=== PATIENT | female | born 1950 | race Caucasian/White ===

== ENCOUNTER 2025-08-04 18:23 | Inpatient (IN) | payer OTHER, SELFPAY ==
[2025-08-04] VITALS (12 sets, daily range): BP systolic 146–182; BP diastolic 67–78; PULSE 62–82; RESP 16–18; TEMP 36.1–36.8; O2SAT 94–98; BMI 24.7
--- NOTE | 2025-08-04 18:31 | DI.RAD.S_ITS ---
PROCEDURE: XR HIP W PEL IF DONE RT 2V INDICATIONS: fall/hip pain/rotated/shortened TECHNIQUE: 2 views of the hip were acquired. COMPARISON: None. FINDINGS/IMPRESSION: Displaced, comminuted and foreshortened intratrochanteric fracture of the right femur. Dictated by: Jerry Kelsey M.D. on 08/04/2025 at 19:58 Approved by: Jerry Kelsey M.D. on 08/04/2025 at 19:58
--- NOTE | 2025-08-04 18:36 | DI.RAD.S_ITS ---
PROCEDURE: XR CHEST 1V INDICATIONS: fall injured right hip TECHNIQUE: One view of the chest was acquired. COMPARISON: None. FINDINGS: Surgical changes and devices: Prior CABG Lungs and pleura: Lungs are clear. No pleural effusions or pneumothorax. Mediastinum: Mediastinal contours appear normal. Heart size is enlarged. Bones and chest wall: Fractured right humeral neck. IMPRESSION: Fractured right humeral neck, uncertain age. Dictated by: Jerry Kelsey M.D. on 08/04/2025 at 20:01 Approved by: Jerry Kelsey M.D. on 08/04/2025 at 20:02
--- NOTE | 2025-08-04 18:37 | ED_ITS ---
HPI - Extremity Injury (Lower) <Dannielle Madrid PA-C - Last Filed: 08/04/25 19:11> General Chief Complaint: Fall Stated Complaint: FAll R hip pn Time Seen by Provider: 08/04/25 18:26 History of Present Illness HPI Narrative: Ms. Fleming is a pleasant 75-year-old female with a past medical history of HTN, recent right shoulder fracture who presents to the emergency department with her friend via private vehicle for right hip pain after a fall prior to arrival. She is not on blood thinners. Patient and her friend report that she was stepping up onto a curb at the [facility] when she tripped causing her to fall forward landing directly on the right hip. She was on her way to her home on [place]. Patient ambulates independently however since her right arm has been in a sling she is slightly off balance. Patient states that she did not hit her head and friend who witnessed the fall states he did not see a head strike. Patient reports at this time she only has pain of the right hip. Denies headache, neck pain, back pain, chest pain, abdominal pain, right upper extremity pain, left upper extremity pain, left lower extremity pain. She denies pain of bilateral feet, ankles, knees. She denies prior injury to the right hip. At this time her leg is shortened and externally rotated on the right-hand side. She is able to move her foot and has sensation of the right foot. She denies any bleeding wounds. Reports her only medication allergies are penicillin. She takes metoprolol and amlodipine for blood pressure. She does have somewhat slow speech, her friend that she lives with states that this is normal for her and is not indicative of her mental status but is because she needs dental implants. R shoulder fracture 07/24/25. Related Data Allergies Allergy/AdvReac Type Severity Reaction Status Date / Time PENICILLIN Allergy Severe ANAPHYLAXIS Uncoded 08/04/25 18:49 <Petar Murphy MD - Last Filed: 08/04/25 22:36> History of Present Illness HPI Narrative: Ms. Fleming is a pleasant 75-year-old female with a past medical history of HTN, recent right shoulder fracture who presents to the emergency department with her friend via private vehicle for right hip pain after a fall prior to arrival. She is not on blood thinners. Patient and her friend report that she was stepping up onto a curb at the [facility] when she tripped causing her to fall forward landing directly on the right hip. She was on her way to her home on [place]. Patient ambulates independently however since her right arm has been in a sling she is slightly off balance. Patient states that she did not hit her head and friend who witnessed the fall states he did not see a head strike. Patient reports at this time she only has pain of the right hip. Denies headache, neck pain, back pain, chest pain, abdominal pain, right upper extremity pain, left upper extremity pain, left lower extremity pain. She denies pain of bilateral feet, ankles, knees. She denies prior injury to the right hip. At this time her leg is shortened and externally rotated on the right-hand side. She is able to move her foot and has sensation of the right foot. She denies any bleeding wounds. Reports her only medication allergies are penicillin. She takes metoprolol and amlodipine for blood pressure. She does have somewhat slow speech, her friend that she lives with states that this is normal for her and is not indicative of her mental status but is because she needs dental implants. R shoulder fracture 07/24/25. Review of Systems <Dannielle Madrid PA-C - Last Filed: 08/04/25 19:11> Review of Systems ROS Unobtainable: All systems reviewed & are unremarkable except as noted in HPI and below Patient History <Dannielle Madrid PA-C - Last Filed: 08/04/25 19:11> Social History Smoking Status: Never smoker Exam <Dannielle Madrid PA-C - Last Filed: 08/04/25 19:11> Narrative Exam Narrative: GENERAL: 75 year old patient appears stated age. Well-developed patient, in pain 2/2 R hip. HEAD: Atraumatic. Normocephalic. EYES: PERRL. Extraocular motions intact. No scleral icterus. No injection or drainage. NECK: Trachea midline. Cervical ROM intact. CARDIOVASCULAR: Regular rate and rhythm. RESPIRATORY: ?Nonlabored respirations. ?Speaking in clear, full sentences. ?Clear to auscultation. Breath sounds equal bilaterally. No wheezes, rales, or rhonchi. ? GASTROINTESTINAL: Abdomen soft, non-tender, nondistended. EXTREMITIES: Right leg is significantly shortened and externally rotated in comparison to left leg. DP pulses are palpable bilaterally and brisk cap refill in the toes. Patient has sensation intact to light touch on the dorsal and plantar aspect of the right foot. No tenderness to palpation of bilateral ankles, knees. Patient has tenderness palpation of the proximal right femur, no open fractures. No tenderness to palpation of the pubis symphysis. Right arm is in sling from prior fracture, 2+ radial pulse present. NEURO: Alert and oriented to person, place, time. Speech is slow which is reported baseline. Sensation intact to light touch on bilateral upper and lower extremities. No facial asymmetry. SKIN: No rash or erythema of visible areas Initial Vital Signs Initial Vital Signs: Vital Signs Pulse Rate 71 08/04/25 18:29 Blood Pressure 146/69 H 08/04/25 18:29 Pulse Oximetry 98 08/04/25 18:29 <Petar Murphy MD - Last Filed: 08/04/25 22:36> Narrative Exam Narrative: GENERAL: 75 year old patient appears stated age. Well-developed patient, in pain 2/2 R hip. HEAD: Atraumatic. Normocephalic. EYES: PERRL. Extraocular motions intact. No scleral icterus. No injection or drainage. NECK: Trachea midline. Cervical ROM intact. CARDIOVASCULAR: Regular rate and rhythm. Systolic murmur RESPIRATORY: ?Nonlabored respirations. ?Speaking in clear, full sentences. ?Clear to auscultation. Breath sounds equal bilaterally. No wheezes, rales, or rhonchi. ? GASTROINTESTINAL: Abdomen soft, non-tender, nondistended. EXTREMITIES: Right leg is significantly shortened and externally rotated in comparison to left leg. DP pulses are palpable bilaterally and brisk cap refill in the toes. Patient has sensation intact to light touch on the dorsal and plantar aspect of the right foot. No tenderness to palpation of bilateral ankles, knees. Patient has tenderness palpation of the proximal right femur, no open fractures. No tenderness to palpation of the pubis symphysis. Right arm is in sling from prior fracture, 2+ radial pulse present. NEURO: Alert and oriented to person, place, time. Speech is slow which is reported baseline. Sensation intact to light touch on bilateral upper and lower extremities. No facial asymmetry. SKIN: No rash or erythema of visible areas Initial Vital Signs Initial Vital Signs: Vital Signs Pulse Rate 71 08/04/25 18:29 Blood Pressure 146/69 H 08/04/25 18:29 Pulse Oximetry 98 08/04/25 18:29 Course <Dannielle Madrid PA-C - Last Filed: 08/04/25 19:11> Orders Ordered: ED Orders 08/04/25 18:31 XR hip w pel RT 2V Stat 08/04/25 18:36 XR chest 1V Stat EKG-12 Lead Stat 08/04/25 18:40 CBC Auto Diff [Complete Blood Count AUTO DIFF] Stat CMP [Comprehensive Metabolic Panel] Stat PT [Prothrombin Time INR] Stat PTT Partial Thromboplastin Philippe Stat Troponin & CK Cardiac Panel Stat 08/04/25 20:19 Consult to Orthopedic Surgery Stat 08/04/25 20:20 Urine Microscopic Stat 08/04/25 20:46 CT pelvis wo con Stat 08/04/25 20:47 Consult to Physician Routine 08/04/25 21:06 XR shoulder RT 2+ views Stat 08/05/25 05:00 Basic Metabolic Panel DAILY Complete Blood Count AUTO DIFF DAILY Acetaminophen (Acetaminophen 325 Mg Tablet) 650 mg PO Q6H PRN PRN Reason: Fever/Mild Pain (1-3) Hydrocodone Bitart/Acetaminophen (Hydrocodone/Acet 5/325 Tablet) 1 tab PO Q4H PRN PRN Reason: Pain, Moderate (4-6) Calcium Carbonate (Calcium Carbonate 500 Mg Tab) 1,000 mg PO Q4HR PRN PRN Reason: Dyspepsia Sodium Chloride (Normal Saline 0.9%) 1,000 mls @ 100 mls/hr IV CONT DEWAYNE Last Admin: 08/04/25 21:24 Dose: 100 mls/hr Documented By: ROSA M Morphine Sulfate (Morphine 4 Mg/Ml Inj) 2 mg IV Q3HR PRN PRN Reason: Pain, Severe (7-10) Naloxone HCl (Naloxone 0.4 Mg/Ml Vial) 0.2 mg IV Q2MIN PRN PRN Reason: Opiate Reversal Ondansetron HCl (Ondansetron 4 Mg/2 Ml Inj) 4 mg IV Q8HR PRN PRN Reason: Nausea And Vomiting Pantoprazole Sodium (Pantoprazole Dr 20 Mg Tablet) 20 mg PO 0600 [facility] Promethazine HCl (Promethazine 12.5 Mg Supp) 12.5 mg NH Q6HR PRN PRN Reason: Nausea And Vomiting Sennosides (Sennosides 8.6 Mg Tablet) 17.2 mg PO BEDTIME DEWAYNE Discontinued Medications Fentanyl (Fentanyl 100 Mcg/2 Ml Inj) 50 mcg IV NOW ONE Stop: 08/04/25 18:41 Last Admin: 08/04/25 19:09 Dose: Not Given Documented By: ES Hydromorphone HCl (Hydromorphone Hcl 0.5 Mg/0.5 Ml Syringe) 0.5 mg IV NOW ONE Stop: 08/04/25 18:52 Last Admin: 08/04/25 19:10 Dose: 0.5 mg Documented By: ROSA M Vital Signs Vital signs: Vital Signs - 8 hr 08/04/25 18:29 08/04/25 18:29 08/04/25 18:30 Temperature Pulse Rate 71 72 Respiratory Rate Blood Pressure 146/69 H Pulse Oximetry 98 98 Oxygen Delivery Method 08/04/25 18:30 08/04/25 18:49 08/04/25 19:00 Temperature 98.3 F Pulse Rate 69 68 Respiratory Rate 18 Blood Pressure 182/78 H 182/78 H Pulse Oximetry 98 97 Oxygen Delivery Method Room Air 08/04/25 19:17 08/04/25 19:17 08/04/25 19:30 Temperature Pulse Rate 70 62 Respiratory Rate Blood Pressure 156/67 H Pulse Oximetry 94 94 Oxygen Delivery Method 08/04/25 20:00 08/04/25 20:30 08/04/25 21:00 Temperature Pulse Rate 63 68 72 Respiratory Rate 16 Blood Pressure Pulse Oximetry 95 94 94 Oxygen Delivery Method <Petar Murphy MD - Last Filed: 08/04/25 22:36> Orders Ordered: ED Orders 08/04/25 18:31 XR hip w pel RT 2V Stat 08/04/25 18:36 XR chest 1V Stat EKG-12 Lead Stat 08/04/25 18:40 CBC Auto Diff [Complete Blood Count AUTO DIFF] Stat CMP [Comprehensive Metabolic Panel] Stat PT [Prothrombin Time INR] Stat PTT Partial Thromboplastin Philippe Stat Troponin & CK Cardiac Panel Stat 08/04/25 20:19 Consult to Orthopedic Surgery Stat 08/04/25 20:20 Urine Microscopic Stat 08/04/25 20:46 CT pelvis wo con Stat 08/04/25 20:47 Consult to Physician Routine 08/04/25 21:06 XR shoulder RT 2+ views Stat 08/05/25 05:00 Basic Metabolic Panel DAILY Complete Blood Count AUTO DIFF DAILY Acetaminophen (Acetaminophen 325 Mg Tablet) 650 mg PO Q6H PRN PRN Reason: Fever/Mild Pain (1-3) Hydrocodone Bitart/Acetaminophen (Hydrocodone/Acet 5/325 Tablet) 1 tab PO Q4H PRN PRN Reason: Pain, Moderate (4-6) Calcium Carbonate (Calcium Carbonate 500 Mg Tab) 1,000 mg PO Q4HR PRN PRN Reason: Dyspepsia Sodium Chloride (Normal Saline 0.9%) 1,000 mls @ 100 mls/hr IV CONT DEWAYNE Last Admin: 08/04/25 21:24 Dose: 100 mls/hr Documented By: ROSA M Morphine Sulfate (Morphine 4 Mg/Ml Inj) 2 mg IV Q3HR PRN PRN Reason: Pain, Severe (7-10) Naloxone HCl (Naloxone 0.4 Mg/Ml Vial) 0.2 mg IV Q2MIN PRN PRN Reason: Opiate Reversal Ondansetron HCl (Ondansetron 4 Mg/2 Ml Inj) 4 mg IV Q8HR PRN PRN Reason: Nausea And Vomiting Pantoprazole Sodium (Pantoprazole Dr 20 Mg Tablet) 20 mg PO 0600 DEWAYNE Promethazine HCl (Promethazine 12.5 Mg Supp) 12.5 mg NH Q6HR PRN PRN Reason: Nausea And Vomiting Sennosides (Sennosides 8.6 Mg Tablet) 17.2 mg PO BEDTIME DEWAYNE Discontinued Medications Fentanyl (Fentanyl 100 Mcg/2 Ml Inj) 50 mcg IV NOW ONE Stop: 08/04/25 18:41 Last Admin: 08/04/25 19:09 Dose: Not Given Documented By: MARIELOS Hydromorphone HCl (Hydromorphone Hcl 0.5 Mg/0.5 Ml Syringe) 0.5 mg IV NOW ONE Stop: 08/04/25 18:52 Last Admin: 08/04/25 19:10 Dose: 0.5 mg Documented By: ROSA M Reevaluation(s) Reevaluation #1: Patient is examined at 7:15 p.m.. Confirms ground level fall causing right hip pain. Patient is currently in a sling with a previous right shoulder fracture. No head strike, no back pain no chest pain shortness of breath or fevers. Does have a history of coronary disease status post CABG in 2007. [facility] by her . Consultations Consultation #1: D/W Dr Bustamante- will consult NPO after midnight Consultation #2: D/W hospitalist, Dr Rose, accepts admission Vital Signs Vital signs: Vital Signs - 8 hr 08/04/25 18:29 08/04/25 18:29 08/04/25 18:30 Temperature Pulse Rate 71 72 Respiratory Rate Blood Pressure 146/69 H Pulse Oximetry 98 98 Oxygen Delivery Method 08/04/25 18:30 08/04/25 18:49 08/04/25 19:00 Temperature 98.3 F Pulse Rate 69 68 Respiratory Rate 18 Blood Pressure 182/78 H 182/78 H Pulse Oximetry 98 97 Oxygen Delivery Method Room Air 08/04/25 19:17 08/04/25 19:17 08/04/25 19:30 Temperature Pulse Rate 70 62 Respiratory Rate Blood Pressure 156/67 H Pulse Oximetry 94 94 Oxygen Delivery Method 08/04/25 20:00 08/04/25 20:30 08/04/25 21:00 Temperature Pulse Rate 63 68 72 Respiratory Rate 16 Blood Pressure Pulse Oximetry 95 94 94 Oxygen Delivery Method MDM - Extremity Injury (Lower) <Dannielle Madrid PA-C - Last Filed: 08/04/25 19:11> Lab Data 08/04/25 18:40 08/04/25 18:40 Labs: Lab Results 08/04/25 08/04/25 Range/Units 18:40 20:20 WBC 11.1 H (4.5-11.0) X10^3/uL RBC 4.59 (4.0-5.2) X10^6/uL Hgb 13.1 (12.0-16.0) g/dL Hct 39.1 (36-46) % MCV 85.1 (80-100) fL MCH 28.5 (26-34) PG MCHC 33.5 (30-36) % RDW 14.7 (11.6-14.8) % Plt Count 312 (150-400) X10^3/uL Neut % (Auto) 61.1 (50-75) % Lymph % (Auto) 29.0 (25-40) % [place] % (Auto) 7.5 (3-14) % Eos % (Auto) 1.7 L (2-4) % Baso % (Auto) 0.7 (0-2) % Neut # (Auto) 6800 (3515-9954) /uL Lymph # (Auto) 3200 (5424-5966) /uL [place] # (Auto) 800 (0-900) /uL Eos # (Auto) 200 (0-450) /uL Baso # (Auto) 100 (0-100) /uL PT 13.7 H (9.4-12.5) SECONDS INR 1.2 (0.9-1.3) APTT 33 (25.1-36.5) SECONDS Sodium 135 L (137-145) mmol/L Potassium 4.1 (3.4-5.1) mmol/L Chloride 101 (98-107) mmol/L Carbon Dioxide 23 (22-32) mmol/L BUN 14 (7-17) mg/dL Creatinine 0.62 (0.52-1.04) mg/dL Estimated GFR > 60 (>60) mL/min BUN/Creatinine Ratio 22.6 H (6-22) Glucose 132 H (70-99) mg/dL Calcium 9.7 (8.4-10.2) mg/dL Total Bilirubin 0.4 (0.2-1.3) mg/dL AST 28 (14-36) IU/L ALT 20 (<35) IU/L Alkaline Phosphatase 96 (38-126) U/L Total Creatine Kinase 69 (30-135) U/L Troponin I 0.019 (0.01-0.034) ng/mL Total Protein 7.5 (6.3-8.2) g/dL Albumin 4.5 (3.5-5.0) g/dL Globulin 3.0 (1.7-4.1) g/dL Albumin/Globulin Ratio 1.5 (1.0-2.8) Urine RBC 0-1/hpf (0-5/HPF) Urine WBC 0-1/hpf (0-5/HPF) Ur Squamous Epith Cells 0-1 /hpf (0-5/HPF) Urine Bacteria Occasional (0-1) (None) Hyaline Casts 0-1/lpf (None) Urine Mucus 2+ H (Negative) Ur Culture Indicated? Cult not indicated Vol Urine Centrifuged 10ml (spun) Urine Dip Bedside Urine Glucose Negative Bedside Urine Bilirubin - Negative Bedside Urine Ketone ++ 40 Urine Specific Dickens 1.010 Bedside Urine Occult Blood - Negative Bedside Urine pH 6.0 Bedside Urine Protein - Negative Bedside Urine Urobilinogen - Negative Bedside Urine Nitrite - Negative Bedside Urine Leukocytes - Negative Esterase MDM Narrative Medical decision making narrative: 75-year-old female with a past medical history of HTN, recent right shoulder fracture who presents to the emergency department with her friend via private vehicle for right hip pain after a fall prior to arrival. She is not on blood thinners. Patient's friend/person she lives with, Low, contributes to the history. Differential diagnosis includes but is not limited to right hip fracture, dislocation, contusion, mechanical fall, etc. On exam the patient is in no acute distress, nontoxic appearing, vital signs appropriate except for mildly elevated blood pressure. Her right leg is shortened and externally rotated. Right leg is neurovascularly intact. Patient denies head strike. She reports only having right hip pain, no other pain, no head strike, no blood thinners. Her speech is somewhat slowed however her friend reports that this is normal for her. She is alert and oriented. We will obtain x-ray right hip/pelvis, chest x-ray, CBC, CMP, coags, EKG, troponin. We will treat pain with Dilaudid. Due to shift change, case was discussed the nighttime physician, Dr. Murphy. <Petar Murphy MD - Last Filed: 08/04/25 22:36> Lab Data Lab results narrative: CBC shows a minimal leukocytosis probably not clinically significant. Chemistries are reassuring her glucose is mildly elevated. Labs: Lab Results 08/04/25 08/04/25 Range/Units 18:40 20:20 WBC 11.1 H (4.5-11.0) X10^3/uL RBC 4.59 (4.0-5.2) X10^6/uL Hgb 13.1 (12.0-16.0) g/dL Hct 39.1 (36-46) % MCV 85.1 (80-100) fL MCH 28.5 (26-34) PG MCHC 33.5 (30-36) % RDW 14.7 (11.6-14.8) % Plt Count 312 (150-400) X10^3/uL Neut % (Auto) 61.1 (50-75) % Lymph % (Auto) 29.0 (25-40) % [place] % (Auto) 7.5 (3-14) % Eos % (Auto) 1.7 L (2-4) % Baso % (Auto) 0.7 (0-2) % Neut # (Auto) 6800 (0120-1572) /uL Lymph # (Auto) 3200 (5929-0537) /uL [place] # (Auto) 800 (0-900) /uL Eos # (Auto) 200 (0-450) /uL Baso # (Auto) 100 (0-100) /uL PT 13.7 H (9.4-12.5) SECONDS INR 1.2 (0.9-1.3) APTT 33 (25.1-36.5) SECONDS Sodium 135 L (137-145) mmol/L Potassium 4.1 (3.4-5.1) mmol/L Chloride 101 (98-107) mmol/L Carbon Dioxide 23 (22-32) mmol/L BUN 14 (7-17) mg/dL Creatinine 0.62 (0.52-1.04) mg/dL Estimated GFR > 60 (>60) mL/min BUN/Creatinine Ratio 22.6 H (6-22) Glucose 132 H (70-99) mg/dL Calcium 9.7 (8.4-10.2) mg/dL Total Bilirubin 0.4 (0.2-1.3) mg/dL AST 28 (14-36) IU/L ALT 20 (<35) IU/L Alkaline Phosphatase 96 (38-126) U/L Total Creatine Kinase 69 (30-135) U/L Troponin I 0.019 (0.01-0.034) ng/mL Total Protein 7.5 (6.3-8.2) g/dL Albumin 4.5 (3.5-5.0) g/dL Globulin 3.0 (1.7-4.1) g/dL Albumin/Globulin Ratio 1.5 (1.0-2.8) Urine RBC 0-1/hpf (0-5/HPF) Urine WBC 0-1/hpf (0-5/HPF) Ur Squamous Epith Cells 0-1 /hpf (0-5/HPF) Urine Bacteria Occasional (0-1) (None) Hyaline Casts 0-1/lpf (None) Urine Mucus 2+ H (Negative) Ur Culture Indicated? Cult not indicated Vol Urine Centrifuged 10ml (spun) Urine Dip Bedside Urine Glucose Negative Bedside Urine Bilirubin - Negative Bedside Urine Ketone ++ 40 Urine Specific Dickens 1.010 Bedside Urine Occult Blood - Negative Bedside Urine pH 6.0 Bedside Urine Protein - Negative Bedside Urine Urobilinogen - Negative Bedside Urine Nitrite - Negative Bedside Urine Leukocytes - Negative Esterase Imaging Data right hip: My Impression: Intertrochanteric fracture right hip Radiologist's Impression: [address] [address] XRay Report Signed Patient: Camille Fleming MR#: [id number] : 1950 Acct:[id number] Age/Sex: 75 / F Date of Service: 08/04/25 Loc: ED Accession Number: [id number] Procedure: XR hip w pel RT 2V Ordering Provider: Dannielle Madrid PA-C PROCEDURE: XR HIP W PEL IF DONE RT 2V INDICATIONS: fall/hip pain/rotated/shortened TECHNIQUE: 2 views of the hip were acquired. COMPARISON: None. FINDINGS/IMPRESSION: Displaced, comminuted and foreshortened intratrochanteric fracture of the right femur. Dictated by: Jerry Kelsey M.D. on 08/04/2025 at 19:58 Approved by: Jerry Kelsey M.D. on 08/04/2025 at 19:58 Chest x-ray: My Impression: No acute findings in the chest, previously known right humeral fracture Radiologist's Impression: Radiology report indicates no acute cardiopulmonary abnormality. ECG Data Attestation: I personally reviewed and interpreted this ECG as follows: (Normal sinus rhythm, LVH, lateral T-wave inversion no old EKG available for comparison) MDM Narrative Medical decision making narrative: 75-year-old female with a past medical history of HTN, recent right shoulder fracture who presents to the emergency department with her friend via private vehicle for right hip pain after a fall prior to arrival. She is not on blood thinners. Patient's friend/person she lives with, Low, contributes to the history. Differential diagnosis includes but is not limited to right hip fracture, dislocation, contusion, mechanical fall, etc. On exam the patient is in no acute distress, nontoxic appearing, vital signs appropriate except for mildly elevated blood pressure. Her right leg is shortened and externally rotated. Right leg is neurovascularly intact. Patient denies head strike. She reports only having right hip pain, no other pain, no head strike, no blood thinners. Her speech is somewhat slowed however her friend reports that this is normal for her. She is alert and oriented. We will obtain x-ray right hip/pelvis, chest x-ray, CBC, CMP, coags, EKG, troponin. We will treat pain with Dilaudid. Due to shift change, case was discussed the nighttime physician, Dr. Murphy. Patient is admitted to the hospitalist service with orthopedics consulting. Additional imaging including CT pelvis and right shoulder x-ray ordered at the request of Orthopedic surgery and I do not expect these to altered emergency department course Discharge Plan Departure Patient Disposition: Admitted As Inpatient Clinical Impression: Closed right hip fracture Qualifiers: Encounter type: initial encounter Qualified Code(s): S72.001A - Fracture of unspecified part of neck of right femur, initial encounter for closed fracture Admit Date/Time: 08/04/25 21:34 Admit Provider: Kenneth Rose
--- NOTE | 2025-08-04 18:52 | EKG_ITS ---
[address] [address] [place] [address] Test Date: 2025-08-04 Pat Name: Camille Fleming Department: [facility] Room: Gender: Female Network Lead: TRAVIS : 1950 Requested By: Order Number: [id number] Reading MD: Arash Estrada Measurements Intervals [place] Rate: 70 P: 83 [place]: 154 QRS: 72 QRSD: 76 T: 210 QT: 412 QTc: 444 Interpretive Statements Normal sinus rhythm Possible Left atrial enlargement Left ventricular hypertrophy ( Sokolow-Reid , Romhilt-Rahman ) Cannot rule out Septal infarct , age undetermined ST & T wave abnormality, consider inferolateral ischemia Electronically Signed On 08-04-2025 19:05:37 PST by Arash Estrada
[2025-08-04 18:54] LABS: Add Manual Diff / Slide Review NO; Hematocrit 39.1 % (36-46); Hemoglobin 13.1 g/dL (12.0-16.0); Lymphocytes Absolute Auto 3200 /uL (1100-4500); Mean Corpuscular HGB Conc 33.5 % (30-36); Mean Corpuscular Hemoglobin 28.5 PG (26-34); Mean Corpuscular Volume 85.1 fL (80-100); Platelet Count 312 X10^3/uL (150-400)
[2025-08-04 19:03] LABS: INR 1.2 (0.9-1.3); Prothrombin Time 13.7 SECONDS (9.4-12.5)
[2025-08-04 19:06] LABS: PTT Partial Thromboplastin Tim 33 SECONDS (25.1-36.5)
[2025-08-04 19:07] LABS: Alanine Aminotransferase 20 IU/L (<35); Albumin 4.5 g/dL (3.5-5.0); Albumin Globulin Ratio 1.5 (1.0-2.8); Alkaline Phosphatase 96 U/L (38-126); Blood Urea Nitrogen 14 mg/dL (7-17); Calcium 9.7 mg/dL (8.4-10.2); Carbon Dioxide 23 mmol/L (22-32); Chloride 101 mmol/L (98-107); Creatine Kinase 69 U/L (30-135); Estimated Glomerular Filt Rate > 60 mL/min (>60); Globulin 3.0 g/dL (1.7-4.1); Glucose 132 mg/dL (70-99); HEMOLYSIS 23 (0-50); Potassium 4.1 mmol/L (3.4-5.1); Sodium 135 mmol/L (137-145); Total Protein 7.5 g/dL (6.3-8.2)
[2025-08-04 19:19] LABS: Troponin I 0.019 ng/mL (0.01-0.034)
--- NOTE | 2025-08-04 20:46 | DI.CT.S_ITS ---
PROCEDURE: CT PEL WO CON INDICATIONS: hip fracture TECHNIQUE: Noncontrast 3 mm axial sections acquired through the bony pelvis, with coronal and sagittal reformatting. COMPARISON: [facility], CR, XR HIP W PEL RT 2V, 08/04/2025, 19:43. FINDINGS: Image quality: Excellent. Bones: There is a comminuted intertrochanteric right femoral fracture with fracture lucency extending to the proximal diaphysis. No dislocation at the hip joint. Soft tissues: Colonic diverticula without inflammatory change. Atherosclerotic calcification of the distal aorta with luminal narrowing, measuring 9 mm. 50- 75% stenosis is present within the proximal common iliac arteries bilaterally. Prominent stool within the rectum. IMPRESSION: Comminuted intertrochanteric right femoral fracture as above. No dislocation. Dictated by: Suni Quintero M.D. on 08/04/2025 at 21:17 Approved by: Suni Quintero M.D. on 08/04/2025 at 21:19
--- NOTE | 2025-08-04 21:06 | DI.RAD.S_ITS ---
PROCEDURE: XR SHOULDER RT MIN 2V INDICATIONS: shouldr fx TECHNIQUE: 3 views of the shoulder were acquired. COMPARISON: None. FINDINGS: Bones: Comminuted and impacted humeral head/neck fracture. There is minimal inferior subluxation at the glenohumeral joint space. Adjacent osseous structures are intact. Fracture lucencies extend through the greater tuberosity. Soft tissues: No suspicious soft tissue calcifications. IMPRESSION: Comminuted impacted humeral head/neck fracture without dislocation. Dictated by: Suni Quintero M.D. on 08/04/2025 at 21:21 Approved by: Suni Quintero M.D. on 08/04/2025 at 21:22
[2025-08-04] MEDS: SODIUM CHLORIDE 0.9% 1,000 ML 100 ML IV (21:24)
--- NOTE | 2025-08-04 21:38 | P.HP_ITS ---
History of Present Illness History of Present Illness Date Patient Seen: 08/04/25 Time Patient Seen: 08:30 Date of Onset of Symptoms: 08/04/25 Chief complaint: FAll R hip pn Narrative: 75-year-old female with right hip pain ground level after tripping. She has a history of coronary artery disease with quadruple bypass surgery. She had a recent right proximal humerus fracture sustained 1 month ago. She is still in a sling. She denies pain at the shoulder. Currently she is only having pain at her right hip. She she normally ambulates independently. She normally lives in [facility] however she has also has a [facility] that she was visiting. Physical exam reveals a well-developed well-nourished 75-year-old in no acute distress Evaluation of her right shoulder demonstrates her skin is intact. She has no tenderness to palpation about the shoulder. Distally she is neurovascularly intact and fires her EPL, FPL interosseous muscles. Her sensation intact to light touch in the radial ulnar and median nerve distributions. Her radial pulses 2+ and she has brisk capillary refill Evaluation of her upper extremity demonstrates that her leg is shortened and externally rotated. Her sensation intact to light touch in the saphenous, sural, tibial, deep peroneal and superficial peroneal nerve distributions She fires her tibialis anterior, gastroc soleus, EHL and FHL. Her dorsalis pedis pulses 2+ and she has brisk capillary refill. X-rays of her right shoulder demonstrate a comminuted healing proximal humerus fracture. X-rays of her right hip and CT scan of the right hip demonstrate a comminuted intertrochanteric right hip fracture. [facility] Social History Smoking Status: Never smoker Meds Home Medications and Allergies Allergies Allergy/AdvReac Type Severity Reaction Status Date / Time PENICILLIN Allergy Severe ANAPHYLAXIS Uncoded 08/04/25 18:49 Exam Vital Signs (past 8 hours): - 08/04/25 18:29 08/04/25 18:29 08/04/25 18:30 Temperature Pulse Rate 71 72 Respiratory Rate Blood Pressure 146/69 H Pulse Oximetry 98 98 Oxygen Delivery Method 08/04/25 18:30 08/04/25 18:49 08/04/25 19:00 Temperature 98.3 F Pulse Rate 69 68 Respiratory Rate 18 Blood Pressure 182/78 H 182/78 H Pulse Oximetry 98 97 Oxygen Delivery Method Room Air 08/04/25 19:17 08/04/25 19:17 08/04/25 19:30 Temperature Pulse Rate 70 62 Respiratory Rate Blood Pressure 156/67 H Pulse Oximetry 94 94 Oxygen Delivery Method 08/04/25 20:00 08/04/25 20:30 08/04/25 21:00 Temperature Pulse Rate 63 68 72 Respiratory Rate 16 Blood Pressure Pulse Oximetry 95 94 94 Oxygen Delivery Method Oxygen Delivery Method Room Air Objective Labs 08/04/25 18:40 08/04/25 18:40 Labs: Laboratory Results - last 24 hr 08/04/25 18:40 WBC 11.1 H RBC 4.59 Hgb 13.1 Hct 39.1 MCV 85.1 MCH 28.5 MCHC 33.5 RDW 14.7 Plt Count 312 Neut % (Auto) 61.1 Lymph % (Auto) 29.0 [place] % (Auto) 7.5 Eos % (Auto) 1.7 L Baso % (Auto) 0.7 Neut # (Auto) 6800 Lymph # (Auto) 3200 [place] # (Auto) 800 Eos # (Auto) 200 Baso # (Auto) 100 PT 13.7 H INR 1.2 APTT 33 Sodium 135 L Potassium 4.1 Chloride 101 Carbon Dioxide 23 BUN 14 Creatinine 0.62 Estimated GFR > 60 BUN/Creatinine Ratio 22.6 H Glucose 132 H Calcium 9.7 Total Bilirubin 0.4 AST 28 ALT 20 Alkaline Phosphatase 96 Total Creatine Kinase 69 Troponin I 0.019 Total Protein 7.5 Albumin 4.5 Globulin 3.0 Albumin/Globulin Ratio 1.5 Assessment & Plan Assessment and plan (1) Closed intertrochanteric fracture of hip: Qualifiers: Encounter type: initial encounter Fracture alignment: displaced L aterality: right Qualified Code(s): S72.141A - Displaced intertrochanteric fracture of right femur, initial encounter for closed fracture Status: Acute Plan I discussed the risks, benefits and alternatives of surgical versus nonsurgical treatment with the patient and her friend who has a power of senior attorney. I have discussed the risks of surgeryto include but not limited to damage to arteries, veins, nerves, need for additional surgery, risks of blood clots and risks of pulmonary embolus as well as risks of wound breakdown and infection. Also risks of malunion and nonunion. I discussed the risks of nonsurgical treatment to include inability to ambulate as well as risks of blood clots and pneumonia. She understands all the risks all her questions were answered. She will be consented for right cephalomedullary nail. Surgery is scheduled for 08/05/2025 -NPO after midnight -PT and OT following surgery for her weight-bearing as tolerated. This will present to difficulty since she had this recent proximal humerus fracture on the right side that is incompletely healed. -anticoagulation post surgery should include at least aspirin b.i.d. Time-Based Coding :: [TOTAL MINUTES] spent with patient and on the chart (including review of chart, obtaining history, exam, reviewing outside data, placing orders, documenting exam and treatment plan, and counseling patient) on [DATE]. [employer] Document charge(s): Yes
[2025-08-04 22:02] LABS: Culture Indicated Urine Cult Not Indicated
[2025-08-04] MEDS: SENNOSIDES 8.6 MG TABLET 17.2 MG PO (23:49)
[2025-08-05] VITALS (13 sets, daily range): BP systolic 119–175; BP diastolic 49–83; PULSE 60–90; RESP 14–18; TEMP 35.8–37.3; O2SAT 93–98
--- NOTE | 2025-08-05 | DI.RAD.S_ITS ---
PROCEDURE: XR FEMUR RT MIN 2V INDICATIONS: Cephalomedullary nail TECHNIQUE: 5 operative views of the femur were acquired. COMPARISON: [facility], , XR FEMUR RT MIN 2V, 08/05/2025, 17:08. FINDINGS: 5 operative images obtained during ORIF of a right hip fracture. IMPRESSION: Operative imaging utilized during ORIF of a right hip fracture. Dictated by: Grady Wilson M.D. on 08/05/2025 at 18:35 Approved by: Grady Wilson M.D. on 08/05/2025 at 18:38
--- NOTE | 2025-08-05 00:18 | P.HP_ITS ---
History of Present Illness History of Present Illness Date Patient Seen: 08/05/25 Time Patient Seen: 00:19 Chief complaint: FAll R hip pn Narrative: The pt is a 75 yo who was walking outside when she slipped and tripped on a curb landing on her right hip having immediate pain. The pt tripped several weeks ago and fractured her Rt humerus and is in a sling. She has a hx of CAD with a CABG about 20 years ago and has hypertension which her (who answered all the questions) states is under very good control. She normally has some difficulty with ambulation but they deny having trouble with ADL's. [facility] Social History household members: significant other Smoking Status: Never smoker alcohol intake: never Meds Home Medications and Allergies Home Medications ?Medication ?Instructions ?Recorded ?Confirmed ?Type amlodipine 10 mg tablet 10 mg PO DAILY 08/04/2507/12 History aspirin 81 mg tablet,delayed 81 mg PO DAILY 08/04/25 1 10/04/24 History release metoprolol succinate 50 mg 50 mg PO DAILY 08/04/25 History tablet,extended release 24 hr Allergies Allergy/AdvReac Type Severity Reaction Status Date / Time PENICILLIN Allergy Severe ANAPHYLAXIS Uncoded 08/04/25 18:49 Exam Vital Signs (past 8 hours): - 08/04/25 18:29 08/04/25 18:29 08/04/25 18:30 Temperature Pulse Rate 71 72 Respiratory Rate Blood Pressure 146/69 H Pulse Oximetry 98 98 Oxygen Delivery Method 08/04/25 18:30 08/04/25 18:49 08/04/25 19:00 Temperature 98.3 F Pulse Rate 69 68 Respiratory Rate 18 Blood Pressure 182/78 H 182/78 H Pulse Oximetry 98 97 Oxygen Delivery Method Room Air 08/04/25 19:17 08/04/25 19:17 08/04/25 19:30 Temperature Pulse Rate 70 62 Respiratory Rate Blood Pressure 156/67 H Pulse Oximetry 94 94 Oxygen Delivery Method 08/04/25 20:00 08/04/25 20:30 08/04/25 21:00 Temperature Pulse Rate 63 68 72 Respiratory Rate 16 Blood Pressure Pulse Oximetry 95 94 94 Oxygen Delivery Method 08/04/25 21:30 08/04/25 22:00 Temperature Pulse Rate 68 68 Respiratory Rate Blood Pressure Pulse Oximetry 95 96 Oxygen Delivery Method Oxygen Delivery Method Room Air Const General: cooperative and comfortable Other: Due to technical issues, I was unable to examine the pt but was able to visualize the pt and talk with them. Objective Labs 08/04/25 18:40 08/04/25 18:40 Labs: Laboratory Results - last 24 hr 08/04/25 08/04/25 18:40 20:20 WBC 11.1 H RBC 4.59 Hgb 13.1 Hct 39.1 MCV 85.1 MCH 28.5 MCHC 33.5 RDW 14.7 Plt Count 312 Neut % (Auto) 61.1 Lymph % (Auto) 29.0 [place] % (Auto) 7.5 Eos % (Auto) 1.7 L Baso % (Auto) 0.7 Neut # (Auto) 6800 Lymph # (Auto) 3200 [place] # (Auto) 800 Eos # (Auto) 200 Baso # (Auto) 100 PT 13.7 H INR 1.2 APTT 33 Sodium 135 L Potassium 4.1 Chloride 101 Carbon Dioxide 23 BUN 14 Creatinine 0.62 Estimated GFR > 60 BUN/Creatinine Ratio 22.6 H Glucose 132 H Calcium 9.7 Total Bilirubin 0.4 AST 28 ALT 20 Alkaline Phosphatase 96 Total Creatine Kinase 69 Troponin I 0.019 Total Protein 7.5 Albumin 4.5 Globulin 3.0 Albumin/Globulin Ratio 1.5 Urine RBC 0-1/hpf Urine WBC 0-1/hpf Ur Squamous Epith Cells 0-1 /hpf Urine Bacteria Occasional (0-1) Hyaline Casts 0-1/lpf Urine Mucus 2+ H Ur Culture Indicated? Cult not indicated Vol Urine Centrifuged 10ml (spun) Assessment & Plan Assessment & Plan narrative: I have talked with the Er provider regarding the pt's presenting symptoms, labs and imaging and agree with the decision for admission. I have personally reviewed the labs showing the WBC of 11.1, normal electrolytes, and reviewed the X-rays showing the fracture. Orthopedics, Dr. Bustamante, has been consulted through the ER, and will be evaluating the pt in the morning. She will be NPO after midnight, IVF started, antiemetics and pain meds ordered PRN. I, Dr. Kenneth Rose in [place] has seen and examined Camille Fleming in [place] using telemedicine audio/ video with the pt's consent and nursing assistance. Time-Based Coding :: [TOTAL MINUTES] spent with patient and on the chart (including review of chart, obtaining history, exam, reviewing outside data, placing orders, documenting exam and treatment plan, and counseling patient) on [DATE].
[2025-08-05] MEDS: SODIUM CHLORIDE 0.9% FLUSH 10 ML IV (04:45)
[2025-08-05] MEDS: ONDANSETRON 4 MG/2 ML INJ IV (04:45)
[2025-08-05 05:28] LABS: Add Manual Diff / Slide Review NO; Hematocrit 30.5 % (36-46); Hemoglobin 10.6 g/dL (12.0-16.0); Lymphocytes Absolute Auto 1800 /uL (1100-4500); Mean Corpuscular HGB Conc 34.7 % (30-36); Mean Corpuscular Hemoglobin 29.4 PG (26-34); Mean Corpuscular Volume 84.6 fL (80-100); Platelet Count 237 X10^3/uL (150-400)
[2025-08-05 05:35] LABS: Blood Urea Nitrogen 16 mg/dL (7-17); Calcium 9.2 mg/dL (8.4-10.2); Carbon Dioxide 25 mmol/L (22-32); Chloride 104 mmol/L (98-107); Estimated Glomerular Filt Rate > 60 mL/min (>60); Glucose 113 mg/dL (70-99); HEMOLYSIS < 15 (0-50); Potassium 4.1 mmol/L (3.4-5.1); Sodium 135 mmol/L (137-145)
[2025-08-05] MEDS: PANTOPRAZOLE DR 20 MG TABLET PO (06:19)
[2025-08-05] MEDS: SODIUM CHLORIDE 0.9% 1,000 ML 100 ML IV (07:07)
--- NOTE | 2025-08-05 07:53 | PM.HP.1 ---
History of Present Illness History of Present Illness Chief complaint: FAll R hip pn Narrative: Summary: The pt is a 75 yo who was walking outside when she slipped and tripped on a curb landing on her right hip having immediate pain. The pt tripped several weeks ago and fractured her Rt humerus and is in a sling. She has a hx of CAD with a CABG about 20 years ago and has hypertension which her (who answered all the questions) states is under very good control. She normally has some difficulty with ambulation but they deny having trouble with ADL's. S: This morning, she mentioned squeezing chest pressures for about 3 months. Her ECG is abnormal. In addition, she had a [address] [facility] in about 2007. She was had no cardiology follow up in years. She was concerned about the status of her heart in his surgery. ROS: All else reviewed and otherwise unremarkable except as noted in the history and physical. O: VSS NAD, alert and oriented, fluent speech, calm. Normocephalic skull, EOMI, anicteric sclera, symmetric pupils. Oropharynx unremarkable, no droop. Neck supple, midline trachea, no adenopathy. Lungs clear, normal rate and effort. Heart regular, no murmur gallop or rub. Abdomen is soft, non distended and non tender. Extremities are free of edema. Skin is free of rash or lesions. Joints are not swollen or deformed. Judgment appears to be normal. IMAGING: X-rays of her right shoulder demonstrate a comminuted healing proximal humerus fracture. X-rays of her right hip and CT scan of the right hip demonstrate a comminuted intertrochanteric right hip fracture. A/P: 1. Right hip fracture, active. 2. CAD, CABG. Stable. 3. HTN, stable. 4. Abnormal ECG. PLAN: -Ortho consult appreciated -continue chronic ASA and metoprolol. -Monitor troponins. -urgent echo to assess LV function. She also has a murmur. -we will discuss results with Cardiology when available. -surgery will be placed on standby until we complete this evaluation. Full code. Has been his proxy decision maker. She lives in [place], [place]. [facility] Social History household members: significant other Smoking Status: Never smoker alcohol intake: never Meds Home Medications and Allergies Home Medications ?Medication ?Instructions ?Recorded ?Confirmed ?Type amlodipine 10 mg tablet 10 mg PO DAILY 08/04/25 08/04/25 History aspirin 81 mg tablet,delayed 81 mg PO DAILY 08/04/25 08/04/25 History release metoprolol succinate 50 mg 50 mg PO DAILY 08/04/25 08/04/25 History tablet,extended release 24 hr Allergies Allergy/AdvReac Type Severity Reaction Status Date / Time PENICILLIN Allergy Severe ANAPHYLAXIS Uncoded 08/04/25 18:49 Exam Vital Signs (past 8 hours): Oxygen Delivery Method Room Air Oxygen Flow Rate 0 Objective Labs 08/05/25 05:10 08/05/25 05:10 Labs: Laboratory Results - last 24 hr 08/04/25 08/04/25 08/05/25 18:40 20:20 05:10 WBC 11.1 H 9.0 RBC 4.59 3.61 L Hgb 13.1 10.6 L Hct 39.1 30.5 L MCV 85.1 84.6 MCH 28.5 29.4 MCHC 33.5 34.7 RDW 14.7 14.5 Plt Count 312 237 Neut % (Auto) 61.1 71.2 Lymph % (Auto) 29.0 19.5 L [place] % (Auto) 7.5 8.5 Eos % (Auto) 1.7 L 0.2 L Baso % (Auto) 0.7 0.6 Neut # (Auto) 6800 6400 Lymph # (Auto) 3200 1800 [place] # (Auto) 800 800 Eos # (Auto) 200 0 Baso # (Auto) 100 100 PT 13.7 H INR 1.2 APTT 33 Sodium 135 L 135 L Potassium 4.1 4.1 Chloride 101 104 Carbon Dioxide 23 25 BUN 14 16 Creatinine 0.62 0.58 Estimated GFR > 60 > 60 BUN/Creatinine Ratio 22.6 H 27.6 H Glucose 132 H 113 H Calcium 9.7 9.2 Total Bilirubin 0.4 AST 28 ALT 20 Alkaline Phosphatase 96 Total Creatine Kinase 69 Troponin I 0.019 Total Protein 7.5 Albumin 4.5 Globulin 3.0 Albumin/Globulin Ratio 1.5 Urine RBC 0-1/hpf Urine WBC 0-1/hpf Ur Squamous Epith Cells 0-1 /hpf Urine Bacteria Occasional (0-1) Hyaline Casts 0-1/lpf Urine Mucus 2+ H Ur Culture Indicated? Cult not indicated Vol Urine Centrifuged 10ml (spun) Assessment & Plan Time-Based Coding :: 35 min spent with patient and on the chart (including review of chart, obtaining history, exam, reviewing outside data, placing orders, documenting exam and treatment plan, and counseling patient) on 08/05. Quality MIPS - Admit The patient?s Advance Care plan is not present because I confirmed today that the patient does not wish or was not able to name a surrogate decision maker or provide an Advance Care Plan.: Yes MIPS - Meds 'Current medications' to include all prescriptions, [id number] products, herbals, cannabis/cannabidiol products, and vitamin/mineral/dietary (nutritional) supplements. I have utilized all available resources to obtain, update, or review the patient?s current medications. [If Yes, STOP here]: Yes
--- NOTE | 2025-08-05 08:50 | DI.ECHO.S_ITS ---
[facility] : : [address] : : [place] : : [id number] : : Phone: [phone] Echocardiogram Report + + :Name: ABEL PADILLA Study Date: 08/05/2025 Height: 62 in : :[facility] : Weight: 135 lb : : Gender: Female BSA: 1.6 m2 : :: 1950 Age: 75 yrs BP: 158/63 mmHg: :Reason For Study: ABNORMAL EKG : :Ordering Physician: CT, : :HENRIETTA Momin CRNA Performed By: Felix Loya : :Referring: UNSPECIFIED : + + Interpretation Summary - The left ventricular contractility is normal. Estimated ejection fraction is greater than 55% with no segmental wall motion abnormalities. Mild concentric LVH. Grade 1 diastolic dysfunction. - The right ventricular contractility is normal. - Moderate left atrial enlargement. All other cardiac chambers are of normal size. - Moderate mitral annular calcifications with mild mitral valvular stenosis. Mean gradient is 4.2 mmHg. - Moderate aortic valvular stenosis with peak velocity of 3.1 m/s. Mean gradient of 25.1 mmHg. Dimensionless index of 0.45. - No obvious intracardiac shunts. - No obvious intracardiac masses nor thrombi. - No hemodynamically significant pericardial effusion. - Low right-sided filling pressures. Conclusion: Normal biventricular systolic function with mild to moderate valvular stenoses. Procedure: A two-dimensional transthoracic echocardiogram with color flow and Doppler was performed. The study quality was technically adequate. There is no prior echocardiogram noted for this patient. The patient was in normal sinus rhythm during the exam. Left Ventricle: The left ventricle is normal in size. There is normal left ventricular wall thickness. There is no ventricular septal defect visualized. The ejection fraction is estimated to be 55-60%. There are no focal wall motion abnormalities. Grade I diastolic dysfunction with normal left atrial pressure. Right Ventricle: The right ventricle is normal in size and function. Atria: The left atrium is moderately dilated. Right atrial size is normal. There is no Doppler evidence for an interatrial shunt. Mitral Valve: There is moderate mitral annular calcification. The mitral valve leaflets appear mildly thickened. There is mild mitral stenosis. The mitral valve mean gradient is 4.2 mmHg. There is no mitral regurgitation noted. Aortic Valve: The aortic valve is trileaflet. The aortic valve is moderately calcified. There is moderate aortic stenosis. The peak aortic velocity is 3.07 m/sec. The aortic valve mean gradient is 25.1 mmHg. No aortic regurgitation is present. Tricuspid Valve: The tricuspid valve is not well visualized, but is grossly normal. No tricuspid regurgitation. Pulmonic Valve: The pulmonic valve leaflets are thin and pliable; valve motion is normal. There is trace pulmonic regurgitation. Great Vessels: The aortic root is normal size. The ascending aorta is at the upper limits of normal in size. The pulmonary artery is normal size. The IVC is of normal diameter and collapses greater than 50% with a sniff. This suggests a low right atrial pressure of 3 mm Hg. Pericardium/ Pleura There is no pericardial effusion. There is no pleural effusion. MMode/2D Measurements & Calculations LVIDd: 4.9 cm LVOT diam: 1.9 cm LVIDs: 3.8 cm Ao root diam: 2.9 cm FS: 22.4 % asc Aorta Diam: 3.8 cm EPSS: 0.79 cm Ao Arch Diam (Prox Trans): 1.7 cm IVSd: 1.2 cm LVPWd: 1.2 cm LV villarreal. diameter/BSA (cm/m^2): 3.0 LV sys. diameter/BSA (cm/m^2): 2.4 LA A2 area: 23.7 cm2 RA long axis: 5.4 cm LA A4 area: 21.9 cm2 RA area: 13.6 cm2 LA length (vol): 5.8 cm RA vol: 29.5 ml LA vol: 76.5 ml RA : 18.3 ml/m2 LA vol index: 47.3 ml/m2 IVC diam: 1.3 cm RVD1 (basal): 3.1 cm RVD2 (mid): 2.0 cm TAPSE: 2.2 cm Doppler Measurements & Calculations Ao V2 max: 307.6 cm/sec LVOT Max Leonardo: 129.4 cm/sec Ao V2 mean: 240.1 cm/sec LV V1 max P.7 mmHg Ao max P.8 mmHg LV V1 VTI: 30.6 cm Ao mean P.1 mmHg DAMARIS(I,D): 1.3 cm2 Ao V2 VTI: 67.6 cm DAMARIS(V,D): 1.2 cm2 sev ratio: 0.45 DAMARIS indexed to BSA (cm^2/m^2): 0.82 MV E max leonardo: 107.8 cm/sec PA V2 max: 130.7 cm/sec MV A max leonardo: 134.7 cm/sec PA V2 mean: 100.3 cm/sec MV E/A: 0.80 PA mean P.3 mmHg Med Peak E' Leonardo: 4.4 cm/sec PA pr(Accel): 44.7 mmHg E/E' med: 24.5 Lat Peak E' Leonardo: 6.3 cm/sec E/E' lat: 17.0 E/e' average: 20.8 MV dec time: 0.26 sec MVA(VTI): 1.8 cm2 MV V2 mean: 94.6 cm/sec SV(LVOT): 89.4 ml MV mean P.2 mmHg MV V2 VTI: 50.8 cm Reading Physician:EILEEN
[2025-08-05] MEDS: METOPROLOL ER 50 MG TABLET PO (08:51)
[2025-08-05 10:07] LABS: Troponin I 0.153 ng/mL (0.01-0.034)
[2025-08-05 11:10] LABS: NT-proBNP (BNP-Adult 18+) 1370 pg/mL (<450)
--- NOTE | 2025-08-05 12:26 | CM.DANOTE ---
Initial DCP Assessment Note. Review EMR and PT Interview. Met with patient at bedside to discuss discharge needs.PT is alert x 3sitting up in bed. No acute distress. Independent. Lives alone.No DME Payor:?Su RODGERS PCP: [facility] Summary & Plan:?75 y/o female arrived to ED via POV c/o right hip pain s/p GLF. Admitted INPT. Dx. Rt. Femur Fx. Plan: Cardiology consult, then OR with Dr. Bustamante. Post OP PT Eval. Discharge Planning/Care Management CM Discharge Assessment Start: 08/04/25 22:52 Freq: Status: Active Protocol: Document 08/05/25 09:23 (Rec: 08/05/25 09:25 [id number]) Discharge Planning Assessment Assigned Discharge Marilu Weeks RN, CM Photograph Printer Horacio Carrero Advance Directives? Yes Advance Directives No on File History Provided By Patient Prior Living House Arrangements Household Members significant other Type of Relies on Others transporation used prior to admit Independent with ADL Yes 's Is patient alert and Yes: forgetfull oriented? Needs Assistance Home Chores / Shopping With SNF/HH Preference TBD Review Status In Process Please Provide Date 08/05/25 Initial DC Assessment Was Performed Next Review Type Continued Stay Review
--- NOTE | 2025-08-05 13:16 | PM.EVENT ---
Event Note Date Patient Seen: 08/05/25 Time Patient Seen: 13:17 Event Note (Rapid Response, Code, or fall): Patient was cleared for surgery. She was discussed with Dr. Jaffe of cardiology. Echo reveals an EF of 55% with no wall motion abnormalities and moderate aortic stenosis. BNP is 13 50. The revised cardiac risk index for preoperative risk was utilized and the patient does have a score of 1, she was a moderate risk of cardiac events at about 6%. The patient does have an emergent condition which does require surgery. Recommendations are to proceed with surgery.
[2025-08-05] MEDS: LACTATED RINGERS 1,000 ML 42 ML IV (14:02)
--- NOTE | 2025-08-05 14:06 | PM.PREOP ---
Pre-operative Note COVID-19 COVID-19 status: Not tested Interval Note History & Physical reviewed/Exam performed by Physician: Yes Changes to H&P: No H&P completed within 30 days and has changed as indicated here:: Reviewed Echo and saw that patient was cleared for surgery.
--- NOTE | 2025-08-05 17:03 | P.EN_ITS ---
Event Note Date Patient Seen: 08/05/25 Time Patient Seen: 17:03 Event Note (Rapid Response, Code, or fall): This is a 75-year-old female who sustained a right intertrochanteric fracture. Her past medical history is significant for coronary artery disease status post bypass surgery hypertension hyperlipidemia. She came to the emergency room after sustaining a right intertrochanteric fracture. I was called by hospitalist Dr. Callum Estrada regarding preoperative clearance. This is a c ommunited intertrochanteric fracture with potential for complications if the surgery is delayed. This is clearly an urgent/emergent surgery. She has borderline elevation of her troponin along with BNP. Preoperative echocardiogram revealed ejection fraction of 55% with no wall motion abnormalities. There is an evidence of moderate aortic stenosis. Patient is hemodynamically stable therefore is cleared for surgery. I personally spoke to Dr. Indira Bustamante and Krystle COPPOLA. I personally spoke to Dr. Bustmaante and advised her to proceed with surgery. BNP 1570 Troponin 0.153 - The left ventricular contractility is normal. Estimated ejection fraction is greater than 55% with no segmental wall motion abnormalities. Mild concentric LVH. Grade 1 diastolic dysfunction. - The right ventricular contractility is normal. - Moderate left atrial enlargement. All other cardiac chambers are of normal size. - Moderate mitral annular calcifications with mild mitral valvular stenosis. Mean gradient is 4.2 mmHg. - Moderate aortic valvular stenosis with peak velocity of 3.1 m/s. Mean gradient of 25.1 mmHg. Dimensionless index of 0.45. - No obvious intracardiac shunts. - No obvious intracardiac masses nor thrombi. - No hemodynamically significant pericardial effusion. - Low right-sided filling pressures.
--- NOTE | 2025-08-05 17:14 | DI.RAD.S_ITS ---
PROCEDURE: XR FEMUR RT MIN 2V INDICATIONS: Post-op IMN, please include Hip to Knee TECHNIQUE: 2 views of the femur were acquired. COMPARISON: [facility], JORDANA, XR FEMUR RT MIN 2V, 08/05/2025, 14:37. FINDINGS: Bones: Expected immediate postoperative appearance, status post ORIF of a intertrochanteric/subtrochanteric fracture of the right hip.. No suspicious bony lesions. Soft tissues: No suspicious soft tissue calcifications or masses. IMPRESSION: Expected immediate postoperative appearance. Dictated by: Grady Wilson M.D. on 08/05/2025 at 18:38 Approved by: Grady Wilson M.D. on 08/05/2025 at 18:39
[2025-08-05] MEDS: METOPROLOL IR 25 MG TABLET PO ×2 (18:43→20:38)
[2025-08-05 20:03] LABS: Troponin I 11.900 ng/mL (0.01-0.034)
[2025-08-05] MEDS: ASPIRIN EC 81 MG TABLET PO (20:38)
--- NOTE | 2025-08-05 21:04 | PC.NURSE ---
Received a critical lab, Troponin 11.9 @ 20:02. Dr Rose informed. Pt verbalizes that she does not have any pain presently. Dr Jaffe called at 21:00. No new orders given. Labs to be taken in the morning. BP 126/74
[2025-08-05] MEDS: DOCUSATE 100 MG CAPSULE PO (22:04)
[2025-08-05] MEDS: LACTATED RINGERS 1,000 ML 100 ML IV (22:30)
[2025-08-05] MEDS: ACETAMINOPHEN 325 MG TABLET 650 MG PO (22:30)
--- NOTE | 2025-08-05 22:35 | PM.OP.1 ---
Operative Date/Time/Diagnoses Date of procedure: 08/05/25 Time of procedure: 03:30 Pre-op diagnosis: Right intertrochanteric comminuted fracture Post-op diagnosis: same Procedure & Clinicians Procedure: cephalomedullary nail - long Same procedure(s) as scheduled: Yes Surgeon: Indira Bustamante Assisted?: Yes Entry Level Financial Analyst: Taqueria Benitez Anesthesia Type: General Operative Notes Findings: see below Closure Type: primary Specimen(s): none sent Applied: none Estimated Blood Loss (mL): 1,000 Procedure in detail: Prosthetic devices, grafts, tissues, transplants, or devices: 1. Tri Gen InterTAN nail. 10 mm x 38 cm 125 degree 2. Tri Gen InterTAN integrated interlocking lag screw 95 mm lag screw and 90 mm compression screw 3. Tri Gen 5.0 mm inter locking screw Applied: none Estimated Blood Loss (mL): 1000 Blood products transfused: none Procedure in detail: The patient was met in the preoperative hold area the righ hip was signed as the correct extremity. Patient was anesthetized on the hospital bed and the patient was then transferred to [place] table. All bony prominences were padded. The patient was placed in traction boots that were well-padded. Fluoroscopic images were obtained demonstrating a reduced intertrochanteric hip fracture. Patient was prepped and in the standard sterile fashion a time-out was performed confirming the correct patient correct procedure correct extremity at initials on the operative site. 2 g of Ancef given to the patient. An incision was made proximal to greater trochanter. Dissection was taken to the greater trochanter and the guidewire was placed under fluoroscopic guidance. Next the opening Reamer was placed over the guidewire down to the lesser trochanter. I then placed a ball tipped guidewire down to the physeal scar. An opening reamer was utilized and then sequential reamers up to 11.5 mm were used. A 10 mm nail was chosen and then placed. The guidewire for the femoral screw was then placed relatively center center within the femoral head. Tri Gen inter rivera integrated interlocking lag screws were then placed using fluoroscopic guidance. I ensure the reduction was maintained. I then placed the distal interlocking screw using perfect [place] technique. Using fluoroscopic imaging the reduction and implants were evaluated and the wounds were copiously irrigated. The wounds were closed with 0 Vicryl, 2-0 Vicryl and fany. A total of 20 cc has a similar thing was infiltrated incision site. Patient was awoken taken PACU in stable condition. Complications: none Post-operative Condition: stable Disposition: PACU Plan for aftercare: Admit for PT, pain control and ambulation F/u in 2 weeks for staple removal Weightbearing as tolerated Complications: none Post-operative Condition: stable Disposition: PACU
[2025-08-06 02:20] VITALS: BP 120/53; PULSE 72; RESP 15; TEMP 36.4; O2SAT 93
[2025-08-06] MEDS: ACETAMINOPHEN 325 MG TABLET 650 MG PO ×3 (04:30→16:15)
[2025-08-06 05:50] LABS: Add Manual Diff / Slide Review NO; Hematocrit 25.6 % (36-46); Hemoglobin 8.7 g/dL (12.0-16.0); Lymphocytes Absolute Auto 2300 /uL (1100-4500); Mean Corpuscular HGB Conc 33.9 % (30-36); Mean Corpuscular Hemoglobin 29.1 PG (26-34); Mean Corpuscular Volume 85.7 fL (80-100); Platelet Count 217 X10^3/uL (150-400)
[2025-08-06 06:18] LABS: Troponin I 11.400 ng/mL (0.01-0.034)
[2025-08-06 07:00] VITALS: BP 116/54; PULSE 65; RESP 16; TEMP 36.8; O2SAT 94
--- NOTE | 2025-08-06 07:45 | PM.PN.1 ---
Subjective Subjective Interval history: Summary: Patient was a 75-year-old female who was admitted with a hip fracture after a fall. She has a history of moderate aortic stenosis and CAD with a previous CABG. The patient had a mildly elevated troponin. She would complained of chest pain intermittently for the past 3 months. Her initial ECG was abnormal and she was discussed with Cardiology and evaluated with an echo which revealed good EF, no wall motion abnormalities, and aortic stenosis. Her revised cardiac risk index for an emergent surgery that is low risk was utilizing calculated with a score of 1 which is a moderate risk of 6%. She did undergo surgery (Screw) and her postoperative troponin did bump to 11. She remains hemodynamically stable and comfortable. Cardiology is consulted and we will be evaluating her. S: She was doing well. Pain is controlled. No dyspnea, or chest pain. Her troponin did elevate to 11.0. She was discussed with, and seen by Cardiology today. She was hemodynamically stable. O: VSS NAD, alert and oriented. Fluent speech. Lungs are clear, normal rate and effort. Heart is regular, no murmur gallop or rub. Abdomen is soft, non distended. Extremities are free of edema. IMAGING: X-rays of her right shoulder demonstrate a comminuted healing proximal humerus fracture. X-rays of her right hip and CT scan of the right hip demonstrate a comminuted intertrochanteric right hip fracture. ECHO: - The left ventricular contractility is normal. Estimated ejection fraction is greater than 55% with no segmental wall motion abnormalities. Mild concentric LVH. Grade 1 diastolic dysfunction. - The right ventricular contractility is normal. - Moderate left atrial enlargement. All other cardiac chambers are of normal size. - Moderate mitral annular calcifications with mild mitral valvular stenosis. Mean gradient is 4.2 mmHg. - Moderate aortic valvular stenosis with peak velocity of 3.1 m/s. Mean gradient of 25.1 mmHg. Dimensionless index of 0.45. - No obvious intracardiac shunts. - No obvious intracardiac masses nor thrombi. - No hemodynamically significant pericardial effusion. - Low right-sided filling pressures. Conclusion: Normal biventricular systolic function with mild to moderate valvular stenoses. A/P: 1. Kelsey-operative NSTEMI, New. 2. Right hip fracture (S/P ORIF), active. 3. CAD, CABG. Stable. 4. HTN, stable. 5. Abnormal ECG. PLAN: -continue ASA and metoprolol. -Statin -tele -not a candidate for heparin drip given recent surgery. -Discuss with cardiology -limited ECHO tomorrow (when available). She requires at least 1 more night given postoperative myocardial infarction and hip fracture assessments. Exam Vital Signs (past 8 hours): - 08/06/25 02:20 Temperature 97.6 F Pulse Rate 72 Respiratory Rate 15 Blood Pressure 120/53 L Pulse Oximetry 93 Oxygen Flow Rate 0 Oxygen Delivery Method Room Air Oxygen Flow Rate 0 Objective Labs 08/06/25 05:20 08/05/25 05:10 Labs: Laboratory Results - last 24 hr 08/05/25 08/05/25 08/06/25 09:10 19:27 05:20 WBC 8.6 RBC 2.99 L Hgb 8.7 L Hct 25.6 L MCV 85.7 MCH 29.1 MCHC 33.9 RDW 14.8 Plt Count 217 Neut % (Auto) 61.3 Lymph % (Auto) 27.3 [place] % (Auto) 10.8 Eos % (Auto) 0.3 L Baso % (Auto) 0.3 Neut # (Auto) 5300 Lymph # (Auto) 2300 [place] # (Auto) 900 Eos # (Auto) 0 Baso # (Auto) 0 Troponin I 0.153 H* 11.900 H* 11.400 H* NT-Pro-B Natriuret Pep 1370 H PFSH Medical History Myocardial infarction complications Diastolic dysfunction with chronic heart failure Social History household members: significant other Smoking Status: Never smoker alcohol intake: never Assessment & Plan Time-Based Coding :: [TOTAL MINUTES] spent with patient and on the chart (including review of chart, obtaining history, exam, reviewing outside data, placing orders, documenting exam and treatment plan, and counseling patient) on [DATE].
--- NOTE | 2025-08-06 08:32 | PM.CN ---
History of Present Illness Consult details Date Patient Seen: 08/06/25 Time Patient Seen: 08:32 Chief complaint: FAll R hip pn Reason for consult: Pre op evaluation Requesting provider: Indira Bustamante Narrative: Delightful 75-year-old female with known history of coronary artery disease status post bypass surgery in 2007 resident of [facility] was visiting [place] when she had a fall on the failure and sustained hip fracture. She was brought to the hospital. I received a phone call from Dr. Estrada and Dr. Oro about this patient. I recommended additional testing prior to her surgery. She had an echocardiogram which revealed normal ejection fraction of 55%, grade 1 diastolic dysfunction, moderate aortic stenosis. She had a borderline elevated troponin of 0.153. EKG showed normal sinus rhythm with ST-T changes consistent with ischemia versus left ventricular hypertrophy. Per ACC/AHA guidelines, I advised to proceed with surgery with cautious measures during perioperative and postoperative. I saw her this morning and she reports no chest discomfort shortness of breath. She is able to wiggle her toes in bed and lying comfortably and eating her breakfast. Meds Home Medications and Allergies Home Medications ?Medication ?Instructions ?Recorded ?Confirmed ?Type amlodipine 10 mg tablet 10 mg PO DAILY 08/04/25 08/04/25 History aspirin 81 mg tablet,delayed 81 mg PO DAILY 08/04/25 08/04/25 History release metoprolol succinate 50 mg 50 mg PO DAILY 08/04/25 08/04/25 History tablet,extended release 24 hr Allergies Allergy/AdvReac Type Severity Reaction Status Date / Time Penicillins Allergy Severe Anaphylaxis Verified 08/05/25 13:30 Review of Systems Review of Systems ROS: Yes All systems reviewed with the patient and are negative except as otherwise documented Exam Vital Signs (past 8 hours): - 08/06/25 02:20 Temperature 97.6 F Pulse Rate 72 Respiratory Rate 15 Blood Pressure 120/53 L Pulse Oximetry 93 Oxygen Flow Rate 0 Oxygen Delivery Method Room Air Oxygen Flow Rate 0 Const General: cooperative, healthy appearing and comfortable [facility] Head: normal to inspection and normocephalic Eyes General: appearance normal, both eyes and all related structures Neck Neck: normal visual inspection Chest Chest: normal inspection of the chest and normal palpation of entire chest wall Other: Basal crackles left base > right base. Resp Effort & Inspection: able to speak in complete sentences Cardio Palpation: normal PMI Rate: regular rate Rhythm: regular rhythm Heart Sounds: S1 normal, S2 normal and murmur Other: Grade 3/6 high pitch murmur radiating to the base of the neck. GI Inspection: normal to inspection Neuro General: patient alert, patient awake and patient oriented x3 Extrem General: normal to inspection Other: Skin warm both feet. Distal pulses are palpable on both sides. Psych Appearance: grossly normal Objective ECG Impression: NSR septal infarct, LVH with secondary STT changes. No prior ekg is available for comparison. Labs 08/06/25 05:20 08/05/25 05:10 Labs: Laboratory Results - last 24 hr 08/05/25 08/05/25 08/06/25 09:10 19:27 05:20 WBC 8.6 RBC 2.99 L Hgb 8.7 L Hct 25.6 L MCV 85.7 MCH 29.1 MCHC 33.9 RDW 14.8 Plt Count 217 Neut % (Auto) 61.3 Lymph % (Auto) 27.3 [place] % (Auto) 10.8 Eos % (Auto) 0.3 L Baso % (Auto) 0.3 Neut # (Auto) 5300 Lymph # (Auto) 2300 [place] # (Auto) 900 Eos # (Auto) 0 Baso # (Auto) 0 Troponin I 0.153 H* 11.900 H* 11.400 H* NT-Pro-B Natriuret Pep 1370 H [facility] Medical History (Updated 08/06/25 @ 08:53 by Crispin Jaffe MD) Myocardial infarction complications Diastolic dysfunction with chronic heart failure Comment: History of bypass surgery 2007. She has currently not seeing a bank teller or a provider. She did tell me her surgery was at [facility] in [facility]. Social History household members: significant other Tobacco & Substance Use Smoking Status: Never smoker alcohol intake: never Assessment & Plan Assessment and plan (1) Closed intertrochanteric fracture of hip: Qualifiers: Encounter type: initial encounter Fracture alignment: displaced Laterality: right Qualified Code(s): S72.141A - Displaced intertrochanteric fracture of right femur, initial encounter for closed fracture Status: Acute (2) Myocardial infarction complications: Status: Acute (3) Aortic stenosis, moderate: Status: Acute (4) Diastolic dysfunction with chronic heart failure: Status: Acute (5) Hypertension: Qualifiers: Hypertension type: unspecified Qualified Code(s): I10 - Essential (primary) hypertension Status: Acute Plan Start aspirin 81 mg daily. Metoprolol tartrate 25 mg t.i.d.(already started) Pain management. Absolutely essential that we manage her pain at that can precipitate elevation of blood pressures and hemodynamic compromise. Continue IV fluids 100 cc an hour with strict input-output charting. O2 therapy Continue trending troponin levels Per ACC/ AHA recommendations close follow-up for 48 hours Surgical issues to be addressed by orthopedic service and or Dr Estrada. OT/PT. Obtain records from [facility] Assessment & Plan narrative: 75-year-old female past medical history of coronary artery disease status post bypass surgery, hypertension sustained right intertrochanteric fracture. She presented to the hospital with fracture right hip and borderline elevated troponin. She underwent surgical right hip arthroplasty and currently on postop surgical day 1.. 1. Myocardial infarction:. It is difficult to ascertain whether this is truly an acute myocardial infarction or type 2 myocardial infarction. Perhaps due to stress, catecholamine surge, hemodynamic changes both before and after surgery. Serum treatment troponin levels have increased from 0.53 to now 11.9 and beginning to show trending down 11.4. EKG shows normal sinus rhythm septal infarct age indeterminate LVH and secondary ST-T changes. Since there are no previous EKGs to compare with I can not ascertain whether these changes are new or old. Nonetheless elevated troponin in the post operative. Carries a poor prognosis both short-term and long-term. Patient is asymptomatic at this point and hemodynamically stable. 2. Known history of coronary artery disease details not available. Will be beneficial to obtain records from [facility] for review. 3. Hypertension: Patient is taking medications amlodipine. Metoprolol tartrate dose was increased to 25 mg 3 times daily. 4. Moderate aortic stenosis: Aortic flow velocity is 3.1 m/sec with a mean gradient of 25 mmHg. No further intervention is indicated at this point however it has a bearing on postoperative management HPI will discuss in recommendations. Time-Based Coding :: [TOTAL MINUTES 70minutes] spent with patient and on the chart (including review of chart, obtaining history, exam, reviewing outside data, placing orders, documenting exam and treatment plan, and counseling patient) on [DATE].
[2025-08-06] MEDS: ASPIRIN EC 81 MG TABLET PO ×2 (08:58→21:57)
[2025-08-06] MEDS: DOCUSATE 100 MG CAPSULE PO ×2 (08:59→21:57)
[2025-08-06] MEDS: METOPROLOL IR 25 MG TABLET PO ×3 (08:59→21:57)
--- NOTE | 2025-08-06 10:22 | OT.IPNOTE ---
Per hospitalist hold therapy eval today as pt had small NJ, to check on pt tomorrow.
--- NOTE | 2025-08-06 10:23 | PT-IP ANOTE ---
Pt adm with right hip fracture and she underwent nailing on 08/05/25. She is WBAT and has ambulation orders. She suffered a small PA per hospitalist. In rounds, asked therapies to hold today. Con't efforts next date.
--- NOTE | 2025-08-06 10:57 | EKG_ITS ---
[place] [id number] [place] [id number] Test Date: 2025-08-06 Pat Name: Camille Fleming Department: [facility] Room: 219 Gender: Female Educational Technologist: ROLANDO : 1950 Requested By: Order Number: [id number] Reading MD: Arash Estrada Measurements Intervals [place] Rate: 65 P: -13 [place]: 152 QRS: 58 QRSD: 80 T: 198 QT: 396 QTc: 411 Interpretive Statements Normal sinus rhythm Septal infarct , age undetermined Marked ST abnormality, possible inferolateral subendocardial injury Electronically Signed On 08-06-2025 17:27:19 PST by Arash Estrada
--- NOTE | 2025-08-06 12:20 | P.PN_ITS ---
Subjective Subjective Date Patient Seen: 08/06/25 Time Patient Seen: 12:00 Interval history: 75 yo F s/p Right hip intertrochanteric fracture s/p long cephalomedullary nail placement - POD #1. Denies pain unless she moves. She had elevated troponins and a septal infarct since surgery. Currently denies chest pain, does describe chest squeezing similar to what she has been having the last 6 months. She is not short of breath. She denies n/v. R hip: dressing intact. SILT s/s/t/dp/sp Fires ta/gs/ehl/fhl DP pulse 2 + Exam Vital Signs (past 8 hours): - 08/06/25 07:00 Temperature 98.2 F Pulse Rate 65 Respiratory Rate 16 Blood Pressure 116/54 L Pulse Oximetry 94 Oxygen Flow Rate 0 Oxygen Delivery Method Room Air Oxygen Flow Rate 0 Objective Labs 08/06/25 05:20 08/05/25 05:10 Labs: Laboratory Results - last 24 hr 08/05/25 08/06/25 19:27 05:20 WBC 8.6 RBC 2.99 L Hgb 8.7 L Hct 25.6 L MCV 85.7 MCH 29.1 MCHC 33.9 RDW 14.8 Plt Count 217 Neut % (Auto) 61.3 Lymph % (Auto) 27.3 [place] % (Auto) 10.8 Eos % (Auto) 0.3 L Baso % (Auto) 0.3 Neut # (Auto) 5300 Lymph # (Auto) 2300 [place] # (Auto) 900 Eos # (Auto) 0 Baso # (Auto) 0 Troponin I 11.900 H* 11.400 H* PFSH Medical History Myocardial infarction complications Diastolic dysfunction with chronic heart failure Social History household members: significant other Smoking Status: Never smoker alcohol intake: never Assessment & Plan Post-op Postoperative Procedures: Procedures Operation Date: 08/05/25 14:00 Actual Procedure Side Surgeon p cephalomedullary nail Right Indira Bustamante, Postoperative day: 1 Postoperative status: doing well Postoperative status narrative: Weightbearing as tolerated with a walker. She can put some weight through her right upper extremity with the walker. SHe has 5 weeks of healing with her proximal humerus fracture and is showing some bridging bone. Aspirin PO BID x 6 weeks PT / OT Appreciate internal medicine and cardiology help with this patient. Postoperative plan: routine post-op care Time Spent With Patient Time with patient: less than 15 minutes
[2025-08-06 13:48] VITALS: BP 108/44; PULSE 75; RESP 16; TEMP 36.4; O2SAT 93
[2025-08-06 17:45] VITALS: BP 113/41; PULSE 65; RESP 17; TEMP 36.4; O2SAT 92
[2025-08-06 20:00] VITALS: BP 118/45; PULSE 66; RESP 18; TEMP 36.2; O2SAT 95
[2025-08-07] VITALS: BP 129/56; PULSE 64; RESP 16; TEMP 36.4; O2SAT 93
[2025-08-07 04:00] VITALS: BP 140/60; PULSE 77; RESP 16; TEMP 36.4; O2SAT 96
[2025-08-07 06:48] LABS: Add Manual Diff / Slide Review NO; Hematocrit 25.8 % (36-46); Hemoglobin 8.9 g/dL (12.0-16.0); Lymphocytes Absolute Auto 2200 /uL (1100-4500); Mean Corpuscular HGB Conc 34.3 % (30-36); Mean Corpuscular Hemoglobin 29.5 PG (26-34); Mean Corpuscular Volume 86.1 fL (80-100); Platelet Count 204 X10^3/uL (150-400)
[2025-08-07 07:19] LABS: Troponin I 4.540 ng/mL (0.01-0.034)
[2025-08-07 07:27] LABS: Alanine Aminotransferase 15 IU/L (<35); Albumin 3.0 g/dL (3.5-5.0); Albumin Globulin Ratio 1.3 (1.0-2.8); Alkaline Phosphatase 69 U/L (38-126); Blood Urea Nitrogen 15 mg/dL (7-17); Calcium 8.7 mg/dL (8.4-10.2); Carbon Dioxide 24 mmol/L (22-32); Chloride 106 mmol/L (98-107); Estimated Glomerular Filt Rate > 60 mL/min (>60); Globulin 2.3 g/dL (1.7-4.1); Glucose 87 mg/dL (70-99); HEMOLYSIS < 15 (0-50); Potassium 3.9 mmol/L (3.4-5.1); Sodium 136 mmol/L (137-145); Total Protein 5.3 g/dL (6.3-8.2)
--- NOTE | 2025-08-07 07:42 | PM.PN.1 ---
Subjective Subjective Interval history: Summary: (H&P) Patient was a 75-year-old female who was admitted with a hip fracture after a fall. She has a history of moderate aortic stenosis and CAD with a previous CABG. The patient had a mildly elevated troponin. She would complained of chest pain intermittently for the past 3 months. Her initial ECG was abnormal and she was discussed with Cardiology and evaluated with an echo which revealed good EF, no wall motion abnormalities, and aortic stenosis. Her revised cardiac risk index for an emergent surgery that is low risk was utilizing calculated with a score of 1 which is a moderate risk of 6%. She did undergo surgery (Screw) and her postoperative troponin did bump to 11. She remains hemodynamically stable and comfortable. Cardiology is consulted and we will be evaluating her. 08/05. Echo revealed a and normal EF. She had a mildly elevated troponin went to the OR after consultation with Cardiology with a moderate risk of 6% or less for cardiac adverse events. Unfortunately, she did have evidence of NSTEMI with a troponin of 11 in the postoperative. 08/06: Doing well, no chest pain or dyspnea. Troponin remained elevated at 11. Discussed with Cardiology who did evaluate the patient. Not felt to be appropriate for heparin drip given her postoperative status. Treated with aspirin, and beta blockade. 08/07: Trop 4. Limited ECHO: The ejection fraction is estimated to be 50-55%. There are regional wall motion abnormalities as specified. Basal septal and mid to basal inferior hypokinesis S: She denies chest pain, or dyspnea. She also states I did not have a heart attack. O: VSS NAD, alert and oriented. Fluent speech. Flat affect. Lungs are clear, normal rate and effort. Heart is regular, systolic murmur and no gallop or rub. Abdomen is soft, non distended. Extremities are free of edema. IMAGING: X-rays of her right shoulder demonstrate a comminuted healing proximal humerus fracture. X-rays of her right hip and CT scan of the right hip demonstrate a comminuted intertrochanteric right hip fracture. ECHO: - The left ventricular contractility is normal. Estimated ejection fraction is greater than 55% with no segmental wall motion abnormalities. Mild concentric LVH. Grade 1 diastolic dysfunction. - The right ventricular contractility is normal. - Moderate left atrial enlargement. All other cardiac chambers are of normal size. - Moderate mitral annular calcifications with mild mitral valvular stenosis. Mean gradient is 4.2 mmHg. - Moderate aortic valvular stenosis with peak velocity of 3.1 m/s. Mean gradient of 25.1 mmHg. Dimensionless index of 0.45. - No obvious intracardiac shunts. - No obvious intracardiac masses nor thrombi. - No hemodynamically significant pericardial effusion. - Low right-sided filling pressures. Conclusion: Normal biventricular systolic function with mild to moderate valvular stenoses. A/P: 1. Kelsey-operative NSTEMI, New. EF normal, apical hypokinesis. 2. Right hip fracture (S/P ORIF), active. 3. CAD, CABG. Stable. 4. HTN, stable. 5. Abnormal ECG. PLAN: -continue ASA, Statin, and metoprolol. -tele -not a candidate for heparin drip given recent surgery. -Discussed with cardiology, they are signing off on August 07. -limited ECHO tomorrow as above. We are going to attempt to find prison facility and near her home, [facility]. We will be waiting for authorization likely through the weekend. She requires at least 1 more night given postoperative myocardial infarction and hip fracture assessments. Exam Vital Signs (past 8 hours): - 08/07/25 00:00 08/07/25 04:00 Temperature 97.5 F L 97.6 F Pulse Rate 64 77 Respiratory Rate 16 16 Blood Pressure 129/56 L 140/60 Pulse Oximetry 93 96 Oxygen Flow Rate 0 0 Oxygen Delivery Method Room Air Oxygen Flow Rate 0 Objective Labs 08/07/25 06:35 08/07/25 06:35 Labs: Laboratory Results - last 24 hr 08/07/25 06:35 WBC 9.0 RBC 3.00 L Hgb 8.9 L Hct 25.8 L MCV 86.1 MCH 29.5 MCHC 34.3 RDW 14.7 Plt Count 204 Neut % (Auto) 65.2 Lymph % (Auto) 24.1 L [place] % (Auto) 9.2 Eos % (Auto) 1.1 L Baso % (Auto) 0.4 Neut # (Auto) 5900 Lymph # (Auto) 2200 [place] # (Auto) 800 Eos # (Auto) 100 Baso # (Auto) 0 Sodium 136 L Potassium 3.9 Chloride 106 Carbon Dioxide 24 BUN 15 Creatinine 0.64 Estimated GFR > 60 BUN/Creatinine Ratio 23.4 H Glucose 87 Calcium 8.7 Total Bilirubin 0.3 AST 44 H ALT 15 Alkaline Phosphatase 69 Troponin I 4.540 H* Total Protein 5.3 L Albumin 3.0 L Globulin 2.3 Albumin/Globulin Ratio 1.3 PFSH Medical History Myocardial infarction complications Diastolic dysfunction with chronic heart failure Social History household members: significant other Smoking Status: Never smoker alcohol intake: never Assessment & Plan Time-Based Coding :: [TOTAL MINUTES] spent with patient and on the chart (including review of chart, obtaining history, exam, reviewing outside data, placing orders, documenting exam and treatment plan, and counseling patient) on [DATE].
[2025-08-07 08:00] VITALS: BP 144/68; PULSE 84; RESP 15; TEMP 36.2; O2SAT 93
--- NOTE | 2025-08-07 08:00 | DI.ECHO.S_ITS ---
[facility]+ [facility] : : [address] : : [place] : : [id number] : : Phone: [phone] Echocardiogram Report + + :Name: ABEL PADILLA Study Date: 08/07/2025 Height: 62 in : :Hospital ReadingLocation: Weight: 135 lb : : Gender: Female BSA: 1.6 m2 : :: 1950 Age: 75 yrs BP: 140/60 mmHg: :Reason For Study: POST SURGERY NSTEMI : :Ordering Physician: JNENIFER, : :LAVINIA Momin Performed By: Felix Loya : :Referring: LAVINIA RODRIGUEZ : + + Interpretation Summary The ejection fraction is estimated to be 50-55%. There are regional wall motion abnormalities as specified. Basal septal and mid to basal inferior hypokinesis Procedure: A two-dimensional transthoracic echocardiogram with color flow and Doppler was performed in limited views only to assess EF. A contrast injection of Definity was performed to improve assessment of LV function. The study quality was technically difficult. Comparison is made with the echocardiogram of 08/05/2025. The patient was in normal sinus rhythm during the exam. Left Ventricle: Left ventricular wall thickness is mildly increased. The left ventricle is normal in size. The ejection fraction is estimated to be 50- 55%. There are regional wall motion abnormalities as specified. Great Vessels: The IVC is of normal diameter and collapses greater than 50% with a sniff. This suggests a low right atrial pressure of 3 mm Hg. MMode/2D Measurements & Calculations LVIDd: 5.1 cm LVIDs: 3.8 cm FS: 25.8 % IVSd: 1.2 cm LVPWd: 1.3 cm LV villarreal. diameter/BSA (cm/m^2): 3.1 LV sys. diameter/BSA (cm/m^2): 2.3 Reading Physician:09:27 AM
--- NOTE | 2025-08-07 08:47 | PM.PNPO.1 ---
Exam Vital Signs (past 8 hours): - 08/07/25 04:00 08/07/25 08:00 Temperature 97.6 F 97.1 F L Pulse Rate 77 84 Respiratory Rate 16 15 Blood Pressure 140/60 144/68 H Pulse Oximetry 96 93 Oxygen Flow Rate 0 0 Oxygen Delivery Method Room Air Oxygen Flow Rate 0 Objective Labs 08/07/25 06:35 08/07/25 06:35 Labs: Laboratory Results - last 24 hr 08/07/25 06:35 WBC 9.0 RBC 3.00 L Hgb 8.9 L Hct 25.8 L MCV 86.1 MCH 29.5 MCHC 34.3 RDW 14.7 Plt Count 204 Neut % (Auto) 65.2 Lymph % (Auto) 24.1 L [place] % (Auto) 9.2 Eos % (Auto) 1.1 L Baso % (Auto) 0.4 Neut # (Auto) 5900 Lymph # (Auto) 2200 [place] # (Auto) 800 Eos # (Auto) 100 Baso # (Auto) 0 Sodium 136 L Potassium 3.9 Chloride 106 Carbon Dioxide 24 BUN 15 Creatinine 0.64 Estimated GFR > 60 BUN/Creatinine Ratio 23.4 H Glucose 87 Calcium 8.7 Total Bilirubin 0.3 AST 44 H ALT 15 Alkaline Phosphatase 69 Troponin I 4.540 H* Total Protein 5.3 L Albumin 3.0 L Globulin 2.3 Albumin/Globulin Ratio 1.3 [facility] Medical History Myocardial infarction complications Diastolic dysfunction with chronic heart failure Social History household members: significant other Smoking Status: Never smoker alcohol intake: never Assessment & Plan Post-op Postoperative Procedures: Procedures Operation Date: 08/05/25 14:00 Actual Procedure Side Surgeon p cephalomedullary nail Right Indira Bustamante, Postoperative status narrative: Date Patient Seen: 08/07/25 Time Patient Seen: 08:30 Interval history: 75 yo F s/p Right hip intertrochanteric fracture s/p long cephalomedullary nail placement ? 08/05/25. Also found to have a perioperative NSTEMI. Denies pain unless she moves. Reports that her chest feels ?squeezy? similar to what she has been having the last 6 months. She is not short of breath. She denies n/v. R hip: dressing intact. SILT s/s/t/dp/sp Fires ta/gs/ehl/fhl DP pulse 2 + Postoperative status narrative: Weightbearing as tolerated with a walker. She can put some weight through her right upper extremity with the walker. She has 5 weeks of healing with her proximal humerus fracture and is showing some bridging bone. Aspirin PO BID x 6 weeks PT / OT Appreciate internal medicine and cardiology help with this patient. Postoperative plan: routine post-op care Taqueria Benitez MD Ortho Time Spent With Patient Time with patient: 15-24 minutes
[2025-08-07] MEDS: ASPIRIN EC 81 MG TABLET PO ×2 (10:43→21:28)
[2025-08-07] MEDS: METOPROLOL IR 25 MG TABLET PO ×3 (10:43→21:28)
[2025-08-07] MEDS: DOCUSATE 100 MG CAPSULE PO ×2 (10:44→21:28)
[2025-08-07] MEDS: MELOXICAM 7.5 MG TABLET 15 MG PO (10:44)
--- NOTE | 2025-08-07 11:30 | OT.IP.EVAL ---
Current Diagnoses Essential (primary) hypertension (08/04/25) Other current complications following acute myocardial infarction (08/04/25) Nonrheumatic aortic (valve) stenosis (08/04/25) Chronic diastolic (congestive) heart failure (08/04/25) Displaced intertrochanteric fracture of right femur, initial encounter for closed fracture (08/04/25) Surgery Performed Operation Date: 08/05/25 14:00 Actual Procedures p cephalomedullary nail(Right) - Indira Bustamante DO Past Medical History (Last Reviewed 08/06/25 @ 09:42 by Arash Estrada MD) Diastolic dysfunction with chronic heart failure Myocardial infarction complications Occupational Therapy Inpatient Evaluation/Re-Eval M1 OT IP Prior Functional Status Start: 08/07/25 11:33 Freq: Status: Active Protocol: Document 08/07/25 11:33 [facility] (Rec: 08/07/25 11:51 [facility] Desktop) Medical Review Prior Functional Status Communication I Mobility and Gait I prior to fall. Activities of Daily I prior to falling. Pt does not drive. Living and IADL's Prior Functional Pt fell in June and broke her right shoulder and in a sling. Level (Other details Per Surgeon note states can put some weight on her RUE ) with FWW. Pt lives with a friend. Social History Household Members significant other Living Arrangements House Number of Floors ( Two Floors Floors) Number of Stairs To 3 steps from front and back with no rails. 15 step, Enter/Railing? landing, and another 5 steps with left rails up to the walk in shower and tub /shower. Home Environment Standard Height Toilet,Walk in Shower,Tub/Shower Additional Social Pt had a fall resulting in R hip fx and also having [place] History Comment afterwards. M2 OT-IP Current Condition Start: 08/07/25 11:33 Freq: Status: Active Protocol: Document 08/07/25 11:33 [facility] (Rec: 08/07/25 11:51 [facility] Desktop) Occupational Therapy Current Condition Current Condition Evaluation Date 08/07/25 Treatment Diagnosis S/P fall R intertrochanteric fx Diagnosis Onset Date 08/04/25 Post Operative Precautions Shoulder Precautions Sling Other Precautions RUE in sling, per surgeon ok to put some weight on the RUE for the FWW. WBAT for RLE. M3 OT- IP Subjective and Pain Start: 08/07/25 11:33 Freq: Status: Active Protocol: Document 08/07/25 11:33 [facility] (Rec: 08/07/25 11:51 [facility] Desktop) OT- Subjective Occupational Therapy Visit Type Type Initial Evaluation Visit Start Time 09:15 Visit Stop Time 11:30 Notes [id number] and [id number]. Occupational Therapy Visit Comments Patient Comments Pt agreed to get up. Trops still high at 4.54 but trending down and cleared by hospitalist to try to get pt up. Patient/Caregiver TO get better. Goals OT Pain Assessment Pain When Pain Assessed At Rest Pain Present Pain Present Pain Reported Location right hip Intensity 9 Scale Used Numeric (0 - 10) M4 OT- IP ADL's Start: 08/07/25 11:33 Freq: Status: Active Protocol: Document 08/07/25 11:33 [facility] (Rec: 08/07/25 11:51 [facility] Desktop) OT UER-Tmlb-Ceyywol Comments OT Self-Feeding Pt will need assist with set-up. Comments OT ADL-Grooming Comments OT Grooming Comments Not performed. OT ADL-Oral Care Comments Oral Care Comments Not performed. OT ADL-Dressing General Eval Lower Body Dressing Total Assistance Ability Areas Needing Socks Assistance OT ADL-Toileting General Evaluation Toileting Ability Total Assistance Areas Needing Empty Catheter or Colostomy Assistance Comments OT Toileting Landin Comments OT ADL-Bathing Comments OT Bathing Comments Sponge bath more appropriate at this time. M5 OT- IP IADL's Start: 08/07/25 11:33 Freq: Status: Active Protocol: Document 08/07/25 11:33 [facility] (Rec: 08/07/25 11:51 [facility] Desktop) OT-Instrumental Activities of Daily Living Home Safety Awareness Home Safety Comments Pt able to answer basic safety questions, but slow to stand but confused. Meal Preparation Meal Preparation Pt will need assist. Comments Bindery Machine Setter Bindery Machine Setter Pt will need assist. Comments M6 OT- IP Functional Cognition Start: 08/07/25 11:33 Freq: Status: Active Protocol: Document 08/07/25 11:33 [facility] (Rec: 08/07/25 11:51 [facility] Desktop) Cognitive Factors Limiting Selfcare Function Cognitive Ability Level of Alertness Alert,Drowsy Patient Orientation Name,Month,Place Attention Span Capable of Focused Attention,Unable to Sustain Ability Attention Ability to Follow Able to Follow One Step Commands with Increased Time, Commands Able to Follow One Step Commands with Repetition Cognitive Comments Cognitive Assessment Pt very groggy and slow to respond to questions. Pt was Comments cooperative and able to participate in OT eval. OT- Vision and Hearing OT- Hearing Assessment OT- Hearing WFL Assessment OT- Vision Assessment Visual Acuity Glasses For Reading Visual Attentiveness WFL Occular Pursuits WFL Vision Assessment Pt also uses glasses for distance. Comments M7 OT- IP Mobility and Balance Start: 08/07/25 11:33 Freq: Status: Active Protocol: Document 08/07/25 11:33 [facility] (Rec: 08/07/25 11:51 [facility] Desktop) OT- Bed Mobility Assessment Supine to Sit Supine to Sit Assist Maximum Assistance,2 Person Assistance Sit to Supine Sit to Supine Assist Total Assistance,2 Person Assistance Scooting Scooting to Edge of Maximum Assistance,2 Person Assistance Bed Scooting Up and Down Maximum Assistance,2 Person Assistance in Bed OT-Transfer Assessment Sit to and From Stand Sit to and from Maximum Assistance,2 Person Assistance Stand Devices Transfer Assistive Gait Belt,Front Wheeled Walker Devices Comments Mobility Comments BP supine 140/58, sitting 144/51 and after back in bed 132/52. MAX AX 2 and heavy use of green pad to get her to the edge of the bed. MODA for sitting balance as pt leans to the right. MAX AX 2 to stand but not all the way up to the FWW. MAX AX 2 to help scoot to the head of the bed. Total assist to get back in, assist for positioning needs. OT- Balance Assessment Sitting Balance and Reactions Static Sitting Fair Balance Ability Dynamic Sitting Poor Balance Ability Standing Balance and Reactions Static Standing Poor Balance Ability Dynamic Standing Poor Balance Ability M8 OT- IP Objective Assessments Start: 08/07/25 11:33 Freq: Status: Active Protocol: Document 08/07/25 11:33 [facility] (Rec: 08/07/25 11:51 [facility] Desktop) OT Gross Range of Motion Upper Extremity Range of Motion Assessment Right Impaired OT Strength Upper Extremity Strength Assessment Right Impaired M9 OT- IP Assessment and Plan Start: 08/07/25 11:33 Freq: Status: Active Protocol: Document 08/07/25 11:33 [facility] (Rec: 08/07/25 11:51 [facility] Desktop) OT Summary Assessment and Plan Potential Rehabilitation Good Potential Analytic Complexity High at Evaluation Summary OT Impairments Pain,Strength,Balance,Functional Cognition,Functional Mobility,Self-Feeding,Grooming,Dressing,Toileting, Bathing,Toilet Transfers,Shower Transfers,Activity Tolerance Assessment Summary Pt high complexity and main barriers are pain, steps, groggy, and now needing MAX A to Total A x2 for bed mobility needs. Pt attempted to stand to FWW with MAX AX 2. Pt till benefit from skilled rehab when medically stable. Goals Self-Feeding Goal Standby Assistance Grooming Goal Standby Assistance Dressing Goal Minimal Assistance Toileting Goal Minimal Assistance Bathing Goal Moderate Assistance Toilet Transfer Goal Minimal Assistance Shower Transfer Goal Moderate Assistance Days to Meet Goals 30 Frequency of Treatment Other frequency 5x/week Treatment Plan OT Treatment Plan ADL Training,Functional Cognition Training,Functional Mobility,Patient/Family Education,Discharge Planning Discharge Recommendations OT Discharge SNF Rehab Recommendations Transportation Needs Wheelchair/Cabulance at Discharge
--- NOTE | 2025-08-07 11:52 | PT.IIE ---
Current Diagnoses Essential (primary) hypertension (08/04/25) Other current complications following acute myocardial infarction (08/04/25) Nonrheumatic aortic (valve) stenosis (08/04/25) Chronic diastolic (congestive) heart failure (08/04/25) Displaced intertrochanteric fracture of right femur, initial encounter for closed fracture (08/04/25) Surgery Performed Operation Date: 08/05/25 14:00 Actual Procedures p cephalomedullary nail(Right) - Indira Bustamante DO Medical History (Last Reviewed 08/06/25 @ 09:42 by Arash Estrada MD) Diastolic dysfunction with chronic heart failure Myocardial infarction complications Physical Therapy Inpatient Evaluation/Re-Eval M1 PT IP Prior Functional Status Start: 08/07/25 11:30 Freq: NEEDED Status: Active Protocol: Document 08/07/25 11:31 [facility] (Rec: 08/07/25 11:52 [facility] [id number]) Medical Review Prior Functional Status Medical History Yes Reviewed Mobility and Gait pt ambulated without AD Prior Functional hx of proximal humerus fracture june 2025 and pt Level (Other details still in sling on the right arm, not sure how much she ) has been using it or her precautions Social History Household Members significant other Living Arrangements House Number of Floors ( Two Floors Floors) Number of Stairs To 3 steps from front to the garage without railing, once Enter/Railing? in 15 steps up to a landing then 5 additional steps to second floor to get to her bathroom and shower Home Environment Walk in Shower Additional Social pt lives at home with a friend, not sure how much she History Comment was assisted by her friend with her hx of right humerus fracture M2 PT-IP Current Condition Start: 08/07/25 11:30 Freq: NEEDED Status: Active Protocol: Document 08/07/25 11:31 [facility] (Rec: 08/07/25 11:52 [facility] [id number]) Physical Therapy Current Condition Current Condition Evaluation Date 08/07/25 Treatment Diagnosis R intertrochanteric fx and OH Onset Date 08/05/25 M3 PT-IP Subjective Start: 08/07/25 11:30 Freq: NEEDED Status: Active Protocol: Document 08/07/25 11:31 [facility] (Rec: 08/07/25 11:52 [facility] [id number]) Subjective Physical Therapy Visit Type Type Initial Evaluation Visit Start Time 11:05 Visit Stop Time 11:30 Physical Therapy Visit Comments Patient Comments pt agrees to PT Therapy Pain Assessment Pain When Pain Assessed At Rest Pain Present Pain Present Pain Reported Location right hip Intensity 9 Scale Used Numeric (0 - 10) M4 PT-IP Mobility and Gait Start: 08/07/25 11:30 Freq: NEEDED Status: Active Protocol: Document 08/07/25 11:31 [facility] (Rec: 08/07/25 11:52 [facility] [id number]) PT-Bed Mobility Assessment Rolling Type of Rolling Roll to Right Level of Assist Maximal Assistance,2 Person Assistance Supine to Sit Supine to Sit Maximum Assistance,2 Person Assistance Sit to Supine Sit to Supine Maximum Assistance,2 Person Assistance Scooting Scooting to Edge of Maximum Assistance Bed Scooting Up and Down Maximum Assistance in Bed PT-Transfer Assessment Sit to and From Stand Sit to and from Maximum Assistance,2 Person Assistance Stand Equipment Transfer Assistive Front Wheeled Walker Device Comments Mobility Comments Co-treat with OT, pt was max A x 2 to transfer to sitting at EOB, pt sat a few min for blood pressure to be taken, max A to scoot to edge of bed, pt stood with max A x 2 she did attempt to take a side step to the right to move up in bed however this was difficult, she tried to WB on R LE but was limited by pain. Max A x 2 to scoot her to the right then max A x 2 to transfer back to bed BP was taken in sitting and was 146/58 it was retaken once she was back to bed and was 132/52 once back to supine in bed PT-Balance Assessment Sitting Balance and Reactions Static Sitting Fair Balance Ability Dynamic Sitting Poor Balance Ability M5 PT-IP Objective Assessments Start: 08/07/25 11:30 Freq: NEEDED Status: Active Protocol: Document 08/07/25 11:31 [facility] (Rec: 08/07/25 11:52 [facility] [id number]) Orientation Orientation/Cognition Level of Alertness Confusional State Comments pt slow to process answers, agreed to PT but one word answers only Gross Range of Motion Upper Extremity ROM Assessment Within Functional Limits Lower Extremity ROM Assessment Right Impaired Impairments Right arm in sling, ROM not tested Strength Upper Extremity Strength Assessment Right Impaired Lower Extremity Strength Assessment Right Impaired Comments Strength Comments pt was not able to actively move the right hip in supine, once seated she was able to sit with feet on floor with hip and knee bent and was not c/o pain in that position. Pain limited pts ability to WB on the right LE M6 PT-IP Treatment Start: 08/07/25 11:30 Freq: NEEDED Status: Active Protocol: Document 08/07/25 11:31 [facility] (Rec: 08/07/25 11:52 [facility] [id number]) Physical Therapy Treatment Exercises Exercises Ankle Pumps,Heel Slides Education Education Provided Safety M7 PT-IP Assessment and Plan Start: 08/07/25 11:30 Freq: NEEDED Status: Active Protocol: Document 08/07/25 11:31 [facility] (Rec: 08/07/25 11:52 [facility] [id number]) PT Summary Assessment and Plan Potential Rehabilitation Fair Potential Status of Condition Evolving at Evaluation Summary Impairments Pain,ROM,Strength,Balance,Cognition,Bed Mobility, Transfers,Gait,Activity Tolerance Assessment Summary 75 year old female who took a fall while in line for the [employer] resulting in intertrochanteric fracture. Past medical history of right humerus fx in June 2025 and pt has arm in sling on the right. Post op day 2 with precautions of WBAT. PT did suffer a OH following surgery. Her troponin levels were too high to start PT yesterday. They were still high today however PT informed to work on mobility. Pt's alertness is decreased but she does respond with one word sentences. PT agrees to PT. Pain is a 9/10 both pre and post treatment today. Pt is limited by pain with mobility. She was able to sit at the edge of bed x 5 min and did transfer to standing with fww with Max A x2. Weight was primarily on the left LE. Pt is limited due to right UE in sling and may benefit from trial with a christina walker. She will most likely require SNF for rehab. Goals Bed Mobility Goal Contact Guard Assistance Transfer Goal Contact Guard Assistance Gait Goal Contact Guard Assistance Other Goals pt needs to be able to ascend/descend stairs prior to DC home Days to Meet Goals 10 Frequency of Treatment Frequency Of Twice a Day Treatment Treatment Plan Physical Therapy Bed Mobility Training,Transfer Training,Gait Training, Treatment Plan Therapeutic Exercise Weight Bearing Status Weight Bearing Weight Bear as Tolerated Status Recommendations To Nursing Amount of Assist 2 Person Assist Needed Discharge Recommendations PT Discharge SNF Rehab Recommendations Transportation Needs Wheelchair/Cabulance at Discharge
--- NOTE | 2025-08-07 11:57 | CM.DPC ---
Addendum entered by Marilu Weeks RN 08/07/25 13:21: . PT profile sent to [place], [place]. , Fx#[phone]. Original Note: Patient profile sent to [facility] [place], [place]. Fx# [phone].
[2025-08-07] MEDS: ACETAMINOPHEN 325 MG TABLET 650 MG PO ×3 (12:25→21:31)
[2025-08-07 12:28] VITALS: BP 121/45; PULSE 62; RESP 14; TEMP 36.3; O2SAT 94
[2025-08-07 15:59] VITALS: BP 122/52; PULSE 63; RESP 20; TEMP 36.2; O2SAT 91
[2025-08-07 20:00] VITALS: BP 134/48; PULSE 65; RESP 16; TEMP 36.1; O2SAT 93
[2025-08-08] VITALS (7 sets, daily range): BP systolic 119–151; BP diastolic 43–64; PULSE 57–85; RESP 15–20; TEMP 36.1–36.6; O2SAT 92–97
[2025-08-08 05:11] LABS: Add Manual Diff / Slide Review NO; Hematocrit 26.5 % (36-46); Hemoglobin 9.1 g/dL (12.0-16.0); Lymphocytes Absolute Auto 2400 /uL (1100-4500); Mean Corpuscular HGB Conc 34.2 % (30-36); Mean Corpuscular Hemoglobin 29.1 PG (26-34); Mean Corpuscular Volume 85.1 fL (80-100); Platelet Count 249 X10^3/uL (150-400)
[2025-08-08 05:34] LABS: Alanine Aminotransferase 16 IU/L (<35); Albumin 3.3 g/dL (3.5-5.0); Albumin Globulin Ratio 1.2 (1.0-2.8); Alkaline Phosphatase 71 U/L (38-126); Blood Urea Nitrogen 16 mg/dL (7-17); Calcium 8.8 mg/dL (8.4-10.2); Carbon Dioxide 20 mmol/L (22-32); Chloride 103 mmol/L (98-107); Estimated Glomerular Filt Rate > 60 mL/min (>60); Globulin 2.8 g/dL (1.7-4.1); Glucose 90 mg/dL (70-99); HEMOLYSIS < 15 (0-50); Potassium 3.7 mmol/L (3.4-5.1); Sodium 134 mmol/L (137-145); Total Protein 6.1 g/dL (6.3-8.2)
--- NOTE | 2025-08-08 08:28 | P.PN_ITS ---
Exam Vital Signs (past 8 hours): - 08/08/25 03:50 Temperature 97.8 F Pulse Rate 81 Respiratory Rate 18 Blood Pressure 140/48 L Pulse Oximetry 94 Oxygen Flow Rate 0 Oxygen Delivery Method Room Air Oxygen Flow Rate 0 Objective Labs 08/08/25 04:28 08/08/25 04:28 Labs: Laboratory Results - last 24 hr 08/08/25 04:28 WBC 9.8 RBC 3.12 L Hgb 9.1 L Hct 26.5 L MCV 85.1 MCH 29.1 MCHC 34.2 RDW 14.9 H Plt Count 249 Neut % (Auto) 65.5 Lymph % (Auto) 24.5 L [place] % (Auto) 8.2 Eos % (Auto) 1.5 L Baso % (Auto) 0.3 Neut # (Auto) 6400 Lymph # (Auto) 2400 [place] # (Auto) 800 Eos # (Auto) 100 Baso # (Auto) 0 Sodium 134 L Potassium 3.7 Chloride 103 Carbon Dioxide 20 L BUN 16 Creatinine 0.67 Estimated GFR > 60 BUN/Creatinine Ratio 23.9 H Glucose 90 Calcium 8.8 Total Bilirubin 0.5 AST 46 H ALT 16 Alkaline Phosphatase 71 Total Protein 6.1 L Albumin 3.3 L Globulin 2.8 Albumin/Globulin Ratio 1.2 [facility] Medical History Myocardial infarction complications Diastolic dysfunction with chronic heart failure Social History household members: significant other Smoking Status: Never smoker alcohol intake: never Assessment & Plan Post-op Postoperative Procedures: Procedures Operation Date: 08/05/25 14:00 Actual Procedure Side Surgeon p cephalomedullary nail Right Indira Bustamante DO Postoperative status narrative: Date Patient Seen: 08/08/25 Time Patient Seen: 08:15 Interval history: 75 yo F s/p Right hip intertrochanteric fracture s/p long cephalomedullary nail placement ? 08/05/25. Also found to have a perioperative NSTEMI. Denies pain unless she moves. Reports that her chest feels ?squeezy? similar to what she has been having the last 6 months. denies SOB/n/v. She worked with PT/OT yesterday and she was able to sit at the edge of the bed and stand. She is from the [place] and would like to be placed in a SNF there. R hip: dressing intact. SILT s/s/t/dp/sp Fires ta/gs/ehl/fhl DP pulse 2 + Postoperative status narrative: Weightbearing as tolerated with a walker. She can put some weight through her right upper extremity with the walker. She has 5 weeks of healing with her proximal humerus fracture and is showing some bridging bone. Aspirin PO BID x 6 weeks PT / OT - recommends SNF placement Appreciate internal medicine and cardiology help with this patient. Postoperative plan: routine post-op care Taqueria Benitez MD Ortho Time Spent With Patient Time with patient: 15-24 minutes
[2025-08-08] MEDS: MELOXICAM 7.5 MG TABLET 15 MG PO (08:52)
[2025-08-08] MEDS: METOPROLOL IR 25 MG TABLET PO ×3 (08:53→20:23)
[2025-08-08] MEDS: ASPIRIN EC 81 MG TABLET PO ×2 (08:53→20:23)
[2025-08-08] MEDS: ACETAMINOPHEN 325 MG TABLET 650 MG PO ×2 (08:53→15:27)
[2025-08-08] MEDS: SENNOSIDES 8.6 MG TABLET PO (08:53)
[2025-08-08] MEDS: DOCUSATE 100 MG CAPSULE PO ×2 (08:53→20:23)
--- NOTE | 2025-08-08 11:28 | PT.IPTN ---
Current Diagnoses Essential (primary) hypertension (08/04/25) Other current complications following acute myocardial infarction (08/04/25) Nonrheumatic aortic (valve) stenosis (08/04/25) Chronic diastolic (congestive) heart failure (08/04/25) Displaced intertrochanteric fracture of right femur, initial encounter for closed fracture (08/04/25) Surgery Performed Operation Date: 08/05/25 14:00 Actual Procedures p cephalomedullary nail(Right) - Indira Bustamante, DO Physical Therapy Treatment Note M2 PT-IP Current Condition Start: 08/07/25 11:30 Freq: NEEDED Status: Active Protocol: Document 08/08/25 11:05 SP (Rec: 08/08/25 12:01 SP Laptop) Physical Therapy Current Condition Current Condition Evaluation Date 08/07/25 Treatment Diagnosis R intertrochanteric fx and KS Onset Date 08/05/25 M3 PT-IP Subjective Start: 08/07/25 11:30 Freq: NEEDED Status: Active Protocol: Document 08/08/25 11:05 SP (Rec: 08/08/25 12:01 SP Laptop) Subjective Physical Therapy Visit Type Type Treatment Note Visit Start Time 11:05 Visit Stop Time 11:28 Notes Pt's POA: Low Ag arrived during tx, [facility] Spoke with BABY FORMULA MIXER and Color Card Maker [facility] end tx regarding DC plans, recommendations. Number of BABY FORMUL[employer] MIXER Visits 1 Physical Therapy Visit Comments Patient Comments Pt agreeable to working with BABY FORMUL[employer] MIXER. Pt answers to yes/no questions only, unable to complete full thought, pointing to L hip when asked if having pain and left knee once up in chair. Pt agreeable by stating yes to Low FARAH to come in room but unable to states his name. Therapy Pain Assessment Pain When Pain Assessed During Mobility Pain Present Pain Present Pain Reported Location right hip Intensity 5 Scale Used 5/10 at rest, 9/10 during mobility Pain Behaviors Facial Grimacing,Guarding,Holding Area Pain Management Distraction,Modification of Treatment,Re-positioning Techniques M4 PT-IP Mobility and Gait Start: 08/07/25 11:30 Freq: NEEDED Status: Active Protocol: Document 08/08/25 11:05 SP (Rec: 08/08/25 12:01 SP Laptop) PT-Bed Mobility Assessment Supine to Sit Supine to Sit Maximum Assistance,2 Person Assistance Scooting Scooting to Edge of Maximum Assistance Bed PT-Transfer Assessment Sit to and From Stand Sit to and from Maximum Assistance,2 Person Assistance Stand Transfers Transfer Destination Chair Transfer Technique Squat Pivot Transfer Ability Level of Assist Maximum Assistance,2 Person Assistance,Use of Upper Extremities Comments Mobility Comments Vitals pre mobility: LUE BP 136/49 HR 69 SaO2 91% on RA . Pt completed sup>sit and scoot to EOB Heavy Max A x2 with assist trunk righting and BLEs to EOB and use transfer pad to complete mobility, Min LUE use on bed and bed rail. RUE in sling donned, redirection cues for NWB RUE. STS cues push from bed then onto HW Max A x2 cues for full stand equal WB BLEs. Pt unable to progress wt shift or LE mobility advancement on RLE further, returned to sit on bed. Squat pivot transfer to L, max cues and hand over hand tactile education LUE to far chair arm self support. Completed Max A x2 bed> chair, Max A to scoot back in chair due to patient unable to motor plan mobiltiy to do so. Pt had call light and all needs in reach, [employer] donned chair alarm before leaving room. [facility] arrived, discussion with GAGAN Kelsey DC recommendations of SNF, pt stated yes when Low asked if wanted single room at SNF. BABY FORMULA MIXER recommending SNF for further progression strength and functional mobility. Will continue to assess progress. Gait Assessment Comments Gait Comments unable to progress beyond squat pivot transfer at this time. Stair Climbing Assessment Comments Stair Climbing unable to assess Comments PT-Balance Assessment Sitting Balance and Reactions Static Sitting Fair Balance Ability Dynamic Sitting Poor Balance Ability Standing Balance and Reactions Static Standing Poor Balance Ability Dynamic Standing Poor Balance Ability Device Used HW, unable user FWW due to NWB RUE M5 PT-IP Objective Assessments Start: 08/07/25 11:30 Freq: NEEDED Status: Active Protocol: Document 08/07/25 11:31 [facility] (Rec: 08/07/25 11:52 [facility] [id number]) Orientation Orientation/Cognition Level of Alertness Confusional State Comments pt slow to process answers, agreed to PT but one word answers only Gross Range of Motion Upper Extremity ROM Assessment Within Functional Limits Lower Extremity ROM Assessment Right Impaired Impairments Right arm in sling, ROM not tested Strength Upper Extremity Strength Assessment Right Impaired Lower Extremity Strength Assessment Right Impaired Comments Strength Comments pt was not able to actively move the right hip in supine, once seated she was able to sit with feet on floor with hip and knee bent and was not c/o pain in that position. Pain limited pts ability to WB on the right LE M6 PT-IP Treatment Start: 08/07/25 11:30 Freq: NEEDED Status: Active Protocol: Document 08/08/25 11:05 SP (Rec: 08/08/25 12:01 SP Laptop) Physical Therapy Treatment Exercises Exercises Ankle Pumps,Heel Slides Education Education Provided Safety M7 PT-IP Assessment and Plan Start: 08/07/25 11:30 Freq: NEEDED Status: Active Protocol: Document 08/08/25 11:05 SP (Rec: 08/08/25 12:01 SP Laptop) PT Summary Assessment and Plan Potential Rehabilitation Fair Potential Status of Condition Evolving at Evaluation Summary Impairments Pain,ROM,Strength,Balance,Cognition,Bed Mobility, Transfers,Gait,Activity Tolerance Progress Towards Slow Progress due to Pain,Slow Progress due to Activity Goals Tolerance Assessment Summary 75 year old female who took a fall while in line for the [employer] resulting in intertrochanteric fracture. Past medical history of right humerus fx in June 2025 and pt's R arm continues in sling. Post op day 3 with precautions of WBAT. Pt did suffer a KS following surgery. Heavy Max x2 for all mobility. Standing weight was primarily on the left LE and use of HW with LUE, is unable to unweight RLE so unable progress mobility, completed squat pivot transfer to chair Max A x2. Recommending SNF for progression strength and increased functional mobility and w/c cabulance for transportation. Goals Bed Mobility Goal Contact Guard Assistance Transfer Goal Contact Guard Assistance Gait Goal Contact Guard Assistance Other Goals pt needs to be able to ascend/descend stairs prior to DC home Days to Meet Goals 10 Frequency of Treatment Frequency Of Twice a Day Treatment Treatment Plan Physical Therapy Bed Mobility Training,Transfer Training,Gait Training, Treatment Plan Therapeutic Exercise Other bed mobility, transfers, continue trial HW use if able. Recommendations and Static stand for time for increase BLE strength. Next Treatment Focus Weight Bearing Status Weight Bearing Weight Bear as Tolerated Status Recommendations To Nursing Amount of Assist 2 Person Assist Needed Discharge Recommendations PT Discharge SNF Rehab Recommendations Transportation Needs Wheelchair/Cabulance at Discharge - PT assist 2
--- NOTE | 2025-08-08 12:03 | CM.DPC ---
Addendum entered by DEANDRA Fermin 08/08/25 13:16: ADD: [facility] admissions confirms they can accept pt and are contracted with her insurance and willing to submit auth but anticipate that insurance is closed this weekend since . BF Original Note: DCP SNF Cont: Per MD, pt now with facial droop and potential for CVA and to have imaging of her brain today to r/o any further medical conditions. SW met bedside with pt, POA best friend Low ([phone]) right at the end of PT session and PT confirms pt remains Max2PA and only able to stand and no ambulation yet but was able to pivot. PT does not feel pt could safely transport via private vehicle and would recommend w/c van at d/c. SW spoke at length with pt (only able to participate a little) and GAGAN Kelsey and discussed barriers to transport to SNF closer to home near [facility] [address]. GAGAN initially anticipated SNF near [place] but now in agreement local SNF needed until pt stronger/more ambulatory to transport safely closer to home. Low plans to likely stay at pt[place] [address] while she is at SNF. Provided local SNF Choice List and preference initially private room at SNF but explained most SNFs are double occupancy or if private room available would be extra cost or eventual roommate added. Only SNF with mostly private rooms is [facility] and currently Low does not want SNF that far from [place]. SNF preference currently is [facility] or [facility]. Explained that [facility] is not currently contracted with [facility] but sometimes can get one time auth but might be copays. Low in agreement with referrals to [facility] and [facility] to determine if either have private beds and can accept. Made initial referrals to [facility] and [facility]. Will need PAS[facility]. DEANDRA Fermin
--- NOTE | 2025-08-08 14:36 | DI.CT.S_ITS ---
PROCEDURE: CT HEAD/BRAIN WO CON INDICATIONS: Evaluate for cerebrovascular event TECHNIQUE: Noncontrast 4.5 mm thick angled axial sections acquired from the foramen magnum to the vertex, with coronal and sagittal reformats. For radiation dose reduction, the following was used: automated exposure control, adjustment of mA and/or kV according to patient size. COMPARISON: None. FINDINGS: Image quality: Diagnostic. CSF spaces: Basal cisterns are patent. No extra-axial fluid collections. The ventricles are symmetric in size and shape. Brain: No intracranial bleeds or mass effect. There is cerebral volume loss, with resultant ventricular and sulcal prominence. There are periventricular and deep white matter chronic small vessel ischemic changes. There is intracranial internal carotid artery atherosclerosis. Skull and face: Calvarium and visualized facial bones appear intact, without suspicious lesions. Sinuses: Visualized sinuses and mastoids are clear. IMPRESSION: No acute intracranial pathology. Dictated by: Edilberto Powers M.D. on 08/08/2025 at 16:08 Approved by: Edilberto Powers M.D. on 08/08/2025 at 16:08
--- NOTE | 2025-08-08 14:37 | P.PN_ITS ---
Subjective Subjective Date Patient Seen: 08/08/25 Interval history: Chief complaint: Ground level fall dark with fall comminuted intertrochanteric right hip fracture and comminuted proximal humerus fracture complicated by perioperative SD History of present illness: 08/04: 75-year-old female who was admitted with a hip fracture after a fall. She has a history of moderate aortic stenosis and CAD with a previous CABG. The patient had a mildly elevated troponin. She would complained of chest pain intermittently for the past 3 months. Her initial ECG was abnormal and she was discussed with Cardiology and evaluated with an echo which revealed good EF, no wall motion abnormalities, and aortic stenosis. Her revised cardiac risk index for an emergent surgery that is low risk was utilizing calculated with a score of 1 which is a moderate risk of 6%. She did undergo surgery (Screw) and her postoperative troponin did bump to 11. She remains hemodynamically stable and comfortable. Cardiology is consulted and we will be evaluating her. 08/05. Echo revealed a and normal EF. She had a mildly elevated troponin went to the OR after consultation with Cardiology with a moderate risk of 6% or less for cardiac adverse events. Unfortunately, she did have evidence of NSTEMI with a troponin of 11 in the postoperative. 08/06: Doing well, no chest pain or dyspnea. Troponin remained elevated at 11. Discussed with Cardiology who did evaluate the patient. Not felt to be appropriate for heparin drip given her postoperative status. Treated with aspirin, and beta blockade. 08/07: Trop 4. Limited ECHO: The ejection fraction is estimated to be 50-55%. There are regional wall motion abnormalities as specified. Basal septal and mid to basal inferior hypokinesis 08/08: Patient having some apparent Adrian phrenic and subtle appearance of a right facial droop today CT of the head ordered otherwise Review of systems: No fever or chills rigors No chest pain palpitations No nausea vomiting Poor appetite The paresthesia paresis Physical examination: Awake alert origins and cogent female although appears Adrian phrenic HEENT there is a appearance with slight right facial droop Extraocular motions intact Normal cranial nerves Moves all extremities Alert and oriented Heart rate and rhythm regular no murmurs Lungs clear Abdomen nontender bowel sounds present IMAGING: X-rays of her right shoulder demonstrate a comminuted healing proximal humerus fracture. X-rays of her right hip and CT scan of the right hip demonstrate a comminuted intertrochanteric right hip fracture. ECHO: - The left ventricular contractility is normal. Estimated ejection fraction is greater than 55% with no segmental wall motion abnormalities. Mild concentric LVH. Grade 1 diastolic dysfunction. - The right ventricular contractility is normal. - Moderate left atrial enlargement. All other cardiac chambers are of normal size. - Moderate mitral annular calcifications with mild mitral valvular stenosis. Mean gradient is 4.2 mmHg. - Moderate aortic valvular stenosis with peak velocity of 3.1 m/s. Mean gradient of 25.1 mmHg. Dimensionless index of 0.45. - No obvious intracardiac shunts. - No obvious intracardiac masses nor thrombi. - No hemodynamically significant pericardial effusion. - Low right-sided filling pressures. Conclusion: Normal biventricular systolic function with mild to moderate valvular stenoses. Assessment and plan: Right hip fracture status post ORIF with perioperative non STEMI (moderate periorbital risk of coronary disease given history of CAD with revascularization) with possible new outcome of apical akinesis * Possible cerebrovascular event as well getting --> CT of the head for imaging * If there is evidence of CVA may escalate to dual antiplatelet aspirin and Plavix * Continue all goal directed medical therapy for CAD and CVD * We will need inpatient rehab especially since patient also has a right comminuted proximal humeral fracture Chronic coronary artery disease status post CABG * Continue all goal directed medical therapy * Perioperative non STEMI likely type 2 * Not a candidate for heparinization secondary to surgery and risk of exsanguination * Follow up with Cardiology after discharge and rehabilitation DVT prophylaxis: * Aspirin b.i.d. per Orthopedic stewardship Code status: * Full code blue Disposition: * Inpatient perioperative and. Non STEMI * We will need placement in long-term Time based billing: * 35 minutes were involved in evaluation of this patient including [id number] evaluation discussion with care team discharge planning team review of records review of objective laboratory findings and imaging and EKG Exam Vital Signs (past 8 hours): - 08/08/25 09:10 08/08/25 13:00 Temperature 97.6 F 96.9 F L Pulse Rate 85 69 Respiratory Rate 20 16 Blood Pressure 128/54 L 119/53 L Pulse Oximetry 95 94 Oxygen Flow Rate 0 Oxygen Delivery Method Room Air Oxygen Flow Rate 0 Objective Labs 08/08/25 04:28 08/08/25 04:28 Labs: Laboratory Results - last 24 hr 08/08/25 04:28 WBC 9.8 RBC 3.12 L Hgb 9.1 L Hct 26.5 L MCV 85.1 MCH 29.1 MCHC 34.2 RDW 14.9 H Plt Count 249 Neut % (Auto) 65.5 Lymph % (Auto) 24.5 L [place] % (Auto) 8.2 Eos % (Auto) 1.5 L Baso % (Auto) 0.3 Neut # (Auto) 6400 Lymph # (Auto) 2400 [place] # (Auto) 800 Eos # (Auto) 100 Baso # (Auto) 0 Sodium 134 L Potassium 3.7 Chloride 103 Carbon Dioxide 20 L BUN 16 Creatinine 0.67 Estimated GFR > 60 BUN/Creatinine Ratio 23.9 H Glucose 90 Calcium 8.8 Total Bilirubin 0.5 AST 46 H ALT 16 Alkaline Phosphatase 71 Total Protein 6.1 L Albumin 3.3 L Globulin 2.8 Albumin/Globulin Ratio 1.2 [facility] Medical History Myocardial infarction complications Diastolic dysfunction with chronic heart failure Social History household members: significant other Smoking Status: Never smoker alcohol intake: never Assessment & Plan Time-Based Coding :: [TOTAL MINUTES] spent with patient and on the chart (including review of chart, obtaining history, exam, reviewing outside data, placing orders, documenting exam and treatment plan, and counseling patient) on [DATE].
[2025-08-09] VITALS (36 sets, daily range): BP systolic 121–178; BP diastolic 49–111; PULSE 58–92; RESP 15–30; TEMP 35.9–37.2; O2SAT 92–96
[2025-08-09] MEDS: ACETAMINOPHEN 325 MG TABLET 650 MG PO ×3 (05:10→22:42)
[2025-08-09 05:29] LABS: Add Manual Diff / Slide Review NO; Hematocrit 25.0 % (36-46); Hemoglobin 8.5 g/dL (12.0-16.0); Lymphocytes Absolute Auto 2900 /uL (1100-4500); Mean Corpuscular HGB Conc 34.2 % (30-36); Mean Corpuscular Hemoglobin 29.1 PG (26-34); Mean Corpuscular Volume 85.1 fL (80-100); Platelet Count 276 X10^3/uL (150-400)
[2025-08-09 05:38] LABS: Alanine Aminotransferase 14 IU/L (<35); Albumin 3.1 g/dL (3.5-5.0); Albumin Globulin Ratio 1.2 (1.0-2.8); Alkaline Phosphatase 64 U/L (38-126); Blood Urea Nitrogen 16 mg/dL (7-17); Calcium 8.4 mg/dL (8.4-10.2); Carbon Dioxide 19 mmol/L (22-32); Chloride 95 mmol/L (98-107); Estimated Glomerular Filt Rate > 60 mL/min (>60); Globulin 2.6 g/dL (1.7-4.1); Glucose 91 mg/dL (70-99); HEMOLYSIS < 15 (0-50); Potassium 4.0 mmol/L (3.4-5.1); Sodium 124 mmol/L (137-145); Total Protein 5.7 g/dL (6.3-8.2)
--- NOTE | 2025-08-09 08:16 | P.PN_ITS ---
Exam Vital Signs (past 8 hours): - 08/09/25 00:24 08/09/25 03:00 08/09/25 07:54 Temperature 96.7 F L 96.8 F L 97.2 F L Pulse Rate 67 72 76 Respiratory Rate 17 18 16 Blood Pressure 135/52 L 121/49 L 134/55 L Pulse Oximetry 92 96 94 Oxygen Flow Rate 0 0 0 Oxygen Delivery Method Room Air Oxygen Flow Rate 0 Objective Labs 08/09/25 04:50 08/09/25 04:50 Labs: Laboratory Results - last 24 hr 08/09/25 04:50 WBC 11.2 H RBC 2.94 L Hgb 8.5 L Hct 25.0 L MCV 85.1 MCH 29.1 MCHC 34.2 RDW 14.7 Plt Count 276 Neut % (Auto) 66.1 Lymph % (Auto) 25.4 [place] % (Auto) 7.3 Eos % (Auto) 0.8 L Baso % (Auto) 0.4 Neut # (Auto) 7400 H Lymph # (Auto) 2900 [place] # (Auto) 800 Eos # (Auto) 100 Baso # (Auto) 0 Sodium 124 L D Potassium 4.0 Chloride 95 L Carbon Dioxide 19 L BUN 16 Creatinine 0.68 Estimated GFR > 60 BUN/Creatinine Ratio 23.5 H Glucose 91 Calcium 8.4 Total Bilirubin 0.6 AST 31 ALT 14 Alkaline Phosphatase 64 Total Protein 5.7 L Albumin 3.1 L Globulin 2.6 Albumin/Globulin Ratio 1.2 [facility] Medical History Myocardial infarction complications Diastolic dysfunction with chronic heart failure Social History household members: significant other Smoking Status: Never smoker alcohol intake: never Assessment & Plan Post-op Postoperative Procedures: Procedures Operation Date: 08/05/25 14:00 Actual Procedure Side Surgeon p cephalomedullary nail Right Indira Bustamante, Postoperative status narrative: Date Patient Seen: 08/09/25 Time Patient Seen: 08:15 Interval history: 75 yo F s/p Right hip intertrochanteric fracture s/p long cephalomedullary nail placement ? 08/05/25. Also found to have a perioperative NSTEMI. Reports 8/10 pain in the right hip. denies SOB/N/V. She worked with PT/OT yesterday and she was able to sit at the edge of the bed, stand and pivot to a chair. She is from [facility] and would like to be placed in a SNF there. R hip: dressing intact. SILT s/s/t/dp/sp Fires ta/gs/ehl/fhl DP pulse 2 + Postoperative status: Weightbearing as tolerated with a walker. She can put some weight through her right upper extremity with the walker. She has 5 weeks of healing with her proximal humerus fracture and is showing some bridging bone. Concern for a stroke. CT of the head showed no intracranial pathology. Considering MRI for further investigation. DVT Proph per the primary team PT / OT - recommends SNF placement Appreciate internal medicine and cardiology help with this patient. Taqueria Benitez MD Ortho Time Spent With Patient Time with patient: 15-24 minutes
[2025-08-09 08:21] LABS: Sodium 124 mmol/L (137-145)
--- NOTE | 2025-08-09 08:28 | PC.NURSE ---
Addendum entered by Kaity Pereira RN 08/09/25 11:56: 11:35 RN notified that pt c/o chest pain, described it as pressure. Lili notified at 11:37, STAT EKG ordered. Addendum entered by Kaity Pereira RN 08/09/25 09:46: RN notified Dr. Pearson that pt's re-draw of Na is still 124, which is down from 134 yesterday. Original Note: Pt's NURYJerome Low spoke with this RN and said that he needed to speak with the pt's doctor today. He is increasingly concerned about pt's mental status because he says this is not the pt's baseline mentation. He feels that it is related to the changes in her medication, specifically metoprolol and I need someone to convince me otherwise. I doubt they will. Dr. Pearson notified at [phone].
--- NOTE | 2025-08-09 08:42 | DI.MRI.S_ITS ---
PROCEDURE: MR HEAD/BRAIN WO CON INDICATIONS: cva TECHNIQUE: Non-contrast axial T1 spin echo, axial T2 fast spin echo, sagittal and axial FLAIR, coronal T2 fast spin echo, axial gradient echo, axial diffusion and ADC through the brain. COMPARISON: None. FINDINGS: Image quality: Excellent. CSF spaces: Ventricles appear symmetric in size and shape. Basal cisterns are patent. No extra-axial fluid collections. Brain: There are a few punctate foci of restricted diffusion in the subcortical white matter of the left temporal lobe (series 6, image 12) and in the deep white matter of the simpson radiata (series 6, image 16). Skull and face: Calvarial bone marrow is normal in signal. Orbits are normal. Sinuses: Sinuses and mastoids are clear. IMPRESSION: A few punctate regions of restricted diffusion the subcortical white matter of the left temporal lobe and the deep white matter of the simpson radiata. Findings raise the concern for folic infarct. Dictated by: Jerry Kelsey M.D. on 08/09/2025 at 10:26 Approved by: Jerry Kelsey M.D. on 08/09/2025 at 10:29
[2025-08-09] MEDS: MELOXICAM 7.5 MG TABLET 15 MG PO (10:16)
[2025-08-09] MEDS: DOCUSATE 100 MG CAPSULE PO ×2 (10:16→20:02)
[2025-08-09] MEDS: METOPROLOL IR 25 MG TABLET 12.5 MG PO ×3 (10:17→20:04)
[2025-08-09] MEDS: ASPIRIN EC 81 MG TABLET PO ×2 (10:17→20:04)
--- NOTE | 2025-08-09 11:37 | EKG_ITS ---
[facility] [address] [place] [address] Test Date: 2025-08-09 Pat Name: Camille Fleming Department: [facility] Room: 219 Gender: Female X Ray Consultant: KEILA : 1950 Requested By: Order Number: [id number] Reading MD: Arash Estrada Measurements Intervals [place] Rate: 71 P: -8 UT: 148 QRS: 48 QRSD: 92 T: 191 QT: 384 QTc: 417 Interpretive Statements Critical Test Result: STEMI Normal sinus rhythm Anteroseptal infarct , possibly acute T wave abnormality, consider inferolateral ischemia ACUTE SD / STEMI Electronically Signed On 08-15-2025 12:16:34 PST by Arash Estrada
[2025-08-09] MEDS: CLOPIDOGREL 75 MG TABLET 300 MG PO (11:39)
[2025-08-09 13:00] LABS: NT-proBNP (BNP-Adult 18+) 5280 pg/mL (<450)
[2025-08-09 13:05] LABS: Troponin I 1.980 ng/mL (0.01-0.034)
[2025-08-09] MEDS: NITROGLYCERIN 0.4 MG SL TAB SL (13:16)
[2025-08-09] MEDS: NITROGLYCERIN OINT 1 INCH/GM OINT...G. 0.5 INCH TOP (13:19)
--- NOTE | 2025-08-09 13:36 | P.PN_ITS ---
Subjective Subjective Date Patient Seen: 08/09/25 Interval history: Chief complaint: Ground level fall dark with fall comminuted intertrochanteric right hip fracture and comminuted proximal humerus fracture complicated by perioperative LA History of present illness: 08/04: 75-year-old female who was admitted with a hip fracture after a fall. She has a history of moderate aortic stenosis and CAD with a previous CABG. The patient had a mildly elevated troponin. She would complained of chest pain intermittently for the past 3 months. Her initial ECG was abnormal and she was discussed with Cardiology and evaluated with an echo which revealed good EF, no wall motion abnormalities, and aortic stenosis. Her revised cardiac risk index for an emergent surgery that is low risk was utilizing calculated with a score of 1 which is a moderate risk of 6%. She did undergo surgery (Screw) and her postoperative troponin did bump to 11. She remains hemodynamically stable and comfortable. Cardiology is consulted and we will be evaluating her. 08/05. Echo revealed a and normal EF. She had a mildly elevated troponin went to the OR after consultation with Cardiology with a moderate risk of 6% or less for cardiac adverse events. Unfortunately, she did have evidence of NSTEMI with a troponin of 11 in the postoperative. 08/06: Doing well, no chest pain or dyspnea. Troponin remained elevated at 11. Discussed with Cardiology who did evaluate the patient. Not felt to be appropriate for heparin drip given her postoperative status. Treated with aspirin, and beta blockade. 08/07: Trop 4. Limited ECHO: The ejection fraction is estimated to be 50-55%. There are regional wall motion abnormalities as specified. Basal septal and mid to basal inferior hypokinesis 08/08: Patient having some apparent Adrian phrenic and subtle appearance of a right facial droop today CT of the head ordered otherwise MRI ordered demonstrated left cortical and white matter punctate infarcts patient is started on Plavix 300 when addition to aspirin 08/09: Developed 8/10 chest pain about 12:30 p.m. EKG shows extensive T-wave and ST segment changes and Q-waves troponin 1.9 which is down from 4 from 08/07. BNP is 2000. Chest pain was relieved with sublingual nitroglycerin and 1/2 inch of nitroglycerin paste. Consulted with Cardiology with a consensus decision to transfer to ICU and initiate nitroglycerin drip if chest pain recurs. Patient is not a candidate for cardiac catheterization due to stroke, not a candidate for anticoagulation due to risk of hemorrhagic transformation of stroke and exsanguination from surgery. Patient loaded Plavix 300 mg serial troponin Review of systems: No fever or chills rigors No chest pain palpitations No nausea vomiting Poor appetite The paresthesia paresis Physical examination: Awake alert origins and cogent female although appears Adrian phrenic HEENT there is a appearance with slight right facial droop Extraocular motions intact Normal cranial nerves Moves all extremities Alert and oriented Heart rate and rhythm regular no murmurs Lungs clear Abdomen nontender bowel sounds present IMAGING: X-rays of her right shoulder demonstrate a comminuted healing proximal humerus fracture. X-rays of her right hip and CT scan of the right hip demonstrate a comminuted intertrochanteric right hip fracture. ECHO: - The left ventricular contractility is normal. Estimated ejection fraction is greater than 55% with no segmental wall motion abnormalities. Mild concentric LVH. Grade 1 diastolic dysfunction. - The right ventricular contractility is normal. - Moderate left atrial enlargement. All other cardiac chambers are of normal size. - Moderate mitral annular calcifications with mild mitral valvular stenosis. Mean gradient is 4.2 mmHg. - Moderate aortic valvular stenosis with peak velocity of 3.1 m/s. Mean gradient of 25.1 mmHg. Dimensionless index of 0.45. - No obvious intracardiac shunts. - No obvious intracardiac masses nor thrombi. - No hemodynamically significant pericardial effusion. - Low right-sided filling pressures. Conclusion: Normal biventricular systolic function with mild to moderate valvular stenoses. Assessment and plan: Right hip fracture status post ORIF with perioperative non STEMI (moderate periorbital risk of coronary disease given history of CAD with revascularization) with possible new outcome of apical akinesis * Possible cerebrovascular event as well getting --> CT of the head for imaging * If there is evidence of CVA may escalate to dual antiplatelet aspirin and Plavix * Continue all goal directed medical therapy for CAD and CVD * We will need inpatient rehab especially since patient also has a right comminuted proximal humeral fracture Left cortical and white matter stroke on MRI 08/09: * Loaded Plavix 300 mg * Dual platelets Plavix and aspirin * High-intensity statin Chronic coronary artery disease status post CABG with unstable angina 08/09 * Not a candidate for cardiac catheterization due to stroke * Not a candidate for anticoagulation due to stroke and postoperative * Low with Plavix 300 mg * Nitrates to manage angina * Appreciate cardiology expertise * Continue all goal directed medical therapy * Perioperative non STEMI likely type 2 * Not a candidate for heparinization secondary to surgery and risk of exsanguination and hemorrhagic transformation of stroke * Follow up with Cardiology after discharge and rehabilitation to establish anatomy and possible interventions at a safe point DVT prophylaxis: * Aspirin b.i.d. per Orthopedic stewardship Code status: * Full code blue Disposition: * Inpatient perioperative and. Non STEMI with recurrent symptomatic angina 08/09 * Transferred to ICU * We will need placement in halfway Time based billing: * 75 minutes were involved in evaluation of this patient including [id number] evaluation discussion with care team discussion with Orthopedic surgery and Cardiology ICU staff transfer to ICU management of acute unstable angina discharge planning team review of records review of objective laboratory findings and imaging and EKG Exam Vital Signs (past 8 hours): - 08/09/25 07:54 08/09/25 08:00 08/09/25 11:38 Temperature 97.2 F L 97.5 F L Pulse Rate 76 73 Respiratory Rate 16 18 Blood Pressure 134/55 L 164/62 H Pulse Oximetry 94 95 Oxygen Delivery Method Room Air Oxygen Flow Rate 0 0 08/09/25 13:16 08/09/25 13:19 Temperature Pulse Rate 70 70 Respiratory Rate Blood Pressure 167/64 H 167/64 H Pulse Oximetry Oxygen Delivery Method Oxygen Flow Rate Oxygen Delivery Method Room Air Oxygen Flow Rate 0 Objective Labs 08/09/25 04:50 08/09/25 07:33 Labs: Laboratory Results - last 24 hr 08/09/25 08/09/25 08/09/25 04:50 07:33 12:28 WBC 11.2 H RBC 2.94 L Hgb 8.5 L Hct 25.0 L MCV 85.1 MCH 29.1 MCHC 34.2 RDW 14.7 Plt Count 276 Neut % (Auto) 66.1 Lymph % (Auto) 25.4 Edwards % (Auto) 7.3 Eos % (Auto) 0.8 L Baso % (Auto) 0.4 Neut # (Auto) 7400 H Lymph # (Auto) 2900 Edwards # (Auto) 800 Eos # (Auto) 100 Baso # (Auto) 0 Sodium 124 L D 124 L Potassium 4.0 Chloride 95 L Carbon Dioxide 19 L BUN 16 Creatinine 0.68 Estimated GFR > 60 BUN/Creatinine Ratio 23.5 H Glucose 91 Calcium 8.4 Total Bilirubin 0.6 AST 31 ALT 14 Alkaline Phosphatase 64 Troponin I 1.980 H* NT-Pro-B Natriuret Pep 5280 H Total Protein 5.7 L Albumin 3.1 L Globulin 2.6 Albumin/Globulin Ratio 1.2 PFSH Medical History Myocardial infarction complications Diastolic dysfunction with chronic heart failure Social History household members: significant other Smoking Status: Never smoker alcohol intake: never Assessment & Plan Time-Based Coding :: [TOTAL MINUTES] spent with patient and on the chart (including review of chart, obtaining history, exam, reviewing outside data, placing orders, documenting exam and treatment plan, and counseling patient) on [DATE].
--- NOTE | 2025-08-09 13:55 | P.PN_ITS ---
Subjective Subjective Date Patient Seen: 08/09/25 Time Patient Seen: 13:55 Interval history: Delightful 75-year-old female with known history of coronary artery disease status post bypass surgery in 2007 resident of [facility] was visiting [place] when she had a fall on the failure and sustained hip fracture. He she had a right intertrochanteric fracture for which she underwent open reduction internal fixation by Dr. Indira Bustamante. Postoperative. She had elevated troponin which subsequently trended down from peak of 11.9-4. She remained clinically stable and did not complain of any symptoms of chest discomfort. Postoperative echocardiogram limited study revealed ejection fraction of 55% with regional wall motion abnormalities which were thought to be due to her acute coronary event in the postoperative.. However heparin was not initiated because of immediate postoperative situation. Patient was continued on aspirin and Plavix. Yesterday hospitalist service noted a facial droop therefore CT scan was done. The CT scan was unrevealing however MRI showed folic infarct in the some white matter area and in deep cortical area-simpson radiata. Exam Vital Signs (past 8 hours): - 08/09/25 07:54 08/09/25 08:00 08/09/25 11:38 Temperature 97.2 F L 97.5 F L Pulse Rate 76 73 Respiratory Rate 16 18 Blood Pressure 134/55 L 164/62 H Pulse Oximetry 94 95 Oxygen Delivery Method Room Air Oxygen Flow Rate 0 0 08/09/25 13:16 08/09/25 13:19 08/09/25 13:34 Temperature Pulse Rate 70 70 71 Respiratory Rate 18 Blood Pressure 167/64 H 167/64 H 178/77 H Pulse Oximetry 95 Oxygen Delivery Method Oxygen Flow Rate Oxygen Delivery Method Room Air Oxygen Flow Rate 0 Const General: cooperative, healthy appearing and comfortable [facility] Head: normal to inspection and normocephalic Eyes General: appearance normal, both eyes and all related structures Neck Neck: normal visual inspection and no meningeal signs Chest Chest: normal inspection of the chest and normal palpation of entire chest wall Resp Effort & Inspection: normal respiratory effort and able to speak in complete sentences Auscultation: clear to auscultation bilaterally Cardio Palpation: normal PMI Rate: regular rate Heart Sounds: S1 normal, S2 normal and murmur GI Inspection: normal to inspection Back/Spine/Pelvis Back: normal to inspection Skin General: no rashes or lesions noted Neuro Other: No facial droop or muscle weakness. Patient is able to wiggle her toes Left-sided muscle coordination intact. Could not examine right hand due to right shoulder pain. Psych Appearance: well kempt Objective Labs 08/09/25 04:50 08/09/25 07:33 Labs: Laboratory Results - last 24 hr 08/09/25 08/09/25 08/09/25 04:50 07:33 12:28 WBC 11.2 H RBC 2.94 L Hgb 8.5 L Hct 25.0 L MCV 85.1 MCH 29.1 MCHC 34.2 RDW 14.7 Plt Count 276 Neut % (Auto) 66.1 Lymph % (Auto) 25.4 [place] % (Auto) 7.3 Eos % (Auto) 0.8 L Baso % (Auto) 0.4 Neut # (Auto) 7400 H Lymph # (Auto) 2900 [place] # (Auto) 800 Eos # (Auto) 100 Baso # (Auto) 0 Sodium 124 L D 124 L Potassium 4.0 Chloride 95 L Carbon Dioxide 19 L BUN 16 Creatinine 0.68 Estimated GFR > 60 BUN/Creatinine Ratio 23.5 H Glucose 91 Calcium 8.4 Total Bilirubin 0.6 AST 31 ALT 14 Alkaline Phosphatase 64 Troponin I 1.980 H* NT-Pro-B Natriuret Pep 5280 H Total Protein 5.7 L Albumin 3.1 L Globulin 2.6 Albumin/Globulin Ratio 1.2 [facility] Medical History Myocardial infarction complications Diastolic dysfunction with chronic heart failure Social History household members: significant other Smoking Status: Never smoker alcohol intake: never Assessment & Plan Assessment and plan (1) Hypertension: Qualifiers: Hypertension type: unspecified Qualified Code(s): I10 - Essential (primary) hypertension Status: Acute (2) Diastolic dysfunction with chronic heart failure: Status: Acute (3) Aortic stenosis, moderate: Status: Acute (4) Subsequent non-ST elevation (NSTEMI) myocardial infarction within 4 weeks of initial infarction: Status: Acute (5) Facial droop due to cerebrovascular accident (CVA): Status: Acute Plan Aspirin 81 mg daily Plavix 75 mg daily Atorvastatin 40 mg daily Continued management of hypertension Neuro checks every 4 to 6 hours. Nitroglycerin as needed for chest pain episodes. Consideration will nitroglycerin drip if symptoms do not respond and she has a recurrence of symptoms. Patient is not a candidate for an emergent coronary angiography at this point. Her troponin levels are trending down. As always I appreciate the opportunity to participate in the care of your patient. Assessment & Plan narrative: 1. Postoperative non ST elevation myocardial infarction. Patient was still having intermittent episodes of chest discomfort. Nitroglycerin was given and she responded to chest squeezing sensations. Given her ongoing intermittent symptoms the patient was transferred to CCU for close monitoring. 2. CVA: A few punctate regions of restricted diffusion the subcortical white matter of the left temporal lobe and the deep white matter of the simpson radiata. Findings raise the concern for folic infarct. I can not say for sure that this is an acute CVA given absence of any previous imaging study there was no mention of hypertension intense infarcts in the subcortical white matter or in simpson radiata. From a clinical standpoint her symptoms have significantly improved and there is no facial droop or any residual weakness. She will continue with aspirin and Plavix along with statins. She will be discharged home on these medications 3. Hypertension she is on appropriate medication 4. Right intertrochanteric fracture status post open reduction internal fixation. Per orthopedic notes she is stable and recovering from her surgery. Time-Based Coding :: [TOTAL MINUTES] spent with patient and on the chart (including review of chart, obtaining history, exam, reviewing outside data, placing orders, documenting exam and treatment plan, and counseling patient) on [DATE].
--- NOTE | 2025-08-09 14:15 | PT-IP ANOTE ---
Pt c/o chest pain this am - RN notified. Pt moved to ICU and placed on bedrest. D/C therapy - will need new orders for PT to continue.
--- NOTE | 2025-08-09 14:50 | CM.DPC ---
Addendum entered by DEANDRA Fermin 08/09/25 15:00: ADD: PASRR done in anticipation of possible SNF tomorrow. BF Original Note: DCP SNF Cont: Per MD, pt's head CT was negative but had brain MRI today which shows likely CVA which explains her left facial droop and symptoms. Not yet stable for d/c today but anticipates possible d/c tomorrow if chest pain resolved. Per [facility], not contracted and would be 50% out of pocket copay. [facility] contracted and submitted for auth and auto approved for initial 7 days of SNF. They can accept pt tomorrow Mon or when stable for discharge. Updated on above medical developments. Met bedside with pt and GAGAN Kelsey and they confirm they are agreeable with plan of d/c to [facility] when stable since contracted with her insurance. [facility] can provide transport but wonder if BLS for medical monitoring might be safest option. Per MD, also feel ambulance BLS transport might be best for transport and explained uncertain if this would be covered by insurance. Per PT, pt able to tolerate sitting upright in w/c van but not private vehicle from mobility stand point. SW ran out of time to discuss transport further with pt and GAGAN Kelsey today and will follow in AM for pt progress to determine w/c van vs BLS transport at d/c. DEANDRA Fermin
[2025-08-09] MEDS: ATORVASTATIN 20 MG TABLET 80 MG PO (14:57)
[2025-08-10] VITALS (62 sets, daily range): BP systolic 111–171; BP diastolic 54–101; PULSE 62–114; RESP 13–34; TEMP 36.3–37.1; O2SAT 94–98
[2025-08-10] MEDS: ACETAMINOPHEN 325 MG TABLET 650 MG PO ×4 (05:39→21:58)
[2025-08-10] MEDS: CLOPIDOGREL 75 MG TABLET PO (08:08)
[2025-08-10] MEDS: METOPROLOL IR 25 MG TABLET 12.5 MG PO ×3 (08:08→20:17)
[2025-08-10] MEDS: ASPIRIN EC 81 MG TABLET PO ×2 (08:09→20:18)
[2025-08-10] MEDS: ISOSORBIDE MONONITRATE ER 30 MG TABLET PO (08:09)
[2025-08-10] MEDS: DOCUSATE 100 MG CAPSULE PO ×2 (08:09→20:17)
[2025-08-10 10:14] LABS: Troponin I 1.380 ng/mL (0.01-0.034)
--- NOTE | 2025-08-10 11:05 | DIET.CONS ---
Addendum entered by Kiarra Dial 08/10/25 13:56: Son unavailable upon attempted visit again. Spoke to RN who reports pt only consumed protein supplement at lunch, would drink parts of it rapidly. Does well it water in paper coffee cup with straw. Will trial this with protein supplement as well. Protein supplemental shake TID. Spoke to hospitalist who reports pt has severe short term memory loss right now, will consider ST eval tomorrow. Original Note: Dietary Consultation Note Admission Date: 08/04/2025 21:34 Assessment: 75 y F admitted for hip fracture, had CVA. Dietitian screened d/t unit host reporting pt's son wanting to speak to dietitian regarding lunch orders and report of pt being on keto diet. Attempted visit but son not in room x2 this morning. Per nursing staff: pt currently confused, no note of choking yesterday on food or difficulty swallowing. Per RN, RN reports notes that pt did okay on bedside swallow eval this morning and took pills with water. Reports will assess pt at lunch and monitor for need for speech therapy eval. Low PO intakes and upon discussion with unit host and review of DFM, pt choosing limited options r/t emphasizing keto diet and dislike of certain foods. Pt reported to tolerate vanilla protein supplemental shake. Added this to lunch order. Ht: 157.48 cm Wt: 67 kg BMI: 24.7 UBW: no weight hx Last BM: 08/09/25 (08/09/25 22:00) MNA: 12 Jamshid Score: 16 Diet: 08/06/25 Breakfast General (Regular) Diet Diet Modifications: Food Texture: Level 7 - Regular Liquid Consistency: Level 0 - Thin Nutrition Percent Meal Consumed 25% 08/09/25 13:00 Percent Meal Consumed 25% 08/08/25 18:47 Labs: RBC 2.94 X10^6/uL (4.0-5.2) L 08/09/25 04:50 Hgb 8.5 g/dL (12.0-16.0) L 08/09/25 04:50 Hct 25.0 % (36-46) L 08/09/25 04:50 Creatinine 0.68 mg/dL (0.52-1.04) 08/09/25 04:50 NT-Pro-B Natriuret Pep 5280 pg/mL (<450) H 08/09/25 12:28 Nutrition Diagnosis: Inadequate oral intakes r/t decreased appetite/confusion/restrictive diet on keto aeb recent PO intakes <50% Interventions: Protein supplement BID EER: 1500 kcals (23 kcals/kg per BMI vs [id number]) 80 g protein (1.2 g/kg per post-op and CVA) Monitoring/Evaluations: will attempt to met with son later this afternoon to encourage that patient needs all macronutrient groups (carbs, protein, fat) to help with recovery, PO intakes Electronically Signed by: Kiarra Dial 08/10/25 11:05 Clinical Dietitian [address] [id number]
--- NOTE | 2025-08-10 11:06 | PM.PNPO.1 ---
Subjective Subjective Date Patient Seen: 08/10/25 Time Patient Seen: 10:50 Interval history: Camille is a pleasant 75 year old female who is seen today on POD#5 s/p ORIF w/ IMN for a right intertroch femur fx. Hospital course complicated by perioperative NSTEMI and stroke. Difficult history to obtain, patient mostly just responds yes to all questions asked. She tells me she in in 10/10 pain, reports both arm and hip pain, but does not grimace and appears to be sitting comfortably during our conversation. Per hospitalist notes: Patient developed 8/10 chest pain about 12:30 p.m. yesterday, EKG showed extensive T-wave and ST segment changes and Q-waves troponin 1.9 which is down from 4 from 08/07. BNP is 2000. Chest pain was relieved with sublingual nitroglycerin and 1/2 inch of nitroglycerin paste. Consulted with Cardiology with a consensus decision to transfer to ICU and initiate nitroglycerin drip if chest pain recurs. Patient is not a candidate for cardiac catheterization due to stroke, not a candidate for anticoagulation due to risk of hemorrhagic transformation of stroke and exsanguination from surgery. Patient loaded Plavix 300 mg serial troponin. Today troponin 1.3, down trend from yesterday. Exam Vital Signs (past 8 hours): - 08/10/25 03:30 08/10/25 04:00 08/10/25 04:01 Pulse Rate 81 93 H 91 H Respiratory Rate 18 21 23 Blood Pressure Pulse Oximetry 96 96 96 Oxygen Delivery Method 08/10/25 04:01 08/10/25 04:30 08/10/25 05:00 Pulse Rate 89 83 Respiratory Rate 23 20 Blood Pressure 168/72 H Pulse Oximetry 96 97 Oxygen Delivery Method 08/10/25 05:01 08/10/25 05:01 08/10/25 05:30 Pulse Rate 86 101 H Respiratory Rate 21 29 H Blood Pressure 155/67 H Pulse Oximetry 96 96 Oxygen Delivery Method 08/10/25 06:00 08/10/25 06:00 08/10/25 06:01 Pulse Rate 98 H 103 H Respiratory Rate 18 23 Blood Pressure 141/100 H 141/101 H Pulse Oximetry 96 96 Oxygen Delivery Method 08/10/25 06:01 08/10/25 06:30 08/10/25 07:00 Pulse Rate 103 H 73 85 Respiratory Rate 32 H 14 20 Blood Pressure Pulse Oximetry 96 95 97 Oxygen Delivery Method 08/10/25 07:00 08/10/25 07:01 08/10/25 07:01 Pulse Rate 86 Respiratory Rate 21 Blood Pressure 138/63 Pulse Oximetry 97 Oxygen Delivery Method Room Air 08/10/25 07:26 08/10/25 07:26 08/10/25 07:30 Pulse Rate 88 87 Respiratory Rate 17 17 Blood Pressure 147/66 H Pulse Oximetry 97 96 Oxygen Delivery Method 08/10/25 08:00 08/10/25 08:01 08/10/25 08:01 Pulse Rate 103 H 104 H Respiratory Rate 21 34 H Blood Pressure 156/85 H Pulse Oximetry 96 97 Oxygen Delivery Method 08/10/25 08:30 08/10/25 09:00 08/10/25 09:03 Pulse Rate 89 77 Respiratory Rate 19 17 Blood Pressure 111/56 L Pulse Oximetry 96 95 Oxygen Delivery Method 08/10/25 09:03 08/10/25 09:30 08/10/25 10:00 Pulse Rate 81 81 86 Respiratory Rate 17 19 24 Blood Pressure Pulse Oximetry 96 96 96 Oxygen Delivery Method 08/10/25 10:30 08/10/25 11:00 Pulse Rate 76 94 H Respiratory Rate 17 28 H Blood Pressure Pulse Oximetry 96 96 Oxygen Delivery Method Oxygen Delivery Method Room Air Oxygen Flow Rate 0 Narrative Exam Narrative: Patient sitting upright in bed, appears comfortable. No acute distress. Patient repeatedly un-caps and then re-caps her chapstick over and over again throughout our conversation, shaky hands. RUE immobilized in simple sling although she does assistant general manager her R hand and wrist freely while in sling. DF, PF, EHL intact bilaterally. Gross sensation intact throughout bilateral lower extremities. Calves soft and non-tender bilaterally. SCDs are on and functioning. Brisk capillary refill. Post-surgical dressings w/ Medipore tape and Aquacel dressing clean, dry and intact over the right hip w/o any drainage Resp Effort & Inspection: normal respiratory effort Objective Labs 08/09/25 04:50 08/09/25 07:33 Labs: Laboratory Results - last 24 hr 08/09/25 08/10/25 12:28 09:40 Troponin I 1.980 H* 1.380 H* NT-Pro-B Natriuret Pep 5280 H PFSH Medical History Myocardial infarction complications Diastolic dysfunction with chronic heart failure Social History household members: significant other Smoking Status: Never smoker alcohol intake: never Assessment & Plan Post-op Postoperative Procedures: Procedures Operation Date: 08/05/25 14:00 Actual Procedure Side Surgeon p cephalomedullary nail Right Indira Bustamante, Postoperative day: 5 Postoperative status narrative: Postoperative status complicated by myocardial infarction and stroke. Postoperative plan narrative: 1) WBAT w/ walker, okay to put weight through RUE when using the walker. 2) DVT prophylaxis per primary team. SCDs to be on and functioning while patient in bed. Currently getting Plavix and ASA. 3) Continue PT/OT 4) Multimodal pain management with ice to the hip as needed for additional pain control 5) D/c dispo per primary team, likely SNF Appreciate internal medicine and cardiology assistance with this patient.
--- NOTE | 2025-08-10 12:33 | P.PN_ITS ---
Subjective Subjective Date Patient Seen: 08/10/25 Interval history: Chief complaint: Ground level fall dark with fall comminuted intertrochanteric right hip fracture and comminuted proximal humerus fracture complicated by perioperative [place] History of present illness: 08/04: 75-year-old female who was admitted with a hip fracture after a fall. She has a history of moderate aortic stenosis and CAD with a previous CABG. The patient had a mildly elevated troponin. She would complained of chest pain intermittently for the past 3 months. Her initial ECG was abnormal and she was discussed with Cardiology and evaluated with an echo which revealed good EF, no wall motion abnormalities, and aortic stenosis. Her revised cardiac risk index for an emergent surgery that is low risk was utilizing calculated with a score of 1 which is a moderate risk of 6%. She did undergo surgery (Screw) and her postoperative troponin did bump to 11. She remains hemodynamically stable and comfortable. Cardiology is consulted and we will be evaluating her. 08/05. Echo revealed a and normal EF. She had a mildly elevated troponin went to the OR after consultation with Cardiology with a moderate risk of 6% or less for cardiac adverse events. Unfortunately, she did have evidence of NSTEMI with a troponin of 11 in the postoperative. 08/06: Doing well, no chest pain or dyspnea. Troponin remained elevated at 11. Discussed with Cardiology who did evaluate the patient. Not felt to be appropriate for heparin drip given her postoperative status. Treated with aspirin, and beta blockade. 08/07: Trop 4. Limited ECHO: The ejection fraction is estimated to be 50-55%. There are regional wall motion abnormalities as specified. Basal septal and mid to basal inferior hypokinesis 08/08: Patient having some apparent Adrian phrenic and subtle appearance of a right facial droop today CT of the head ordered otherwise MRI ordered demonstrated left cortical and white matter punctate infarcts patient is started on Plavix 300 when addition to aspirin 08/09: Developed 8/10 chest pain about 12:30 p.m. EKG shows extensive T-wave and ST segment changes and Q-waves troponin 1.9 which is down from 4 from 08/07. BNP is 2000. Chest pain was relieved with sublingual nitroglycerin and 1/2 inch of nitroglycerin paste. Consulted with Cardiology with a consensus decision to transfer to ICU and initiate nitroglycerin drip if chest pain recurs. Patient is not a candidate for cardiac catheterization due to stroke, not a candidate for anticoagulation due to risk of hemorrhagic transformation of stroke and exsanguination from surgery. Patient loaded Plavix 300 mg serial troponin 08/10: No further reports of chest pain troponin trending down to 1380 started on Imdur 30 mg a day and currently on dual antiplatelet aspirin Plavix metoprolol patient demonstrates very impaired short-term memory eats a piece of egg with a fork with the right hand does like the taste and takes it it out with her left hand and repeats this on the same piece of egg over and over Review of systems: No fever or chills rigors No chest pain palpitations No nausea vomiting Poor appetite The paresthesia paresis Physical examination: Awake alert origins and cogent female although appears Adrian phrenic HEENT there is a appearance with slight right facial droop Extraocular motions intact Normal cranial nerves Moves all extremities Alert and oriented Heart rate and rhythm regular no murmurs Lungs clear Abdomen nontender bowel sounds present IMAGING: X-rays of her right shoulder demonstrate a comminuted healing proximal humerus fracture. X-rays of her right hip and CT scan of the right hip demonstrate a comminuted intertrochanteric right hip fracture. ECHO: - The left ventricular contractility is normal. Estimated ejection fraction is greater than 55% with no segmental wall motion abnormalities. Mild concentric LVH. Grade 1 diastolic dysfunction. - The right ventricular contractility is normal. - Moderate left atrial enlargement. All other cardiac chambers are of normal size. - Moderate mitral annular calcifications with mild mitral valvular stenosis. Mean gradient is 4.2 mmHg. - Moderate aortic valvular stenosis with peak velocity of 3.1 m/s. Mean gradient of 25.1 mmHg. Dimensionless index of 0.45. - No obvious intracardiac shunts. - No obvious intracardiac masses nor thrombi. - No hemodynamically significant pericardial effusion. - Low right-sided filling pressures. Conclusion: Normal biventricular systolic function with mild to moderate valvular stenoses. Assessment and plan: Right hip fracture status post ORIF with perioperative non STEMI (moderate periorbital risk of coronary disease given history of CAD with revascularization) with possible new outcome of apical akinesis * Complicated by perioperative myocardial infarction and left-sided stroke * We will need inpatient rehab especially since patient also has a right comminuted proximal humeral fracture Left cortical and white matter stroke on MRI 08/09: * Loaded Plavix 300 mg * Dual platelets Plavix and aspirin * High-intensity statin Chronic coronary artery disease status post CABG with unstable angina 08/09 * Troponin is trending down * Not a candidate for cardiac catheterization due to stroke * Not a candidate for anticoagulation due to stroke and postoperative * Low with Plavix 300 mg * Nitrates to manage angina * Appreciate cardiology expertise * Continue all goal directed medical therapy * Perioperative non STEMI likely type 2 * Not a candidate for heparinization secondary to surgery and risk of exsanguination and hemorrhagic transformation of stroke * Follow up with Cardiology after discharge and rehabilitation to establish anatomy and possible interventions at a safe point DVT prophylaxis: * Aspirin b.i.d. per Orthopedic stewardship Code status: * Full code blue but may change to DNR Disposition: * Inpatient perioperative and. Non STEMI with recurrent symptomatic angina 08/09 * Transferred to ICU * We will need placement in senior living Time based billing: * 35 minutes were involved in evaluation of this patient including [id number] evaluation discussion with care team discussion with Orthopedic surgery and Cardiology ICU staff transfer to ICU management of acute unstable angina discharge planning team review of records review of objective laboratory findings and imaging and EKG Exam Vital Signs (past 8 hours): - 08/10/25 05:00 08/10/25 05:01 08/10/25 05:01 Pulse Rate 83 86 Respiratory Rate 20 21 Blood Pressure 155/67 H Pulse Oximetry 97 96 Oxygen Delivery Method 08/10/25 05:30 08/10/25 06:00 08/10/25 06:00 Pulse Rate 101 H 98 H 103 H Respiratory Rate 29 H 18 23 Blood Pressure 141/100 H Pulse Oximetry 96 96 96 Oxygen Delivery Method 08/10/25 06:01 08/10/25 06:01 08/10/25 06:30 Pulse Rate 103 H 73 Respiratory Rate 32 H 14 Blood Pressure 141/101 H Pulse Oximetry 96 95 Oxygen Delivery Method 08/10/25 07:00 08/10/25 07:00 08/10/25 07:01 Pulse Rate 85 86 Respiratory Rate 20 21 Blood Pressure Pulse Oximetry 97 97 Oxygen Delivery Method Room Air 08/10/25 07:01 08/10/25 07:26 08/10/25 07:26 Pulse Rate 88 Respiratory Rate 17 Blood Pressure 138/63 147/66 H Pulse Oximetry 97 Oxygen Delivery Method 08/10/25 07:30 08/10/25 08:00 08/10/25 08:01 Pulse Rate 87 103 H Respiratory Rate 17 21 Blood Pressure 156/85 H Pulse Oximetry 96 96 Oxygen Delivery Method 08/10/25 08:01 08/10/25 08:30 08/10/25 09:00 Pulse Rate 104 H 89 77 Respiratory Rate 34 H 19 17 Blood Pressure Pulse Oximetry 97 96 95 Oxygen Delivery Method 08/10/25 09:03 08/10/25 09:03 08/10/25 09:30 Pulse Rate 81 81 Respiratory Rate 17 19 Blood Pressure 111/56 L Pulse Oximetry 96 96 Oxygen Delivery Method 08/10/25 10:00 08/10/25 10:30 08/10/25 11:00 Pulse Rate 86 76 94 H Respiratory Rate 24 17 28 H Blood Pressure Pulse Oximetry 96 96 96 Oxygen Delivery Method 08/10/25 11:30 Pulse Rate 79 Respiratory Rate 18 Blood Pressure Pulse Oximetry 96 Oxygen Delivery Method Oxygen Delivery Method Room Air Oxygen Flow Rate 0 Objective Labs 08/09/25 04:50 08/09/25 07:33 Labs: Laboratory Results - last 24 hr 08/09/25 08/10/25 12:28 09:40 Troponin I 1.980 H* 1.380 H* NT-Pro-B Natriuret Pep 5280 H PFSH Medical History Myocardial infarction complications Diastolic dysfunction with chronic heart failure Social History household members: significant other Smoking Status: Never smoker alcohol intake: never Assessment & Plan Time-Based Coding :: [TOTAL MINUTES] spent with patient and on the chart (including review of chart, obtaining history, exam, reviewing outside data, placing orders, documenting exam and treatment plan, and counseling patient) on [DATE].
--- NOTE | 2025-08-10 14:21 | CM.DPNOTE ---
DCP note SPACE CONTROL AGENT reviewed EMR per provider, not cleared to dc to SNF at this time, want to make sure she's stable from a cardiac perspective. having some short term memory issues today. per Anne, auth good until Sun/. may have bed then? SPACE CONTROL AGENT updated DPOA Low over the phone. in agreement with plan. SPACE CONTROL AGENT reviewed transport options- [facility] vs BLS. Low wants to make a day of decision pending her medical need. understands there may be a bill associated. reports pt not able to tolerate sitting up for a half an hour to get to [facility] bc pain but that may change in a few days. P: DC to [facility] pending medical stability/transport needs. will continue to follow closely for DCP Coordination DEANDRA Morfin
[2025-08-10 16:21] LABS: Blood Urea Nitrogen 13 mg/dL (7-17); Calcium 8.6 mg/dL (8.4-10.2); Carbon Dioxide 21 mmol/L (22-32); Chloride 87 mmol/L (98-107); Estimated Glomerular Filt Rate > 60 mL/min (>60); Glucose 129 mg/dL (70-99); HEMOLYSIS < 15 (0-50); Potassium 3.6 mmol/L (3.4-5.1)
[2025-08-10 16:30] LABS: Sodium 116 mmol/L (137-145)
[2025-08-10] MEDS: SODIUM CHLORIDE 0.9% 500 ML 1000 ML IV (17:11)
--- NOTE | 2025-08-10 17:16 | OT.IPNOTE ---
Pt has been placed on bed rest orders. D/C OT order at this time. Please re-order when appropriate.
[2025-08-10] MEDS: SODIUM CHLORIDE 1,000 MG TABLET 1000 MG PO ×2 (17:30→20:18)
[2025-08-10] MEDS: SODIUM CHLORIDE 0.9% FLUSH 10 ML IV (20:17)
[2025-08-10] MEDS: ATORVASTATIN 20 MG TABLET 80 MG PO (20:18)
[2025-08-10 23:37] LABS: Blood Urea Nitrogen 15 mg/dL (7-17); Calcium 8.1 mg/dL (8.4-10.2); Carbon Dioxide 23 mmol/L (22-32); Chloride 88 mmol/L (98-107); Estimated Glomerular Filt Rate > 60 mL/min (>60); Glucose 115 mg/dL (70-99); HEMOLYSIS < 15 (0-50); Potassium 3.6 mmol/L (3.4-5.1)
[2025-08-10 23:47] LABS: Sodium 116 mmol/L (137-145)
[2025-08-11] VITALS (52 sets, daily range): BP systolic 99–147; BP diastolic 52–98; PULSE 65–101; RESP 13–37; TEMP 36.2–36.9; O2SAT 95–100
[2025-08-11] MEDS: MELATONIN 3 MG TABLET 6 MG PO ×2 (01:00→20:33)
[2025-08-11 07:04] LABS: Blood Urea Nitrogen 13 mg/dL (7-17); Calcium 8.1 mg/dL (8.4-10.2); Carbon Dioxide 22 mmol/L (22-32); Chloride 88 mmol/L (98-107); Estimated Glomerular Filt Rate > 60 mL/min (>60); Glucose 126 mg/dL (70-99); HEMOLYSIS < 15 (0-50); Potassium 3.3 mmol/L (3.4-5.1)
[2025-08-11 07:07] LABS: Sodium 117 mmol/L (137-145)
[2025-08-11] MEDS: POTASSIUM CHLORIDE IN WATER 10 MEQ/100 ML PIGGYBACK 100 MEQ IV ×6 (09:16→15:15)
[2025-08-11] MEDS: SODIUM CHLORIDE 0.9% FLUSH 10 ML IV ×2 (09:16→20:33)
[2025-08-11] MEDS: FUROSEMIDE 40 MG/4 ML VIAL IV ×2 (09:17→16:21)
[2025-08-11] MEDS: CLOPIDOGREL 75 MG TABLET PO (09:24)
[2025-08-11] MEDS: DOCUSATE 100 MG CAPSULE PO (09:24)
[2025-08-11] MEDS: ASPIRIN EC 81 MG TABLET PO ×2 (09:24→20:32)
[2025-08-11] MEDS: SODIUM CHLORIDE 1,000 MG TABLET 1000 MG PO ×2 (09:24→20:33)
[2025-08-11] MEDS: METOPROLOL IR 25 MG TABLET 12.5 MG PO ×3 (09:25→20:33)
--- NOTE | 2025-08-11 10:26 | DIET.PN1 ---
Addendum entered by Kiarra Dial 08/11/25 12:27: Was informed that pt's family member wanted to speak with me. Upon meeting with family member, they report no questions or concerns for me. Discussed pt needing to increase kcal and protein intake. Went through menu options but pt declines all. Asked what pt typically eats at home, report mac and cheese (but doesn't like the mac and cheese here), meatballs or hamburger (but doesn't like the meat here). Emphasized the importance of calories and protein for recovery. Pt agreeable for yogurt and fruit but nothing else besides protein supplements. Pt reports she is on keto diet. Provided education that keto diet is not recommended right now. Educ provided that patient needs all macro-nutrients in diet for recovery. Original Note: Dietary Progress Note Assessment: Spoke to RN, tolerating protein shakes still. Can go back to regular cup. Diet changed to fluid restriction. 400 mL allotted on tray, shake around 400 mL, will continue TID. Will f/u again around lunch to attempt to meet with family member again. Ht: 157.48 cm Wt: 67.5 kg BMI: 24.7 Last BM: 08/11/25 (08/11/25 04:39) MNA: 12 Jamshid Score: 14 Diet: 08/11/25 Lunch Fluid Restriction Diet Diet Modifications: Total fluid amount: 1,500 Amount allotted to patient trays: 400 Free water included in total: Yes Fluid in addition to trays: 4167-9946 amount: 1,100 1308-6605 amount: 100 Food Texture: Level 7 - Regular Liquid Consistency: Level 0 - Thin Nutrition Percent Meal Consumed 25% 08/10/25 18:00 Percent Meal Consumed 0% 08/10/25 18:00 Percent Meal Consumed 25% 08/09/25 13:00 Labs: RBC 2.94 X10^6/uL (4.0-5.2) L 08/09/25 04:50 Hgb 8.5 g/dL (12.0-16.0) L 08/09/25 04:50 Hct 25.0 % (36-46) L 08/09/25 04:50 Creatinine 0.49 mg/dL (0.52-1.04) L 08/11/25 06:42 NT-Pro-B Natriuret Pep 5280 pg/mL (<450) H 08/09/25 12:28 Electronically Signed by: Kiarra Dial 08/11/25 10:26 Clinical Dietitian [address] [id number]
[2025-08-11] MEDS: ACETAMINOPHEN 325 MG TABLET 650 MG PO ×2 (10:39→17:39)
[2025-08-11] MEDS: SODIUM CHLORIDE 0.9% 250 ML 21 ML IV (11:33)
--- NOTE | 2025-08-11 13:23 | PC.NURSE ---
Patient requests to have her right shoulder sling removed, per Low he states that it has been on for about 6 weeks and if she had not been hospitalized she would be starting PT eval and treat for her shoulder. Dr. Pearson updated with this information.
--- NOTE | 2025-08-11 16:54 | PC.NURSE ---
Per Dr. Pearson yesterday 08/10 patient was to maintain bedrest still as ordered. Patient has been asking about working with physical therapy again today, Dr. Pearson notified. Bedrest order dc'd by Dr Kriss Tenorio
[2025-08-11 17:07] LABS: Blood Urea Nitrogen 14 mg/dL (7-17); Calcium 8.2 mg/dL (8.4-10.2); Carbon Dioxide 24 mmol/L (22-32); Chloride 86 mmol/L (98-107); Estimated Glomerular Filt Rate > 60 mL/min (>60); Glucose 120 mg/dL (70-99); HEMOLYSIS < 15 (0-50); Potassium 4.2 mmol/L (3.4-5.1)
[2025-08-11 17:08] LABS: Sodium 117 mmol/L (137-145)
--- NOTE | 2025-08-11 17:53 | P.PN_ITS ---
Subjective Subjective Date Patient Seen: 08/11/25 Interval history: Chief complaint: Ground level fall dark with fall comminuted intertrochanteric right hip fracture and comminuted proximal humerus fracture complicated by perioperative [place] History of present illness: 08/04: 75-year-old female who was admitted with a hip fracture after a fall. She has a history of moderate aortic stenosis and CAD with a previous CABG. The patient had a mildly elevated troponin. She would complained of chest pain intermittently for the past 3 months. Her initial ECG was abnormal and she was discussed with Cardiology and evaluated with an echo which revealed good EF, no wall motion abnormalities, and aortic stenosis. Her revised cardiac risk index for an emergent surgery that is low risk was utilizing calculated with a score of 1 which is a moderate risk of 6%. She did undergo surgery (Screw) and her postoperative troponin did bump to 11. She remains hemodynamically stable and comfortable. Cardiology is consulted and we will be evaluating her. 08/05. Echo revealed a and normal EF. She had a mildly elevated troponin went to the OR after consultation with Cardiology with a moderate risk of 6% or less for cardiac adverse events. Unfortunately, she did have evidence of NSTEMI with a troponin of 11 in the postoperative. 08/06: Doing well, no chest pain or dyspnea. Troponin remained elevated at 11. Discussed with Cardiology who did evaluate the patient. Not felt to be appropriate for heparin drip given her postoperative status. Treated with aspirin, and beta blockade. 08/07: Trop 4. Limited ECHO: The ejection fraction is estimated to be 50-55%. There are regional wall motion abnormalities as specified. Basal septal and mid to basal inferior hypokinesis 08/08: Patient having some apparent Adrian phrenic and subtle appearance of a right facial droop today CT of the head ordered otherwise MRI ordered demonstrated left cortical and white matter punctate infarcts patient is started on Plavix 300 when addition to aspirin 08/09: Developed 8/10 chest pain about 12:30 p.m. EKG shows extensive T-wave and ST segment changes and Q-waves troponin 1.9 which is down from 4 from 08/07. BNP is 2000. Chest pain was relieved with sublingual nitroglycerin and 1/2 inch of nitroglycerin paste. Consulted with Cardiology with a consensus decision to transfer to ICU and initiate nitroglycerin drip if chest pain recurs. Patient is not a candidate for cardiac catheterization due to stroke, not a candidate for anticoagulation due to risk of hemorrhagic transformation of stroke and exsanguination from surgery. Patient loaded Plavix 300 mg serial troponin 08/10: No further reports of chest pain troponin trending down to 1380 started on Imdur 30 mg a day and currently on dual antiplatelet aspirin Plavix metoprolol patient demonstrates very impaired short-term memory eats a piece of egg with a fork with the right hand does like the taste and takes it it out with her left hand and repeats this on the same piece of egg over and over 08/11: No further episodes of chest pain patient is still doing repetitive behaviors but is interactive despite replacing solute and fluid restriction and diuretic patient still has sodium of 117 Review of systems: No fever or chills rigors No chest pain palpitations No nausea vomiting Poor appetite The paresthesia paresis Physical examination: Awake alert origins and cogent female although appears Adrian phrenic HEENT there is a appearance with slight right facial droop Extraocular motions intact Normal cranial nerves Moves all extremities Alert and oriented Heart rate and rhythm regular no murmurs Lungs clear Abdomen nontender bowel sounds present IMAGING: X-rays of her right shoulder demonstrate a comminuted healing proximal humerus fracture. X-rays of her right hip and CT scan of the right hip demonstrate a comminuted intertrochanteric right hip fracture. ECHO: - The left ventricular contractility is normal. Estimated ejection fraction is greater than 55% with no segmental wall motion abnormalities. Mild concentric LVH. Grade 1 diastolic dysfunction. - The right ventricular contractility is normal. - Moderate left atrial enlargement. All other cardiac chambers are of normal size. - Moderate mitral annular calcifications with mild mitral valvular stenosis. Mean gradient is 4.2 mmHg. - Moderate aortic valvular stenosis with peak velocity of 3.1 m/s. Mean gradient of 25.1 mmHg. Dimensionless index of 0.45. - No obvious intracardiac shunts. - No obvious intracardiac masses nor thrombi. - No hemodynamically significant pericardial effusion. - Low right-sided filling pressures. Conclusion: Normal biventricular systolic function with mild to moderate valvular stenoses. 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 * Consider 100 mL of hypertonic saline daily * Discussed with pharmacy Right hip fracture status post ORIF with perioperative non STEMI (moderate periorbital risk of coronary disease given history of CAD with revascularization) with possible new outcome of apical akinesis * Complicated by perioperative myocardial infarction and left-sided stroke * We will need inpatient rehab especially since patient also has a right comminuted proximal humeral fracture Left cortical and white matter stroke on MRI 08/09: * Loaded Plavix 300 mg * Dual platelets Plavix and aspirin * High-intensity statin Chronic coronary artery disease status post CABG with unstable angina 08/09 * Troponin is trending down * Not a candidate for cardiac catheterization due to stroke * Not a candidate for anticoagulation due to stroke and postoperative * Low with Plavix 300 mg * Nitrates to manage angina * Appreciate cardiology expertise * Continue all goal directed medical therapy * Perioperative non STEMI likely type 2 * Not a candidate for heparinization secondary to surgery and risk of exsanguination and hemorrhagic transformation of stroke * Follow up with Cardiology after discharge and rehabilitation to establish anatomy and possible interventions at a safe point DVT prophylaxis: * Aspirin b.i.d. per Orthopedic stewardship Code status: * Full code blue but may change to DNR Disposition: * Inpatient perioperative and. Non STEMI with recurrent symptomatic angina 08/09 * Transferred to ICU * We will need placement in [facility]dc Time based billing: * 35 minutes were involved in evaluation of this patient including [id number] evaluation discussion with care team discussion with Orthopedic surgery and Cardiology ICU staff transfer to ICU management of acute unstable angina discharge planning team review of records review of objective laboratory findings and imaging and EKG Exam Vital Signs (past 8 hours): - 08/11/25 10:00 08/11/25 10:00 08/11/25 11:00 Temperature Pulse Rate 86 81 Respiratory Rate 21 19 Blood Pressure 115/59 L Pulse Oximetry 95 96 08/11/25 11:00 08/11/25 11:30 08/11/25 12:00 Temperature Pulse Rate 79 81 Respiratory Rate 20 21 Blood Pressure 122/59 L Pulse Oximetry 96 97 08/11/25 12:00 08/11/25 12:30 08/11/25 13:00 Temperature Pulse Rate 86 84 Respiratory Rate 22 31 H Blood Pressure 128/60 Pulse Oximetry 97 96 08/11/25 13:01 08/11/25 13:01 08/11/25 13:30 Temperature Pulse Rate 90 91 H Respiratory Rate 27 H 25 H Blood Pressure 128/83 Pulse Oximetry 96 97 08/11/25 14:00 08/11/25 14:01 08/11/25 14:01 Temperature Pulse Rate 86 91 H Respiratory Rate 21 27 H Blood Pressure 112/91 H Pulse Oximetry 96 97 08/11/25 14:30 08/11/25 15:00 08/11/25 15:00 Temperature Pulse Rate 79 79 Respiratory Rate 20 18 Blood Pressure 121/62 Pulse Oximetry 95 97 08/11/25 15:30 08/11/25 16:00 08/11/25 16:01 Temperature 97.1 F L Pulse Rate 93 H 89 Respiratory Rate 37 H 26 H Blood Pressure 135/64 Pulse Oximetry 98 98 08/11/25 16:01 08/11/25 16:30 Temperature Pulse Rate 91 H 86 Respiratory Rate 25 H 29 H Blood Pressure Pulse Oximetry 98 97 Oxygen Delivery Method Room Air Oxygen Flow Rate 0 Objective Labs 08/09/25 04:50 08/11/25 16:12 Labs: Laboratory Results - last 24 hr 08/10/25 08/11/25 08/11/25 23:15 06:42 16:12 Sodium 116 L* 117 L* 117 L* Potassium 3.6 3.3 L 4.2 Chloride 88 L 88 L 86 L Carbon Dioxide 23 22 24 BUN 15 13 14 Creatinine 0.48 L 0.49 L 0.50 L Estimated GFR > 60 > 60 > 60 BUN/Creatinine Ratio 31.3 H 26.5 H 28.0 H Glucose 115 H 126 H 120 H Calcium 8.1 L 8.1 L 8.2 L PFSH Medical History Myocardial infarction complications Diastolic dysfunction with chronic heart failure Social History household members: significant other Smoking Status: Never smoker alcohol intake: never Assessment & Plan Time-Based Coding :: [TOTAL MINUTES] spent with patient and on the chart (including review of chart, obtaining history, exam, reviewing outside data, placing orders, documenting exam and treatment plan, and counseling patient) on [DATE].
--- NOTE | 2025-08-11 18:04 | PC.NURSE ---
call received from lab, notified of sodium still at 117. Dr. Pearson notified, he states he is discussing plans with pharmacy, no new orders received.
[2025-08-11] MEDS: ATORVASTATIN 20 MG TABLET 80 MG PO (20:32)
[2025-08-12] VITALS (68 sets, daily range): BP systolic 86–145; BP diastolic 53–65; PULSE 60–105; RESP 0–31; TEMP 35.9–36.8; O2SAT 95–99
[2025-08-12] MEDS: FUROSEMIDE 40 MG/4 ML VIAL IV (00:02)
[2025-08-12] MEDS: CLOPIDOGREL 75 MG TABLET PO (08:54)
[2025-08-12] MEDS: ASPIRIN EC 81 MG TABLET PO ×2 (08:54→20:39)
[2025-08-12] MEDS: METOPROLOL IR 25 MG TABLET 12.5 MG PO ×3 (08:55→20:39)
[2025-08-12] MEDS: SODIUM CHLORIDE 1,000 MG TABLET 1000 MG PO ×2 (08:55→20:41)
[2025-08-12] MEDS: SODIUM CHLORIDE 0.9% FLUSH 10 ML IV ×2 (08:55→20:41)
[2025-08-12 09:04] LABS: Blood Urea Nitrogen 18 mg/dL (7-17); Calcium 8.4 mg/dL (8.4-10.2); Carbon Dioxide 26 mmol/L (22-32); Chloride 87 mmol/L (98-107); Estimated Glomerular Filt Rate > 60 mL/min (>60); Glucose 124 mg/dL (70-99); HEMOLYSIS 19 (0-50); Potassium 3.7 mmol/L (3.4-5.1)
[2025-08-12 09:07] LABS: Sodium 119 mmol/L (137-145)
[2025-08-12] MEDS: SODIUM CHLORIDE 3 % 100 ML 20 ML IV (09:42)
--- NOTE | 2025-08-12 11:28 | PC.NURSE ---
Addendum entered by Kenny Valentino RN 08/13/25 11:27: Q2H NEURO ASSESSMENTS/ [id number] COMPLETED DURING 3% NA+ INFUSION ON 08/12 Addendum entered by Kenny Valentino RN 08/13/25 10:59: 3% SODIUM VERIFIED WITH LUANN RN AT 0942 ON 08/12. Addendum entered by Kenny Valentino RN 08/12/25 18:02: PT REMAINED A/OX4 WITH INTERMITTENT CONFUSION/ INAPPROPRIATE RESPONSES. ABLE TO MAKE NEEDS KNOWN. PER FRIEND/ DR COX, PT MENTATION HAS IMPROVED. REMAINED ON ROOM AIR WITH NO C/O SOB OR S/S OF RESPI DISTRESS NOTED. PT INTERMITTENTLY C/O PAIN BUT STATES IT IS TOLERABLE AND DOES NOT WANT PAIN MEDICATION. SEE LABS FOR NA+ RESULTS. COMPLETED 3% SALINE BAG. SEE EMAR. BMPS ORDERED Q4H. LOOSE BMS X3-4. ACCEPTING SMOOTHIES/ENSURE FOR MEALS. WORKED WITH PT/OT. FRIEND BY TO SEE PATIENT AND UPDATED BY DR COX. QUINTERO CATH IN PLACE DRAINING NADINE URINE. 300 MLS OUT ONLY. MD AWARE. PATIENT TURNED Q2H WITH BARRIER CREAM APPLIED. SITTING UP AT THIS TIME DRINKING ENSURE. CARE ONGOING. Addendum entered by Kenny Valentino RN 08/12/25 14:36: 1433 KENNY AT BEDSIDE SPEAKING WITH PATIENT AND DISCUSSING PLAN OF CARE WITH PATIENT/ FRIEND. Addendum entered by Kenny Valentino RN 08/12/25 14:29: 1423 KENNY AT BEDSIDE. AWARE OF NA+ 122. LABS ORDERED. STATES TO CONTINUE WITH Q4 BMPS THROUGHOUT NIGHT. Original Note: 0800 DR COX AT BEDSIDE. STATES PLAN IS TO RECHECK BMP AND POSSIBLY ADD 3% NS AFTER DISCUSSING WITH PHARMACY.
[2025-08-12 12:05] LABS: Blood Urea Nitrogen 18 mg/dL (7-17); Calcium 8.6 mg/dL (8.4-10.2); Carbon Dioxide 27 mmol/L (22-32); Chloride 88 mmol/L (98-107); Estimated Glomerular Filt Rate > 60 mL/min (>60); Glucose 136 mg/dL (70-99); HEMOLYSIS < 15 (0-50); Potassium 3.7 mmol/L (3.4-5.1); Sodium 120 mmol/L (137-145)
--- NOTE | 2025-08-12 12:29 | P.PN_ITS ---
Subjective Subjective Date Patient Seen: 08/10/25 Time Patient Seen: 10:50 Interval history: Camille is a pleasant 75 year old female who is seen today on POD#7 s/p ORIF w/ IMN for a right intertroch femur fx. Hospital course complicated by perioperative NSTEMI and stroke, hyponatremia. History somewhat limited, although patient is able to converse, appears more alert than my prior visit w/ patient 2 days ago. She tells me she in in 8/10 pain in her hip but that her arm is no longer hurting her. Her work w/ PT has been limited d/t hyponatermia but she has been cleared to work w/ PT today by primary according to ICU nurse, has not seen PT yet though this morning. Does report having sqeezing in her chest still no worse than her baseline, no SOB, nausea, vomiting, fever, chills. Exam Vital Signs (past 8 hours): - 08/12/25 04:30 08/12/25 05:00 08/12/25 05:00 Temperature Pulse Rate 63 98 H Respiratory Rate 13 24 Blood Pressure Pulse Oximetry 96 97 Oxygen Delivery Method Room Air Oxygen Flow Rate 08/12/25 05:15 08/12/25 05:15 08/12/25 05:30 Temperature Pulse Rate 78 87 Respiratory Rate 17 24 Blood Pressure 136/62 Pulse Oximetry 95 97 Oxygen Delivery Method Oxygen Flow Rate 08/12/25 06:00 08/12/25 06:01 08/12/25 06:01 Temperature Pulse Rate 77 79 Respiratory Rate 19 22 Blood Pressure 108/57 L Pulse Oximetry 95 95 Oxygen Delivery Method Oxygen Flow Rate 08/12/25 06:30 08/12/25 07:00 08/12/25 07:01 Temperature Pulse Rate 61 77 Respiratory Rate 13 18 Blood Pressure 118/57 L Pulse Oximetry 96 96 Oxygen Delivery Method Oxygen Flow Rate 08/12/25 07:01 08/12/25 07:30 08/12/25 08:00 Temperature Pulse Rate 77 81 Respiratory Rate 22 21 Blood Pressure 135/62 Pulse Oximetry 96 97 Oxygen Delivery Method Oxygen Flow Rate 08/12/25 08:00 08/12/25 08:29 08/12/25 08:30 Temperature 96.6 F L Pulse Rate 85 86 Respiratory Rate 24 21 Blood Pressure Pulse Oximetry 96 95 Oxygen Delivery Method Oxygen Flow Rate 08/12/25 09:00 08/12/25 09:00 08/12/25 09:01 Temperature 98.2 F Pulse Rate 79 Respiratory Rate 21 Blood Pressure 127/61 Pulse Oximetry 97 Oxygen Delivery Method Room Air Oxygen Flow Rate 0 0 08/12/25 09:01 08/12/25 09:30 08/12/25 09:48 Temperature Pulse Rate 79 84 86 Respiratory Rate 26 H 29 H 25 H Blood Pressure Pulse Oximetry 97 95 96 Oxygen Delivery Method Oxygen Flow Rate 08/12/25 09:48 08/12/25 10:00 08/12/25 10:01 Temperature Pulse Rate 83 Respiratory Rate 30 H Blood Pressure 123/65 119/57 L Pulse Oximetry 96 Oxygen Delivery Method Oxygen Flow Rate 08/12/25 10:01 08/12/25 10:30 08/12/25 11:00 Temperature Pulse Rate 82 71 71 Respiratory Rate 28 H 16 15 Blood Pressure Pulse Oximetry 96 95 95 Oxygen Delivery Method Oxygen Flow Rate 08/12/25 11:00 Temperature Pulse Rate Respiratory Rate Blood Pressure 111/54 L Pulse Oximetry Oxygen Delivery Method Oxygen Flow Rate Oxygen Delivery Method Room Air Oxygen Flow Rate 0 Narrative Exam Narrative: Patient sitting upright in bed, appears comfortable. No acute distress. 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 DF, PF, EHL intact bilaterally. Gross sensation intact throughout bilateral lower extremities. Calves soft and non-tender bilaterally. SCDs are on and functioning. Brisk capillary refill. Post-surgical dressings w/ Medipore tape and Aquacel dressing clean, dry and intact over the right hip w/o any drainage Const General: cooperative and comfortable Resp Effort & Inspection: normal respiratory effort Objective Labs 08/09/25 04:50 08/12/25 13:50 Labs: Laboratory Results - last 24 hr 08/11/25 08/12/25 08/12/25 16:12 08:05 11:30 Sodium 117 L* 119 L* 120 L Potassium 4.2 3.7 3.7 Chloride 86 L 87 L 88 L Carbon Dioxide 24 26 27 BUN 14 18 H 18 H Creatinine 0.50 L 0.49 L 0.53 Estimated GFR > 60 > 60 > 60 BUN/Creatinine Ratio 28.0 H 36.7 H 34.0 H Glucose 120 H 124 H 136 H Calcium 8.2 L 8.4 8.6 PFSH Medical History Myocardial infarction complications Diastolic dysfunction with chronic heart failure Social History household members: significant other Smoking Status: Never smoker alcohol intake: never Assessment & Plan Post-op Postoperative Procedures: Procedures Operation Date: 08/05/25 14:00 Actual Procedure Side Surgeon p cephalomedullary nail Right Indira Bustamante, Postoperative day: 7 Postoperative status narrative: Postoperative status complicated by myocardial infarction and stroke. Postoperative plan narrative: 1) WBAT w/ walker, okay to put weight through RUE when using the walker. 2) DVT prophylaxis per primary team. SCDs to be on and functioning while patient in bed. Currently getting Plavix and ASA. 3) Continue PT/OT 4) Multimodal pain management with ice to the hip as needed for additional pain control 5) D/c dispo per primary team, likely SNF Appreciate internal medicine and cardiology assistance with this patient. Time Spent With Patient Time with patient: less than 15 minutes
[2025-08-12 13:10] LABS: Osmolality, Serum 250 mOsmol/kg (280-301)
--- NOTE | 2025-08-12 13:50 | OT.IP.EVAL ---
Current Diagnoses Essential (primary) hypertension (08/04/25) Subsequent non-ST elevation (NSTEMI) myocardial infarction (08/04/25) Other current complications following acute myocardial infarction (08/04/25) Nonrheumatic aortic (valve) stenosis (08/04/25) Chronic diastolic (congestive) heart failure (08/04/25) Displaced intertrochanteric fracture of right femur, initial encounter for closed fracture (08/04/25) Surgery Performed Operation Date: 08/05/25 14:00 Actual Procedures p cephalomedullary nail(Right) - Indira Bustamante DO Past Medical History (Last Reviewed 08/09/25 @ 14:11 by Crispin Jaffe MD) Diastolic dysfunction with chronic heart failure Myocardial infarction complications Occupational Therapy Inpatient Evaluation/Re-Eval M1 OT IP Prior Functional Status Start: 08/07/25 11:33 Freq: Status: Active Protocol: Document 08/12/25 13:54 CCC (Rec: 08/12/25 14:10 [facility] Desktop) Medical Review Prior Functional Status Communication I Mobility and Gait I prior to fall. Activities of Daily I prior to falling. Pt does not drive. Living and IADL's Prior Functional Pt fell and broke her right shoulder and in a sling since 06/2025. Level (Other details Per Surgeon note states can put some weight on her RUE ) with FWW. Pt live with a friend. Social History Household Members significant other Living Arrangements House Number of Floors ( Two Floors Floors) Number of Stairs To 3 steps from front and back with no rails. 15 step, Enter/Railing? landing, and another 5 steps with left rails up to the walk in shower and tub /shower. Home Environment Standard Height Toilet,Walk in Shower,Tub/Shower Additional Social Pt had a fall resulting in R hip fx and also having OH History Comment afterwards. M2 OT-IP Current Condition Start: 08/07/25 11:33 Freq: Status: Active Protocol: Document 08/12/25 13:54 CCC (Rec: 08/12/25 14:10 [facility] Desktop) Occupational Therapy Current Condition Current Condition Evaluation Date 08/12/25 Treatment Diagnosis S/P Right hip orif with IMN on 08/05/25 and subsequent OH and CVA Post Operative Precautions Shoulder Precautions Sling Other Precautions Right arm in sling per Sx ok to put some weight on it with FWW. M3 OT- IP Subjective and Pain Start: 08/07/25 11:33 Freq: Status: Active Protocol: Document 08/12/25 13:54 [facility] (Rec: 08/12/25 14:10 [facility] Desktop) OT- Subjective Occupational Therapy Visit Type Type Initial Evaluation Visit Start Time 13:35 Visit Stop Time 13:55 Occupational Therapy Visit Comments Patient Comments Pt agreed to try to get to the edge of bed. Patient/Caregiver TO get better. Goals OT Pain Assessment Pain When Pain Assessed During Mobility Pain Present Pain Present Pain Reported Location right hip Pain Behaviors Facial Grimacing,Holding Area M4 OT- IP ADL's Start: 08/07/25 11:33 Freq: Status: Active Protocol: Document 08/12/25 13:54 [facility] (Rec: 08/12/25 14:10 [facility] Desktop) OT [id number] Comments OT Self-Feeding Not at meal time. Comments OT ADL-Grooming Comments OT Grooming Comments Not performed. OT ADL-Oral Care Comments Oral Care Comments Not performed. OT ADL-Dressing General Eval Lower Body Dressing Total Assistance Ability Areas Needing Underpants/Brief,Socks Assistance OT ADL-Toileting General Evaluation Toileting Ability Total Assistance Areas Needing Empty Catheter or Colostomy,Manage Clothing,Perform Assistance Perineal Hygiene Comments OT Toileting Able to stand with MAX AX 2 with FWW while nursing Comments assisted with hygiene needs. OT ADL-Bathing Comments OT Bathing Comments Sponge bath more appropriate at this time. M5 OT- IP IADL's Start: 08/07/25 11:33 Freq: Status: Active Protocol: Document 08/12/25 13:54 [facility] (Rec: 08/12/25 14:10 [facility] Desktop) OT-Instrumental Activities of Daily Living Home Safety Awareness Awareness of Need Decreased Awareness for Assistance at Home Ability to Problem Unable to Problem Solve Solve Emergency Situations Medication Management Medication Pt will need assist. Management Comments Money Management Money Management Pt will need assist. Comments Meal Preparation Meal Preparation Pt will need assist. Comments Bar Back Bar Back Pt will need assist. Comments M6 OT- IP Functional Cognition Start: 08/07/25 11:33 Freq: Status: Active Protocol: Document 08/12/25 13:54 [facility] (Rec: 08/12/25 14:10 [facility] Desktop) Cognitive Factors Limiting Selfcare Function Cognitive Ability Level of Alertness Confusional State Patient Orientation Name Attention Span Capable of Focused Attention,Unable to Sustain Ability Attention Ability to Follow Able to Follow One Step Commands with Increased Time, Commands Able to Follow One Step Commands with Repetition Cognitive Comments Cognitive Assessment Pt orientated to name and aware in the hospital but Comments thinks she is in [facility] for her right shoulder. Pt denies having a OH or CVA. Pt tends to perseverate on words and at times says yes when she means no. Pt states she can not get the word out due to missing teeth versus most likely from having had a CVA. OT- Vision and Hearing OT- Vision Assessment Vision Assessment Pt has reading and distance glasses. Comments M7 OT- IP Mobility and Balance Start: 08/07/25 11:33 Freq: Status: Active Protocol: Document 08/12/25 13:54 [facility] (Rec: 08/12/25 14:10 [facility] Desktop) OT- Bed Mobility Assessment Supine to Sit Supine to Sit Assist Moderate Assistance Sit to Supine Sit to Supine Assist Maximum Assistance,2 Person Assistance Scooting Scooting to Edge of Maximum Assistance,1 Person Assistance Bed OT-Transfer Assessment Sit to and From Stand Sit to and from Maximum Assistance,2 Person Assistance Stand Transfers Transfer Ability Maximum Assistance,2 Person Assistance Devices Transfer Assistive Gait Belt,Front Wheeled Walker Devices Comments Mobility Comments MODA x1 with HOB up to get to the edge of the bed. MAX AX 2 to stand to the FWW. Assist to block her feet when coming to stand. Assist to help move her right LE for side stepping and for weight shifting and guiding the FWW. MA XAX 2 to assist pt back into bed. Nursing staff able to take over. At this time best to use roselyn lift from transfer needs. OT- Balance Assessment Sitting Balance and Reactions Static Sitting Fair Balance Ability Dynamic Sitting Poor Balance Ability Standing Balance and Reactions Static Standing Poor Balance Ability Dynamic Standing Poor Balance Ability M8 OT- IP Objective Assessments Start: 08/07/25 11:33 Freq: Status: Active Protocol: Document 08/12/25 13:54 [facility] (Rec: 08/12/25 14:10 [facility] Desktop) OT Gross Range of Motion Upper Extremity Range of Motion Assessment Right Impaired OT Strength Upper Extremity Strength Assessment Right Impaired M9 OT- IP Assessment and Plan Start: 11/28/25 11:33 Freq: Status: Active Protocol: Document 08/12/25 13:54 [facility] (Rec: 08/12/25 14:10 [facility] Desktop) OT Summary Assessment and Plan Potential Rehabilitation Good Potential Analytic Complexity High at Evaluation Summary OT Impairments Pain,Range of Motion,Strength,Balance,Functional Cognition,Functional Mobility,Self-Feeding,Grooming, Dressing,Toileting,Bathing,Toilet Transfers,Shower Transfers,Activity Tolerance Progress Towards Slow Progress due to Pain,Slow Progress due to Medical Goals Issues,Slow Progress due to Activity Tolerance,Slow Progress due to Cognition Assessment Summary Pt high complexity as having OH and CVA after right hip sx. Pt currently having difficulty to get her words out and at time will say yes versus means to say no. Pt needing 1-2 person assist for bed mobility needs. Pt MAX AX 2 to stand to the fww and able to take a few steps to the head of the bed with assist for RLE, weigh shifting, and FWW. Pt will benefit from skilled rehab when medically stable. Goals Self-Feeding Goal Standby Assistance Grooming Goal Standby Assistance Dressing Goal Minimal Assistance Toileting Goal Minimal Assistance Bathing Goal Moderate Assistance Toilet Transfer Goal Contact Guard Assistance Shower Transfer Goal Minimal Assistance Days to Meet Goals 30 Frequency of Treatment Other frequency 5x/week Treatment Plan OT Treatment Plan ADL Training,Functional Cognition Training,Functional Mobility,Patient/Family Education,Discharge Planning Other Treatment Transfer to the [facility] with MAX XA 2 with FWW. Recommendations and Next Treatment Focus Discharge Recommendations OT Discharge SNF Rehab Recommendations Transportation Needs Wheelchair/Cabulance at Discharge
--- NOTE | 2025-08-12 13:51 | PT.IIE ---
Current Diagnoses Essential (primary) hypertension (08/04/25) Subsequent non-ST elevation (NSTEMI) myocardial infarction (08/04/25) Other current complications following acute myocardial infarction (08/04/25) Nonrheumatic aortic (valve) stenosis (08/04/25) Chronic diastolic (congestive) heart failure (08/04/25) Displaced intertrochanteric fracture of right femur, initial encounter for closed fracture (08/04/25) Surgery Performed Operation Date: 08/05/25 14:00 Actual Procedures p cephalomedullary nail(Right) - Indira Bustamante DO Medical History (Last Reviewed 08/09/25 @ 14:11 by Crispin Jaffe MD) Diastolic dysfunction with chronic heart failure Myocardial infarction complications Physical Therapy Inpatient Evaluation/Re-Eval M1 PT IP Prior Functional Status Start: 08/07/25 11:30 Freq: NEEDED Status: Active Protocol: Document 08/12/25 13:35 DCW (Rec: 08/12/25 14:57 DCW [id number]) Medical Review Prior Functional Status Communication I Mobility and Gait I prior to fall. Activities of Daily I prior to falling. Pt does not drive. Living and IADL's Prior Functional Pt fell and broke her right shoulder and in a sling. Level (Other details Per Surgeon note states can put some weight on her RUE ) with FWW. Pt live with a friend. Social History Household Members significant other Living Arrangements House Number of Floors ( Two Floors Floors) Number of Stairs To 3 steps from front and back with no rails. 15 step, Enter/Railing? landing, and another 5 steps with left rails up to the walk in shower and tub /shower. Home Environment Standard Height Toilet,Walk in Shower,Tub/Shower Additional Social Pt had a fall resulting in R hip fx and also having SC History Comment afterwards. M2 PT-IP Current Condition Start: 08/07/25 11:30 Freq: NEEDED Status: Active Protocol: Document 08/12/25 13:35 DCW (Rec: 08/12/25 14:57 DCW [id number]) Physical Therapy Current Condition Current Condition Evaluation Date 08/12/25 Treatment Diagnosis R intertrochanteric Fx, CVA, SC M3 PT-IP Subjective Start: 08/07/25 11:30 Freq: NEEDED Status: Active Protocol: Document 08/12/25 13:35 DCW (Rec: 08/12/25 14:57 DCW [id number]) Subjective Physical Therapy Visit Type Type Initial Evaluation Visit Start Time 13:35 Visit Stop Time 13:51 Notes Pt in ICU with complex medical history, was in in- patient hospital following a fall, which resulted in a R intertrochanteric fracture. Pt underwent surgical repair, but then suffered an SC and CVA. Has been on bedrest, but is now cleared for PT, agreeable to try to get to edge of bed. Physical Therapy Visit Comments Patient Comments No, I didn't have any of that when asked about SC and CVA. M4 PT-IP Mobility and Gait Start: 08/07/25 11:30 Freq: NEEDED Status: Active Protocol: Document 08/12/25 13:35 DCW (Rec: 08/12/25 14:57 DCW [id number]) PT-Bed Mobility Assessment Supine to Sit Supine to Sit Moderate Assistance,1 Person Assistance Scooting Scooting to Edge of Maximum Assistance Bed PT-Transfer Assessment Sit to and From Stand Sit to and from Maximum Assistance,2 Person Assistance Stand Equipment Transfer Assistive Gait Belt,Front Wheeled Walker Device Comments Mobility Comments Mod Ax1 to help with legs to sit EOB from head elevated supine position. Max A to maintain seated posture EOB, Max Ax2 for sit<->stand and return to bed. Able to maintain standing with Max Ax2 for stability while nursing performed pericare and changed padding on bed. Gait Assessment Comments Gait Comments 3 side-steps to R at edge of bed. Verbal cues and manual assist to step R LE Stair Climbing Assessment Comments Stair Climbing unable to assess Comments PT-Balance Assessment Sitting Balance and Reactions Static Sitting Poor Balance Ability Dynamic Sitting Poor Balance Ability Standing Balance and Reactions Static Standing Poor Balance Ability M5 PT-IP Objective Assessments Start: 08/07/25 11:30 Freq: NEEDED Status: Active Protocol: Document 08/12/25 13:35 DCW (Rec: 08/12/25 14:57 MIW [id number]) Orientation Orientation/Cognition Level of Alertness Confusional State Safety Awareness Decreased Safety Awareness Comments Pt responds with yes or no inappropriately. Will say no to answer can you move your leg, then immediately move her leg. Denies SC or CVA history. M6 PT-IP Treatment Start: 08/07/25 11:30 Freq: NEEDED Status: Active Protocol: Document 08/08/25 11:05 SP (Rec: 08/08/25 12:01 SP Laptop) Physical Therapy Treatment Exercises Exercises Ankle Pumps,Heel Slides Education Education Provided Safety M7 PT-IP Assessment and Plan Start: 08/07/25 11:30 Freq: NEEDED Status: Active Protocol: Document 08/12/25 13:35 DCW (Rec: 08/12/25 14:57 DCW [id number]) PT Summary Assessment and Plan Summary Impairments Pain,ROM,Strength,Balance,Cognition,Bed Mobility, Transfers,Gait,Activity Tolerance Progress Towards Slow Progress due to Pain,Slow Progress due to Activity Goals Tolerance Assessment Summary 75 year old female back on PT services following an SC and CVA after hospitalized for R intertrochanteric fracture, as well as lingering issues from R humerus fx two months ago. Pt requires Max Ax2 for most mobility, including sitting EOB and sit<->stand transfers. Will very likely require SNF rehab for recovery following discharge, recommend Maria Dolores lift for nursing at this time. Goals Bed Mobility Goal Contact Guard Assistance Transfer Goal Contact Guard Assistance Gait Goal Contact Guard Assistance Other Goals pt needs to be able to ascend/descend stairs prior to DC home Days to Meet Goals 10 Frequency of Treatment Frequency Of Once a Day Treatment Treatment Plan Physical Therapy Bed Mobility Training,Transfer Training,Gait Training, Treatment Plan Therapeutic Exercise Weight Bearing Status Weight Bearing Weight Bear as Tolerated Status Recommendations To Nursing Amount of Assist 2 Person Assist Needed Discharge Recommendations PT Discharge SNF Rehab Recommendations Transportation Needs Wheelchair/Cabulance at Discharge - PT assist 2
[2025-08-12 14:19] LABS: Blood Urea Nitrogen 20 mg/dL (7-17); Calcium 8.8 mg/dL (8.4-10.2); Carbon Dioxide 25 mmol/L (22-32); Chloride 89 mmol/L (98-107); Estimated Glomerular Filt Rate > 60 mL/min (>60); Glucose 135 mg/dL (70-99); HEMOLYSIS < 15 (0-50); Potassium 3.9 mmol/L (3.4-5.1); Sodium 122 mmol/L (137-145)
--- NOTE | 2025-08-12 15:39 | CM.DPNOTE ---
DCP note SCORER SINGLE reviewed EMR per chart review, sodium 119 this AM. per OT, guidelines are if sodium below 130 and confused, ask provider for whether or not able to work with pt. per RN, pt able to follow commands. per provider, okay with working with therapy. PT/OT continue to rec SNF. SCORER SINGLE updated Anne at [facility]. holding off on auth for now, may start tomorrow if looking like for sure will be stable to dc over weekend. P: dc to [facility] pending medical stability. need new auth. PASRR done. transport wc van vs BLS-per DPOA make day of decision. will continue to follow closely for DCP Coordination DEANDRA Morfin
[2025-08-12 16:07] LABS: Blood Urea Nitrogen 21 mg/dL (7-17); Calcium 8.8 mg/dL (8.4-10.2); Carbon Dioxide 28 mmol/L (22-32); Chloride 88 mmol/L (98-107); Estimated Glomerular Filt Rate > 60 mL/min (>60); Glucose 131 mg/dL (70-99); HEMOLYSIS < 15 (0-50); Potassium 3.9 mmol/L (3.4-5.1); Sodium 122 mmol/L (137-145)
[2025-08-12 20:04] LABS: Blood Urea Nitrogen 22 mg/dL (7-17); Calcium 8.7 mg/dL (8.4-10.2); Carbon Dioxide 26 mmol/L (22-32); Chloride 89 mmol/L (98-107); Estimated Glomerular Filt Rate > 60 mL/min (>60); Glucose 146 mg/dL (70-99); HEMOLYSIS < 15 (0-50); Potassium 3.7 mmol/L (3.4-5.1); Sodium 121 mmol/L (137-145)
[2025-08-12] MEDS: MELATONIN 3 MG TABLET 6 MG PO (20:39)
[2025-08-13] VITALS (59 sets, daily range): BP systolic 95–142; BP diastolic 50–69; PULSE 61–94; RESP 10–34; TEMP 36.4–37; O2SAT 87–98
[2025-08-13 00:30] LABS: Blood Urea Nitrogen 22 mg/dL (7-17); Calcium 8.7 mg/dL (8.4-10.2); Carbon Dioxide 26 mmol/L (22-32); Chloride 90 mmol/L (98-107); Estimated Glomerular Filt Rate > 60 mL/min (>60); Glucose 123 mg/dL (70-99); HEMOLYSIS < 15 (0-50); Potassium 4.0 mmol/L (3.4-5.1); Sodium 122 mmol/L (137-145)
[2025-08-13 04:16] LABS: Add Manual Diff / Slide Review NO; Hematocrit 23.7 % (36-46); Hemoglobin 8.2 g/dL (12.0-16.0); Lymphocytes Absolute Auto 2200 /uL (1100-4500); Mean Corpuscular HGB Conc 34.5 % (30-36); Mean Corpuscular Hemoglobin 29.4 PG (26-34); Mean Corpuscular Volume 85.2 fL (80-100); Platelet Count 408 X10^3/uL (150-400)
[2025-08-13 04:24] LABS: Blood Urea Nitrogen 21 mg/dL (7-17); Calcium 8.4 mg/dL (8.4-10.2); Carbon Dioxide 28 mmol/L (22-32); Chloride 90 mmol/L (98-107); Estimated Glomerular Filt Rate > 60 mL/min (>60); Glucose 115 mg/dL (70-99); HEMOLYSIS < 15 (0-50); Potassium 3.7 mmol/L (3.4-5.1); Sodium 122 mmol/L (137-145)
[2025-08-13 09:18] LABS: Blood Urea Nitrogen 19 mg/dL (7-17); Calcium 8.7 mg/dL (8.4-10.2); Carbon Dioxide 27 mmol/L (22-32); Chloride 90 mmol/L (98-107); Estimated Glomerular Filt Rate > 60 mL/min (>60); Glucose 134 mg/dL (70-99); HEMOLYSIS < 15 (0-50); Potassium 3.5 mmol/L (3.4-5.1); Sodium 123 mmol/L (137-145)
[2025-08-13 09:29] LABS: Appearance Urine UA CLOUDY; Bilirubin Urine UA 2+ (NEGATIVE); Color Urine UA RED; Glucose Urine UA TRACE g/dL (Negative); Ketones Urine UA 1+ (NEGATIVE); Leukocyte Esterase Urine UA 2+ (NEGATIVE); Nitrite Urine UA POSITIVE (Negative); Occult Blood Urine UA 3+ (Negative); Protein Urine UA 3+ (Negative); Specific Gravity Urine UA 1.010 (1.000-1.035); Urobilinogen Urine UA 4.0 E.U./dL (0.2)
[2025-08-13 09:35] LABS: pH Urine UA 6.5 (4.5-8.0)
[2025-08-13 09:41] LABS: Ictotest Urine Positive (Negative)
[2025-08-13 09:42] LABS: Culture Indicated Urine Specimen Cultured
[2025-08-13] MEDS: SODIUM CHLORIDE 1,000 MG TABLET 1000 MG PO ×2 (09:43→21:03)
[2025-08-13] MEDS: SODIUM CHLORIDE 0.9% FLUSH 10 ML IV ×2 (09:44→21:04)
[2025-08-13] MEDS: METOPROLOL IR 25 MG TABLET 12.5 MG PO ×3 (09:44→21:03)
[2025-08-13] MEDS: POTASSIUM CHLORIDE 20 MEQ TAB 40 MEQ PO (09:47)
[2025-08-13] MEDS: ASPIRIN EC 81 MG TABLET PO ×2 (10:41→21:03)
[2025-08-13] MEDS: CLOPIDOGREL 75 MG TABLET PO (10:41)
[2025-08-13] MEDS: SODIUM CHLORIDE 3 % 100 ML 20 ML IV (10:42)
--- NOTE | 2025-08-13 10:57 | PC.NURSE ---
3% SODIUM INFUSION VERIFIED WITH IBAN HAMMONDS AT [id number]
--- NOTE | 2025-08-13 11:13 | PC.NURSE ---
0808 SNEDECKER AT BEDSIDE. MADE AWARE OF NA+ AND DECREASED UO OVERNIGHT/ RED, DARK URINE. MD STATES TO SEND UA AND ORDER BMP NOW. ALSO MADE AWARE OF WOUND TO BOTTOM. PICTURES ADDED IN CHART. Q2 TURNS CONTINUED. PER MD, PLAN TO POSSIBLE ORDER MORE 3% NA TODAY. 1037 MADE SNEDECKER AWARE OF UA RESULTS. STATES TO GIVE PLAVIX/ASPIRIN.
--- NOTE | 2025-08-13 11:46 | CM.DPNOTE ---
DCP note TWINE REELING MACHINE OPERATOR reviewed EMR per provider, sodium improved. still 123. per PT/OT continue to rec SNF. TWINE REELING MACHINE OPERATOR sent updated clinicals to Anne at [facility]. TWINE REELING MACHINE OPERATOR spoke with SRINI Kelsey. reports provider told him Sunday for a timeline. would continue to prefer to defer the decision of wc van vs BLS transport to pts condition on day of dc. P: Dc to [facility] when new auth secured and pt stable. transport pending. will continue to follow closely for DCP Coordination DEANDRA Morifn
--- NOTE | 2025-08-13 11:47 | P.PN_ITS ---
Subjective Subjective Date Patient Seen: 08/13/25 Interval history: Chief complaint: Ground level fall dark with fall comminuted intertrochanteric right hip fracture and comminuted proximal humerus fracture complicated by perioperative OK History of present illness: 08/04: 75-year-old female who was admitted with a hip fracture after a fall. She has a history of moderate aortic stenosis and CAD with a previous CABG. The patient had a mildly elevated troponin. She would complained of chest pain intermittently for the past 3 months. Her initial ECG was abnormal and she was discussed with Cardiology and evaluated with an echo which revealed good EF, no wall motion abnormalities, and aortic stenosis. Her revised cardiac risk index for an emergent surgery that is low risk was utilizing calculated with a score of 1 which is a moderate risk of 6%. She did undergo surgery (Screw) and her postoperative troponin did bump to 11. She remains hemodynamically stable and comfortable. Cardiology is consulted and we will be evaluating her. 08/05. Echo revealed a and normal EF. She had a mildly elevated troponin went to the OR after consultation with Cardiology with a moderate risk of 6% or less for cardiac adverse events. Unfortunately, she did have evidence of NSTEMI with a troponin of 11 in the postoperative. 08/06: Doing well, no chest pain or dyspnea. Troponin remained elevated at 11. Discussed with Cardiology who did evaluate the patient. Not felt to be appropriate for heparin drip given her postoperative status. Treated with aspirin, and beta blockade. 08/07: Trop 4. Limited ECHO: The ejection fraction is estimated to be 50-55%. There are regional wall motion abnormalities as specified. Basal septal and mid to basal inferior hypokinesis 08/08: Patient having some apparent Adrian phrenic and subtle appearance of a right facial droop today CT of the head ordered otherwise MRI ordered demonstrated left cortical and white matter punctate infarcts patient is started on Plavix 300 when addition to aspirin 08/09: Developed 8/10 chest pain about 12:30 p.m. EKG shows extensive T-wave and ST segment changes and Q-waves troponin 1.9 which is down from 4 from 08/07. BNP is 2000. Chest pain was relieved with sublingual nitroglycerin and 1/2 inch of nitroglycerin paste. Consulted with Cardiology with a consensus decision to transfer to ICU and initiate nitroglycerin drip if chest pain recurs. Patient is not a candidate for cardiac catheterization due to stroke, not a candidate for anticoagulation due to risk of hemorrhagic transformation of stroke and exsanguination from surgery. Patient loaded Plavix 300 mg serial troponin 08/10: No further reports of chest pain troponin trending down to 1380 started on Imdur 30 mg a day and currently on dual antiplatelet aspirin Plavix metoprolol patient demonstrates very impaired short-term memory eats a piece of egg with a fork with the right hand does like the taste and takes it it out with her left hand and repeats this on the same piece of egg over and over 08/11: No further episodes of chest pain patient is still doing repetitive behaviors but is interactive despite replacing solute and fluid restriction and diuretic patient still has sodium of 117 08/12: Sodium 119 in the morning chronic saline initiated at 100 cc total for 20 cc an hour. At the end of the infusion sodium increased to 122. Patient is still confused was interpretive and expressive aphasia repeating meaningless repetitive behaviors Review of systems: No fever or chills rigors No chest pain palpitations No nausea vomiting Poor appetite The paresthesia paresis Physical examination: Awake alert confused with expressive aphasia HEENT there is a appearance with slight right facial droop Extraocular motions intact Normal cranial nerves Moves all extremities Alert confused Heart rate and rhythm regular no murmurs Lungs clear Abdomen nontender bowel sounds present IMAGING: X-rays of her right shoulder demonstrate a comminuted healing proximal humerus fracture. X-rays of her right hip and CT scan of the right hip demonstrate a comminuted intertrochanteric right hip fracture. ECHO: - The left ventricular contractility is normal. Estimated ejection fraction is greater than 55% with no segmental wall motion abnormalities. Mild concentric LVH. Grade 1 diastolic dysfunction. - The right ventricular contractility is normal. - Moderate left atrial enlargement. All other cardiac chambers are of normal size. - Moderate mitral annular calcifications with mild mitral valvular stenosis. Mean gradient is 4.2 mmHg. - Moderate aortic valvular stenosis with peak velocity of 3.1 m/s. Mean gradient of 25.1 mmHg. Dimensionless index of 0.45. - No obvious intracardiac shunts. - No obvious intracardiac masses nor thrombi. - No hemodynamically significant pericardial effusion. - Low right-sided filling pressures. Conclusion: Normal biventricular systolic function with mild to moderate valvular stenoses. 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 * Contributing to encephalopathy * Sodium 122 after 100 mL of hypertonic saline * Discussed with pharmacy * Repeat hypertonic saline again tomorrow Right hip fracture status post ORIF with perioperative non STEMI (moderate periorbital risk of coronary disease given history of CAD with revascularization) with possible new outcome of apical akinesis * Complicated by perioperative myocardial infarction and left-sided stroke * We will need inpatient rehab especially since patient also has a right comminuted proximal humeral fracture Left cortical and white matter stroke on MRI 08/09: * Loaded Plavix 300 mg * Dual platelets Plavix and aspirin * High-intensity statin * 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 Chronic coronary artery disease status post CABG with unstable angina 08/09 * Troponin trended down * Not a candidate for cardiac catheterization due to stroke * Not a candidate for anticoagulation due to stroke and postoperative * Aspirin with Plavix daily * Long-acting Nitrates Imdur to manage angina * Appreciate cardiology expertise * Continue all goal directed medical therapy * Perioperative non STEMI likely type 2 * Not a candidate for heparinization secondary to surgery and risk of exsanguination and hemorrhagic transformation of stroke * Follow up with Cardiology after discharge and rehabilitation to establish anatomy and possible interventions at a safe point DVT prophylaxis: * Aspirin b.i.d. per Orthopedic stewardship Code status: * Full code blue but may change to DNR Disposition: * Inpatient * perioperative and. Non STEMI with recurrent symptomatic angina 08/09 * Transferred to ICU * Receiving hypertonic saline for correction of hyponatremia * We will need placement in half-way Time based billing: * 55 minutes were involved in evaluation of this patient including [id number] evaluation discussion with care team discussion with ICU staff transfer to ICU management of post OK and post stroke sequelae, encephalopathy from SIADH discharge planning team review of records review of objective laboratory findings and imaging and EKG Exam Vital Signs (past 8 hours): - 08/13/25 04:00 08/13/25 04:00 08/13/25 04:30 Temperature Pulse Rate 78 83 Respiratory Rate 18 23 Blood Pressure 131/62 Pulse Oximetry 95 96 Oxygen Delivery Method 08/13/25 05:00 08/13/25 05:00 08/13/25 05:00 Temperature Pulse Rate 91 H Respiratory Rate 22 Blood Pressure 137/65 Pulse Oximetry 96 Oxygen Delivery Method Room Air 08/13/25 05:30 08/13/25 06:00 08/13/25 06:00 Temperature Pulse Rate 70 73 Respiratory Rate 13 10 L Blood Pressure 113/59 L Pulse Oximetry 94 95 Oxygen Delivery Method 08/13/25 06:30 08/13/25 07:00 08/13/25 07:00 Temperature Pulse Rate 72 94 H Respiratory Rate 13 20 Blood Pressure 132/61 Pulse Oximetry 94 93 Oxygen Delivery Method 08/13/25 07:30 08/13/25 07:30 08/13/25 07:40 Temperature 97.8 F Pulse Rate 90 Respiratory Rate 30 H Blood Pressure Pulse Oximetry 94 Oxygen Delivery Method Room Air 08/13/25 08:00 08/13/25 08:00 08/13/25 08:30 Temperature Pulse Rate 85 94 H Respiratory Rate 20 29 H Blood Pressure 137/60 Pulse Oximetry 95 96 Oxygen Delivery Method 08/13/25 09:00 08/13/25 09:00 08/13/25 09:30 Temperature Pulse Rate 83 83 Respiratory Rate 25 H 21 Blood Pressure 114/58 L Pulse Oximetry 96 96 Oxygen Delivery Method 08/13/25 10:00 08/13/25 10:16 08/13/25 10:16 Temperature Pulse Rate 91 H 86 Respiratory Rate 30 H 13 Blood Pressure 127/57 L Pulse Oximetry 95 Oxygen Delivery Method 08/13/25 10:30 08/13/25 10:51 08/13/25 10:51 Temperature Pulse Rate 80 83 Respiratory Rate 25 H 20 Blood Pressure 117/58 L Pulse Oximetry 96 94 Oxygen Delivery Method 08/13/25 11:00 08/13/25 11:00 08/13/25 11:00 Temperature Pulse Rate 76 Respiratory Rate 17 Blood Pressure 106/54 L Pulse Oximetry 96 Oxygen Delivery Method Room Air Oxygen Delivery Method Room Air Oxygen Flow Rate 0 Objective Labs 08/13/25 04:00 08/13/25 08:56 Labs: Laboratory Results - last 24 hr 08/10/25 08/12/25 08/12/25 09:40 11:30 13:50 WBC RBC Hgb Hct MCV MCH MCHC RDW Plt Count Neut % (Auto) Lymph % (Auto) [place] % (Auto) Eos % (Auto) Baso % (Auto) Neut # (Auto) Lymph # (Auto) [place] # (Auto) Eos # (Auto) Baso # (Auto) Sodium 120 L 122 L Potassium 3.7 3.9 Chloride 88 L 89 L Carbon Dioxide 27 25 BUN 18 H 20 H Creatinine 0.53 0.57 Estimated GFR > 60 > 60 BUN/Creatinine Ratio 34.0 H 35.1 H Glucose 136 H 135 H Serum Osmolality 250 L Calcium 8.6 8.8 Urine Color Urine Appearance Urine pH Ur Specific [place] Urine Protein Urine Glucose (UA) Urine Ketones Urine Occult Blood Urine Nitrate Urine Bilirubin Ur Bilirubin Confirm Urine Urobilinogen Ur Leukocyte Esterase Urine RBC Urine WBC Ur Squamous Epith Cells Amorphous Sediment Urine Bacteria Ur Culture Indicated? Vol Urine Centrifuged 08/12/25 08/12/25 08/12/25 15:32 19:30 23:58 WBC RBC Hgb Hct MCV MCH MCHC RDW Plt Count Neut % (Auto) Lymph % (Auto) [place] % (Auto) Eos % (Auto) Baso % (Auto) Neut # (Auto) Lymph # (Auto) [place] # (Auto) Eos # (Auto) Baso # (Auto) Sodium 122 L 121 L 122 L Potassium 3.9 3.7 4.0 Chloride 88 L 89 L 90 L Carbon Dioxide 28 26 26 BUN 21 H 22 H 22 H Creatinine 0.54 0.55 0.51 L Estimated GFR > 60 > 60 > 60 BUN/Creatinine Ratio 38.9 H 40.0 H 43.1 H Glucose 131 H 146 H 123 H Serum Osmolality Calcium 8.8 8.7 8.7 Urine Color Urine Appearance Urine pH Ur Specific [place] Urine Protein Urine Glucose (UA) Urine Ketones Urine Occult Blood Urine Nitrate Urine Bilirubin Ur Bilirubin Confirm Urine Urobilinogen Ur Leukocyte Esterase Urine RBC Urine WBC Ur Squamous Epith Cells Amorphous Sediment Urine Bacteria Ur Culture Indicated? Vol Urine Centrifuged 08/13/25 08/13/25 08/13/25 04:00 08:56 09:06 WBC 10.5 RBC 2.78 L Hgb 8.2 L Hct 23.7 L MCV 85.2 MCH 29.4 MCHC 34.5 RDW 14.9 H Plt Count 408 H Neut % (Auto) 66.6 Lymph % (Auto) 20.9 L [place] % (Auto) 10.3 Eos % (Auto) 1.8 L Baso % (Auto) 0.4 Neut # (Auto) 7000 Lymph # (Auto) 2200 [place] # (Auto) 1100 H Eos # (Auto) 200 Baso # (Auto) 0 Sodium 122 L 123 L Potassium 3.7 3.5 Chloride 90 L 90 L Carbon Dioxide 28 27 BUN 21 H 19 H Creatinine 0.48 L 0.51 L Estimated GFR > 60 > 60 BUN/Creatinine Ratio 43.8 H 37.3 H Glucose 115 H 134 H Serum Osmolality Calcium 8.4 8.7 Urine Color Red Urine Appearance Cloudy Urine pH 6.5 Ur Specific [place] 1.010 Urine Protein 3+ H Urine Glucose (UA) Trace H Urine Ketones 1+ H Urine Occult Blood 3+ H Urine Nitrate Positive H Urine Bilirubin 2+ H Ur Bilirubin Confirm Positive H Urine Urobilinogen 4.0 H Ur Leukocyte Esterase 2+ H Urine RBC 10-30/hpf H Urine WBC 10-30/hpf H Ur Squamous Epith Cells 0-1 /hpf Amorphous Sediment 3+ Urine Bacteria Moderate (10-30) H Ur Culture Indicated? Specimen cultured Vol Urine Centrifuged 10ml (spun) [facility] Medical History Myocardial infarction complications Diastolic dysfunction with chronic heart failure Social History household members: significant other Smoking Status: Never smoker alcohol intake: never Assessment & Plan Time-Based Coding :: [TOTAL MINUTES] spent with patient and on the chart (including review of chart, obtaining history, exam, reviewing outside data, placing orders, documenting exam and treatment plan, and counseling patient) on [DATE].
--- NOTE | 2025-08-13 12:00 | OT.IP.TRT ---
Current Diagnoses Essential (primary) hypertension (08/04/25) Subsequent non-ST elevation (NSTEMI) myocardial infarction (08/04/25) Other current complications following acute myocardial infarction (08/04/25) Nonrheumatic aortic (valve) stenosis (08/04/25) Chronic diastolic (congestive) heart failure (08/04/25) Displaced intertrochanteric fracture of right femur, initial encounter for closed fracture (08/04/25) Surgery Performed Operation Date: 08/05/25 14:00 Actual Procedures p cephalomedullary nail(Right) - Indira Bustamante, DO Occupational Therapy Treatment Note M2 OT-IP Current Condition Start: 08/07/25 11:33 Freq: Status: Active Protocol: Document 08/12/25 13:54 [facility] (Rec: 08/12/25 14:10 [facility] Desktop) Occupational Therapy Current Condition Current Condition Evaluation Date 08/12/25 Treatment Diagnosis S/P Right hip orif with IMN on 08/05/25 and subsequent UT and CVA Post Operative Precautions Shoulder Precautions Sling Other Precautions Right arm in sling per Sx ok to put some weight on it with FWW. M3 OT- IP Subjective and Pain Start: 08/07/25 11:33 Freq: Status: Active Protocol: Document 08/13/25 12:09 [facility] (Rec: 08/13/25 12:25 [facility] Desktop) OT- Subjective Occupational Therapy Visit Type Type Treatment Note Visit Start Time 11:45 Visit Stop Time 12:05 Occupational Therapy Visit Comments Patient Comments Pt agreed to get up. Pt requesting pain medication for left eye and noted red tint to her mariscal output, nursing notified. Patient/Caregiver TO get better. Goals OT Pain Assessment Pain When Pain Assessed During Mobility Pain Present Pain Present Pain Reported Location right hip Pain Behaviors Facial Grimacing,Holding Area M4 OT- IP ADL's Start: 08/07/25 11:33 Freq: Status: Active Protocol: Document 08/13/25 12:09 [facility] (Rec: 08/13/25 12:25 [facility] Desktop) OT [id number] Comments OT Self-Feeding Not at meal time. Comments OT ADL-Grooming General Evaluation Grooming Ability Minimal Assistance Comments OT Grooming Comments Pt able to wash her face and brush her hair after set- up. OT ADL-Oral Care Comments Oral Care Comments Not observed. OT ADL-Dressing General Eval Lower Body Dressing Maximum Assistance Ability Areas Needing Socks Assistance M5 OT- IP IADL's Start: 08/07/25 11:33 Freq: Status: Active Protocol: Document 08/12/25 13:54 [facility] (Rec: 08/12/25 14:10 [facility] Desktop) OT-Instrumental Activities of Daily Living Home Safety Awareness Awareness of Need Decreased Awareness for Assistance at Home Ability to Problem Unable to Problem Solve Solve Emergency Situations Medication Management Medication Pt will need assist. Management Comments Money Management Money Management Pt will need assist. Comments Meal Preparation Meal Preparation Pt will need assist. Comments Developer Support Engineer Developer Support Engineer Pt will need assist. Comments M6 OT- IP Functional Cognition Start: 08/07/25 11:33 Freq: Status: Active Protocol: Document 08/13/25 12:09 [facility] (Rec: 08/13/25 12:25 [facility] Desktop) Cognitive Factors Limiting Selfcare Function Cognitive Ability Level of Alertness Alert Patient Orientation Name Attention Span Capable of Focused Attention,Capable of Sustained Ability Attention Ability to Follow Able to Follow One Step Commands with Increased Time, Commands Able to Follow One Step Commands with Repetition Cognitive Comments Cognitive Assessment Pt more alert today and better able to get her words Comments out, especially when giving her option/choices. Pt denies having had a CVA, but able to explain to her that she had a CVA. OT- Vision and Hearing OT- Vision Assessment Vision Assessment Pt able to read the clock accurately. Comments M7 OT- IP Mobility and Balance Start: 08/07/25 11:33 Freq: Status: Active Protocol: Document 08/13/25 12:09 [facility] (Rec: 08/13/25 12:25 [facility] Desktop) OT-Transfer Assessment Sit to and From Stand Sit to and from Maximum Assistance,2 Person Assistance Stand Devices Transfer Assistive Gait Belt,Front Wheeled Walker Devices Comments Mobility Comments MAX AX 2 to scoot pt forwards in the recliner and MAX AX 2 to stand to the fww and able to stand with MAX 1-2 for 2 minutes x2. Assist to keep her forwards and weight more on her left side. Pt able to put some weight on her right arm but mostly on her left arm and leg at this time in addition to therapists assist. OT- Balance Assessment Sitting Balance and Reactions Static Sitting Fair Balance Ability Dynamic Sitting Poor Balance Ability Standing Balance and Reactions Static Standing Poor Balance Ability Dynamic Standing Poor Balance Ability M8 OT- IP Objective Assessments Start: 08/07/25 11:33 Freq: Status: Active Protocol: Document 08/12/25 13:54 [facility] (Rec: 08/12/25 14:10 [facility] Desktop) OT Gross Range of Motion Upper Extremity Range of Motion Assessment Right Impaired OT Strength Upper Extremity Strength Assessment Right Impaired M9 OT- IP Assessment and Plan Start: 08/07/25 11:33 Freq: Status: Active Protocol: Document 08/13/25 12:09 [facility] (Rec: 08/13/25 12:25 [facility] Desktop) OT Summary Assessment and Plan Potential Rehabilitation Good Potential Analytic Complexity High at Evaluation Summary OT Impairments Pain,Range of Motion,Strength,Balance,Functional Cognition,Functional Mobility,Self-Feeding,Grooming, Dressing,Toileting,Bathing,Toilet Transfers,Shower Transfers,Activity Tolerance Progress Towards Progressing Toward Goals Goals Assessment Summary Pt able to get her words out a little better today however still having difficulty. Pt tends to do better after given choices or options. Pt requesting pain medications for her left eye which she was rubbing. At this time best to keep sling off RUE to prevent for tightness and provide opportunities to use her right hand for ADL and mobility needs. Suggest pt to wear sling as needed for comfort. Pt able to stand x2 fro 2 minutes with MAX AX 2 to the FWW. Pt to go to skilled rehab when medically stable. 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 Goals Self-Feeding Goal Standby Assistance Grooming Goal Standby Assistance Dressing Goal Minimal Assistance Toileting Goal Minimal Assistance Bathing Goal Moderate Assistance Toilet Transfer Goal Contact Guard Assistance Shower Transfer Goal Minimal Assistance Days to Meet Goals 29 Frequency of Treatment Other frequency 5x/week Treatment Plan OT Treatment Plan ADL Training,Functional Cognition Training,Functional Mobility,Patient/Family Education,Discharge Planning Other Treatment Transfer [place] [facility] MAX XA 2 with FWW. Recommendations and Next Treatment Focus Discharge Recommendations OT Discharge SNF Rehab Recommendations Transportation Needs Wheelchair/Cabulance at Discharge
--- NOTE | 2025-08-13 12:02 | P.PN_ITS ---
Subjective Subjective Date Patient Seen: 08/12/25 Interval history: Chief complaint: Ground level fall dark with fall comminuted intertrochanteric right hip fracture and comminuted proximal humerus fracture complicated by perioperative FL History of present illness: 08/04: 75-year-old female who was admitted with a hip fracture after a fall. She has a history of moderate aortic stenosis and CAD with a previous CABG. The patient had a mildly elevated troponin. She would complained of chest pain intermittently for the past 3 months. Her initial ECG was abnormal and she was discussed with Cardiology and evaluated with an echo which revealed good EF, no wall motion abnormalities, and aortic stenosis. Her revised cardiac risk index for an emergent surgery that is low risk was utilizing calculated with a score of 1 which is a moderate risk of 6%. She did undergo surgery (Screw) and her postoperative troponin did bump to 11. She remains hemodynamically stable and comfortable. Cardiology is consulted and we will be evaluating her. 08/05. Echo revealed a and normal EF. She had a mildly elevated troponin went to the OR after consultation with Cardiology with a moderate risk of 6% or less for cardiac adverse events. Unfortunately, she did have evidence of NSTEMI with a troponin of 11 in the postoperative. 08/06: Doing well, no chest pain or dyspnea. Troponin remained elevated at 11. Discussed with Cardiology who did evaluate the patient. Not felt to be appropriate for heparin drip given her postoperative status. Treated with aspirin, and beta blockade. 08/07: Trop 4. Limited ECHO: The ejection fraction is estimated to be 50-55%. There are regional wall motion abnormalities as specified. Basal septal and mid to basal inferior hypokinesis 08/08: Patient having some apparent Adrian phrenic and subtle appearance of a right facial droop today CT of the head ordered otherwise MRI ordered demonstrated left cortical and white matter punctate infarcts patient is started on Plavix 300 when addition to aspirin 08/09: Developed 8/10 chest pain about 12:30 p.m. EKG shows extensive T-wave and ST segment changes and Q-waves troponin 1.9 which is down from 4 from 08/07. BNP is 2000. Chest pain was relieved with sublingual nitroglycerin and 1/2 inch of nitroglycerin paste. Consulted with Cardiology with a consensus decision to transfer to ICU and initiate nitroglycerin drip if chest pain recurs. Patient is not a candidate for cardiac catheterization due to stroke, not a candidate for anticoagulation due to risk of hemorrhagic transformation of stroke and exsanguination from surgery. Patient loaded Plavix 300 mg serial troponin 08/10: No further reports of chest pain troponin trending down to 1380 started on Imdur 30 mg a day and currently on dual antiplatelet aspirin Plavix metoprolol patient demonstrates very impaired short-term memory eats a piece of egg with a fork with the right hand does like the taste and takes it it out with her left hand and repeats this on the same piece of egg over and over 08/11: No further episodes of chest pain patient is still doing repetitive behaviors but is interactive despite replacing solute and fluid restriction and diuretic patient still has sodium of 117 08/12: Sodium 119 in the morning chronic saline initiated at 100 cc total for 20 cc an hour. At the end of the infusion sodium increased to 122. Patient is still confused was interpretive and expressive aphasia repeating meaningless repetitive behaviors Review of systems: No fever or chills rigors No chest pain palpitations No nausea vomiting Poor appetite The paresthesia paresis Physical examination: Awake alert confused with expressive aphasia HEENT there is a appearance with slight right facial droop Extraocular motions intact Normal cranial nerves Moves all extremities Alert confused Heart rate and rhythm regular no murmurs Lungs clear Abdomen nontender bowel sounds present IMAGING: X-rays of her right shoulder demonstrate a comminuted healing proximal humerus fracture. X-rays of her right hip and CT scan of the right hip demonstrate a comminuted intertrochanteric right hip fracture. ECHO: - The left ventricular contractility is normal. Estimated ejection fraction is greater than 55% with no segmental wall motion abnormalities. Mild concentric LVH. Grade 1 diastolic dysfunction. - The right ventricular contractility is normal. - Moderate left atrial enlargement. All other cardiac chambers are of normal size. - Moderate mitral annular calcifications with mild mitral valvular stenosis. Mean gradient is 4.2 mmHg. - Moderate aortic valvular stenosis with peak velocity of 3.1 m/s. Mean gradient of 25.1 mmHg. Dimensionless index of 0.45. - No obvious intracardiac shunts. - No obvious intracardiac masses nor thrombi. - No hemodynamically significant pericardial effusion. - Low right-sided filling pressures. Conclusion: Normal biventricular systolic function with mild to moderate valvular stenoses. 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 * Contributing to encephalopathy * Sodium 122 after 100 mL of hypertonic saline * Discussed with pharmacy * Repeat hypertonic saline again tomorrow Right hip fracture status post ORIF with perioperative non STEMI (moderate periorbital risk of coronary disease given history of CAD with revascularization) with possible new outcome of apical akinesis * Complicated by perioperative myocardial infarction and left-sided stroke * We will need inpatient rehab especially since patient also has a right comminuted proximal humeral fracture Left cortical and white matter stroke on MRI 08/09: * Loaded Plavix 300 mg * Dual platelets Plavix and aspirin * High-intensity statin * 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 Chronic coronary artery disease status post CABG with unstable angina 08/09 * Troponin trended down * Not a candidate for cardiac catheterization due to stroke * Not a candidate for anticoagulation due to stroke and postoperative * Aspirin with Plavix daily * Long-acting Nitrates Imdur to manage angina * Appreciate cardiology expertise * Continue all goal directed medical therapy * Perioperative non STEMI likely type 2 * Not a candidate for heparinization secondary to surgery and risk of exsanguination and hemorrhagic transformation of stroke * Follow up with Cardiology after discharge and rehabilitation to establish anatomy and possible interventions at a safe point DVT prophylaxis: * Aspirin b.i.d. per Orthopedic stewardship Code status: * Full code blue but may change to DNR Disposition: * Inpatient * perioperative and. Non STEMI with recurrent symptomatic angina 08/09 * Transferred to ICU * Receiving hypertonic saline for correction of hyponatremia * We will need placement in [place] [facility] Time based billing: * 55 minutes were involved in evaluation of this patient including gyje-ey-topk evaluation discussion with care team discussion with ICU staff transfer to ICU management of post FL and post stroke sequelae, encephalopathy from SIADH discharge planning team review of records review of objective laboratory findings and imaging and EKG Exam Vital Signs (past 8 hours): - 08/13/25 04:30 08/13/25 05:00 08/13/25 05:00 Temperature Pulse Rate 83 91 H Respiratory Rate 23 22 Blood Pressure 137/65 Pulse Oximetry 96 96 Oxygen Delivery Method 08/13/25 05:00 08/13/25 05:30 08/13/25 06:00 Temperature Pulse Rate 70 Respiratory Rate 13 Blood Pressure 113/59 L Pulse Oximetry 94 Oxygen Delivery Method Room Air 08/13/25 06:00 08/13/25 06:30 08/13/25 07:00 Temperature Pulse Rate 73 72 Respiratory Rate 10 L 13 Blood Pressure 132/61 Pulse Oximetry 95 94 Oxygen Delivery Method 08/13/25 07:00 08/13/25 07:30 08/13/25 07:30 Temperature Pulse Rate 94 H 90 Respiratory Rate 20 30 H Blood Pressure Pulse Oximetry 93 94 Oxygen Delivery Method Room Air 08/13/25 07:40 08/13/25 08:00 08/13/25 08:00 Temperature 97.8 F Pulse Rate 85 Respiratory Rate 20 Blood Pressure 137/60 Pulse Oximetry 95 Oxygen Delivery Method 08/13/25 08:30 08/13/25 09:00 08/13/25 09:00 Temperature Pulse Rate 94 H 83 Respiratory Rate 29 H 25 H Blood Pressure 114/58 L Pulse Oximetry 96 96 Oxygen Delivery Method 08/13/25 09:30 08/13/25 10:00 08/13/25 10:16 Temperature Pulse Rate 83 91 H 86 Respiratory Rate 21 30 H 13 Blood Pressure Pulse Oximetry 96 95 Oxygen Delivery Method 08/13/25 10:16 08/13/25 10:30 08/13/25 10:51 Temperature Pulse Rate 80 Respiratory Rate 25 H Blood Pressure 127/57 L 117/58 L Pulse Oximetry 96 Oxygen Delivery Method 08/13/25 10:51 08/13/25 11:00 08/13/25 11:00 Temperature Pulse Rate 83 76 Respiratory Rate 20 17 Blood Pressure Pulse Oximetry 94 96 Oxygen Delivery Method Room Air 08/13/25 11:00 Temperature Pulse Rate Respiratory Rate Blood Pressure 106/54 L Pulse Oximetry Oxygen Delivery Method Oxygen Delivery Method Room Air Oxygen Flow Rate 0 Objective Labs 08/13/25 04:00 08/13/25 08:56 Labs: Laboratory Results - last 24 hr 08/10/25 08/12/25 08/12/25 09:40 11:30 13:50 WBC RBC Hgb Hct MCV MCH MCHC RDW Plt Count Neut % (Auto) Lymph % (Auto) [place] % (Auto) Eos % (Auto) Baso % (Auto) Neut # (Auto) Lymph # (Auto) [place] # (Auto) Eos # (Auto) Baso # (Auto) Sodium 120 L 122 L Potassium 3.7 3.9 Chloride 88 L 89 L Carbon Dioxide 27 25 BUN 18 H 20 H Creatinine 0.53 0.57 Estimated GFR > 60 > 60 BUN/Creatinine Ratio 34.0 H 35.1 H Glucose 136 H 135 H Serum Osmolality 250 L Calcium 8.6 8.8 Urine Color Urine Appearance Urine pH Ur Specific [place] Urine Protein Urine Glucose (UA) Urine Ketones Urine Occult Blood Urine Nitrate Urine Bilirubin Ur Bilirubin Confirm Urine Urobilinogen Ur Leukocyte Esterase Urine RBC Urine WBC Ur Squamous Epith Cells Amorphous Sediment Urine Bacteria Ur Culture Indicated? Vol Urine Centrifuged 08/12/25 08/12/25 08/12/25 15:32 19:30 23:58 WBC RBC Hgb Hct MCV MCH MCHC RDW Plt Count Neut % (Auto) Lymph % (Auto) [place] % (Auto) Eos % (Auto) Baso % (Auto) Neut # (Auto) Lymph # (Auto) [place] # (Auto) Eos # (Auto) Baso # (Auto) Sodium 122 L 121 L 122 L Potassium 3.9 3.7 4.0 Chloride 88 L 89 L 90 L Carbon Dioxide 28 26 26 BUN 21 H 22 H 22 H Creatinine 0.54 0.55 0.51 L Estimated GFR > 60 > 60 > 60 BUN/Creatinine Ratio 38.9 H 40.0 H 43.1 H Glucose 131 H 146 H 123 H Serum Osmolality Calcium 8.8 8.7 8.7 Urine Color Urine Appearance Urine pH Ur Specific [place] Urine Protein Urine Glucose (UA) Urine Ketones Urine Occult Blood Urine Nitrate Urine Bilirubin Ur Bilirubin Confirm Urine Urobilinogen Ur Leukocyte Esterase Urine RBC Urine WBC Ur Squamous Epith Cells Amorphous Sediment Urine Bacteria Ur Culture Indicated? Vol Urine Centrifuged 08/13/25 08/13/25 08/13/25 04:00 08:56 09:06 WBC 10.5 RBC 2.78 L Hgb 8.2 L Hct 23.7 L MCV 85.2 MCH 29.4 MCHC 34.5 RDW 14.9 H Plt Count 408 H Neut % (Auto) 66.6 Lymph % (Auto) 20.9 L [place] % (Auto) 10.3 Eos % (Auto) 1.8 L Baso % (Auto) 0.4 Neut # (Auto) 7000 Lymph # (Auto) 2200 [place] # (Auto) 1100 H Eos # (Auto) 200 Baso # (Auto) 0 Sodium 122 L 123 L Potassium 3.7 3.5 Chloride 90 L 90 L Carbon Dioxide 28 27 BUN 21 H 19 H Creatinine 0.48 L 0.51 L Estimated GFR > 60 > 60 BUN/Creatinine Ratio 43.8 H 37.3 H Glucose 115 H 134 H Serum Osmolality Calcium 8.4 8.7 Urine Color Red Urine Appearance Cloudy Urine pH 6.5 Ur Specific [place] 1.010 Urine Protein 3+ H Urine Glucose (UA) Trace H Urine Ketones 1+ H Urine Occult Blood 3+ H Urine Nitrate Positive H Urine Bilirubin 2+ H Ur Bilirubin Confirm Positive H Urine Urobilinogen 4.0 H Ur Leukocyte Esterase 2+ H Urine RBC 10-30/hpf H Urine WBC 10-30/hpf H Ur Squamous Epith Cells 0-1 /hpf Amorphous Sediment 3+ Urine Bacteria Moderate (10-30) H Ur Culture Indicated? Specimen cultured Vol Urine Centrifuged 10ml (spun) [facility] Medical History Myocardial infarction complications Diastolic dysfunction with chronic heart failure Social History household members: significant other Smoking Status: Never smoker alcohol intake: never Assessment & Plan Time-Based Coding :: [TOTAL MINUTES] spent with patient and on the chart (including review of chart, obtaining history, exam, reviewing outside data, placing orders, documenting exam and treatment plan, and counseling patient) on [DATE].
--- NOTE | 2025-08-13 12:03 | PT.IPTN ---
Current Diagnoses Essential (primary) hypertension (08/04/25) Subsequent non-ST elevation (NSTEMI) myocardial infarction (08/04/25) Other current complications following acute myocardial infarction (08/04/25) Nonrheumatic aortic (valve) stenosis (08/04/25) Chronic diastolic (congestive) heart failure (08/04/25) Displaced intertrochanteric fracture of right femur, initial encounter for closed fracture (08/04/25) Surgery Performed Operation Date: 08/05/25 14:00 Actual Procedures p cephalomedullary nail(Right) - Indira Bustamante, DO Physical Therapy Treatment Note M2 PT-IP Current Condition Start: 08/07/25 11:30 Freq: NEEDED Status: Active Protocol: Document 08/12/25 13:35 DCW (Rec: 08/12/25 14:57 DCW [id number]) Physical Therapy Current Condition Current Condition Evaluation Date 08/12/25 Treatment Diagnosis R intertrochanteric Fx, CVA, ND M3 PT-IP Subjective Start: 08/07/25 11:30 Freq: NEEDED Status: Active Protocol: Document 08/13/25 12:03 DLM (Rec: 08/13/25 13:44 DLM Desktop) Subjective Physical Therapy Visit Type Type Treatment Note Visit Start Time 11:45 Visit Stop Time 12:03 Notes 18 min Co-treat with Occupational Therapy Number of DECISION ANALYST Visits 0 Physical Therapy Visit Comments Patient Comments she reports she is sore Patient Goals to get better Therapy Pain Assessment Pain When Pain Assessed After Treatment Pain Present Pain Present Pain Reported Location right hip Scale Used she could not rate Description Aching,Tender,Tightness,With Movement Pain Behaviors Wincing Pain Management Apply Cold,Re-positioning Techniques M4 PT-IP Mobility and Gait Start: 08/07/25 11:30 Freq: NEEDED Status: Active Protocol: Document 08/13/25 12:03 DLM (Rec: 08/13/25 13:44 DLM Desktop) PT-Transfer Assessment Sit to and From Stand Sit to and from Moderate Assistance,Maximum Assistance,2 Person Stand Assistance Equipment Transfer Assistive Gait Belt,Front Wheeled Walker Device Comments Mobility Comments Pt is up in recliner. Nursing used roselyn lift to get her up earlier today. Pt left up in recliner in preparation for lunch. Pt has posterior lean in standing that gradually improves as she stands but does not fully resolve. Her awareness of her posterior lean is limited which complicates her ability to correct. She can keep both hands on FWW. She is able to take a couple of small standing steps but with significant posterior lean. She is not able to use UE's to push up from the chair during sit to stand and needs a lot of cues to reach hand back for armrest during stand to sit. Pt able to stand for 2 min, seated rest then another 2.5 min. Fatigue limits the length of time she tolerates standing. Initiated weight shifting in standing to assist with balance retraining. Gait Assessment Comments Gait Comments unsafe due to severe posterior lean in standing. Pt describes right LE pain with weight bearing. Stair Climbing Assessment Comments Stair Climbing unable Comments PT-Balance Assessment Sitting Balance and Reactions Static Sitting Good Balance Ability Dynamic Sitting Good Balance Ability Standing Balance and Reactions Static Standing Poor Balance Ability Dynamic Standing Poor Balance Ability Device Used FWW M5 PT-IP Objective Assessments Start: 08/07/25 11:30 Freq: NEEDED Status: Active Protocol: Document 08/12/25 13:35 DCW (Rec: 08/12/25 14:57 DCW [id number]) Orientation Orientation/Cognition Level of Alertness Safety Awareness Decreased Safety Awareness Comments Pt responds with yes or no inappropriately. Will say no to answer can you move your leg, then immediately move her leg. Denies ND or CVA history. M6 PT-IP Treatment Start: 08/07/25 11:30 Freq: NEEDED Status: Active Protocol: Document 08/13/25 12:03 DLM (Rec: 08/13/25 13:44 DLM Desktop) Physical Therapy Treatment Exercises Exercises Ankle Pumps,Seated Knee Flexion/Extension Education Education Provided Safety Other Treatments Other Treatment increased extensor tone left ankle with 2 beats of Performed clonus Pt has impaired speech, intermittently says the wrong word, takes extra time to make her thoughts known M7 PT-IP Assessment and Plan Start: 08/07/25 11:30 Freq: NEEDED Status: Active Protocol: Document 08/13/25 12:03 DLM (Rec: 08/13/25 13:44 DLM Desktop) PT Summary Assessment and Plan Summary Impairments Pain,ROM,Strength,Balance,Cognition,Bed Mobility, Transfers,Gait,Activity Tolerance Progress Towards Slow Progress due to Medical Issues,Slow Progress due Goals to Activity Tolerance Assessment Summary Camille is progressing slowly with therapy treatment. She shows good effort with activity. She has impaired speech and impaired balance that complicate her recovery from right femur ORIF. She is moving right UE actively but has shoulder weakness and decreased range of motion that limits how much she can functionally do with right UE. She continues to need two person assist for all mobility. She is not safe to progress to gait this visit due to severe posterior lean in standing. Continue to recommend SNF rehab at discharge. Goals Bed Mobility Goal Minimal Assistance Transfer Goal Minimal Assistance,Front Wheeled Walker Gait Goal Minimal Assistance,Moderate Assistance,Front Wheel Walker Gait Distance 10 feet Days to Meet Goals 10 Frequency of Treatment Frequency Of Once a Day Treatment Treatment Plan Physical Therapy Bed Mobility Training,Transfer Training,Gait Training, Treatment Plan Therapeutic Exercise,Balance Retraining,Post Op Education,Discharge Planning,Hot or Cold Pack, Neuromuscular Re-ed Other static standing to improve balance Recommendations and Next Treatment Focus Precautions Other Precautions sling as needed to manage right shoulder pain due to healing fracture Acute CVA and ND Weight Bearing Status Weight Bearing Weight Bear as Tolerated Status Allowed Weight right LE Bearing Amount ( enter % or #) (%) Recommendations To Nursing Amount of Assist 2 Person Assist Needed Discharge Recommendations PT Discharge SNF Rehab Recommendations Transportation Needs Wheelchair/Cabulance at Discharge - PT assist 2
[2025-08-13 13:11] LABS: Sodium 123 mmol/L (137-145)
[2025-08-13 13:13] LABS: Alanine Aminotransferase 28 IU/L (<35); Albumin 3.3 g/dL (3.5-5.0); Albumin Globulin Ratio 1.3 (1.0-2.8); Alkaline Phosphatase 73 U/L (38-126); Creatine Kinase 86 U/L (30-135); Globulin 2.6 g/dL (1.7-4.1); HEMOLYSIS < 15 (0-50); Total Protein 5.9 g/dL (6.3-8.2)
[2025-08-13 15:05] LABS: Sodium 124 mmol/L (137-145)
--- NOTE | 2025-08-13 15:09 | DIET.PN1 ---
Dietary Progress Note Assessment: Family member not in room at time of attempted visit this morning. Spoke to RN this morning who reports pt consumed some of smoothies and Ensures yesterday. Recording oral supplements in I&Os. Coordinated with kitchen for Ensure+ to be used in protein smoothies instead of milk to increase nutrient density and reduce liquid volume on fluid restriction. Continue TID. Monitoring PO intakes. Ht: 157.48 cm Wt: 64.8 kg BMI: 24.7 UBW: Last BM: 08/12/25 (08/12/25 17:23) MNA: 12 Jamshid Score: 13 Diet: 08/06/25 Breakfast General (Regular) Diet Diet Modifications: Food Texture: Level 7 - Regular Liquid Consistency: Level 0 - Thin 08/11/25 Lunch Fluid Restriction Diet Diet Modifications: Total fluid amount: 1,500 Amount allotted to patient trays: 400 Free water included in total: Yes Fluid in addition to trays: 3182-1558 amount: 1,100 4647-7245 amount: 100 Food Texture: Level 7 - Regular Liquid Consistency: Level 0 - Thin Nutrition Percent Meal Consumed 15 08/12/25 09:05 Labs: RBC 2.78 X10^6/uL (4.0-5.2) L 08/13/25 04:00 Hgb 8.2 g/dL (12.0-16.0) L 08/13/25 04:00 Hct 23.7 % (36-46) L 08/13/25 04:00 Creatinine 0.51 mg/dL (0.52-1.04) L 08/13/25 08:56 NT-Pro-B Natriuret Pep 5280 pg/mL (<450) H 08/09/25 12:28 Nutrition Diagnosis: Interventions: EER: Monitoring/Evaluations: Electronically Signed by: Kiarra Dial 08/13/25 15:09 Clinical Dietitian [address] [id number]
[2025-08-13] MEDS: POLYVINYL ALCOHOL DROPS 1 DROPS EYE-BOTH (15:39)
[2025-08-13 17:14] LABS: Sodium 124 mmol/L (137-145)
[2025-08-13] MEDS: ATORVASTATIN 20 MG TABLET 80 MG PO (21:03)
[2025-08-13] MEDS: DOCUSATE 100 MG CAPSULE PO (21:04)
[2025-08-13] MEDS: MELATONIN 3 MG TABLET 6 MG PO (21:06)
[2025-08-13 23:56] LABS: Sodium 125 mmol/L (137-145)
[2025-08-14] VITALS (58 sets, daily range): BP systolic 97–178; BP diastolic 50–87; PULSE 60–94; RESP 5–39; TEMP 36.2–36.9; O2SAT 93–97
[2025-08-14 05:47] LABS: Blood Urea Nitrogen 19 mg/dL (7-17); Calcium 8.6 mg/dL (8.4-10.2); Carbon Dioxide 27 mmol/L (22-32); Chloride 94 mmol/L (98-107); Estimated Glomerular Filt Rate > 60 mL/min (>60); Glucose 121 mg/dL (70-99); HEMOLYSIS < 15 (0-50); Potassium 4.1 mmol/L (3.4-5.1); Sodium 125 mmol/L (137-145)
[2025-08-14] MEDS: SODIUM CHLORIDE 1,000 MG TABLET 1000 MG PO ×2 (08:35→20:58)
[2025-08-14] MEDS: CLOPIDOGREL 75 MG TABLET PO (08:37)
[2025-08-14] MEDS: ASPIRIN EC 81 MG TABLET PO ×2 (08:37→20:59)
[2025-08-14] MEDS: METOPROLOL IR 25 MG TABLET 12.5 MG PO ×3 (08:38→21:00)
[2025-08-14] MEDS: SODIUM CHLORIDE 0.9% FLUSH 10 ML IV ×2 (08:40→21:01)
[2025-08-14] MEDS: DOCUSATE 100 MG CAPSULE PO (09:42)
--- NOTE | 2025-08-14 10:43 | CM.DPC ---
Addendum entered by Marilu Weeks RN 08/14/25 14:44: No Speech Therapy coverage today. Speech note needs to be sent to [facility]. Kumar when available. Original Note: Updated PT Eval and Prog. Note 08/13 sent to Anne with [facility] Kumar. Speech Eval Note, pending.
--- NOTE | 2025-08-14 11:23 | DIET.PN1 ---
Dietary Progress Note Assessment: Continuing to work on increasing solid food intake in addition to the Ensure+ inside the smoothie for total of 400 mL shake TID. Ht: 157.48 cm Wt: 64.7 kg BMI: 24.7 Last BM: 08/14/25 (08/14/25 05:18) MNA: 12 Jamshid Score: 17 Diet: 08/06/25 Breakfast General (Regular) Diet Diet Modifications: Food Texture: Level 7 - Regular Liquid Consistency: Level 0 - Thin 08/11/25 Lunch Fluid Restriction Diet Diet Modifications: Total fluid amount: 1,500 Amount allotted to patient trays: 400 Free water included in total: Yes Fluid in addition to trays: 6325-8159 amount: 1,100 4797-1818 amount: 100 Food Texture: Level 7 - Regular Liquid Consistency: Level 0 - Thin Nutrition Percent Meal Consumed 100% 08/13/25 18:00 Labs: RBC 2.78 X10^6/uL (4.0-5.2) L 08/13/25 04:00 Hgb 8.2 g/dL (12.0-16.0) L 08/13/25 04:00 Hct 23.7 % (36-46) L 08/13/25 04:00 Creatinine 0.50 mg/dL (0.52-1.04) L 08/14/25 05:25 NT-Pro-B Natriuret Pep 5280 pg/mL (<450) H 08/09/25 12:28 Electronically Signed by: Kiarra Dial 08/14/25 11:23 Clinical Dietitian [address] [id number]
--- NOTE | 2025-08-14 12:27 | PT.IPTN ---
Current Diagnoses Essential (primary) hypertension (08/04/25) Subsequent non-ST elevation (NSTEMI) myocardial infarction (08/04/25) Other current complications following acute myocardial infarction (08/04/25) Nonrheumatic aortic (valve) stenosis (08/04/25) Chronic diastolic (congestive) heart failure (08/04/25) Displaced intertrochanteric fracture of right femur, initial encounter for closed fracture (08/04/25) Surgery Performed Operation Date: 08/05/25 14:00 Actual Procedures p cephalomedullary nail(Right) - Indira Bustamante, DO Physical Therapy Treatment Note M2 PT-IP Current Condition Start: 08/07/25 11:30 Freq: NEEDED Status: Active Protocol: Document 08/12/25 13:35 DCW (Rec: 08/12/25 14:57 DCW [id number]) Physical Therapy Current Condition Current Condition Evaluation Date 08/12/25 Treatment Diagnosis R intertrochanteric Fx, CVA, [place] M3 PT-IP Subjective Start: 08/07/25 11:30 Freq: NEEDED Status: Active Protocol: Document 08/14/25 12:27 DLM (Rec: 08/14/25 16:06 DLM Desktop) Subjective Physical Therapy Visit Type Type Initial Evaluation Visit Start Time 11:53 Visit Stop Time 12:27 Notes 34 min 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 0 Physical Therapy Visit Comments Patient Comments she reports soreness right LE Patient Goals get better Therapy Pain Assessment Location right hip Scale Used did not rate Description Aching,Tender,Tightness,With Movement Pain Behaviors Guarding,Wincing Pain Management Re-positioning,Timing of Activity with Medications Techniques M4 PT-IP Mobility and Gait Start: 08/07/25 11:30 Freq: NEEDED Status: Active Protocol: Document 08/14/25 12:27 DLM (Rec: 08/14/25 16:06 DLM Desktop) PT-Bed Mobility Assessment Supine to Sit Supine to Sit Moderate Assistance,Maximum Assistance Scooting Scooting to Edge of Maximum Assistance Bed Scooting Up and Down Dependent in Bed PT-Transfer Assessment Sit to and From Stand Sit to and from Moderate Assistance,2 Person Assistance,Use of Upper Stand Extremities Equipment Transfer Assistive Gait Belt,Large Based Quad Cane Device Transfers Transfer Technique Stand Step Pivot Transfer Ability Level of Assist Moderate Assistance,2 Person Assistance,Use of Upper Extremities Comments Mobility Comments Posterior lean in standing which is a little better than yesterday. Static standing training at edge of bed before progressed to transfer. Pt able to take a few steps to turn and sit in recliner. Pt left sitting up in recliner with feet elevated and nursing aware. Gait Assessment Gait Gait Assistance Moderate Assistance,2 Person Assist Required: Distance (Feet) 6 Assistive Devices Assistive Device Gait Belt,Front Wheeled Walker Gait Deviations General Gait Pattern Decreased Stride Length Factors Limiting Gait Function Factors Limiting Decreased Activity Tolerance,Pain,Poor Balance,Poor Gait Function Safety Awareness Comments Gait Comments Mild to moderate posterior lean during gait with fWW which improved a little as she ambulated, pt able to take functional steps for gait. A third person followed pt with the recliner to decrease her fall risk. Pt describes feeling whoozy during activity. Noted drop in BP this visit. Supine BP 118/63 Sitting BP 104/50 Standing 97/52 Sitting 126/58 Reclined 159/87 Sitting up in recliner with feet elevated 125/55 Nursing made aware of BP changes during this visit. PT-Balance Assessment Sitting Balance and Reactions Static Sitting Fair Balance Ability Dynamic Sitting Fair Balance Ability Standing Balance and Reactions Static Standing Poor Balance Ability Dynamic Standing Poor Balance Ability Device Used FWW M5 PT-IP Objective Assessments Start: 08/07/25 11:30 Freq: NEEDED Status: Active Protocol: Document 08/12/25 13:35 DCW (Rec: 08/12/25 14:57 DCW [id number]) Orientation Orientation/Cognition Level of Alertness [place] Safety Awareness Decreased Safety Awareness Comments Pt responds with yes or no inappropriately. Will say no to answer can you move your leg, then immediately move her leg. Denies [place] or CVA history. M6 PT-IP Treatment Start: 08/07/25 11:30 Freq: NEEDED Status: Active Protocol: Document 08/14/25 12:27 DLM (Rec: 08/14/25 16:06 DLM Desktop) Physical Therapy Treatment Exercises Exercises Ankle Pumps,Heel Slides,Seated Knee Flexion/Extension Education Education Provided Safety Other Treatments Other Treatment assist for exercises sitting up in chair Performed M7 PT-IP Assessment and Plan Start: 08/07/25 11:30 Freq: NEEDED Status: Active Protocol: Document 08/14/25 12:27 DLM (Rec: 08/14/25 16:06 DL Desktop) PT Summary Assessment and Plan Summary Impairments Pain,ROM,Strength,Balance,Cognition,Bed Mobility, Transfers,Gait,Activity Tolerance Progress Towards Slow Progress due to Medical Issues,Slow Progress due Goals to Activity Tolerance Assessment Summary Camille is alert and shows good participation in Therapy session. She continues to have impaired speech with difficulty saying the word she wants to communicate. Requested speech language eval at rounds. Pt shows a small improvement in her standing balance with less posterior lean. Noted less extensor tone in left ankle this visit with improved active ankle ROM. She continues to be a high fall risk. Recommend transfers/ gait only with therapy at this time. Recommend nursing use roselyn lift to protect her orthopedic injuries. Continue to recommend SNF rehab at discharge. Goals Bed Mobility Goal Minimal Assistance Transfer Goal Minimal Assistance,Front Wheeled Walker Gait Goal Minimal Assistance,Moderate Assistance,Front Wheel Walker Gait Distance 10 feet Days to Meet Goals 10 Frequency of Treatment Frequency Of Once a Day Treatment Treatment Plan Physical Therapy Bed Mobility Training,Transfer Training,Gait Training, Treatment Plan Therapeutic Exercise,Balance Retraining,Post Op Education,Discharge Planning,Hot or Cold Pack, Neuromuscular Re-ed Other static standing to improve balance Recommendations and Next Treatment Focus Precautions Other Precautions sling as needed to manage right shoulder pain due to healing fracture Acute CVA and [place] Weight Bearing Status Weight Bearing Weight Bear as Tolerated Status Allowed Weight right LE Bearing Amount ( enter % or #) (%) Recommendations To Nursing Amount of Assist 2 Person Assist Needed Discharge Recommendations PT Discharge SNF Rehab Recommendations Transportation Needs Wheelchair/Cabulance at Discharge - PT assist 2
--- NOTE | 2025-08-14 12:44 | OT.IP.TRT ---
Current Diagnoses Essential (primary) hypertension (08/04/25) Subsequent non-ST elevation (NSTEMI) myocardial infarction (08/04/25) Other current complications following acute myocardial infarction (08/04/25) Nonrheumatic aortic (valve) stenosis (08/04/25) Chronic diastolic (congestive) heart failure (08/04/25) Displaced intertrochanteric fracture of right femur, initial encounter for closed fracture (08/04/25) Surgery Performed Operation Date: 08/05/25 14:00 Actual Procedures p cephalomedullary nail(Right) - Indira Bustamante, DO Occupational Therapy Treatment Note M2 OT-IP Current Condition Start: 08/07/25 11:33 Freq: Status: Active Protocol: Document 08/12/25 13:54 [facility] (Rec: 08/12/25 14:10 [facility] Desktop) Occupational Therapy Current Condition Current Condition Evaluation Date 08/12/25 Treatment Diagnosis S/P Right hip orif with IMN on 08/05/25 and subsequent RI and CVA Post Operative Precautions Shoulder Precautions Sling Other Precautions Right arm in sling per Sx ok to put some weight on it with FWW. M3 OT- IP Subjective and Pain Start: 08/07/25 11:33 Freq: Status: Active Protocol: Document 08/14/25 12:46 [facility] (Rec: 08/14/25 13:17 [facility] Desktop) OT- Subjective Occupational Therapy Visit Type Type Treatment Note Visit Start Time 11:43 Visit Stop Time 12:44 Notes Pt seen with PT during mobilization needs due to complex transfer needs. Occupational Therapy Visit Comments Patient Comments Pt agreed to get up to the recliner. Pt having a bloody, nursing notified. Patient/Caregiver TO get better. Goals OT Pain Assessment Pain When Pain Assessed During Mobility Pain Present Pain Present Pain Reported Location right hip Pain Behaviors Facial Grimacing,Holding Area M4 OT- IP ADL's Start: 08/07/25 11:33 Freq: Status: Active Protocol: Document 08/14/25 12:46 [facility] (Rec: 08/14/25 13:17 [facility] Desktop) OT [id number] Comments OT Self-Feeding Pt needing initially assist to get the straw out of the Comments wrapper. Pt able to do hand to mouth with her right hand independently and with pillow underneath her right arm for support. OT ADL-Grooming General Evaluation Grooming Ability Minimal Assistance Comments OT Grooming Comments Pt needing assist for completeness to wash her hands with the wash cloth. OT ADL-Oral Care Comments Oral Care Comments Pt able to rinse her mouth out with mouthwash. OT ADL-Dressing General Eval Lower Body Dressing Maximum Assistance Ability Areas Needing Socks Assistance OT ADL-Toileting Comments OT Toileting Purewick in place. Comments OT ADL-Bathing Comments OT Bathing Comments Sponge bath more appropriate at this time. M5 OT- IP IADL's Start: 08/07/25 11:33 Freq: Status: Active Protocol: Document 08/12/25 13:54 [facility] (Rec: 08/12/25 14:10 [facility] Desktop) OT-Instrumental Activities of Daily Living Home Safety Awareness Awareness of Need Decreased Awareness for Assistance at Home Ability to Problem Unable to Problem Solve Solve Emergency Situations Medication Management Medication Pt will need assist. Management Comments Money Management Money Management Pt will need assist. Comments Meal Preparation Meal Preparation Pt will need assist. 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 Comments M6 OT- IP Functional Cognition Start: 08/07/25 11:33 Freq: Status: Active Protocol: Document 08/14/25 12:46 [facility] (Rec: 08/14/25 13:17 [facility] Desktop) Cognitive Factors Limiting Selfcare Function Cognitive Comments Cognitive Assessment Pt getting her words out better today. Pt still insists Comments that since she has missing teeth that she has trouble to get her words out versus remembering that she had a CVA. M7 OT- IP Mobility and Balance Start: 08/07/25 11:33 Freq: Status: Active Protocol: Document 08/14/25 12:46 [facility] (Rec: 08/14/25 13:17 [facility] Desktop) OT- Bed Mobility Assessment Supine to Sit Supine to Sit Assist Moderate Assistance,Maximum Assistance Scooting Scooting to Edge of Maximum Assistance,1 Person Assistance Bed OT-Transfer Assessment Sit to and From Stand Sit to and from Moderate Assistance,2 Person Assistance Stand Transfers Transfer Ability Maximum Assistance,2 Person Assistance Devices Transfer Assistive Gait Belt,Front Wheeled Walker Devices Comments Mobility Comments MOD/MAXA x1 with HOB up to get her upright in bed. MAX AX 1 to scoot her forwards. MOD A x2 to stand to the FWW. Assist to help get hands on the right spot on the handles of the FWW. Pt able to transfer with MAX AX 2 , assist for balance as pt leans posteriorly, FWW guidance, and for safety and to help sit back to the recliner. Pt able to take a few steps forwards with MODA X2 with FWW. At this time best for nursing staff to continue to use roselyn lift for transfer at this time . OT- Balance Assessment Sitting Balance and Reactions Static Sitting Good Balance Ability Dynamic Sitting Fair Balance Ability Standing Balance and Reactions Static Standing Poor Balance Ability Dynamic Standing Poor Balance Ability M8 OT- IP Objective Assessments Start: 08/07/25 11:33 Freq: Status: Active Protocol: Document 08/12/25 13:54 [facility] (Rec: 08/12/25 14:10 [facility] Desktop) OT Gross Range of Motion Upper Extremity Range of Motion Assessment Right Impaired OT Strength Upper Extremity Strength Assessment Right Impaired M9 OT- IP Assessment and Plan Start: 08/07/25 11:33 Freq: Status: Active Protocol: Document 08/14/25 12:46 [facility] (Rec: 08/14/25 13:17 [facility] Desktop) OT Summary Assessment and Plan Potential Rehabilitation Good Potential Analytic Complexity High at Evaluation Summary OT Impairments Pain,Range of Motion,Strength,Balance,Functional Cognition,Functional Mobility,Self-Feeding,Grooming, Dressing,Toileting,Bathing,Toilet Transfers,Shower Transfers,Activity Tolerance Progress Towards Progressing Toward Goals Goals Assessment Summary Pt able to eat after set-up and rinse her mouth out with mouth wash with her right hand. Pt able to come to stand with therapists and transfer with FWW with MAX AX 2 and also able to take a few steps. Pt's significant other bring in copy of the referral paper for PT for her right shoulder needs. (Start with ROM and deltoid isos/scapular program). Copy of the referral placed in her medical records. Pt to go to skilled rehab when medically stable. Able to initiate scapular movements with pt and gentle stretching to internal rotators. Goals Self-Feeding Goal Standby Assistance Grooming Goal Standby Assistance Dressing Goal Minimal Assistance Toileting Goal Minimal Assistance Bathing Goal Moderate Assistance Toilet Transfer Goal Contact Guard Assistance Shower Transfer Goal Minimal Assistance Days to Meet Goals 28 Frequency of Treatment Other frequency 5x/week Treatment Plan OT Treatment Plan ADL Training,Functional Cognition Training,Functional Mobility,Patient/Family Education,Discharge Planning Other Treatment [place] [facility] [place] 2 with FWW. Recommendations and Next Treatment Focus Discharge Recommendations OT Discharge SNF Rehab Recommendations Transportation Needs Wheelchair/Cabulance at Discharge
--- NOTE | 2025-08-14 13:09 | P.PN_ITS ---
Subjective Subjective Date Patient Seen: 08/14/25 Interval history: Chief complaint: Ground level fall dark with fall comminuted intertrochanteric right hip fracture and comminuted proximal humerus fracture complicated by perioperative [place] stroke and SIADH History of present illness: 08/04: 75-year-old female who was admitted with a hip fracture after a fall. She has a history of moderate aortic stenosis and CAD with a previous CABG. The patient had a mildly elevated troponin. She would complained of chest pain intermittently for the past 3 months. Her initial ECG was abnormal and she was discussed with Cardiology and evaluated with an echo which revealed good EF, no wall motion abnormalities, and aortic stenosis. Her revised cardiac risk index for an emergent surgery that is low risk was utilizing calculated with a score of 1 which is a moderate risk of 6%. She did undergo surgery (Screw) and her postoperative troponin did bump to 11. She remains hemodynamically stable and comfortable. Cardiology is consulted and we will be evaluating her. 08/05. Echo revealed a and normal EF. She had a mildly elevated troponin went to the OR after consultation with Cardiology with a moderate risk of 6% or less for cardiac adverse events. Unfortunately, she did have evidence of NSTEMI with a troponin of 11 in the postoperative. 08/06: Doing well, no chest pain or dyspnea. Troponin remained elevated at 11. Discussed with Cardiology who did evaluate the patient. Not felt to be appropriate for heparin drip given her postoperative status. Treated with aspirin, and beta blockade. 08/07: Trop 4. Limited ECHO: The ejection fraction is estimated to be 50-55%. There are regional wall motion abnormalities as specified. Basal septal and mid to basal inferior hypokinesis 08/08: Patient having some apparent Adrian phrenic and subtle appearance of a right facial droop today CT of the head ordered otherwise MRI ordered demonstrated left cortical and white matter punctate infarcts patient is started on Plavix 300 when addition to aspirin 08/09: Developed 8/10 chest pain about 12:30 p.m. EKG shows extensive T-wave and ST segment changes and Q-waves troponin 1.9 which is down from 4 from 08/07. BNP is 2000. Chest pain was relieved with sublingual nitroglycerin and 1/2 inch of nitroglycerin paste. Consulted with Cardiology with a consensus decision to transfer to ICU and initiate nitroglycerin drip if chest pain recurs. Patient is not a candidate for cardiac catheterization due to stroke, not a candidate for anticoagulation due to risk of hemorrhagic transformation of stroke and exsanguination from surgery. Patient loaded Plavix 300 mg serial troponin 08/10: No further reports of chest pain troponin trending down to 1380 started on Imdur 30 mg a day and currently on dual antiplatelet aspirin Plavix metoprolol patient demonstrates very impaired short-term memory eats a piece of egg with a fork with the right hand does like the taste and takes it it out with her left hand and repeats this on the same piece of egg over and over 08/11: No further episodes of chest pain patient is still doing repetitive behaviors but is interactive despite replacing solute and fluid restriction and diuretic patient still has sodium of 117 08/12: Sodium 119 in the morning chronic saline initiated at 100 cc total for 20 cc an hour. At the end of the infusion sodium increased to 122. Patient is still confused was interpretive and expressive aphasia repeating meaningless repetitive behaviors 08/13: Sodium improved to 124 after 2nd hypertonic saline infusion 2 g oral salt replacement and 1500 cc fluid restriction 08/14: Patient is still confused but there is less meaningless repetitive behavior sodium is 125. Review of systems: No fever or chills rigors No chest pain palpitations No nausea vomiting Poor appetite The paresthesia paresis Physical examination: Awake alert confused with expressive aphasia HEENT there is a appearance with slight right facial droop Extraocular motions intact Normal cranial nerves Moves all extremities Alert confused Heart rate and rhythm regular no murmurs Lungs clear Abdomen nontender bowel sounds present IMAGING: X-rays of her right shoulder demonstrate a comminuted healing proximal humerus fracture. X-rays of her right hip and CT scan of the right hip demonstrate a comminuted intertrochanteric right hip fracture. ECHO: - The left ventricular contractility is normal. Estimated ejection fraction is greater than 55% with no segmental wall motion abnormalities. Mild concentric LVH. Grade 1 diastolic dysfunction. - The right ventricular contractility is normal. - Moderate left atrial enlargement. All other cardiac chambers are of normal size. - Moderate mitral annular calcifications with mild mitral valvular stenosis. Mean gradient is 4.2 mmHg. - Moderate aortic valvular stenosis with peak velocity of 3.1 m/s. Mean gradient of 25.1 mmHg. Dimensionless index of 0.45. - No obvious intracardiac shunts. - No obvious intracardiac masses nor thrombi. - No hemodynamically significant pericardial effusion. - Low right-sided filling pressures. Conclusion: Normal biventricular systolic function with mild to moderate valvular stenoses. 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 * Contributing to encephalopathy * Sodium 125 after 100 mL of hypertonic saline and holding with fluid restriction * Discussed with pharmacy * Repeat hypertonic saline again tomorrow Right hip fracture status post ORIF with perioperative non STEMI (moderate periorbital risk of coronary disease given history of CAD with revascularization) with possible new outcome of apical akinesis * Complicated by perioperative myocardial infarction and left-sided stroke * We will need inpatient rehab especially since patient also has a right comminuted proximal humeral fracture Left cortical and white matter stroke on MRI 08/09: * Loaded Plavix 300 mg * Dual platelets Plavix and aspirin * High-intensity statin * 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 Chronic coronary artery disease status post CABG with unstable angina 08/09 * Not a candidate for cardiac catheterization due to stroke * Not a candidate for anticoagulation due to stroke and postoperative * Aspirin with Plavix daily * Long-acting Nitrates Imdur to manage angina * Appreciate cardiology expertise * Continue all goal directed medical therapy * Perioperative non STEMI likely type 2 * Not a candidate for heparinization secondary to surgery and risk of exsanguination and hemorrhagic transformation of stroke * Follow up with Cardiology after discharge and rehabilitation to establish anatomy and possible interventions at a safe point DVT prophylaxis: * Aspirin b.i.d. per Orthopedic stewardship Code status: * Full code blue but may changed to DNR Disposition: * Downgrade from ICU to floor discontinue tele * We will need placement in [facility] Time based billing: * 35 minutes were involved in evaluation of this patient including [id number] evaluation discussion with care team discussion with ICU staff transfer to ICU management of post [place] and post stroke sequelae, encephalopathy from SIADH discharge planning team review of records review of objective laboratory findings and imaging and EKG Exam Vital Signs (past 8 hours): - 08/14/25 05:30 08/14/25 06:00 08/14/25 06:00 Temperature Pulse Rate 80 70 Blood Pressure 128/59 L Pulse Oximetry 95 95 08/14/25 06:30 08/14/25 07:00 08/14/25 07:00 Temperature Pulse Rate 84 71 Blood Pressure 131/60 Pulse Oximetry 96 95 08/14/25 07:30 08/14/25 08:00 08/14/25 08:00 Temperature 97.1 F L Pulse Rate 76 Blood Pressure 136/62 Pulse Oximetry 94 08/14/25 08:00 08/14/25 08:30 08/14/25 09:00 Temperature Pulse Rate 76 86 80 Blood Pressure Pulse Oximetry 94 95 94 08/14/25 09:00 08/14/25 09:30 08/14/25 10:00 Temperature Pulse Rate 84 Blood Pressure 121/65 169/85 H Pulse Oximetry 96 08/14/25 10:00 08/14/25 10:30 08/14/25 11:00 Temperature Pulse Rate 81 81 Blood Pressure 131/60 Pulse Oximetry 97 95 08/14/25 11:00 Temperature Pulse Rate 72 Blood Pressure Pulse Oximetry 94 Oxygen Delivery Method Room Air Oxygen Flow Rate 0 Objective Labs 08/13/25 04:00 08/14/25 05:25 Labs: Laboratory Results - last 24 hr 08/13/25 08/13/25 08/13/25 12:36 14:42 16:50 Sodium 123 L 124 L 124 L Potassium Chloride Carbon Dioxide BUN Creatinine Estimated GFR BUN/Creatinine Ratio Glucose Calcium Total Bilirubin 0.5 Conjugated Bilirubin 0.0 Unconjugated Bilirubin 0.2 AST 35 ALT 28 Alkaline Phosphatase 73 Total Creatine Kinase 86 Total Protein 5.9 L Albumin 3.3 L Globulin 2.6 Albumin/Globulin Ratio 1.3 08/13/25 08/14/25 22:30 05:25 Sodium 125 L 125 L Potassium 4.1 Chloride 94 L Carbon Dioxide 27 BUN 19 H Creatinine 0.50 L Estimated GFR > 60 BUN/Creatinine Ratio 38.0 H Glucose 121 H Calcium 8.6 Total Bilirubin Conjugated Bilirubin Unconjugated Bilirubin AST ALT Alkaline Phosphatase Total Creatine Kinase Total Protein Albumin Globulin Albumin/Globulin Ratio [facility] Medical History Myocardial infarction complications Diastolic dysfunction with chronic heart failure Social History household members: significant other Smoking Status: Never smoker alcohol intake: never Assessment & Plan Time-Based Coding :: [TOTAL MINUTES] spent with patient and on the chart (including review of chart, obtaining history, exam, reviewing outside data, placing orders, documenting exam and treatment plan, and counseling patient) on [DATE].
--- NOTE | 2025-08-14 17:41 | PC.NURSE ---
Pt still very repetitive with thoughts and words, needing quing to slow down with eating and tasks.Pt OOB with PT/OT 2 person assist with FWW. In bed otherwise most of shift. Urine output hard to measure, 2x unmeasured voids and 150cc from purwick. Pt appetite increasing and likes the chocolate ensure shakes. R hip incisions CDI. Na 125 this morning, no additional interventions at this time per MD.
[2025-08-14] MEDS: ATORVASTATIN 20 MG TABLET 80 MG PO (20:59)
[2025-08-14] MEDS: MELATONIN 3 MG TABLET 6 MG PO (22:55)
[2025-08-14] MEDS: ACETAMINOPHEN 325 MG TABLET 650 MG PO (22:55)
[2025-08-15] VITALS (23 sets, daily range): BP systolic 84–138; BP diastolic 47–78; PULSE 67–126; RESP 14–25; TEMP 36.1–37.1; O2SAT 93–97
[2025-08-15 04:28] LABS: Blood Urea Nitrogen 27 mg/dL (7-17); Calcium 9.0 mg/dL (8.4-10.2); Carbon Dioxide 25 mmol/L (22-32); Chloride 94 mmol/L (98-107); Estimated Glomerular Filt Rate > 60 mL/min (>60); Glucose 131 mg/dL (70-99); HEMOLYSIS < 15 (0-50); Potassium 4.1 mmol/L (3.4-5.1); Sodium 125 mmol/L (137-145)
--- NOTE | 2025-08-15 08:28 | P.PN_ITS ---
Subjective Subjective Interval history: Course: 08/04: 75-year-old female who was admitted with a hip fracture after a fall. She has a history of moderate aortic stenosis and CAD with a previous CABG. The patient had a mildly elevated troponin. She would complained of chest pain intermittently for the past 3 months. Her initial ECG was abnormal and she was discussed with Cardiology and evaluated with an echo which revealed good EF, no wall motion abnormalities, and aortic stenosis. Her revised cardiac risk index for an emergent surgery that is low risk was utilizing calculated with a score of 1 which is a moderate risk of 6%. She did undergo surgery (Screw) and her postoperative troponin did bump to 11. She remains hemodynamically stable and comfortable. Cardiology is consulted and we will be evaluating her. 08/05. Echo revealed a and normal EF. She had a mildly elevated troponin went to the OR after consultation with Cardiology with a moderate risk of 6% or less for cardiac adverse events. Unfortunately, she did have evidence of NSTEMI with a troponin of 11 in the postoperative. 08/06: Doing well, no chest pain or dyspnea. Troponin remained elevated at 11. Discussed with Cardiology who did evaluate the patient. Not felt to be appropriate for heparin drip given her postoperative status. Treated with aspirin, and beta blockade. 08/07: Trop 4. Limited ECHO: The ejection fraction is estimated to be 50-55%. There are regional wall motion abnormalities as specified. Basal septal and mid to basal inferior hypokinesis 08/08: Patient having some apparent Adrian phrenic and subtle appearance of a right facial droop today CT of the head ordered otherwise MRI ordered demonstrated left cortical and white matter punctate infarcts patient is started on Plavix 300 when addition to aspirin 08/09: Developed 8/10 chest pain about 12:30 p.m. EKG shows extensive T-wave and ST segment changes and Q-waves troponin 1.9 which is down from 4 from 08/07. BNP is 2000. Chest pain was relieved with sublingual nitroglycerin and 1/2 inch of nitroglycerin paste. Consulted with Cardiology with a consensus decision to transfer to ICU and initiate nitroglycerin drip if chest pain recurs. Patient is not a candidate for cardiac catheterization due to stroke, not a candidate for anticoagulation due to risk of hemorrhagic transformation of stroke and exsanguination from surgery. Patient loaded Plavix 300 mg serial troponin 08/10: No further reports of chest pain troponin trending down to 1380 started on Imdur 30 mg a day and currently on dual antiplatelet aspirin Plavix metoprolol patient demonstrates very impaired short-term memory eats a piece of egg with a fork with the right hand does like the taste and takes it it out with her left hand and repeats this on the same piece of egg over and over 08/11: No further episodes of chest pain patient is still doing repetitive behaviors but is interactive despite replacing solute and fluid restriction and diuretic patient still has sodium of 117 08/12: Sodium 119 in the morning chronic saline initiated at 100 cc total for 20 cc an hour. At the end of the infusion sodium increased to 122. Patient is still confused was interpretive and expressive aphasia repeating meaningless repetitive behaviors 08/13: Sodium improved to 124 after 2nd hypertonic saline infusion 2 g oral salt replacement and 1500 cc fluid restriction 08/14: Patient is still confused but there is less meaningless repetitive behavior sodium is 125. S: No acute complaints, no chest pain, or dyspnea. Uneventful night. O: NAD, alert and oriented. Slow and stuttering speech. Lungs are clear, normal rate and effort. Heart is regular, no murmur gallop or rub. Abdomen is soft, non distended. Extremities are free of edema. IMAGING: X-rays of her right shoulder demonstrate a comminuted healing proximal humerus fracture. X-rays of her right hip and CT scan of the right hip demonstrate a comminuted intertrochanteric right hip fracture. ECHO: - The left ventricular contractility is normal. Estimated ejection fraction is greater than 55% with no segmental wall motion abnormalities. Mild concentric LVH. Grade 1 diastolic dysfunction. - The right ventricular contractility is normal. - Moderate left atrial enlargement. All other cardiac chambers are of normal size. - Moderate mitral annular calcifications with mild mitral valvular stenosis. Mean gradient is 4.2 mmHg. - Moderate aortic valvular stenosis with peak velocity of 3.1 m/s. Mean gradient of 25.1 mmHg. Dimensionless index of 0.45. - No obvious intracardiac shunts. - No obvious intracardiac masses nor thrombi. - No hemodynamically significant pericardial effusion. - Low right-sided filling pressures. Conclusion: Normal biventricular systolic function with mild to moderate valvular stenoses. Brain MR: A/P: 1. 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 Right hip fracture status post ORIF with perioperative non STEMI (moderate periorbital risk of coronary disease given history of CAD with revascularization) with possible new outcome of apical akinesis * Complicated by perioperative myocardial infarction and left-sided stroke 3. Left cortical and white matter stroke on MRI 08/09: * Loaded Plavix 300 mg * Dual platelets Plavix and aspirin * High-intensity statin * 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 Chronic coronary artery disease status post CABG with unstable angina 08/09 * Not a candidate for cardiac catheterization due to stroke * Not a candidate for anticoagulation due to stroke and postoperative * Aspirin with Plavix daily * Long-acting Nitrates Imdur to manage angina * Appreciate cardiology expertise * Continue all goal directed medical therapy * Perioperative non STEMI likely type 2 * Not a candidate for heparinization secondary to surgery and risk of exsanguination and hemorrhagic transformation of stroke * Follow up with Cardiology after discharge and rehabilitation to establish anatomy and possible interventions at a safe point PLAN: -Continue current medications. -re-evaluate sodium. -continue fluid restriction. -PT, OT. -Discharge planning. Exam Vital Signs (past 8 hours): - 08/15/25 03:20 08/15/25 04:00 Temperature 97.8 F Pulse Rate 81 Respiratory Rate 20 Blood Pressure 138/73 Pulse Oximetry 94 Oxygen Delivery Method Room Air Oxygen Flow Rate 0 Oxygen Delivery Method Room Air Oxygen Flow Rate 0 Objective Labs 08/15/25 09:37 08/15/25 09:37 Labs: Laboratory Results - last 24 hr 08/15/25 03:45 Sodium 125 L Potassium 4.1 Chloride 94 L Carbon Dioxide 25 BUN 27 H Creatinine 0.61 Estimated GFR > 60 BUN/Creatinine Ratio 44.3 H Glucose 131 H Calcium 9.0 PFSH Medical History Myocardial infarction complications Diastolic dysfunction with chronic heart failure Social History household members: significant other Smoking Status: Never smoker alcohol intake: never Assessment & Plan Time-Based Coding :: [TOTAL MINUTES] spent with patient and on the chart (including review of chart, obtaining history, exam, reviewing outside data, placing orders, documenting exam and treatment plan, and counseling patient) on [DATE].
[2025-08-15] MEDS: SODIUM CHLORIDE 0.9% FLUSH 10 ML IV ×2 (09:26→21:07)
[2025-08-15] MEDS: METOPROLOL IR 25 MG TABLET 12.5 MG PO ×3 (09:26→21:05)
[2025-08-15] MEDS: SODIUM CHLORIDE 1,000 MG TABLET 1000 MG PO ×2 (09:26→21:06)
[2025-08-15] MEDS: ASPIRIN EC 81 MG TABLET PO ×2 (09:26→21:06)
[2025-08-15] MEDS: CLOPIDOGREL 75 MG TABLET PO (09:26)
[2025-08-15 09:43] LABS: Add Manual Diff / Slide Review NO; Hematocrit 23.3 % (36-46); Hemoglobin 8.0 g/dL (12.0-16.0); Lymphocytes Absolute Auto 1400 /uL (1100-4500); Mean Corpuscular HGB Conc 34.2 % (30-36); Mean Corpuscular Hemoglobin 29.6 PG (26-34); Mean Corpuscular Volume 86.5 fL (80-100); Platelet Count 532 X10^3/uL (150-400)
[2025-08-15 09:59] LABS: Alanine Aminotransferase 23 IU/L (<35); Albumin 3.1 g/dL (3.5-5.0); Albumin Globulin Ratio 1.3 (1.0-2.8); Alkaline Phosphatase 74 U/L (38-126); Blood Urea Nitrogen 28 mg/dL (7-17); Calcium 8.9 mg/dL (8.4-10.2); Carbon Dioxide 24 mmol/L (22-32); Chloride 93 mmol/L (98-107); Estimated Glomerular Filt Rate > 60 mL/min (>60); Globulin 2.3 g/dL (1.7-4.1); Glucose 151 mg/dL (70-99); HEMOLYSIS < 15 (0-50); Potassium 4.4 mmol/L (3.4-5.1); Sodium 124 mmol/L (137-145); Total Protein 5.4 g/dL (6.3-8.2)
--- NOTE | 2025-08-15 10:51 | CM.DPNOTE ---
DCP note SORORITY MOTHER reviewed EMR per RN, sodium remains a bit low still. per PCS worklist, speech not available until Sunday for eval. per RN, will get pt up in chair today to determine if can tolerate sitting up for WC transport vs BLS at ms. SORORITY MOTHER sent updated clinicals to Anne at [facility] for reauth process. P: dc eventually to [facility] pending medical stability and re auth. PASRR previously completed. will continue to follow closely for DCP coordination DEANDRA Morfin
--- NOTE | 2025-08-15 16:27 | PT.IPTN ---
Current Diagnoses Essential (primary) hypertension (08/04/25) Subsequent non-ST elevation (NSTEMI) myocardial infarction (08/04/25) Other current complications following acute myocardial infarction (08/04/25) Nonrheumatic aortic (valve) stenosis (08/04/25) Chronic diastolic (congestive) heart failure (08/04/25) Displaced intertrochanteric fracture of right femur, initial encounter for closed fracture (08/04/25) Surgery Performed Operation Date: 08/05/25 14:00 Actual Procedures p cephalomedullary nail(Right) - Indira Bustamante, DO Physical Therapy Treatment Note M2 PT-IP Current Condition Start: 08/07/25 11:30 Freq: NEEDED Status: Active Protocol: Document 08/15/25 16:17 SAK (Rec: 08/15/25 16:27 SAK [id number]) Physical Therapy Current Condition Current Condition Evaluation Date 08/12/25 Treatment Diagnosis R intertrochanteric Fx, CVA, [place] M3 PT-IP Subjective Start: 08/07/25 11:30 Freq: NEEDED Status: Active Protocol: Document 08/15/25 16:17 SAK (Rec: 08/15/25 16:27 SAK [id number]) Subjective Physical Therapy Visit Type Type Treatment Note Visit Start Time 15:46 Visit Stop Time 16:17 Notes 31 min Number of ANIMAL ATTENDANT Visits 0 Physical Therapy Visit Comments Patient Comments States right leg sore. PT enters room to find patient sitting up in chair, RN and RESOURCE PROTECTION SPECIALIST just about to get patient back to bed with lift. RN stays to assist PT with pt. Therapy Pain Assessment Pain When Pain Assessed During Mobility Pain Present Pain Present Denied Pain Location right hip Scale Used did not rate Description Aching,Tender,Tightness,With Movement Pain Behaviors Guarding,Wincing Pain Management Re-positioning,Timing of Activity with Medications Techniques M4 PT-IP Mobility and Gait Start: 08/07/25 11:30 Freq: NEEDED Status: Active Protocol: Document 08/15/25 16:17 SAK (Rec: 08/15/25 16:27 [facility] [id number]) PT-Bed Mobility Assessment Sit to Supine Sit to Supine Maximum Assistance,2 Person Assistance Scooting Scooting to Edge of Maximum Assistance Bed Scooting Up and Down Dependent in Bed PT-Transfer Assessment Sit to and From Stand Sit to and from Moderate Assistance,2 Person Assistance Stand Equipment Transfer Assistive Gait Belt,Front Wheeled Walker Device Transfers Transfer Technique Stand Step Pivot Comments Mobility Comments Patient required mod assist x2 sit to stand and to take small shuffling steps to bed, tendency to lean backward. Constant cues for direction of steps as patient became confused and would move foot forward instead of backward towrd bed Gait Assessment Gait Gait Assistance Moderate Assistance,2 Person Assist Required: Distance (Feet) 3 Assistive Devices Assistive Device Gait Belt,Front Wheeled Walker Gait Deviations General Gait Pattern Decreased Stride Length,Decreased Feet Clearance,Narrow Based Gait Comments Gait Comments posterior lean with small shuffling steps chair to bed. Denied dizziness or whooziness. Stair Climbing Assessment Comments Stair Climbing not appropriate at this time Comments PT-Balance Assessment Sitting Balance and Reactions Static Sitting Good Balance Ability Dynamic Sitting Fair Balance Ability Standing Balance and Reactions Static Standing Poor Balance Ability Dynamic Standing Poor Balance Ability Device Used FWW M5 PT-IP Objective Assessments Start: 08/07/25 11:30 Freq: NEEDED Status: Active Protocol: Document 08/12/25 13:35 DCW (Rec: 08/12/25 14:57 DCW [id number]) Orientation Orientation/Cognition Level of Alertness Confusional State Safety Awareness Decreased Safety Awareness Comments Pt responds with yes or no inappropriately. Will say no to answer can you move your leg, then immediately move her leg. Denies [place] or CVA history. M6 PT-IP Treatment Start: 08/07/25 11:30 Freq: NEEDED Status: Active Protocol: Document 08/15/25 16:17 SAK (Rec: 08/15/25 16:27 [facility] [id number]) Physical Therapy Treatment Exercises Exercises Ankle Pumps,Heel Slides,Supine Hip Abduction,Seated Knee Flexion/Extension Education Education Provided Safety Other Treatments Other Treatment mod assist for exercises right, min assist left Performed M7 PT-IP Assessment and Plan Start: 08/07/25 11:30 Freq: NEEDED Status: Active Protocol: Document 08/15/25 16:17 SAK (Rec: 08/15/25 16:27 [facility] [id number]) PT Summary Assessment and Plan Summary Impairments Pain,ROM,Strength,Balance,Cognition,Bed Mobility, Transfers,Gait,Activity Tolerance Progress Towards Slow Progress due to Medical Issues,Slow Progress due Goals to Activity Tolerance Assessment Summary Camille was alert, though with speech difficulty, only occasional 1 word sentences, and appears to frequently use wrong word. Recommend transfers/gait only with therapy at this time. Recommend nursing use roselyn lift to protect her orthopedic injuries. Continue to recommend SNF rehab at discharge. Goals Bed Mobility Goal Minimal Assistance Transfer Goal Minimal Assistance,Front Wheeled Walker Gait Goal Minimal Assistance,Moderate Assistance,Front Wheel Walker Gait Distance 10 feet Days to Meet Goals 10 Frequency of Treatment Frequency Of Once a Day Treatment Treatment Plan Physical Therapy Bed Mobility Training,Transfer Training,Gait Training, Treatment Plan Therapeutic Exercise,Balance Retraining,Post Op Education,Discharge Planning,Hot or Cold Pack, Neuromuscular Re-ed Other static standing to improve balance Recommendations and Next Treatment Focus Precautions Other Precautions sling as needed to manage right shoulder pain due to healing fracture Acute CVA and [place] Weight Bearing Status Weight Bearing Weight Bear as Tolerated Status Allowed Weight right LE Bearing Amount ( enter % or #) (%) Discharge Recommendations PT Discharge SNF Rehab Recommendations Transportation Needs Wheelchair/Cabulance at Discharge - PT assist 2
[2025-08-15] MEDS: MELATONIN 3 MG TABLET 6 MG PO (21:05)
[2025-08-15] MEDS: ATORVASTATIN 20 MG TABLET 80 MG PO (21:06)
--- NOTE | 2025-08-15 22:16 | P.CALLCOV_ITS ---
Call Coverage Note Note Date of Patient Contact: 08/15/25 Time of Patient Contact: 22:16 Narrative of Care Provided: CC: Afib with RVR in 120s Chart reviewed: Right hip fracture status post ORIF with perioperative non STEMI (moderate periorbital risk of coronary disease given history of CAD with revascularization) with possible new outcome of apical akinesis * Complicated by perioperative myocardial infarction and left-sided stroke 3. Left cortical and white matter stroke on MRI 08/09: * Loaded Plavix 300 mg * Dual platelets Plavix and aspirin * High-intensity statin * 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 Chronic coronary artery disease status post CABG with unstable angina 08/09 * Not a candidate for cardiac catheterization due to stroke * Not a candidate for anticoagulation due to stroke and postoperative * Aspirin with Plavix daily * Echo: normal EF Dc Amlodipine/ Increased metoprolol 25 mg po q8 and placed parameters to hold for SBP<110 or pulse <60 One dose IV cardizem--10 mg and will monitor
--- NOTE | 2025-08-15 22:16 | PM.CALLCOV.1 ---
Call Coverage Note Note Date of Patient Contact: 08/15/25 Time of Patient Contact: 22:16 Narrative of Care Provided: CC: Afib with RVR in 120s Chart reviewed: Right hip fracture status post ORIF with perioperative non STEMI (moderate periorbital risk of coronary disease given history of CAD with revascularization) with possible new outcome of apical akinesis Complicated by perioperative myocardial infarction and left-sided stroke 3. Left cortical and white matter stroke on MRI 08/09: Loaded Plavix 300 mg Dual platelets Plavix and aspirin High-intensity statin 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 Chronic coronary artery disease status post CABG with unstable angina 08/09 Not a candidate for cardiac catheterization due to stroke Not a candidate for anticoagulation due to stroke and postoperative Aspirin with Plavix daily Echo: normal EF Dc Amlodipine/ Increased metoprolol 25 mg po q8 and placed parameters to hold for SBP<110 or pulse <60 One dose IV cardizem--10 mg and will monitor
--- NOTE | 2025-08-15 22:32 | EKG_ITS ---
[address] [address] Test Date: 2025-08-15 Pat Name: Camille Fleming Department: Room: 227 Gender: Female [employer]: STEVENSON : 1950 Requested By: Order Number: [id number] Reading MD: Arash Estrada Measurements Intervals [place] Rate: 119 P: [place]: QRS: 71 QRSD: 96 T: 212 QT: 284 QTc: 399 Interpretive Statements Atrial fibrillation with rapid ventricular response Left ventricular hypertrophy with repolarization abnormality ( Darshan product , Romhilt-Rahman ) Cannot rule out Inferior infarct , age undetermined Anterior infarct , age undetermined Electronically Signed On 08-16-2025 7:23:10 PST by Arash Estrada
[2025-08-16] VITALS (55 sets, daily range): BP systolic 87–139; BP diastolic 54–72; PULSE 48–132; RESP 16–38; TEMP 36.6–36.7; O2SAT 93–96
[2025-08-16] MEDS: METOPROLOL IR 25 MG TABLET PO ×3 (05:48→21:00)
[2025-08-16] MEDS: CLOPIDOGREL 75 MG TABLET PO (08:26)
[2025-08-16] MEDS: ASPIRIN EC 81 MG TABLET PO ×2 (08:26→20:52)
[2025-08-16] MEDS: SODIUM CHLORIDE 1,000 MG TABLET 1000 MG PO (08:26)
[2025-08-16] MEDS: SODIUM CHLORIDE 0.9% FLUSH 10 ML IV (08:27)
--- NOTE | 2025-08-16 08:37 | P.PN_ITS ---
Subjective Subjective Interval history: Course: 08/04: 75-year-old female who was admitted with a hip fracture after a fall. She has a history of moderate aortic stenosis and CAD with a previous CABG. The patient had a mildly elevated troponin. She would complained of chest pain intermittently for the past 3 months. Her initial ECG was abnormal and she was discussed with Cardiology and evaluated with an echo which revealed good EF, no wall motion abnormalities, and aortic stenosis. Her revised cardiac risk index for an emergent surgery that is low risk was utilizing calculated with a score of 1 which is a moderate risk of 6%. She did undergo surgery (Screw) and her postoperative troponin did bump to 11. She remains hemodynamically stable and comfortable. Cardiology is consulted and we will be evaluating her. 08/05. Echo revealed a and normal EF. She had a mildly elevated troponin went to the OR after consultation with Cardiology with a moderate risk of 6% or less for cardiac adverse events. Unfortunately, she did have evidence of NSTEMI with a troponin of 11 in the postoperative. 08/06: Doing well, no chest pain or dyspnea. Troponin remained elevated at 11. Discussed with Cardiology who did evaluate the patient. Not felt to be appropriate for heparin drip given her postoperative status. Treated with aspirin, and beta blockade. 08/07: Trop 4. Limited ECHO: The ejection fraction is estimated to be 50-55%. There are regional wall motion abnormalities as specified. Basal septal and mid to basal inferior hypokinesis 08/08: Patient having some apparent Adrian phrenic and subtle appearance of a right facial droop today CT of the head ordered otherwise MRI ordered demonstrated left cortical and white matter punctate infarcts patient is started on Plavix 300 when addition to aspirin 08/09: Developed 8/10 chest pain about 12:30 p.m. EKG shows extensive T-wave and ST segment changes and Q-waves troponin 1.9 which is down from 4 from 08/07. BNP is 2000. Chest pain was relieved with sublingual nitroglycerin and 1/2 inch of nitroglycerin paste. Consulted with Cardiology with a consensus decision to transfer to ICU and initiate nitroglycerin drip if chest pain recurs. Patient is not a candidate for cardiac catheterization due to stroke, not a candidate for anticoagulation due to risk of hemorrhagic transformation of stroke and exsanguination from surgery. Patient loaded Plavix 300 mg serial troponin 08/10: No further reports of chest pain troponin trending down to 1380 started on Imdur 30 mg a day and currently on dual antiplatelet aspirin Plavix metoprolol patient demonstrates very impaired short-term memory eats a piece of egg with a fork with the right hand does like the taste and takes it it out with her left hand and repeats this on the same piece of egg over and over 08/11: No further episodes of chest pain patient is still doing repetitive behaviors but is interactive despite replacing solute and fluid restriction and diuretic patient still has sodium of 117 08/12: Sodium 119 in the morning chronic saline initiated at 100 cc total for 20 cc an hour. At the end of the infusion sodium increased to 122. Patient is still confused was interpretive and expressive aphasia repeating meaningless repetitive behaviors 08/13: Sodium improved to 124 after 2nd hypertonic saline infusion 2 g oral salt replacement and 1500 cc fluid restriction 08/14: Patient is still confused but there is less meaningless repetitive behavior sodium is 125. 08/15 evening: New AF RVR, treated with metoprolol. Converted to NSR. Dx: PAF. Urine retention 08/15-straight cath. S: No acute complaints, no chest pain, or dyspnea. AF + RVR last night, treated with IV metoprolol x2. Repeat sodium 122, down from 125, urine sodium 20. O: BP 107/59, P 62, RR 16, SaO2 93%. NAD, alert and oriented. Slow and stuttering speech. Lungs are clear, normal rate and effort. Heart is regular, systolic murmur and no gallop or rub. Abdomen is soft, non distended. Extremities are free of edema. IMAGING: X-rays of her right shoulder demonstrate a comminuted healing proximal humerus fracture. X-rays of her right hip and CT scan of the right hip demonstrate a comminuted intertrochanteric right hip fracture. ECHO: - The left ventricular contractility is normal. Estimated ejection fraction is greater than 55% with no segmental wall motion abnormalities. Mild concentric LVH. Grade 1 diastolic dysfunction. - The right ventricular contractility is normal. - Moderate left atrial enlargement. All other cardiac chambers are of normal size. - Moderate mitral annular calcifications with mild mitral valvular stenosis. Mean gradient is 4.2 mmHg. - Moderate aortic valvular stenosis with peak velocity of 3.1 m/s. Mean gradient of 25.1 mmHg. Dimensionless index of 0.45. - No obvious intracardiac shunts. - No obvious intracardiac masses nor thrombi. - No hemodynamically significant pericardial effusion. - Low right-sided filling pressures. Conclusion: Normal biventricular systolic function with mild to moderate valvular stenoses. Brain MR: A few punctate regions of restricted diffusion the subcortical white matter of the left temporal lobe and the deep white matter of the simpson radiata. Findings raise the concern for embolic infarct. A/P: 1. 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 * Monitor sodium closely. 2. Right hip fracture status post ORIF with perioperative non STEMI (moderate periorbital risk of coronary disease given history of CAD with revascularization) with possible new outcome of apical akinesis * Complicated by perioperative myocardial infarction and left-sided stroke 3. 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 Findings raise the concern for embolic infarct). 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 NSTEMI post operative. Chronic coronary artery disease status post CABG with unstable angina 08/09. * Not a candidate for cardiac catheterization due to stroke * Not a candidate for anticoagulation due to stroke and postoperative * Aspirin with Plavix daily * Long-acting Nitrates Imdur to manage angina * Appreciate cardiology expertise * Continue all goal directed medical therapy * Perioperative non STEMI likely type 2 * Follow up with Cardiology after discharge and rehabilitation to establish anatomy and possible interventions at a safe point. 5. PAF, new. PLAN: -Continue current medications. -restart saline at 100 per hour, increase salt tabs to 2 p.o. b.i.d., follow sodium closely. -continue fluid restriction. -PT, OT. -Discharge planning. SNF in [facility]. -Consider delayed anticoagulation. DISPO: Anticipate discharge to a intermediate facility in her area of [facility], when medically stable. Exam Vital Signs (past 8 hours): - 08/16/25 01:00 08/16/25 01:00 08/16/25 01:30 Pulse Rate 132 H 126 H Respiratory Rate 22 22 Blood Pressure 124/60 Pulse Oximetry 08/16/25 02:00 08/16/25 02:00 08/16/25 02:13 Pulse Rate 125 H 132 H Respiratory Rate 24 Blood Pressure 129/72 129/72 Pulse Oximetry 08/16/25 02:30 08/16/25 03:00 08/16/25 03:00 Pulse Rate 121 H 128 H Respiratory Rate 21 16 Blood Pressure 119/59 L 119/59 L Pulse Oximetry 93 08/16/25 03:00 08/16/25 03:30 08/16/25 04:00 Pulse Rate 120 H 120 H 82 Respiratory Rate 24 26 H 23 Blood Pressure Pulse Oximetry 08/16/25 04:01 08/16/25 04:01 08/16/25 04:30 Pulse Rate 78 86 Respiratory Rate 19 26 H Blood Pressure 124/59 L Pulse Oximetry 08/16/25 05:00 08/16/25 05:00 08/16/25 05:30 Pulse Rate 82 95 H Respiratory Rate 21 24 Blood Pressure 110/63 Pulse Oximetry 08/16/25 06:00 08/16/25 06:00 08/16/25 06:30 Pulse Rate 91 H 80 Respiratory Rate 19 28 H Blood Pressure 117/56 L Pulse Oximetry 08/16/25 07:00 08/16/25 07:00 08/16/25 07:07 Pulse Rate 62 Respiratory Rate 21 Blood Pressure 87/54 L 107/59 L Pulse Oximetry 08/16/25 07:07 08/16/25 07:30 Pulse Rate 72 62 Respiratory Rate 21 16 Blood Pressure Pulse Oximetry 93 Oxygen Delivery Method Room Air Oxygen Flow Rate 0 Objective Labs 08/15/25 09:37 08/16/25 12:31 Labs: Laboratory Results - last 24 hr 08/15/25 08/15/25 09:37 16:16 WBC 11.8 H RBC 2.69 L Hgb 8.0 L Hct 23.3 L MCV 86.5 MCH 29.6 MCHC 34.2 RDW 15.8 H Plt Count 532 H Neut % (Auto) 80.4 H Lymph % (Auto) 11.6 L [place] % (Auto) 7.3 Eos % (Auto) 0.6 L Baso % (Auto) 0.1 Neut # (Auto) 9500 H Lymph # (Auto) 1400 [place] # (Auto) 900 Eos # (Auto) 100 Baso # (Auto) 0 Sodium 124 L Potassium 4.4 Chloride 93 L Carbon Dioxide 24 BUN 28 H Creatinine 0.65 Estimated GFR > 60 BUN/Creatinine Ratio 43.1 H Glucose 151 H Calcium 8.9 Total Bilirubin 0.5 AST 23 ALT 23 Alkaline Phosphatase 74 Total Protein 5.4 L Albumin 3.1 L Globulin 2.3 Albumin/Globulin Ratio 1.3 Ur Random Sodium 20 L PFSH Medical History Myocardial infarction complications Diastolic dysfunction with chronic heart failure Social History household members: significant other Smoking Status: Never smoker alcohol intake: never Assessment & Plan Time-Based Coding :: [TOTAL MINUTES] spent with patient and on the chart (including review of chart, obtaining history, exam, reviewing outside data, placing orders, documenting exam and treatment plan, and counseling patient) on [DATE].
[2025-08-16 13:00] LABS: Blood Urea Nitrogen 33 mg/dL (7-17); Calcium 8.7 mg/dL (8.4-10.2); Carbon Dioxide 22 mmol/L (22-32); Chloride 91 mmol/L (98-107); Estimated Glomerular Filt Rate > 60 mL/min (>60); Glucose 116 mg/dL (70-99); HEMOLYSIS < 15 (0-50); Potassium 4.9 mmol/L (3.4-5.1); Sodium 122 mmol/L (137-145)
--- NOTE | 2025-08-16 13:12 | CM.DPNOTE ---
DCP Note KARATE INSTRUCTOR reviewed EMR per provider, new AFIB overnight. per chart, speech planned to see pt today. no speech note as of 1300. need to send to [facility] for ins auth. KARATE INSTRUCTOR had lengthy chat with DPOA re: plan post rehab. provided medicaid LTC rosetta for AIRAM vs AMAYA pending pts needs. provided resources for transport back to [place]. DPOA concerned that pts sodium is remaining low. hopeful for updates daily. P: will continue to send clinicals to [facility]. timeline pending. transport plan pending ability to sit up day of DC, WC van vs BLS transport. will continue to follow closely for DCP Coordination DEANDRA Morfin
[2025-08-16] MEDS: SODIUM CHLORIDE 0.9% 1,000 ML 100 ML IV (15:40)
[2025-08-16] MEDS: SODIUM CHLORIDE 1,000 MG TABLET 2000 MG PO (20:52)
[2025-08-16] MEDS: ATORVASTATIN 20 MG TABLET 80 MG PO (20:52)
[2025-08-16] MEDS: MELATONIN 3 MG TABLET 6 MG PO (20:58)
[2025-08-17] VITALS (54 sets, daily range): BP systolic 113–142; BP diastolic 55–76; PULSE 60–114; RESP 10–46; TEMP 36.3; O2SAT 91–100
[2025-08-17] MEDS: SODIUM CHLORIDE 0.9% 1,000 ML 100 ML IV (01:52)
[2025-08-17] MEDS: METOPROLOL IR 25 MG TABLET PO ×3 (05:52→21:09)
--- NOTE | 2025-08-17 07:27 | PC.NURSE ---
Day shift: Pt reports SOB, RR 30's, oxygen saturation 93% on 4L oximask, restless. HOB elevated, coarse crackles throughout with expiratory wheezing. Provider Dr. Ferrara notified. Care ongoing.
--- NOTE | 2025-08-17 07:33 | DI.RAD.S_ITS ---
PROCEDURE: XR CHEST 1V INDICATIONS: Pulm Edema TECHNIQUE: One view of the chest was acquired. COMPARISON: [facility], CR, XR CHEST 1V, 08/04/2025, 19:43. FINDINGS: Surgical changes and devices: Post median sternotomy and CABG. Lungs and pleura: Bilateral patchy hazy opacities. Opacity adjacent to the left hilum. Question Ayaan B lines. No pleural effusions or pneumothorax. Mediastinum: Mediastinal contours appear similar. Heart size is enlarged. Bones and chest wall: No suspicious bony lesions. Overlying soft tissues appear unremarkable. IMPRESSION: Suspect mild fluid overload/CHF. Cardiomegaly. Dictated by: Kody Watts M.D. on 08/17/2025 at 7:48 Approved by: Kody Watts M.D. on 08/17/2025 at 7:51
--- NOTE | 2025-08-17 07:35 | P.PN_ITS ---
Subjective Subjective Date Patient Seen: 08/17/25 Interval history: 08/04: 75-year-old female who was admitted with a hip fracture after a fall. She has a history of moderate aortic stenosis and CAD with a previous CABG. The patient had a mildly elevated troponin. She would complained of chest pain intermittently for the past 3 months. Her initial ECG was abnormal and she was discussed with Cardiology and evaluated with an echo which revealed good EF, no wall motion abnormalities, and aortic stenosis. Her revised cardiac risk index for an emergent surgery that is low risk was utilizing calculated with a score of 1 which is a moderate risk of 6%. She did undergo surgery (Screw) and her postoperative troponin did bump to 11. She remains hemodynamically stable and comfortable. Cardiology is consulted and we will be evaluating her. 08/05. Echo revealed a and normal EF. She had a mildly elevated troponin went to the OR after consultation with Cardiology with a moderate risk of 6% or less for cardiac adverse events. Unfortunately, she did have evidence of NSTEMI with a troponin of 11 in the postoperative. 08/06: Doing well, no chest pain or dyspnea. Troponin remained elevated at 11. Discussed with Cardiology who did evaluate the patient. Not felt to be appropriate for heparin drip given her postoperative status. Treated with aspirin, and beta blockade. 08/07: Trop 4. Limited ECHO: The ejection fraction is estimated to be 50-55%. There are regional wall motion abnormalities as specified. Basal septal and mid to basal inferior hypokinesis 08/08: Patient having some apparent Adrian phrenic and subtle appearance of a right facial droop today CT of the head ordered otherwise MRI ordered demonstrated left cortical and white matter punctate infarcts patient is started on Plavix 300 when addition to aspirin 08/09: Developed 8/10 chest pain about 12:30 p.m. EKG shows extensive T-wave and ST segment changes and Q-waves troponin 1.9 which is down from 4 from 08/07. BNP is 2000. Chest pain was relieved with sublingual nitroglycerin and 1/2 inch of nitroglycerin paste. Consulted with Cardiology with a consensus decision to transfer to ICU and initiate nitroglycerin drip if chest pain recurs. Patient is not a candidate for cardiac catheterization due to stroke, not a candidate for anticoagulation due to risk of hemorrhagic transformation of stroke and exsanguination from surgery. Patient loaded Plavix 300 mg serial troponin 08/10: No further reports of chest pain troponin trending down to 1380 started on Imdur 30 mg a day and currently on dual antiplatelet aspirin Plavix metoprolol patient demonstrates very impaired short-term memory eats a piece of egg with a fork with the right hand does like the taste and takes it it out with her left hand and repeats this on the same piece of egg over and over 08/11: No further episodes of chest pain patient is still doing repetitive behaviors but is interactive despite replacing solute and fluid restriction and diuretic patient still has sodium of 117 08/12: Sodium 119 in the morning chronic saline initiated at 100 cc total for 20 cc an hour. At the end of the infusion sodium increased to 122. Patient is still confused was interpretive and expressive aphasia repeating meaningless repetitive behaviors 08/13: Sodium improved to 124 after 2nd hypertonic saline infusion 2 g oral salt replacement and 1500 cc fluid restriction 08/14: Patient is still confused but there is less meaningless repetitive behavior sodium is 125. 08/15 evening: New AF RVR, treated with metoprolol. Converted to NSR. Dx: PAF. Urine retention 08/15-straight cath. S: No acute complaints, no chest pain, or dyspnea. AF + RVR last night, treated with IV metoprolol x2. Repeat sodium 122, down from 125, urine sodium 20. 08/17: Sodium level today is up to 125. Experienced mild pulmonary edema (chest x-ray and BNP 9520) with sat 94% on 4 L OxyMask early this morning so was treated with Lasix 40 mg IV and IV fluid was held. White blood count up to 17.2 and hemoglobin stable at 7.9. Platelets hugh to 684. Urine culture from 08/13 with pansensitive E coli. Already on ceftriaxone. Experienced urinary retention today, likely rectal impaction related. Catheter placed. Discussed details with POA. O: BP 107/59, P 62, RR 16, SaO2 93%. NAD, alert and oriented. Slow and stuttering speech. Lungs are clear, normal rate and effort. Heart is regular, systolic murmur and no gallop or rub. Abdomen is soft, non distended. Extremities are free of edema. IMAGING: X-rays of her right shoulder demonstrate a comminuted healing proximal humerus fracture. X-rays of her right hip and CT scan of the right hip demonstrate a comminuted intertrochanteric right hip fracture. ECHO: - The left ventricular contractility is normal. Estimated ejection fraction is greater than 55% with no segmental wall motion abnormalities. Mild concentric LVH. Grade 1 diastolic dysfunction. - The right ventricular contractility is normal. - Moderate left atrial enlargement. All other cardiac chambers are of normal size. - Moderate mitral annular calcifications with mild mitral valvular stenosis. Mean gradient is 4.2 mmHg. - Moderate aortic valvular stenosis with peak velocity of 3.1 m/s. Mean gradient of 25.1 mmHg. Dimensionless index of 0.45. - No obvious intracardiac shunts. - No obvious intracardiac masses nor thrombi. - No hemodynamically significant pericardial effusion. - Low right-sided filling pressures. Conclusion: Normal biventricular systolic function with mild to moderate valvular stenoses. Brain MR: A few punctate regions of restricted diffusion the subcortical white matter of the left temporal lobe and the deep white matter of the simpson radiata. Findings raise the concern for embolic infarct. A/P: 1. 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 * Monitor sodium closely. * Not on any SSRI or HCTZ 2. Right hip fracture status post ORIF with perioperative non STEMI (moderate periorbital risk of coronary disease given history of CAD with revascularization) with possible new outcome of apical akinesis * Complicated by perioperative myocardial infarction and left-sided stroke 3. 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 Findings raise the concern for embolic infarct). 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 NSTEMI post operative. Chronic coronary artery disease status post CABG with unstable angina 08/09. * Not a candidate for cardiac catheterization due to stroke * Not a candidate for anticoagulation due to stroke and postoperative * Aspirin with Plavix daily * Long-acting Nitrates Imdur to manage angina * Appreciate cardiology expertise * Continue all goal directed medical therapy * Perioperative non STEMI likely type 2 * Follow up with Cardiology after discharge and rehabilitation to establish anatomy and possible interventions at a safe point. * Repeat limited Echo on 08/17 after flash pulmonary edema episode 5. PAF, new. PLAN: -Continue current medications. -continue salt tabs 2 p.o. b.i.d., follow sodium closely. -Stop IV NS for now -Repeat limited Echo for updated EF -continue fluid restriction. -PT, OT. -Discharge planning. SNF at [facility] of [facility] or SNF near [facility]. -Consider delayed anticoagulation. Continue ASA BID for DVT/PE prevention. DISPO: Anticipate discharge to a group home facility, when medically stable. Exam Vital Signs (past 8 hours): - 08/16/25 23:37 08/16/25 23:37 08/17/25 00:00 Pulse Rate 85 77 Respiratory Rate 22 17 Blood Pressure 120/58 L 120/58 L Pulse Oximetry 95 95 Oxygen Delivery Method Oxygen Flow Rate 0 08/17/25 00:00 08/17/25 00:30 08/17/25 01:00 Pulse Rate 74 75 80 Respiratory Rate 15 16 17 Blood Pressure Pulse Oximetry Oxygen Delivery Method Oxygen Flow Rate 08/17/25 01:30 08/17/25 02:00 08/17/25 02:30 Pulse Rate 92 H 105 H 100 H Respiratory Rate 20 28 H 21 Blood Pressure Pulse Oximetry Oxygen Delivery Method Oxygen Flow Rate 08/17/25 03:00 08/17/25 03:30 08/17/25 03:50 Pulse Rate 103 H 105 H Respiratory Rate 24 46 H Blood Pressure Pulse Oximetry Oxygen Delivery Method Nasal Cannula Oxygen Flow Rate 08/17/25 03:53 08/17/25 03:53 08/17/25 04:00 Pulse Rate 100 H 89 Respiratory Rate 25 H 18 Blood Pressure 120/56 L Pulse Oximetry 91 94 Oxygen Delivery Method Oxygen Flow Rate Oxygen Delivery Method Nasal Cannula Oxygen Flow Rate 0 Objective Labs 08/17/25 08:00 08/17/25 08:00 Labs: Laboratory Results - last 24 hr 08/16/25 12:31 Sodium 122 L Potassium 4.9 Chloride 91 L Carbon Dioxide 22 BUN 33 H Creatinine 0.67 Estimated GFR > 60 BUN/Creatinine Ratio 49.3 H Glucose 116 H Calcium 8.7 PFSH Medical History Myocardial infarction complications Diastolic dysfunction with chronic heart failure Social History household members: significant other Smoking Status: Never smoker alcohol intake: never Assessment & Plan Time-Based Coding :: [TOTAL MINUTES] spent with patient and on the chart (including review of chart, obtaining history, exam, reviewing outside data, placing orders, documenting exam and treatment plan, and counseling patient) on [DATE].
[2025-08-17] MEDS: FUROSEMIDE 40 MG/4 ML VIAL IV (07:49)
[2025-08-17 08:15] LABS: Add Manual Diff / Slide Review NO; Hematocrit 23.6 % (36-46); Hemoglobin 7.9 g/dL (12.0-16.0); Lymphocytes Absolute Auto 1100 /uL (1100-4500); Mean Corpuscular HGB Conc 33.6 % (30-36); Mean Corpuscular Hemoglobin 29.2 PG (26-34); Mean Corpuscular Volume 86.9 fL (80-100); Platelet Count 684 X10^3/uL (150-400)
[2025-08-17 08:26] LABS: Blood Urea Nitrogen 30 mg/dL (7-17); Calcium 8.6 mg/dL (8.4-10.2); Carbon Dioxide 22 mmol/L (22-32); Chloride 95 mmol/L (98-107); Estimated Glomerular Filt Rate > 60 mL/min (>60); Glucose 152 mg/dL (70-99); HEMOLYSIS < 15 (0-50); Potassium 5.1 mmol/L (3.4-5.1); Sodium 125 mmol/L (137-145)
[2025-08-17 08:35] LABS: NT-proBNP (BNP-Adult 18+) 9520 pg/mL (<450)
[2025-08-17] MEDS: SODIUM CHLORIDE 1,000 MG TABLET 2000 MG PO ×2 (09:46→21:09)
[2025-08-17] MEDS: ASPIRIN EC 81 MG TABLET PO ×2 (09:46→21:09)
[2025-08-17] MEDS: DOCUSATE 100 MG CAPSULE PO ×2 (09:46→21:09)
[2025-08-17] MEDS: CLOPIDOGREL 75 MG TABLET PO (09:46)
[2025-08-17] MEDS: SENNOSIDES 8.6 MG TABLET PO (09:46)
[2025-08-17] MEDS: SODIUM CHLORIDE 0.9% FLUSH 10 ML IV ×2 (09:47→21:09)
[2025-08-17] MEDS: ACETAMINOPHEN 325 MG TABLET 650 MG PO (09:47)
--- NOTE | 2025-08-17 12:18 | DI.ECHO.S_ITS ---
[facility] : : [id number] : [place] : : [id number] : : Phone: [phone] Echocardiogram Report + + :Name: ABEL PADILLA Study Date: 08/18/2025 Height: 62 in : :Hospital ReadingLocation: Weight: 143 lb : : Gender: Female BSA: 1.7 m2 : :: 1950 Age: 75 yrs BP: 117/58 mmHg: :Reason For Study: CONGESTIVE HEART FAILURE : :Ordering Physician: CHAPO, : :HELEN Hampton Performed By: Felix Loya : :Referring: HELEN COWAN : + + Interpretation Summary The ejection fraction is estimated to be 40-45%. There is basal to mid septal, basal to mid inferior and mid inferolateral hypokinesis. Compared to the prior study 08/07/2025, the LV is less dynamic and the segmental wall motion abnormalities have worsened. Procedure: A two-dimensional transthoracic echocardiogram with color flow and Doppler was performed in limited views only to assess EF. The study quality was technically adequate. Comparison is made with the echocardiogram of 08/07/2025. The patient was in normal sinus rhythm during the exam. Left Ventricle: Left ventricular wall thickness is mildly increased. The left ventricle is normal in size. The ejection fraction is estimated to be 40- 45%. There are regional wall motion abnormalities as specified. There is basal to mid septal, basal to mid inferior and mid inferolateral hypokinesis. Mitral Valve: There is moderate mitral annular calcification. The mitral valve leaflets appear mildly thickened. There is trace mitral regurgitation. Aortic Valve: The aortic valve is trileaflet. The aortic valve is mildly calcified. Tricuspid Valve: The tricuspid valve is not well visualized, but is grossly normal. There is trace tricuspid regurgitation. Pulmonic Valve: The pulmonic valve is not well visualized. There is a trace or physiologic amount of pulmonic regurgitation. Great Vessels: The IVC is dilated (diameter is greater than 2.1 cm) yet it collapses greater than 50% with a sniff. This suggests a right atrial pressure of 8 mm Hg. MMode/2D Measurements & Calculations LVIDd: 4.9 cm IVC diam: 2.1 cm LVIDs: 4.2 cm FS: 14.1 % IVSd: 0.91 cm LVPWd: 1.2 cm LV villarreal. diameter/BSA (cm/m^2): 3.0 LV sys. diameter/BSA (cm/m^2): 2.5 Doppler Measurements & Calculations TR max ann marie: 237.4 cm/sec TR max P.5 mmHg Reading Physician:08:38 AM
--- NOTE | 2025-08-17 14:39 | PT.IPTN ---
Current Diagnoses Essential (primary) hypertension (08/04/25) Subsequent non-ST elevation (NSTEMI) myocardial infarction (08/04/25) Other current complications following acute myocardial infarction (08/04/25) Nonrheumatic aortic (valve) stenosis (08/04/25) Chronic diastolic (congestive) heart failure (08/04/25) Displaced intertrochanteric fracture of right femur, initial encounter for closed fracture (08/04/25) Surgery Performed Operation Date: 08/05/25 14:00 Actual Procedures p cephalomedullary nail(Right) - Indira Bustamante, DO Physical Therapy Treatment Note M2 PT-IP Current Condition Start: 08/07/25 11:30 Freq: NEEDED Status: Active Protocol: Document 08/15/25 16:17 SAK (Rec: 08/15/25 16:27 SAK [id number]) Physical Therapy Current Condition Current Condition Evaluation Date 08/12/25 Treatment Diagnosis R intertrochanteric Fx, CVA, [place] M3 PT-IP Subjective Start: 08/07/25 11:30 Freq: NEEDED Status: Active Protocol: Document 08/17/25 14:39 DLM (Rec: 08/17/25 15:05 DLM Desktop) Subjective Physical Therapy Visit Type Type Treatment Note Visit Start Time 14:00 Visit Stop Time 14:39 Notes 39 min 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 0 Physical Therapy Visit Comments Patient Comments She reports feeling woozy Patient Goals Get better Therapy Pain Assessment Pain When Pain Assessed During Mobility Pain Present Pain Present Pain Reported Location right hip Scale Used she can point to it but did not rate it Description Aching,Tender,With Movement Pain Behaviors Facial Grimacing Pain Management Re-positioning Techniques M4 PT-IP Mobility and Gait Start: 08/07/25 11:30 Freq: NEEDED Status: Active Protocol: Document 08/17/25 14:39 DLM (Rec: 08/17/25 15:05 DLM Desktop) PT-Bed Mobility Assessment Supine to Sit Supine to Sit Moderate Assistance,Head of Bed Elevated,Bedrails Scooting Scooting to Edge of Maximum Assistance Bed PT-Transfer Assessment Sit to and From Stand Sit to and from Moderate Assistance,Use of Upper Extremities Stand Equipment Transfer Assistive Gait Belt,Front Wheeled Walker Device Transfers Transfer Destination Bedside Commode Transfer Technique Stand Step Pivot Transfer Ability Level of Assist Moderate Assistance,Maximum Assistance,Use of Upper Extremities Comments Mobility Comments Standing training with FWW to improve standing balance and decrease posterior lean. Pt tends to want to step forward instead of leaning forward over the FWW. Noted improved balance with training this visit. Pt started having BM while sitting edge of bed with pt aware but unable to control. Coordinated with nursing to get pt on bedside commode to have BM. Pt up to recliner after bedside commode. Pt left up in chair with nursing aware and pt watching TV. Pt shows good use of call light and TV remote. Transfers done with one person assist and stand by of a second for safety. Gait Assessment Gait Gait Assistance Moderate Assistance,Maximum Assistance,1 Person Assist Required: Distance (Feet) 2 Assistive Devices Assistive Device Gait Belt,Front Wheeled Walker Gait Deviations General Gait Pattern Antalgic Factors Limiting Gait Function Factors Limiting Decreased Activity Tolerance,Decreased Strength,Pain, Gait Function Poor Balance Comments Gait Comments severe posterior lean limits gait, pt able to bear weight on LE's and take small steps PT-Balance Assessment Sitting Balance and Reactions Static Sitting Fair Balance Ability Dynamic Sitting Fair Balance Ability Standing Balance and Reactions Static Standing Poor Balance Ability Dynamic Standing Poor Balance Ability Device Used FWW M5 PT-IP Objective Assessments Start: 08/07/25 11:30 Freq: NEEDED Status: Active Protocol: Document 08/12/25 13:35 DCW (Rec: 08/12/25 14:57 DCW [id number]) Orientation Orientation/Cognition Level of Alertness [place] Safety Awareness Decreased Safety Awareness Comments Pt responds with yes or no inappropriately. Will say no to answer can you move your leg, then immediately move her leg. Denies WA or CVA history. M6 PT-IP Treatment Start: 08/07/25 11:30 Freq: NEEDED Status: Active Protocol: Document 08/17/25 14:39 DLM (Rec: 08/17/25 15:05 DLM Desktop) Physical Therapy Treatment Exercises Exercises Ankle Pumps,Seated Knee Flexion/Extension,Shoulder Flexion Education Education Provided Safety Other Treatments Other Treatment gentle AAROM right shoulder per MD orders to manage Performed healing humeral fracture seated hip flexion with assist on right to manage pain, she can do active on left M7 PT-IP Assessment and Plan Start: 08/07/25 11:30 Freq: NEEDED Status: Active Protocol: Document 08/17/25 14:39 DLM (Rec: 08/17/25 15:05 DLM Desktop) PT Summary Assessment and Plan Summary Impairments Pain,ROM,Strength,Balance,Cognition,Bed Mobility, Transfers,Gait,Activity Tolerance Progress Towards Slow Progress due to Medical Issues,Slow Progress due Goals to Activity Tolerance Assessment Summary Camille is alert and shows good effort with Physical Therapy. She continues to have speech impairments and often says No when she means yes. She makes good effort to communicate her needs. She shows slow but good progress with therapy. She was able to improve her standing balance this visit with a decrease in her posterior lean. She is getting better at taking small functional steps. Her posterior lean still limits the advancement of her gait. Pt was on increased oxygen today but no shortness of breath with activity. She continue to report chronic dizziness with activity that does not resolve. Her BP was stable today. Continue to recommend SNF rehab at discharge. Goals Bed Mobility Goal Minimal Assistance Transfer Goal Minimal Assistance,Front Wheeled Walker Gait Goal Minimal Assistance,Moderate Assistance,Front Wheel Walker Gait Distance 10 feet Days to Meet Goals 10 Frequency of Treatment Frequency Of Once a Day Treatment Treatment Plan Physical Therapy Bed Mobility Training,Transfer Training,Gait Training, Treatment Plan Therapeutic Exercise,Balance Retraining,Post Op Education,Discharge Planning,Hot or Cold Pack, Neuromuscular Re-ed Other static standing to improve balance Recommendations and Next Treatment Focus Precautions Other Precautions sling as needed to manage right shoulder pain due to healing fracture Acute CVA and WA Weight Bearing Status Weight Bearing Weight Bear as Tolerated Status Allowed Weight right LE Bearing Amount ( enter % or #) (%) Recommendations To Nursing Amount of Assist 2 Person Assist Needed Discharge Recommendations PT Discharge SNF Rehab Recommendations Transportation Needs Wheelchair/Cabulance at Discharge - PT assist 1-2
--- NOTE | 2025-08-17 15:00 | CM.DPNOTE ---
DCP note DIRECTOR OF [employer] reviewed EMR per Rn, resp issues overnight. sodium remains low. per provider in morningg rounds, PRASAD thurs? start auth tomorrow. DIRECTOR OF [employer] updated Anne at [facility] and seth roldan p: dc to [facility] when stable and new auth secured. will cont to follow closely for dcp coordination
--- NOTE | 2025-08-17 15:56 | ST.IPSLE ---
Visit Care Team Role Provider Type Puma Erickson DO Other Providers Physician Specialty: Anesthesiology Address: [address] [place] [address], [id number] Email: Prasanth Iglesias MD Other Providers Physician Specialty: Anesthesiology Address: [address] [place] [address], [id number] Email: Colten Law MD Other Providers Physician Specialty: Anesthesiology Address: [address] [place] [address], [address] Phone: Fax: Email: [email or web address] MD Other Providers Physician Specialty: Anesthesiology Address: [address] [place] [address], [address] Phone: Fax: Email: Inidra Bustamante DO Other Providers Physician Specialty: Orthopedics Orthopedic Surgery Address: [address] [place] [address], [id number] Email: [email or web address] Alan bAdalla MD Other Providers Physician Specialty: Anesthesiology Address: [address] [place] [address], [address] Email: Harry Lopez MD Other Providers Physician Specialty: Anesthesiology Address: [address] [place] [address], [address] Email: Steffi Archer MD Other Providers Physician Specialty: Anesthesiology Address: [address] [place] [address], [address] Email: Antonia Zhang MD Other Providers Physician Specialty: Anesthesiology Address: Phone: Fax: Email: [email or web address] Elizabeth Patel MD Other Providers Physician Specialty: Anesthesiology Address: [address] [place] [address], [address] Email: Estrada Flor MD Other Providers Physician Specialty: Anesthesiology Address: [address] [place] [address], [id number] Email: Petar Murphy MD Emergency Provider Physician Referring Provider Specialty: Emergency Medicine Address: [address] [address], [place], [address] Fax: Email: [email or web address] Admit Provider Physician Attending Provider Specialty: Internal Medicine Address: [address] [place] [address], [address] Fax: Email: [email or web address] Diagnoses Essential (primary) hypertension (08/04/25) Subsequent non-ST elevation (NSTEMI) myocardial infarction (08/04/25) Other current complications following acute myocardial infarction (08/04/25) Nonrheumatic aortic (valve) stenosis (08/04/25) Chronic diastolic (congestive) heart failure (08/04/25) Displaced intertrochanteric fracture of right femur, initial encounter for closed fracture (08/04/25) Past Medical History (Last Reviewed 08/09/25 @ 14:11 by Crispin Jaffe MD) Diastolic dysfunction with chronic heart failure (Medical) Myocardial infarction complications (Medical) Speech-Language Pathology Speech/Language Eval NETWORK MGR Adult Cognitive Linguistic Eval Start: 08/17/25 15:16 Freq: Status: Active Protocol: Document 08/17/25 15:16 SS (Rec: 08/17/25 15:55 SS [email or web address]) Adult Cognitive Linguistic Evaluation Session Time Visit Start Time 10:45 Visit Stop Time 11:15 Total Visit Minutes 30 Visit Information Visit Number [address] Delmer Pearson MD Reason for Referral speech/language s/p CVA Setting Assessment Location Acute Care Visit Type Note Type Initial evaluation Next Note Type Next Note Type Treatment Note Patient Information Identification Type Name Subjective Patient Report Limited given severe expressive/receptive aphasia and potential cognitive impairment limiting ability to discuss PLOF and current concerns. Per RN, no swallowing concerns at this time, though will continue to monitor. RN reported difficulty expressing basic needs/wants, repetitive behaviors with items on bedside tray, and difficulty responding to simple yes/no questions (e.g., shaking head no but saying yes verbally). Mental Status Alert,Responsive,Cooperative Assessment Oral Motor Yes Examination Completed Results Pt able to follow simple directions. WNL strength, symmetry, ROM, and coordination of tongue, lips, and jaw. No signs of oral apraxia at this time. Informal Assessment Receptive Language No Normal Receptive Language Comprehension of simple yes/no questions,Comprehension Impairment(s) of complex yes/no questions,Following 2-step commands, Following 3-step commands,Reading comprehension, Comprehension of conversation,Reading Expressive Language No Normal Expressive Language Imitation,Sentence closure/completion,Confrontation Impairment(s) naming,Divergent naming,Expression of basic wants/needs ,Expression of complex thoughts/ideas Pragmatic Language Yes Normal Speech Normal No: Suspect apraxia of speech, though need further testing to confirm/rule out Cognition Normal No: Suspect at least moderate impairment, but difficult to assess Formal Assessment Standardized Test/ Quick Aphasia Battery (QAB) Screener Type Administration Complete Results The Quick Aphasia Battery (QAB) aims to provide a reliable and multidimensional assessment of language function. The QAB is made up of eight subtests, each comprising sets of items that probe different language domains, vary in difficulty, and are scored with a graded system to maximize the informativeness of each item. From the eight subtests, eight summary measures are derived, which constitute a multidimensional profile of language function, quantifying strengths and weaknesses across core language domains. 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 Unable to objectively assess cognitive-communication given pt's severe aphasia. Verbal expression is impaired at the word level with utterances primarily consisting of single words and short 2-3 word phrases, ability to repeat words, and increased word finding success with semantic/phonemic cueing and use of physical objects. Auditory comprehension is impaired at the 2-step command level (intact at the 1-step) and variable yes/no accuracy both across egocentric and non egocentric yes/no questions. No oral apraxia observed though possible apraxia of speech, further differential diagnosis warranted. Difficult to assess insight into deficits as initially, she indicated she had no difficulty communication, though when asked if simple language tasks were difficult, she indicated they were indeed difficult. Skilled 1:1 NETWORK MGR therapy is warranted to address the aforementioned deficits, determine effective communication strategies, increase use of total communication (verbal, gesture, AAC) and to maximize independence upon discharge. Prognosis Prognosis Good Based on Duration of symptoms/severity,Time since onset Plan of Care Speech-Language Yes Treatment Frequency Daily Duration During admission Patient/Caregiver Described results of evaluation,Patient expressed Education understanding of evaluation,Patient expressed agreement with goals and treatment plans Short Term Goals 1. Patient will utilize total communication (verbal, yes/no, gestures, AAC) to communicate basic wants/needs (food preferences, activity preferences, medical information) in 75% of opportunities independently. 2. Patient will correctly name salient object in 80% of opportunities with minimal assistance in order to increase functional word retrieval in daily communication. 3. Patient will produce 5 or more content words per utterance (as compared to baseline of 1-3) through skill and strategy practice in 80% of opportunities during functional conversation in order to enhance communicative effectiveness. Correction Goals 1. Patient will utilize total communication (verbal, yes/no, gestures, AAC) to communicate basic wants/needs (food preferences, activity preferences, medical information) in 90% of opportunities independently. Discharge alf facility,Inpatient rehab facility Recommendations
[2025-08-17] MEDS: ATORVASTATIN 20 MG TABLET 80 MG PO (21:09)
[2025-08-18] VITALS (57 sets, daily range): BP systolic 92–165; BP diastolic 55–79; PULSE 62–122; RESP 14–36; O2SAT 83–98
[2025-08-18] MEDS: METOPROLOL IR 25 MG TABLET PO ×3 (05:19→22:36)
[2025-08-18 05:47] LABS: Add Manual Diff / Slide Review NO; Hematocrit 22.7 % (36-46); Hemoglobin 7.6 g/dL (12.0-16.0); Lymphocytes Absolute Auto 1800 /uL (1100-4500); Mean Corpuscular HGB Conc 33.5 % (30-36); Mean Corpuscular Hemoglobin 29.5 PG (26-34); Mean Corpuscular Volume 88.0 fL (80-100); Platelet Count 601 X10^3/uL (150-400)
[2025-08-18 06:03] LABS: Blood Urea Nitrogen 25 mg/dL (7-17); Calcium 8.6 mg/dL (8.4-10.2); Carbon Dioxide 26 mmol/L (22-32); Chloride 98 mmol/L (98-107); Estimated Glomerular Filt Rate > 60 mL/min (>60); Glucose 99 mg/dL (70-99); HEMOLYSIS < 15 (0-50); Potassium 3.9 mmol/L (3.4-5.1); Sodium 129 mmol/L (137-145)
--- NOTE | 2025-08-18 07:31 | P.PN_ITS ---
Subjective Subjective Date Patient Seen: 08/18/25 Interval history: 08/04: 75-year-old female who was admitted with a hip fracture after a fall. She has a history of moderate aortic stenosis and CAD with a previous CABG. The patient had a mildly elevated troponin. She would complained of chest pain intermittently for the past 3 months. Her initial ECG was abnormal and she was discussed with Cardiology and evaluated with an echo which revealed good EF, no wall motion abnormalities, and aortic stenosis. Her revised cardiac risk index for an emergent surgery that is low risk was utilizing calculated with a score of 1 which is a moderate risk of 6%. She did undergo surgery (Screw) and her postoperative troponin did bump to 11. She remains hemodynamically stable and comfortable. Cardiology is consulted and we will be evaluating her. 08/05. Echo revealed a and normal EF. She had a mildly elevated troponin went to the OR after consultation with Cardiology with a moderate risk of 6% or less for cardiac adverse events. Unfortunately, she did have evidence of NSTEMI with a troponin of 11 in the postoperative. 08/06: Doing well, no chest pain or dyspnea. Troponin remained elevated at 11. Discussed with Cardiology who did evaluate the patient. Not felt to be appropriate for heparin drip given her postoperative status. Treated with aspirin, and beta blockade. 08/07: Trop 4. Limited ECHO: The ejection fraction is estimated to be 50-55%. There are regional wall motion abnormalities as specified. Basal septal and mid to basal inferior hypokinesis 08/08: Patient having some apparent Adrian phrenic and subtle appearance of a right facial droop today CT of the head ordered otherwise MRI ordered demonstrated left cortical and white matter punctate infarcts patient is started on Plavix 300 when addition to aspirin 08/09: Developed 8/10 chest pain about 12:30 p.m. EKG shows extensive T-wave and ST segment changes and Q-waves troponin 1.9 which is down from 4 from 08/07. BNP is 2000. Chest pain was relieved with sublingual nitroglycerin and 1/2 inch of nitroglycerin paste. Consulted with Cardiology with a consensus decision to transfer to ICU and initiate nitroglycerin drip if chest pain recurs. Patient is not a candidate for cardiac catheterization due to stroke, not a candidate for anticoagulation due to risk of hemorrhagic transformation of stroke and exsanguination from surgery. Patient loaded Plavix 300 mg serial troponin 08/10: No further reports of chest pain troponin trending down to 1380 started on Imdur 30 mg a day and currently on dual antiplatelet aspirin Plavix metoprolol patient demonstrates very impaired short-term memory eats a piece of egg with a fork with the right hand does like the taste and takes it it out with her left hand and repeats this on the same piece of egg over and over 08/11: No further episodes of chest pain patient is still doing repetitive behaviors but is interactive despite replacing solute and fluid restriction and diuretic patient still has sodium of 117 08/12: Sodium 119 in the morning chronic saline initiated at 100 cc total for 20 cc an hour. At the end of the infusion sodium increased to 122. Patient is still confused was interpretive and expressive aphasia repeating meaningless repetitive behaviors 08/13: Sodium improved to 124 after 2nd hypertonic saline infusion 2 g oral salt replacement and 1500 cc fluid restriction 08/14: Patient is still confused but there is less meaningless repetitive behavior sodium is 125. 08/15 evening: New AF RVR, treated with metoprolol. Converted to NSR. Dx: PAF. Urine retention 08/15-straight cath. S: No acute complaints, no chest pain, or dyspnea. AF + RVR last night, treated with IV metoprolol x2. Repeat sodium 122, down from 125, urine sodium 20. 08/17: Sodium level today is up to 125. Experienced mild pulmonary edema (chest x-ray and BNP 9520) with sat 94% on 4 L OxyMask early this morning so was treated with Lasix 40 mg IV and IV fluid was held. White blood count up to 17.2 and hemoglobin stable at 7.9. Platelets hugh to 684. Urine culture from 08/13 with pansensitive E coli. Already on ceftriaxone. Experienced urinary retention today, likely rectal impaction related. Catheter placed. Discussed details with POA. 08/18: Sodium level up to 129 today. Platelets dropped down to 601. Hemoglobin stable at 7.6. White blood count dropped again to 11.4. Blood pressure is 165/79. Speech is slow and seems to take great effort. She is on track to discharge to [facility] in 1-2 days. Discussed details with POA. O: BP 107/59, P 62, RR 16, SaO2 93%. NAD, alert and oriented. Slow and stuttering speech. Lungs are clear, normal rate and effort. Heart is regular, systolic murmur and no gallop or rub. Abdomen is soft, non distended. Extremities are free of edema. IMAGING: X-rays of her right shoulder demonstrate a comminuted healing proximal humerus fracture. X-rays of her right hip and CT scan of the right hip demonstrate a comminuted intertrochanteric right hip fracture. ECHO: - The left ventricular contractility is normal. Estimated ejection fraction is greater than 55% with no segmental wall motion abnormalities. Mild concentric LVH. Grade 1 diastolic dysfunction. - The right ventricular contractility is normal. - Moderate left atrial enlargement. All other cardiac chambers are of normal size. - Moderate mitral annular calcifications with mild mitral valvular stenosis. Mean gradient is 4.2 mmHg. - Moderate aortic valvular stenosis with peak velocity of 3.1 m/s. Mean gradient of 25.1 mmHg. Dimensionless index of 0.45. - No obvious intracardiac shunts. - No obvious intracardiac masses nor thrombi. - No hemodynamically significant pericardial effusion. - Low right-sided filling pressures. Conclusion: Normal biventricular systolic function with mild to moderate valvular stenoses. Brain MR: A few punctate regions of restricted diffusion the subcortical white matter of the left temporal lobe and the deep white matter of the simpson radiata. Findings raise the concern for embolic infarct. A/P: 1. 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 * Continue NaCl 2 tabs b.i.d. * Monitor sodium closely. * Not on any SSRI or HCTZ 2. Right hip fracture status post ORIF with perioperative non STEMI (moderate periorbital risk of coronary disease given history of CAD with revascularization) with possible new outcome of apical akinesis * Complicated by perioperative myocardial infarction and left-sided stroke 3. 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 Findings raise the concern for embolic infarct). 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 NSTEMI post operative. Chronic coronary artery disease status post CABG with unstable angina 08/09. * Not a candidate for cardiac catheterization due to stroke * Not a candidate for anticoagulation due to stroke and postoperative * Aspirin with Plavix daily * Long-acting Nitrates Imdur to manage angina * Appreciate cardiology expertise * Continue all goal directed medical therapy * Perioperative non STEMI likely type 2 * Follow up with Cardiology after discharge and rehabilitation to establish anatomy and possible interventions at a safe point. * Repeat limited Echo on 08/17 after flash pulmonary edema episode 5. PAF, new. 6. Altered mental status. -likely related to her small stroke and prolonged multifactorial illness. -slowly improving. 7. Thrombocytosis/Anemia/Leukocytosis -related to postop and multifactorial illness. -stable/resolving PLAN: -Continue current medications. -continue salt tabs 2 p.o. b.i.d., follow sodium closely. -Stopped IV NS -Repeat limited Echo for updated EF, pending -continue fluid restriction. -PT, OT. -Discharge planning. SNF at [facility] or SNF near [facility]. -Consider delayed anticoagulation. Continue ASA BID for DVT/PE prevention. DISPO: Anticipate discharge to a fdc facility in 1-2 more days. Exam Vital Signs (past 8 hours): - 08/18/25 00:00 08/18/25 00:27 08/18/25 00:28 Pulse Rate 80 64 Respiratory Rate 24 14 Blood Pressure 123/61 Pulse Oximetry 08/18/25 00:28 08/18/25 00:30 08/18/25 01:00 Pulse Rate 74 69 63 Respiratory Rate 19 16 14 Blood Pressure Pulse Oximetry 98 08/18/25 01:30 08/18/25 02:00 08/18/25 02:30 Pulse Rate 77 87 82 Respiratory Rate 21 19 22 Blood Pressure Pulse Oximetry 08/18/25 03:00 08/18/25 03:30 08/18/25 04:00 Pulse Rate 70 71 85 Respiratory Rate 14 14 20 Blood Pressure Pulse Oximetry 08/18/25 04:08 08/18/25 04:08 Pulse Rate 96 H Respiratory Rate 22 Blood Pressure 165/79 H Pulse Oximetry Oxygen Delivery Method Room Air Oxygen Flow Rate 0 Objective Labs 08/18/25 05:30 08/18/25 05:30 Labs: Laboratory Results - last 24 hr 08/17/25 08/18/25 08:00 05:30 WBC 17.2 H 11.4 H RBC 2.71 L 2.58 L Hgb 7.9 L 7.6 L Hct 23.6 L 22.7 L MCV 86.9 88.0 MCH 29.2 29.5 MCHC 33.6 33.5 RDW 17.1 H 16.8 H Plt Count 684 H 601 H Neut % (Auto) 85.9 H 72.9 Lymph % (Auto) 6.3 L 16.0 L Edwards % (Auto) 7.7 8.9 Eos % (Auto) 0.0 L 1.9 L Baso % (Auto) 0.1 0.3 Neut # (Auto) 31493 H 8300 H Lymph # (Auto) 1100 1800 Edwards # (Auto) 1300 H 1000 H Eos # (Auto) 0 200 Baso # (Auto) 0 0 Sodium 125 L 129 L Potassium 5.1 3.9 D Chloride 95 L 98 Carbon Dioxide 22 26 BUN 30 H 25 H Creatinine 0.71 0.63 Estimated GFR > 60 > 60 BUN/Creatinine Ratio 42.3 H 39.7 H Glucose 152 H 99 Calcium 8.6 8.6 NT-Pro-B Natriuret Pep 9520 H [facility] Medical History Myocardial infarction complications Diastolic dysfunction with chronic heart failure Social History household members: significant other Smoking Status: Never smoker alcohol intake: never Assessment & Plan Time-Based Coding :: [TOTAL MINUTES] spent with patient and on the chart (including review of chart, obtaining history, exam, reviewing outside data, placing orders, documenting exam and treatment plan, and counseling patient) on [DATE].
[2025-08-18] MEDS: DOCUSATE 100 MG CAPSULE PO (08:17)
[2025-08-18] MEDS: ASPIRIN EC 81 MG TABLET PO ×2 (08:17→20:54)
[2025-08-18] MEDS: CLOPIDOGREL 75 MG TABLET PO (08:17)
[2025-08-18] MEDS: SODIUM CHLORIDE 1,000 MG TABLET 2000 MG PO ×2 (08:17→20:54)
--- NOTE | 2025-08-18 14:09 | ST.IPTN ---
Visit Care Team Role Provider Type Puma Erickson, Other Providers Physician Address: [address] [place] [address], [id number] Prasanth Iglesias MD Other Providers Physician Address: [address] [place] [address], [id number] Colten Law MD Other Providers Physician Address: [address] [place] [address], [id number] Phone: Fax: Josephine Tucker MD Other Providers Physician Address: [address] [place] [address], [id number] Phone: Fax: Indira Bustamante DO Other Providers Physician Address: [address] [place] [address], [address] Alan Abdalla MD Other Providers Physician Address: [address] [place] [address], [address] Harry Lopez MD Other Providers Physician Address: [address] [place] [address], [address] Steffi Archer MD Other Providers Physician Address: [address] [place] [address], [address] Antonia Zhang MD Other Providers Physician Address: Phone: Fax: Elizabeth Patel MD Other Providers Physician Address: [address] [place] [address], [address] Estrada Flor MD Other Providers Physician Address: [address] [place] [address], [address] Petar Murphy MD Emergency Provider Physician Referring Provider Address: [address], [address] Fax: Kenneth Rose MD Admit Provider Physician Attending Provider Address: [address] [place] [address], [id number] Fax: SIGNAL TOWER OPERATOR Treatment Note SIGNAL TOWER OPERATOR Treatment Note Start: 08/18/25 13:47 Freq: Status: Active Protocol: Document 08/18/25 13:47 SS (Rec: 08/18/25 14:08 SS DESKTOP) Speech Pathology Treatment Note Session Time Visit Start Time 11:25 Visit Stop Time 12:00 Total Visit Minutes 35 Visit Information Visit Number 2 Setting Treatment Setting Acute Care Visit Type Note Type Treatment Note Next Note Type Next Note Type Treatment Note Subjective Identification Type Name,Date of Observations/Patient Chart reviewed and RN consulted. RN reported pt has Presentation been a little more consistent with responding to yes/no questions, verbalizing basic needs/wants, and using TV remote and call button. Pt was agreeable to ST session . She seemed to have slightly better insight to deficits, stating this is hard for me throughout the session, though continues to have limited understanding that she had stroke. Objective Short Term Goals 1. Patient will utilize total communication (verbal, yes/no, gestures, AAC) to communicate basic wants/needs (food preferences, activity preferences, medical information) in 75% of opportunities independently. 2. Patient will correctly name salient object in 80% of opportunities with minimal assistance in order to increase functional word retrieval in daily communication. 3. Patient will produce 5 or more content words per utterance (as compared to baseline of 1-3) through skill and strategy practice in 80% of opportunities during functional conversation in order to enhance communicative effectiveness. Purchasing And Claims Supervisor Goals 1. Patient will utilize total communication (verbal, yes/no, gestures, AAC) to communicate basic wants/needs (food preferences, activity preferences, medical information) in 90% of opportunities independently. Treatment Activities Use of low-tech AAC targeting responding to yes/no questions. Semantic Feature Analysis targeting naming of everyday common objects. Integral stimulation approach targeting apraxia of speech. Assessment Patient Response to Good Treatment Rehab Potential Good Impairments Expressive language,Receptive language Identified Progress Towards Good Progress Goals Assessment of Improving Overall Progress Assessment of Implemented use of low-tech AAC to assess Improvement appropriateness for pt. Pt responded to yes/no questions for egocentric questions (own name, location, etc) with about 30% accuracy independently, increased to 100% given direct model, repetition of question, and use of simple yes/no AAC symbols. On pain scale (1-10) , pt pointed to 9 to indicate her pain level. When asked where the pain was, she was unable to verbalize. However, identified hop via full body diagram and required assist to select side on diagram. Pt continues to demonstrate inconsistent yes and no, though benefited from use of low-tech AAC and was more reliably consistent. Pt was able to name 60% of everyday common objects independent, which is a significant increase from yesterday. This increased to 93% accuracy given tactile cueing (pt holding physical objects in her hands), semantic, and phonemic cueing. 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 The pt was provided visual, auditory, and written cues . Following cueing, she was able to count from 1-20 with about 80% accuracy and state days of week and months of year with 100% accuracy, which she was unable to do at baseline. Plan to advance to functional short phrases in next session. Overall, pt demonstrated good progress across tasks today. Continue targeting apraxia of speech as well as use of total communication (verbal, gesture, AAC) to increase communication effectiveness. Pt may benefit from a speech generating device depending on progress given her current verbal communication skills are not sufficient to make her wants, needs, or thoughts known. Pt will benefit from ongoing follow-up for further development of multi-modal communication supports to meet daily needs and potential trial of high-tech AAC device. Plan Amount of Therapy Other Recommended Comment During admission Frequency of Five Times a Week Treatment Length of Session 30 Minutes Therapeutic Contents AAC,Client Education,Expressive Language Training,Oral Motor Training,Receptive Language Training Therapy Continue with Current Program Recommendations
--- NOTE | 2025-08-18 15:43 | OT.IP.TRT ---
Current Diagnoses Essential (primary) hypertension (08/04/25) Subsequent non-ST elevation (NSTEMI) myocardial infarction (08/04/25) Other current complications following acute myocardial infarction (08/04/25) Nonrheumatic aortic (valve) stenosis (08/04/25) Chronic diastolic (congestive) heart failure (08/04/25) Displaced intertrochanteric fracture of right femur, initial encounter for closed fracture (08/04/25) Surgery Performed Operation Date: 08/05/25 14:00 Actual Procedures p cephalomedullary nail(Right) - Indira Bustamante, DO Occupational Therapy Treatment Note M2 OT-IP Current Condition Start: 08/07/25 11:33 Freq: Status: Active Protocol: Document 08/12/25 13:54 CCC (Rec: 08/12/25 14:10 [facility] Desktop) Occupational Therapy Current Condition Current Condition Evaluation Date 08/12/25 Treatment Diagnosis S/P Right hip orif with IMN on 08/05/25 and subsequent WA and CVA Post Operative Precautions Shoulder Precautions Sling Other Precautions Right arm in sling per Sx ok to put some weight on it with FWW. M3 OT- IP Subjective and Pain Start: 08/07/25 11:33 Freq: Status: Active Protocol: Document 08/18/25 15:43 CCC (Rec: 08/18/25 15:53 [facility] Desktop) OT- Subjective Occupational Therapy Visit Type Type Treatment Note Visit Start Time 14:15 Visit Stop Time 15:43 Occupational Therapy Visit Comments Patient Comments Pt having to have a BM and agreed to take shower afterwards. Patient/Caregiver TO get better. Goals OT Pain Assessment Pain When Pain Assessed During Mobility Pain Present Pain Present Pain Reported Location right hip Pain Behaviors Facial Grimacing,Holding Area M4 OT- IP ADL's Start: 08/07/25 11:33 Freq: Status: Active Protocol: Document 08/18/25 15:43 CCC (Rec: 08/18/25 15:53 [facility] Desktop) OT [id number] Comments OT Self-Feeding Not at meal time. Comments OT ADL-Oral Care General Eval Oral Care Ability Minimal Assistance Areas of Assistance Retrieving/Set-Up of Items Comments Oral Care Comments Assist for set-up and vc for sequencing of steps. OT ADL-Dressing General Eval Lower Body Dressing Total Assistance Ability Areas Needing Underpants/Brief,Socks Assistance OT ADL-Toileting General Evaluation Toileting Ability Total Assistance Areas Needing Empty Catheter or Colostomy,Manage Clothing,Perform Assistance Perineal Hygiene Comments OT Toileting MAX A1-2 stand pivot to the [facility] and dependent for all Comments brief and hygiene needs. OT ADL-Bathing Bathing Type Bathing Type Shower General Evaluation Bathing Ability Maximal Assistance Areas Needing Wash/Dry Back,Wash/Dry Perineal Area,Wash/Dry Lower Assistance Extremities Comments OT Bathing Comments Pt able to assist to was her face and upper body and needing assist for all other needs. M5 OT- IP IADL's Start: 08/07/25 11:33 Freq: Status: Active Protocol: Document 08/12/25 13:54 [facility] (Rec: 08/12/25 14:10 [facility] Desktop) OT-Instrumental Activities of Daily Living Home Safety Awareness Awareness of Need Decreased Awareness for Assistance at Home Ability to Problem Unable to Problem Solve Solve Emergency Situations Medication Management Medication Pt will need assist. Management Comments Money Management Money Management Pt will need assist. Comments Meal Preparation Meal Preparation Pt will need assist. Comments Geographic Information System Surveyor Geographic Information System Surveyor Pt will need assist. Comments M6 OT- IP Functional Cognition Start: 08/07/25 11:33 Freq: Status: Active Protocol: Document 08/18/25 15:43 [facility] (Rec: 08/18/25 15:53 [facility] Desktop) Cognitive Factors Limiting Selfcare Function Cognitive Ability Level of Alertness Alert Patient Orientation Name,Age,Birthday,Month,Year,Place,Situation Attention Span Capable of Focused Attention,Capable of Sustained Ability Attention Ability to Follow Able to Follow One Step Commands with Increased Time, Commands Able to Follow One Step Commands with Repetition Cognitive Comments Cognitive Assessment Pt much more alert today. Pt able to follow commands Comments better for ADL and mobility needs. M7 OT- IP Mobility and Balance Start: 08/07/25 11:33 Freq: Status: Active Protocol: Document 08/18/25 15:43 [facility] (Rec: 08/18/25 15:53 [facility] Desktop) OT- Bed Mobility Assessment Supine to Sit Supine to Sit Assist Moderate Assistance Scooting Scooting to Edge of Maximum Assistance Bed OT-Transfer Assessment Sit to and From Stand Sit to and from Maximum Assistance,1 Person Assistance Stand Transfers Transfer Ability Maximum Assistance,1 Person Assistance,2 Person Assistance Technique Transfer Destination Bed,Chair Devices Transfer Assistive None,Gait Belt Devices Comments Mobility Comments MODA to get her RLE to the edge of the bed and trunk upright. MAX AX 1-2 to stand and pivot to the BSC , rolling shower chair, and back to recliner. Pt tends to lean backwards on her heels. OT- Balance Assessment Sitting Balance and Reactions Static Sitting Good Balance Ability Dynamic Sitting Fair Balance Ability Standing Balance and Reactions Static Standing Poor Balance Ability Dynamic Standing Poor Balance Ability M8 OT- IP Objective Assessments Start: 08/07/25 11:33 Freq: Status: Active Protocol: Document 08/12/25 13:54 [facility] (Rec: 08/12/25 14:10 [facility] Desktop) OT Gross Range of Motion Upper Extremity Range of Motion Assessment Right Impaired OT Strength Upper Extremity Strength Assessment Right Impaired M9 OT- IP Assessment and Plan Start: 08/07/25 11:33 Freq: Status: Active Protocol: Document 08/18/25 15:43 [facility] (Rec: 08/18/25 15:53 [facility] Desktop) OT Summary Assessment and Plan Potential Rehabilitation Good Potential Analytic Complexity High at Evaluation Summary OT Impairments Pain,Range of Motion,Strength,Balance,Functional Cognition,Functional Mobility,Self-Feeding,Grooming, Dressing,Toileting,Bathing,Toilet Transfers,Shower Transfers,Activity Tolerance Progress Towards Progressing Toward Goals Goals Assessment Summary Pt able to brush her teeth and comb her hair after set- up and cues for completeness. Pt able to transfer stand pivot with MAX AX 1-2 to BSC, rolling shower chair, and to the recliner after able to tolerate a shower on the rolling shower chair. Able to do gentle ROM with pt 's RUE. Goals Self-Feeding Goal Standby Assistance Grooming Goal Independent Dressing Goal Minimal Assistance Toileting Goal Minimal Assistance Bathing Goal Moderate Assistance Toilet Transfer Goal Contact Guard Assistance Shower Transfer Goal Minimal Assistance Days to Meet Goals 27 Frequency of Treatment Other frequency 5x/week Treatment Plan OT Treatment Plan ADL Training,Functional Cognition Training,Functional Mobility,Patient/Family Education,Discharge Planning Other Treatment Transfer to [facility] with MAX AX 1 with FWW. Recommendations and Next Treatment Focus Discharge Recommendations OT Discharge SNF Rehab Recommendations Transportation Needs Wheelchair/Cabulance at Discharge
--- NOTE | 2025-08-18 16:41 | CM.DPNOTE ---
DCP note CHASER HELPER reviewed EMR per chart/provider, sodium significantly improved. start auth. PRASAD ? CHASER HELPER updated Anne at [facility], will start auth request, now unsure if they will have a bed until /Sun. CHASER HELPER updated DPOA [facility]. IN agreement with . Still unsure if preference is transport with wc van or BLS. f/u with [facility] morning of dc for final decision. concerned about pain. with nursing able to sit up in chair. [facility] understands the potential cost of BLS transport. P: Dc to [facility] Th/Sun when medically stable/auth resecured/bed available. willl continue to follow closely for DCP coordination DEANDRA Morfin
--- NOTE | 2025-08-18 16:55 | PT.IPTN ---
Current Diagnoses Essential (primary) hypertension (08/04/25) Subsequent non-ST elevation (NSTEMI) myocardial infarction (08/04/25) Other current complications following acute myocardial infarction (08/04/25) Nonrheumatic aortic (valve) stenosis (08/04/25) Chronic diastolic (congestive) heart failure (08/04/25) Displaced intertrochanteric fracture of right femur, initial encounter for closed fracture (08/04/25) Surgery Performed Operation Date: 08/05/25 14:00 Actual Procedures p cephalomedullary nail(Right) - Indira Bustamante, DO Physical Therapy Treatment Note M2 PT-IP Current Condition Start: 08/07/25 11:30 Freq: NEEDED Status: Active Protocol: Document 08/15/25 16:17 SAK (Rec: 08/15/25 16:27 SAK [id number]) Physical Therapy Current Condition Current Condition Evaluation Date 08/12/25 Treatment Diagnosis R intertrochanteric Fx, CVA, ND M3 PT-IP Subjective Start: 08/07/25 11:30 Freq: NEEDED Status: Active Protocol: Document 08/18/25 16:55 DLM (Rec: 08/18/25 17:23 DLM Desktop) Subjective Physical Therapy Visit Type Type Treatment Note Visit Start Time 16:25 Visit Stop Time 16:55 Notes 30 min Number of BOARD OF DIRECTORS Visits 0 Physical Therapy Visit Comments Patient Comments She reports having pain in right shoulder and hip area today. Pt asking for pain medication Therapy Pain Assessment Pain Present Pain Present Pain Reported Location Right shoulder Intensity 9 Scale Used Numeric (0 - 10) Description Aching Pain Management Re-positioning Techniques right hip Intensity 9 Scale Used Numeric (0 - 10) Description Aching Pain Management Re-positioning Techniques M4 PT-IP Mobility and Gait Start: 08/07/25 11:30 Freq: NEEDED Status: Active Protocol: Document 08/18/25 16:55 DLM (Rec: 08/18/25 17:23 DLM Desktop) PT-Bed Mobility Assessment Supine to Sit Supine to Sit Moderate Assistance Sit to Supine Sit to Supine Moderate Assistance PT-Transfer Assessment Sit to and From Stand Sit to and from Moderate Assistance,Maximum Assistance,1 Person Stand Assistance,Use of Upper Extremities Equipment Transfer Assistive Gait Belt,Front Wheeled Walker Device Transfers Transfer Destination Bed Transfer Technique Stand Step Pivot Transfer Ability Level of Assist Moderate Assistance,Maximum Assistance,Use of Upper Extremities Comments Mobility Comments Initial standing has the most severe posterior lean but it improves with continued standing. Pt able to stand for short periods of time with as little as CG assist but it can increase to as much as mod/max. She needs a lot of cuing to fully step back to chair before sitting and she tries to sit before fully back. Pt incontinent of stool and nursing assisted with cleaning her up while standing and before getting back to bed. Pt requested back to bed after activity. Gait Assessment Gait Gait Assistance Moderate Assistance,1 Person Assist Required: Distance (Feet) 7 Able to Maintain Yes Weight Bearing Status During Gait Assistive Devices Assistive Device Gait Belt,Front Wheeled Walker Gait Deviations General Gait Pattern Antalgic Factors Limiting Gait Function Factors Limiting Decreased Activity Tolerance Gait Function Comments Gait Comments She needs a lot of assistance to manage posterior lean. She is able to bear weight on LE's and hold the FWW with UE's. Pt able to take small functional steps for gait. She fatigues quickly but shows good effort. PT-Balance Assessment Sitting Balance and Reactions Static Sitting Good Balance Ability Dynamic Sitting Fair Balance Ability Standing Balance and Reactions Static Standing Poor Balance Ability Dynamic Standing Poor Balance Ability Device Used FWW Comments Other Balance Tests/ standing balance training with FWW and assist Deviations/Treatment : M5 PT-IP Objective Assessments Start: 08/07/25 11:30 Freq: NEEDED Status: Active Protocol: Document 08/12/25 13:35 DCW (Rec: 08/12/25 14:57 DCW [id number]) Orientation Orientation/Cognition Level of Alertness Confusional State Safety Awareness Decreased Safety Awareness Comments Pt responds with yes or no inappropriately. Will say no to answer can you move your leg, then immediately move her leg. Denies ND or CVA history. M6 PT-IP Treatment Start: 08/07/25 11:30 Freq: NEEDED Status: Active Protocol: Document 08/18/25 16:55 DLM (Rec: 08/18/25 17:23 DLM Desktop) Physical Therapy Treatment Exercises Exercises Ankle Pumps,Heel Slides Education Education Provided Safety M7 PT-IP Assessment and Plan Start: 08/07/25 11:30 Freq: NEEDED Status: Active Protocol: Document 08/18/25 16:55 DLM (Rec: 08/18/25 17:23 DLM Desktop) PT Summary Assessment and Plan Summary Impairments Pain,ROM,Strength,Balance,Cognition,Bed Mobility, Transfers,Gait,Activity Tolerance Progress Towards Slow Progress due to Medical Issues,Slow Progress due Goals to Activity Tolerance Assessment Summary Camille is alert and sitting up in recliner. She shows good participation in Physical Therapy. She shows good but slow progress in therapy. Her posterior lean in standing continues to limit safe mobility and gait. Her standing balance continues to slowly improve. She continues to have pain in right shoulder and hip area. Pt's speech is impaired and she often says NO when she means Yes which complicates communication. Continue to recommend SNF rehab at discharge. Goals Bed Mobility Goal Minimal Assistance Transfer Goal Minimal Assistance,Front Wheeled Walker Gait Goal Minimal Assistance,Moderate Assistance,Front Wheel Walker Gait Distance 10 feet Days to Meet Goals 10 Frequency of Treatment Frequency Of Once a Day Treatment Treatment Plan Physical Therapy Bed Mobility Training,Transfer Training,Gait Training, Treatment Plan Therapeutic Exercise,Balance Retraining,Post Op Education,Discharge Planning,Hot or Cold Pack, Neuromuscular Re-ed Other static standing to improve balance Recommendations and Next Treatment Focus Precautions Other Precautions sling as needed to manage right shoulder pain due to healing fracture Acute CVA and ND Weight Bearing Status Weight Bearing Weight Bear as Tolerated Status Allowed Weight right LE Bearing Amount ( enter % or #) (%) Recommendations To Nursing Amount of Assist 2 Person Assist Needed Discharge Recommendations PT Discharge SNF Rehab Recommendations Transportation Needs Wheelchair/Cabulance at Discharge - PT assist 1-2
--- NOTE | 2025-08-18 17:23 | PC.NURSE ---
Pt denies pain today and is refusing scheduled acetaminophen. C/O new, wet cough though lungs remain clear bilaterally, not productive. Pt had a shower and full linen change following a large, loose BM in bed. Mepilex to coccyx changed due to being soiled, site has improved significantly. Partner is present at the bedside and participating in patient's care. Will continue to monitor.
[2025-08-18] MEDS: ATORVASTATIN 20 MG TABLET 80 MG PO (20:54)
[2025-08-18] MEDS: SODIUM CHLORIDE 0.9% FLUSH 10 ML IV (21:02)
[2025-08-18] MEDS: MELATONIN 3 MG TABLET 6 MG PO (22:36)
[2025-08-18] MEDS: ACETAMINOPHEN 325 MG TABLET 650 MG PO (22:36)
[2025-08-19] VITALS (24 sets, daily range): BP systolic 120–147; BP diastolic 58–75; PULSE 63–101; RESP 13–25; TEMP 36.4–36.6; O2SAT 92–99
[2025-08-19 05:21] LABS: Add Manual Diff / Slide Review NO; Hematocrit 21.1 % (36-46); Hemoglobin 7.2 g/dL (12.0-16.0); Lymphocytes Absolute Auto 1800 /uL (1100-4500); Mean Corpuscular HGB Conc 34.3 % (30-36); Mean Corpuscular Hemoglobin 30.1 PG (26-34); Mean Corpuscular Volume 87.7 fL (80-100); Platelet Count 530 X10^3/uL (150-400)
[2025-08-19 05:50] LABS: Blood Urea Nitrogen 20 mg/dL (7-17); Calcium 8.4 mg/dL (8.4-10.2); Carbon Dioxide 24 mmol/L (22-32); Chloride 104 mmol/L (98-107); Estimated Glomerular Filt Rate > 60 mL/min (>60); Glucose 108 mg/dL (70-99); HEMOLYSIS < 15 (0-50); Potassium 4.1 mmol/L (3.4-5.1); Sodium 134 mmol/L (137-145)
[2025-08-19] MEDS: METOPROLOL IR 25 MG TABLET PO ×2 (06:02→22:32)
[2025-08-19] MEDS: ASPIRIN EC 81 MG TABLET PO ×2 (08:09→22:32)
[2025-08-19] MEDS: SODIUM CHLORIDE 1,000 MG TABLET 2000 MG PO ×2 (08:09→22:31)
[2025-08-19] MEDS: CLOPIDOGREL 75 MG TABLET PO (08:09)
[2025-08-19] MEDS: SODIUM CHLORIDE 0.9% FLUSH 10 ML IV ×2 (08:09→22:33)
--- NOTE | 2025-08-19 09:45 | SLP.IPNOTE ---
Session attempted around 9:40 am. Pt resting in bed with family member at bedside. Pt immediately declined to participate saying no and I don't want this several times. BARNWORKER GROOM explained that it would be beneficial for family member to receive education re: communication strategies and be aware of progress. However, pt continued to decline to participate, but agreeable for BARNWORKER GROOM to return when family member leaves. BARNWORKER GROOM to follow up later in day as schedule allows.
--- NOTE | 2025-08-19 10:57 | PM.PNPO.1 ---
Subjective Subjective Date Patient Seen: 08/19/25 Time Patient Seen: 10:30 Interval history: Camille is a very pleasant 75 year old female who is seen today on POD#14 s/p ORIF w/ IMN for a right intertroch femur fx. 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 History somewhat limited, although patient is able to converse, seems to be much improved w/ her speech since my last visit w/ her. She is asking appropriate questions about her care, speech is slow. She tells me she is in 9/10 pain in her hip but that her arm is no longer hurting her. She tells me she has been working w/ PT but has not been out of bed much. Exam Vital Signs (past 8 hours): - 08/19/25 03:00 08/19/25 03:30 08/19/25 04:00 Temperature Pulse Rate 68 67 70 Respiratory Rate 14 14 15 Blood Pressure Pulse Oximetry Oxygen Delivery Method Oxygen Flow Rate 08/19/25 04:28 08/19/25 04:28 08/19/25 04:28 Temperature 97.6 F Pulse Rate 82 82 Respiratory Rate 20 20 Blood Pressure 120/58 L 120/58 L Pulse Oximetry 95 95 Oxygen Delivery Method Oxygen Flow Rate 0 08/19/25 04:30 08/19/25 05:00 08/19/25 05:34 Temperature Pulse Rate 86 76 70 Respiratory Rate 20 16 13 Blood Pressure Pulse Oximetry Oxygen Delivery Method Oxygen Flow Rate 08/19/25 06:00 08/19/25 06:30 08/19/25 07:00 Temperature Pulse Rate 74 83 63 Respiratory Rate 14 25 H 14 Blood Pressure Pulse Oximetry Oxygen Delivery Method Oxygen Flow Rate 08/19/25 07:30 08/19/25 08:00 08/19/25 08:15 Temperature Pulse Rate 63 75 79 Respiratory Rate 15 20 20 Blood Pressure Pulse Oximetry 93 Oxygen Delivery Method Oxygen Flow Rate 08/19/25 08:15 08/19/25 08:30 08/19/25 09:00 Temperature Pulse Rate 72 Respiratory Rate 21 Blood Pressure 125/69 Pulse Oximetry Oxygen Delivery Method Room Air Oxygen Flow Rate 08/19/25 09:00 08/19/25 09:00 08/19/25 09:30 Temperature 97.9 F Pulse Rate 81 75 Respiratory Rate 22 24 Blood Pressure Pulse Oximetry Oxygen Delivery Method Oxygen Flow Rate Oxygen Delivery Method Room Air Oxygen Flow Rate 0 Narrative Exam Narrative: Patient sitting upright in bed, appears comfortable. No acute distress. DF, PF, EHL intact bilaterally. Gross sensation intact throughout bilateral lower extremities. Calves soft and compressible BL. SCDs in place. Post-surgical dressings w/ Medipore tape and Aquacel dressing clean, dry and intact over the right hip w/o any drainage. After dressing was taken down, incision site was examined which appeared to be healing well w/o any surrounding erythme or drainage, fany in place. Const General: cooperative and comfortable Resp Effort & Inspection: normal respiratory effort Objective Labs 08/19/25 04:50 08/19/25 04:50 Labs: Laboratory Results - last 24 hr 08/19/25 04:50 WBC 10.7 RBC 2.41 L Hgb 7.2 L Hct 21.1 L MCV 87.7 MCH 30.1 MCHC 34.3 RDW 17.5 H Plt Count 530 H Neut % (Auto) 71.4 Lymph % (Auto) 17.2 L [place] % (Auto) 9.0 Eos % (Auto) 2.0 Baso % (Auto) 0.4 Neut # (Auto) 7600 H Lymph # (Auto) 1800 [place] # (Auto) 1000 H Eos # (Auto) 200 Baso # (Auto) 0 Sodium 134 L Potassium 4.1 Chloride 104 Carbon Dioxide 24 BUN 20 H Creatinine 0.56 Estimated GFR > 60 BUN/Creatinine Ratio 35.7 H Glucose 108 H Calcium 8.4 PFSH Medical History Myocardial infarction complications Diastolic dysfunction with chronic heart failure Social History household members: significant other Smoking Status: Never smoker alcohol intake: never Assessment & Plan Post-op Postoperative Procedures: Procedures Operation Date: 08/05/25 14:00 Actual Procedure Side Surgeon p cephalomedullary nail Right Indira Bustamante, Postoperative day: 14 Postoperative status narrative: Postoperative status complicated by myocardial infarction, stroke, SIADH. The patients dressing was removed by me today, the incision site was cleaned w/ Chloraprep, the fany were removed and steri strips were placed over the incision site for additional skin closure/wound healing support. Postoperative plan narrative: 1) WBAT w/ walker, okay to put weight through RUE when using the walker. 2) DVT prophylaxis per primary team. SCDs to be on and functioning while patient in bed. Currently getting ASA BID. 3) Continue PT/OT. 4) Multimodal pain management with ice to the hip as needed for additional pain control. 5) D/c dispo per primary team, likely SNF in the next few days per hospitalist note. Appreciate internal medicine and cardiology assistance with this patient. Time Spent With Patient Time with patient: 15-24 minutes
--- NOTE | 2025-08-19 11:53 | ST.IPTN ---
Visit Care Team Role Provider Type Puma Erickson, Other Providers Physician Address: [address] [place] [address], [id number] Prasanth Iglesias MD Other Providers Physician Address: [address] [place] [address], [id number] Colten Law MD Other Providers Physician Address: [address] [place] [address], [id number] Phone: Fax: Josephine Tucker MD Other Providers Physician Address: [address] [place] [address], [id number] Phone: Fax: Indira Bustamante DO Other Providers Physician Address: [address] [place] [address], [id number] Alan Abdalla MD Other Providers Physician Address: [address] [place] [address], [id number] Harry Lopez MD Other Providers Physician Address: [address] [place] [address], [address] Steffi Archer MD Other Providers Physician Address: [address] [place] [address], [address] Antonia Zhang MD Other Providers Physician Address: Phone: Fax: Elizabeth Patel MD Other Providers Physician Address: [address] [place] [address] Estrada Flor MD Other Providers Physician Address: [address] [place] [address], [address] Petar Murphy MD Emergency Provider Physician Referring Provider Address: [address], [address] Fax: Kenneth Rose MD Admit Provider Physician Attending Provider Address: [address] [place] [address], [id number] Fax: POSSUM TRAPPER Treatment Note POSSUM TRAPPER Treatment Note Start: 08/18/25 13:47 Freq: Status: Active Protocol: Document 08/19/25 11:33 SS (Rec: 08/19/25 11:53 SS [email or web address]) Speech Pathology Treatment Note Session Time Visit Start Time 10:40 Visit Stop Time 11:20 Total Visit Minutes 40 Visit Information Visit Number 3 Setting Treatment Setting Acute Care Visit Type Note Type Treatment Note Next Note Type Next Note Type Treatment Note General Information Patient History Per H&P: The pt is a 75 yo who was walking outside when she slipped and tripped on a curb landing on her right hip having immediate pain. The pt tripped several weeks ago and fractured her Rt humerus and is in a sling. She has a hx of CAD with a CABG about 20 years ago and has hypertension which her (who answered all the questions) states is under very good control. She normally has some difficulty with ambulation but they deny having trouble with ADL's. Per recent progress notes, pt is s/p ORIF w/ IMN for a right intertroch femur fx. 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 Subjective Identification Type Name,Date of Observations/Patient Pt initially declined to participate in session when Presentation family member, Low, was present. However, she was agreeable to participate after he had left. RN reported pt able to express needs/wants more clearly today and answering yes/no questions with increased accuracy ( rather than no for all responses). Objective Short Term Goals 1. Patient will utilize total communication (verbal, yes/no, gestures, AAC) to communicate basic wants/needs (food preferences, activity preferences, medical information) in 75% of opportunities independently. 2. Patient will correctly name salient object in 80% of opportunities with minimal assistance in order to increase functional word retrieval in daily communication. 3. Patient will produce 5 or more content words per utterance (as compared to baseline of 1-3) through skill and strategy practice in 80% of opportunities during functional conversation in order to enhance communicative effectiveness. Director Of Accounts Receivable Goals 1. Patient will utilize total communication (verbal, yes/no, gestures, AAC) to communicate basic wants/needs (food preferences, activity preferences, medical information) in 90% of opportunities independently. Treatment Activities Continued use of low-tech AAC targeting responding to yes/no questions and modified Semantic Feature Analysis targeting naming of everyday common objects. Targeted verbal expression, content word retrieval, and response length with implementation of Response Elaboration Training (RET). Assessment Patient Response to Good Treatment Rehab Potential Good Impairments Expressive language,Receptive language Identified Progress Towards Good Progress Goals Assessment of Improving Overall Progress Assessment of Pt continued to produce average of 1-2 words when Improvement responding to questions with minimal initiation at conversation. However, she was motivated to participate in treatment today, stating she was feeling ?not well? today, but would like to try. 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 Pt responded to yes/no questions for egocentric questions (own name, location, etc) with about 60% accuracy independently which is a significant increase from yesterday. Accuracy increased to about 90% given direct model, repetition of question, and use of simple yes/no AAC symbols. During naming activity, pt was tasked with naming functional items that are personally-meaningful to her (e.g., hairbrush, remote, etc). Pt was able to name 84% of everyday common objects independently, increasing to to 96% accuracy given semantic and phonemic cueing. With open-ended picture stimuli during Response Elaboration Training activity, the pt formed sentences with an average of x1 content words. POSSUM TRAPPER implemented wh -questions (ex: who, what, where, when) with the goal of improving response length and the pt increased to an average of x4 content words. Pt benefited from POSSUM TRAPPER shaping and modeling, as well as positive reinforcement during the task to improve verbal responses. 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 Pt continues to demonstrate slow and steady progress with expressive and receptive language. She is responding to yes/no questions with increased accuracy given use of AAC and is able to retrieve target words and produce longer utterances with POSSUM TRAPPER cueing. Continue current protocol given pt progress with focus on expressive/receptive language and apraxia treatment (e. g., melodic intonation, integral stimulation) to increase ability to communicate basic needs/wants and reduce communication breakdowns. Plan Amount of Therapy Other Recommended Comment During admission Frequency of Five Times a Week Treatment Length of Session 30 Minutes Therapeutic Contents AAC,Client Education,Expressive Language Training,Oral Motor Training,Receptive Language Training Therapy Continue with Current Program Recommendations
--- NOTE | 2025-08-19 12:05 | OT.IP.TRT ---
Current Diagnoses Essential (primary) hypertension (08/04/25) Subsequent non-ST elevation (NSTEMI) myocardial infarction (08/04/25) Other current complications following acute myocardial infarction (08/04/25) Nonrheumatic aortic (valve) stenosis (08/04/25) Chronic diastolic (congestive) heart failure (08/04/25) Displaced intertrochanteric fracture of right femur, initial encounter for closed fracture (08/04/25) Surgery Performed Operation Date: 08/05/25 14:00 Actual Procedures p cephalomedullary nail(Right) - Indira Bustamante, DO Occupational Therapy Treatment Note M2 OT-IP Current Condition Start: 08/07/25 11:33 Freq: Status: Active Protocol: Document 08/12/25 13:54 CCC (Rec: 08/12/25 14:10 [facility] Desktop) Occupational Therapy Current Condition Current Condition Evaluation Date 08/12/25 Treatment Diagnosis S/P Right hip orif with IMN on 08/05/25 and subsequent CO and CVA Post Operative Precautions Shoulder Precautions Sling Other Precautions Right arm in sling per Sx ok to put some weight on it with FWW. M3 OT- IP Subjective and Pain Start: 08/07/25 11:33 Freq: Status: Active Protocol: Document 08/19/25 12:16 CCC (Rec: 08/19/25 12:27 [facility] Desktop) OT- Subjective Occupational Therapy Visit Type Type Treatment Note Visit Start Time 11:20 Visit Stop Time 12:05 Occupational Therapy Visit Comments Patient Comments Pt having to be changed and agreed to get to the [facility], nursing aid present and assisting. Pt states her hip pain is 9/10 but refusing to have any pain medications. Patient/Caregiver To get better. Goals OT Pain Assessment Pain When Pain Assessed At Rest Pain Present Pain Present Pain Reported Location right hip Intensity 9 Scale Used Numeric (0 - 10) M4 OT- IP ADL's Start: 08/07/25 11:33 Freq: Status: Active Protocol: Document 08/19/25 12:16 CCC (Rec: 08/19/25 12:27 [facility] Desktop) OT PYV-Nuaf-Avuehpt Comments OT Self-Feeding Not at meal time. Comments OT ADL-Grooming General Evaluation Grooming Ability Standby Assistance Comments OT Grooming Comments Pt able to do with CRISELDA vc. OT ADL-Oral Care General Eval Oral Care Ability Standby Assistance OT ADL-Dressing General Eval Lower Body Dressing Total Assistance Ability Areas Needing Underpants/Brief,Socks Assistance OT ADL-Toileting General Evaluation Toileting Ability Total Assistance Areas Needing Empty Catheter or Colostomy,Manage Clothing,Perform Assistance Perineal Hygiene Comments OT Toileting Pt able to transfer with FWW with MAX AX 1 to MODA X 2 Comments with FWW today to the [facility] and then to the recliner. M5 OT- IP IADL's Start: 08/07/25 11:33 Freq: Status: Active Protocol: Document 08/12/25 13:54 [facility] (Rec: 08/12/25 14:10 [facility] Desktop) OT-Instrumental Activities of Daily Living Home Safety Awareness Awareness of Need Decreased Awareness for Assistance at Home Ability to Problem Unable to Problem Solve Solve Emergency Situations Medication Management Medication Pt will need assist. Management Comments Money Management Money Management Pt will need assist. Comments Meal Preparation Meal Preparation Pt will need assist. Comments Talent Acquisition Director Talent Acquisition Director Pt will need assist. Comments M6 OT- IP Functional Cognition Start: 08/07/25 11:33 Freq: Status: Active Protocol: Document 08/19/25 12:16 [facility] (Rec: 08/19/25 12:27 [facility] Desktop) Cognitive Factors Limiting Selfcare Function Cognitive Comments Cognitive Assessment Pt able to do oral care need after set-up and one Comments for completeness. Pt a bit impulsive at times and just needing cues to redirect and reminders for her safety needs. Pt doing better to get her words out. M7 OT- IP Mobility and Balance Start: 08/07/25 11:33 Freq: Status: Active Protocol: Document 08/19/25 12:16 [facility] (Rec: 08/19/25 12:27 [facility] Desktop) OT- Bed Mobility Assessment Supine to Sit Supine to Sit Assist Moderate Assistance Scooting Scooting to Edge of Maximum Assistance Bed OT-Transfer Assessment Sit to and From Stand Sit to and from Moderate Assistance,Maximum Assistance,1 Person Stand Assistance Transfers Transfer Ability Moderate Assistance,Maximum Assistance,1 Person Assistance,2 Person Assistance Technique Transfer Destination Bed,Bedside Commode,Chair Devices Transfer Assistive Gait Belt,Front Wheeled Walker Devices Comments Mobility Comments Cues to bend her LLE and push on the bed so able to get her hips to the edge of the bed. MODA to get her trunk upright and MAXA to scoot to the edge of the bed. MAX AX 1 to MOD Ax2 to stand to the FWW and transfer. Pt cues to lean forwards and for hand placement to push up and reach back to surfaces prior to standing and sitting down. At one pint while standing with the FWW, pt able to balance herself and was CGA/CRISELDA. OT- Balance Assessment Sitting Balance and Reactions Static Sitting Good Balance Ability Dynamic Sitting Fair Balance Ability Standing Balance and Reactions Static Standing Poor Balance Ability Dynamic Standing Poor Balance Ability Comments Other Balance Tests/ Pt tends to lean into posterior tilt when standing and Deviations/Treatment needing cues and assist to stand upright and to midline : with the FWW. M8 OT- IP Objective Assessments Start: 08/07/25 11:33 Freq: Status: Active Protocol: Document 08/12/25 13:54 [facility] (Rec: 08/12/25 14:10 [facility] Desktop) OT Gross Range of Motion Upper Extremity Range of Motion Assessment Right Impaired OT Strength Upper Extremity Strength Assessment Right Impaired M9 OT- IP Assessment and Plan Start: 08/07/25 11:33 Freq: Status: Active Protocol: Document 08/19/25 12:16 [facility] (Rec: 08/19/25 12:27 [facility] Desktop) OT Summary Assessment and Plan Potential Rehabilitation Good Potential Analytic Complexity High at Evaluation Summary OT Impairments Pain,Range of Motion,Strength,Balance,Functional Cognition,Functional Mobility,Self-Feeding,Grooming, Dressing,Toileting,Bathing,Toilet Transfers,Shower Transfers,Activity Tolerance Progress Towards Progressing Toward Goals Goals Assessment Summary Pt able to transfer with MAXA x1 to MODA X2 with FWW today. Pt needing less vc and assist and able to go grooming and oral care needs with supervision. Pt to go to skilled rehab when medically stable. Goals Self-Feeding Goal Standby Assistance Grooming Goal Independent Dressing Goal Minimal Assistance Toileting Goal Minimal Assistance Bathing Goal Moderate Assistance Toilet Transfer Goal Contact Guard Assistance Shower Transfer Goal Minimal Assistance Days to Meet Goals 26 Frequency of Treatment Other frequency 5x/week Treatment Plan OT Treatment Plan ADL Training,Functional Cognition Training,Functional Mobility,Patient/Family Education,Discharge Planning Discharge Recommendations OT Discharge SNF Rehab Recommendations Transportation Needs Wheelchair/Cabulance at Discharge
--- NOTE | 2025-08-19 12:21 | PC.NURSE ---
Day shift: Pt assisted in chair by OT and PCT. Pt SRINI Kelsey stated pt's belief system is against receiving blood from a donor who has been vaccinated for COVID-19. Provider Dr. Estrada aware. Pt verbalizes understanding of medical need for blood and continues to decline due to belief system. Care ongoing.
--- NOTE | 2025-08-19 12:48 | P.PN_ITS ---
Subjective Subjective Interval history: Interval history: 08/04: 75-year-old female who was admitted with a hip fracture after a fall. She has a history of moderate aortic stenosis and CAD with a previous CABG. The patient had a mildly elevated troponin. She would complained of chest pain intermittently for the past 3 months. Her initial ECG was abnormal and she was discussed with Cardiology and evaluated with an echo which revealed good EF, no wall motion abnormalities, and aortic stenosis. Her revised cardiac risk index for an emergent surgery that is low risk was utilizing calculated with a score of 1 which is a moderate risk of 6%. She did undergo surgery (Screw) and her postoperative troponin did bump to 11. She remains hemodynamically stable and comfortable. Cardiology is consulted and we will be evaluating her. 08/05. Echo revealed a and normal EF. She had a mildly elevated troponin went to the OR after consultation with Cardiology with a moderate risk of 6% or less for cardiac adverse events. Unfortunately, she did have evidence of NSTEMI with a troponin of 11 in the postoperative. 08/06: Doing well, no chest pain or dyspnea. Troponin remained elevated at 11. Discussed with Cardiology who did evaluate the patient. Not felt to be appropriate for heparin drip given her postoperative status. Treated with aspirin, and beta blockade. 08/07: Trop 4. Limited ECHO: The ejection fraction is estimated to be 50-55%. There are regional wall motion abnormalities as specified. Basal septal and mid to basal inferior hypokinesis 08/08: Patient having some apparent Adrian phrenic and subtle appearance of a right facial droop today CT of the head ordered otherwise MRI ordered demonstrated left cortical and white matter punctate infarcts patient is started on Plavix 300 when addition to aspirin 08/09: Developed 8/10 chest pain about 12:30 p.m. EKG shows extensive T-wave and ST segment changes and Q-waves troponin 1.9 which is down from 4 from 08/07. BNP is 2000. Chest pain was relieved with sublingual nitroglycerin and 1/2 inch of nitroglycerin paste. Consulted with Cardiology with a consensus decision to transfer to ICU and initiate nitroglycerin drip if chest pain recurs. Patient is not a candidate for cardiac catheterization due to stroke, not a candidate for anticoagulation due to risk of hemorrhagic transformation of stroke and exsanguination from surgery. Patient loaded Plavix 300 mg serial troponin 08/10: No further reports of chest pain troponin trending down to 1380 started on Imdur 30 mg a day and currently on dual antiplatelet aspirin Plavix metoprolol patient demonstrates very impaired short-term memory eats a piece of egg with a fork with the right hand does like the taste and takes it it out with her left hand and repeats this on the same piece of egg over and over 08/11: No further episodes of chest pain patient is still doing repetitive behaviors but is interactive despite replacing solute and fluid restriction and diuretic patient still has sodium of 117 08/12: Sodium 119 in the morning chronic saline initiated at 100 cc total for 20 cc an hour. At the end of the infusion sodium increased to 122. Patient is still confused was interpretive and expressive aphasia repeating meaningless repetitive behaviors 08/13: Sodium improved to 124 after 2nd hypertonic saline infusion 2 g oral salt replacement and 1500 cc fluid restriction 08/14: Patient is still confused but there is less meaningless repetitive behavior sodium is 125. 08/15 evening: New AF RVR, treated with metoprolol. Converted to NSR. Dx: PAF. Urine retention 08/15-straight cath. S: No acute complaints, no chest pain, or dyspnea. AF + RVR last night, treated with IV metoprolol x2. Repeat sodium 122, down from 125, urine sodium 20. 08/17: Sodium level today is up to 125. Experienced mild pulmonary edema (chest x-ray and BNP 9520) with sat 94% on 4 L OxyMask early this morning so was treated with Lasix 40 mg IV and IV fluid was held. White blood count up to 17.2 and hemoglobin stable at 7.9. Platelets hugh to 684. Urine culture from 08/13 with pansensitive E coli. Already on ceftriaxone. Experienced urinary retention today, likely rectal impaction related. Catheter placed. Discussed details with POA. 08/18: Sodium level up to 129 today. Platelets dropped down to 601. Hemoglobin stable at 7.6. White blood count dropped again to 11.4. Blood pressure is 165/79. Speech is slow and seems to take great effort. She is on track to discharge to [facility] [place] [facility] [place] in 1-2 days. Discussed details with POA. O: BP 107/59, P 62, RR 16, SaO2 93%. NAD, alert and oriented. Slow and stuttering speech. Lungs are clear, normal rate and effort. Heart is regular, systolic murmur and no gallop or rub. Abdomen is soft, non distended. Extremities are free of edema. IMAGING: X-rays of her right shoulder demonstrate a comminuted healing proximal humerus fracture. X-rays of her right hip and CT scan of the right hip demonstrate a comminuted intertrochanteric right hip fracture. ECHO: - The left ventricular contractility is normal. Estimated ejection fraction is greater than 55% with no segmental wall motion abnormalities. Mild concentric LVH. Grade 1 diastolic dysfunction. - The right ventricular contractility is normal. - Moderate left atrial enlargement. All other cardiac chambers are of normal size. - Moderate mitral annular calcifications with mild mitral valvular stenosis. Mean gradient is 4.2 mmHg. - Moderate aortic valvular stenosis with peak velocity of 3.1 m/s. Mean gradient of 25.1 mmHg. Dimensionless index of 0.45. - No obvious intracardiac shunts. - No obvious intracardiac masses nor thrombi. - No hemodynamically significant pericardial effusion. - Low right-sided filling pressures. Conclusion: Normal biventricular systolic function with mild to moderate valvular stenoses. Brain MR: A few punctate regions of restricted diffusion the subcortical white matter of the left temporal lobe and the deep white matter of the simpson radiata. Findings raise the concern for embolic infarct. A/P: 1. 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 * Contributing to encephalopathy * Saline infusion discontinued after flash pulmonary edema. * Continue NaCl 2 tabs b.i.d. * Monitor sodium closely. * Not on any SSRI or HCTZ 2. Right hip fracture status post ORIF with perioperative non STEMI (moderate periorbital risk of coronary disease given history of CAD with revascularization) with possible new outcome of apical akinesis * Complicated by perioperative myocardial infarction and left-sided stroke 3. 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 Findings raise the concern for embolic infarct). : * Loaded Plavix 300 mg * Dual platelets Plavix and aspirin * High-intensity statin * 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 * 4. NSTEMI post operative. Chronic coronary artery disease status post CABG with unstable angina 08/09. * Not a candidate for cardiac catheterization due to stroke * Not a candidate for anticoagulation due to stroke and postoperative * Aspirin with Plavix daily * Long-acting Nitrates Imdur to manage angina * Appreciate cardiology expertise * Continue all goal directed medical therapy * Perioperative non STEMI likely type 2 * Follow up with Cardiology after discharge and rehabilitation to establish anatomy and possible interventions at a safe point. * Repeat limited Echo on 08/17 after flash pulmonary edema episode 5. PAF, new. 6. Altered mental status. Improving. -likely related to her small stroke and prolonged multifactorial illness. -slowly improving. 7. Thrombocytosis/Anemia/Leukocytosis. Anemia is worse today. The patient does decline any blood that has not screen above against previous COVID vaccinations. -related to postop and multifactorial illness. -stable/resolving PLAN: -Continue current medications. -continue salt tabs 2 p.o. b.i.d., follow sodium closely. -Stopped IV NS -Repeat limited Echo for updated EF, pending -continue fluid restriction. -PT, OT. -Discharge planning. SNF at [facility] [place] -Consider delayed anticoagulation. Continue ASA BID for DVT/PE prevention. -consider discontinuing Plavix based on patient's decreased hemoglobin as well as preference. -monitor hemoglobin. DISPO: Anticipate discharge to a [facility] facility in 1-2 more days. Exam Vital Signs (past 8 hours): - 08/19/25 05:00 08/19/25 05:34 08/19/25 06:00 Temperature Pulse Rate 76 70 74 Respiratory Rate 16 13 14 Blood Pressure Pulse Oximetry Oxygen Delivery Method 08/19/25 06:30 08/19/25 07:00 08/19/25 07:30 Temperature Pulse Rate 83 63 63 Respiratory Rate 25 H 14 15 Blood Pressure Pulse Oximetry Oxygen Delivery Method 08/19/25 08:00 08/19/25 08:15 08/19/25 08:15 Temperature Pulse Rate 75 79 Respiratory Rate 20 20 Blood Pressure 125/69 Pulse Oximetry 93 Oxygen Delivery Method 08/19/25 08:30 08/19/25 09:00 08/19/25 09:00 Temperature Pulse Rate 72 81 Respiratory Rate 21 22 Blood Pressure Pulse Oximetry Oxygen Delivery Method Room Air 08/19/25 09:00 08/19/25 09:30 Temperature 97.9 F Pulse Rate 75 Respiratory Rate 24 Blood Pressure Pulse Oximetry Oxygen Delivery Method Oxygen Delivery Method Room Air Oxygen Flow Rate 0 Objective Labs 08/19/25 04:50 08/19/25 04:50 Labs: Laboratory Results - last 24 hr 08/19/25 04:50 WBC 10.7 RBC 2.41 L Hgb 7.2 L Hct 21.1 L MCV 87.7 MCH 30.1 MCHC 34.3 RDW 17.5 H Plt Count 530 H Neut % (Auto) 71.4 Lymph % (Auto) 17.2 L [place] % (Auto) 9.0 Eos % (Auto) 2.0 Baso % (Auto) 0.4 Neut # (Auto) 7600 H Lymph # (Auto) 1800 [place] # (Auto) 1000 H Eos # (Auto) 200 Baso # (Auto) 0 Sodium 134 L Potassium 4.1 Chloride 104 Carbon Dioxide 24 BUN 20 H Creatinine 0.56 Estimated GFR > 60 BUN/Creatinine Ratio 35.7 H Glucose 108 H Calcium 8.4 PFSH Medical History Myocardial infarction complications Diastolic dysfunction with chronic heart failure Social History household members: significant other Smoking Status: Never smoker alcohol intake: never Assessment & Plan Time-Based Coding :: [TOTAL MINUTES] spent with patient and on the chart (including review of chart, obtaining history, exam, reviewing outside data, placing orders, documenting exam and treatment plan, and counseling patient) on [DATE].
[2025-08-19 13:45] LABS: Hematocrit 24.7 % (36-46); Hemoglobin 8.3 g/dL (12.0-16.0)
--- NOTE | 2025-08-19 14:24 | DIET.PN1 ---
Dietary Progress Note Assessment: Continuing to encourage solid food intake in addition to Ensure+ TID. Monitoring PO intakes. Ht: 157.48 cm Wt: 65 kg BMI: 24.7 UBW: Last BM: 08/19/25 (08/19/25 12:57) MNA: 12 Jamshid Score: 16 Diet: 08/06/25 Breakfast General (Regular) Diet Diet Modifications: Food Texture: Level 7 - Regular Liquid Consistency: Level 0 - Thin 08/11/25 Lunch Fluid Restriction Diet Diet Modifications: Total fluid amount: 1,500 Amount allotted to patient trays: 400 Free water included in total: Yes Fluid in addition to trays: 1089-2611 amount: 1,100 [id number] amount: 100 Food Texture: Level 7 - Regular Liquid Consistency: Level 0 - Thin Nutrition Percent Meal Consumed 100% 08/19/25 13:00 Labs: RBC 2.41 X10^6/uL (4.0-5.2) L 08/19/25 04:50 Hgb 8.3 g/dL (12.0-16.0) L 08/19/25 13:40 Hct 24.7 % (36-46) L 08/19/25 13:40 Creatinine 0.56 mg/dL (0.52-1.04) 08/19/25 04:50 NT-Pro-B Natriuret Pep 9520 pg/mL (<450) H 08/17/25 08:00 Electronically Signed by: Kiarra Dial 08/19/25 14:24 Clinical Dietitian [address] [address]
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
--- NOTE | 2025-08-19 14:36 | CM.DPC ---
Anne with [facility] returned call. Auth still pending. Possible admit delay do to [place].
--- NOTE | 2025-08-19 15:48 | PT.IPTN ---
Current Diagnoses Essential (primary) hypertension (08/04/25) Subsequent non-ST elevation (NSTEMI) myocardial infarction (08/04/25) Other current complications following acute myocardial infarction (08/04/25) Nonrheumatic aortic (valve) stenosis (08/04/25) Chronic diastolic (congestive) heart failure (08/04/25) Displaced intertrochanteric fracture of right femur, initial encounter for closed fracture (08/04/25) Surgery Performed Operation Date: 08/05/25 14:00 Actual Procedures p cephalomedullary nail(Right) - Indira Bustamante, DO Physical Therapy Treatment Note M2 PT-IP Current Condition Start: 08/07/25 11:30 Freq: NEEDED Status: Active Protocol: Document 08/15/25 16:17 SAK (Rec: 08/15/25 16:27 SAK [id number]) Physical Therapy Current Condition Current Condition Evaluation Date 08/12/25 Treatment Diagnosis R intertrochanteric Fx, CVA, DC M3 PT-IP Subjective Start: 08/07/25 11:30 Freq: NEEDED Status: Active Protocol: Document 08/19/25 16:18 NW (Rec: 08/19/25 16:30 NW [id number]) Subjective Physical Therapy Visit Type Type Treatment Note Visit Start Time 15:30 Visit Stop Time 15:48 Physical Therapy Visit Comments Patient Comments Pt is found reclined in bed side chair with call light in reach. Pt initially states she does not want to participate with PT and then says she wants to go to bed. M4 PT-IP Mobility and Gait Start: 08/07/25 11:30 Freq: NEEDED Status: Active Protocol: Document 08/19/25 16:18 NW (Rec: 08/19/25 16:30 NW [id number]) PT-Bed Mobility Assessment Sit to Supine Sit to Supine Moderate Assistance Scooting Scooting to Edge of Maximum Assistance Bed PT-Transfer Assessment Sit to and From Stand Sit to and from Moderate Assistance,1 Person Assistance Stand Equipment Transfer Assistive Gait Belt,Front Wheeled Walker Device Transfers Transfer Destination Bed Transfer Technique Stand Pivot Transfer Ability Level of Assist Moderate Assistance,2 Person Assistance Comments Mobility Comments STS with FWW modA x 1 with heavy posterior lean. Cues to stand tall and lean forward with adequate correction . Varies in level of assist upon stance. Requires step by step cues for UE placement and weight shifting. Transfer performed to L for SPT. Gait Assessment Gait Gait Assistance Moderate Assistance,1 Person Assist Required: Distance (Feet) 2 Able to Maintain Yes Weight Bearing Status During Gait Assistive Devices Assistive Device Gait Belt,Front Wheeled Walker Factors Limiting Gait Function Factors Limiting Decreased Activity Tolerance,Decreased Strength,Poor Gait Function Balance Comments Gait Comments Performed side stepping at edge of bed to R. Requires extensive assistance for weight shifting to allow for foot clearance and cueing for sequence. Fatigues quickly. PT-Balance Assessment Sitting Balance and Reactions Static Sitting Fair Balance Ability Dynamic Sitting Fair Balance Ability Standing Balance and Reactions Static Standing Poor Balance Ability Dynamic Standing Poor Balance Ability Device Used FWW Comments Other Balance Tests/ weight shifting training with FWW to allow for side Deviations/Treatment stepping : M5 PT-IP Objective Assessments Start: 08/07/25 11:30 Freq: NEEDED Status: Active Protocol: Document 08/12/25 13:35 DCW (Rec: 08/12/25 14:57 [id number]) Orientation Orientation/Cognition Level of Alertness Confusional State Safety Awareness Decreased Safety Awareness Comments Pt responds with yes or no inappropriately. Will say no to answer can you move your leg, then immediately move her leg. Denies DC or CVA history. M6 PT-IP Treatment Start: 08/07/25 11:30 Freq: NEEDED Status: Active Protocol: Document 08/19/25 16:18 NW (Rec: 08/19/25 16:30 NW [id number]) Physical Therapy Treatment Education Education Provided Safety M7 PT-IP Assessment and Plan Start: 08/07/25 11:30 Freq: NEEDED Status: Active Protocol: Document 08/19/25 16:18 NW (Rec: 08/19/25 16:30 NW [id number]) PT Summary Assessment and Plan Potential Rehabilitation Fair Potential Status of Condition Evolving at Evaluation Summary Impairments Pain,ROM,Strength,Balance,Cognition,Bed Mobility, Transfers,Gait,Activity Tolerance Progress Towards Slow Progress due to Medical Issues,Slow Progress due Goals to Activity Tolerance Assessment Summary Camille is found in the recline and initially is not agreeable to participate with PT and then states she wants to return to bed. Per last PT note tried to communicate with yes/no and rechecking upon answer, pt starts to use nonverbal communication to assist. Pt continue to make slow progress in being able to side step at edge of bed 2 ft towards R with heavy assistance for weight shift and step by step cueing. Continuing to recommend SNF. Goals Bed Mobility Goal Minimal Assistance Transfer Goal Minimal Assistance,Front Wheeled Walker Gait Goal Minimal Assistance,Moderate Assistance,Front Wheel Walker Gait Distance 10 feet Days to Meet Goals 10 Frequency of Treatment Frequency Of Once a Day Treatment Treatment Plan Physical Therapy Bed Mobility Training,Transfer Training,Gait Training, Treatment Plan Therapeutic Exercise,Balance Retraining,Post Op Education,Discharge Planning,Hot or Cold Pack, Neuromuscular Re-ed Other static standing to improve balance. Recommendations and CGA with weight shift to assist with increased weight Next Treatment Focus bearing through RLE. Precautions Other Precautions sling as needed to manage right shoulder pain due to healing fracture Acute CVA and DC Weight Bearing Status Weight Bearing Weight Bear as Tolerated Status Allowed Weight right LE Bearing Amount ( enter % or #) (%) Recommendations To Nursing Amount of Assist 2 Person Assist Needed Discharge Recommendations PT Discharge SNF Rehab Recommendations Transportation Needs Wheelchair/Cabulance at Discharge - PT assist 1-2
[2025-08-19] MEDS: ATORVASTATIN 20 MG TABLET 80 MG PO (22:30)
[2025-08-20] VITALS (35 sets, daily range): BP systolic 111–145; BP diastolic 55–81; PULSE 68–102; RESP 14–31; TEMP 36.3–37.3; O2SAT 95–96
[2025-08-20 04:13] LABS: Add Manual Diff / Slide Review NO; Hematocrit 22.7 % (36-46); Hemoglobin 7.5 g/dL (12.0-16.0); Lymphocytes Absolute Auto 1400 /uL (1100-4500); Mean Corpuscular HGB Conc 33.0 % (30-36); Mean Corpuscular Hemoglobin 29.2 PG (26-34); Mean Corpuscular Volume 88.5 fL (80-100); Platelet Count 569 X10^3/uL (150-400)
[2025-08-20 04:27] LABS: Blood Urea Nitrogen 17 mg/dL (7-17); Calcium 8.4 mg/dL (8.4-10.2); Carbon Dioxide 24 mmol/L (22-32); Chloride 105 mmol/L (98-107); Estimated Glomerular Filt Rate > 60 mL/min (>60); Glucose 117 mg/dL (70-99); HEMOLYSIS < 15 (0-50); Potassium 4.1 mmol/L (3.4-5.1); Sodium 135 mmol/L (137-145)
[2025-08-20 05:00] LABS: Troponin I 3.390 ng/mL (0.01-0.034)
[2025-08-20] MEDS: SODIUM CHLORIDE 0.9% FLUSH 10 ML IV ×2 (08:12→21:16)
[2025-08-20] MEDS: SODIUM CHLORIDE 1,000 MG TABLET 2000 MG PO ×2 (08:12→21:10)
[2025-08-20] MEDS: METOPROLOL IR 25 MG TABLET PO ×3 (08:12→21:10)
[2025-08-20] MEDS: ASPIRIN EC 81 MG TABLET PO ×2 (08:44→21:10)
--- NOTE | 2025-08-20 09:28 | P.PN_ITS ---
Subjective Subjective Date Patient Seen: 08/20/25 Interval history: 08/04: 75-year-old female who was admitted with a hip fracture after a fall. She has a history of moderate aortic stenosis and CAD with a previous CABG. The patient had a mildly elevated troponin. She would complained of chest pain intermittently for the past 3 months. Her initial ECG was abnormal and she was discussed with Cardiology and evaluated with an echo which revealed good EF, no wall motion abnormalities, and aortic stenosis. Her revised cardiac risk index for an emergent surgery that is low risk was utilizing calculated with a score of 1 which is a moderate risk of 6%. She did undergo surgery (Screw) and her postoperative troponin did bump to 11. She remains hemodynamically stable and comfortable. Cardiology is consulted and we will be evaluating her. 08/05. Echo revealed a and normal EF. She had a mildly elevated troponin went to the OR after consultation with Cardiology with a moderate risk of 6% or less for cardiac adverse events. Unfortunately, she did have evidence of NSTEMI with a troponin of 11 in the postoperative. 08/06: Doing well, no chest pain or dyspnea. Troponin remained elevated at 11. Discussed with Cardiology who did evaluate the patient. Not felt to be appropriate for heparin drip given her postoperative status. Treated with aspirin, and beta blockade. 08/07: Trop 4. Limited ECHO: The ejection fraction is estimated to be 50-55%. There are regional wall motion abnormalities as specified. Basal septal and mid to basal inferior hypokinesis 08/08: Patient having some apparent Adrian phrenic and subtle appearance of a right facial droop today CT of the head ordered otherwise MRI ordered demonstrated left cortical and white matter punctate infarcts patient is started on Plavix 300 when addition to aspirin 08/09: Developed 8/10 chest pain about 12:30 p.m. EKG shows extensive T-wave and ST segment changes and Q-waves troponin 1.9 which is down from 4 from 08/07. BNP is 2000. Chest pain was relieved with sublingual nitroglycerin and 1/2 inch of nitroglycerin paste. Consulted with Cardiology with a consensus decision to transfer to ICU and initiate nitroglycerin drip if chest pain recurs. Patient is not a candidate for cardiac catheterization due to stroke, not a candidate for anticoagulation due to risk of hemorrhagic transformation of stroke and exsanguination from surgery. Patient loaded Plavix 300 mg serial troponin 08/10: No further reports of chest pain troponin trending down to 1380 started on Imdur 30 mg a day and currently on dual antiplatelet aspirin Plavix metoprolol patient demonstrates very impaired short-term memory eats a piece of egg with a fork with the right hand does like the taste and takes it it out with her left hand and repeats this on the same piece of egg over and over 08/11: No further episodes of chest pain patient is still doing repetitive behaviors but is interactive despite replacing solute and fluid restriction and diuretic patient still has sodium of 117 08/12: Sodium 119 in the morning chronic saline initiated at 100 cc total for 20 cc an hour. At the end of the infusion sodium increased to 122. Patient is still confused was interpretive and expressive aphasia repeating meaningless repetitive behaviors 08/13: Sodium improved to 124 after 2nd hypertonic saline infusion 2 g oral salt replacement and 1500 cc fluid restriction 08/14: Patient is still confused but there is less meaningless repetitive behavior sodium is 125. 08/15 evening: New AF RVR, treated with metoprolol. Converted to NSR. Dx: PAF. Urine retention 08/15-straight cath. S: No acute complaints, no chest pain, or dyspnea. AF + RVR last night, treated with IV metoprolol x2. Repeat sodium 122, down from 125, urine sodium 20. 08/17: Sodium level today is up to 125. Experienced mild pulmonary edema (chest x-ray and BNP 9520) with sat 94% on 4 L OxyMask early this morning so was treated with Lasix 40 mg IV and IV fluid was held. White blood count up to 17.2 and hemoglobin stable at 7.9. Platelets hugh to 684. Urine culture from 08/13 with pansensitive E coli. Already on ceftriaxone. Experienced urinary retention today, likely rectal impaction related. Catheter placed. Discussed details with POA. 08/18: Sodium level up to 129 today. Platelets dropped down to 601. Hemoglobin stable at 7.6. White blood count dropped again to 11.4. Blood pressure is 165/79. Speech is slow and seems to take great effort. She is on track to discharge to [facility] in 1-2 days. Discussed details with POA. 08/20: Sodium level up to 135. Platelets down to 569. Hemoglobin has been bouncing in the 7-8 range, currently 7.5. White blood count 14.7. She is on ceftriaxone for a 08/13 E coli UTI. That can be stopped today after completing 7 days of treatment. Overnight a troponin was done coming back at 3.39. There is no documentation but the patient states that she was having upper substernal/neck chest pain that resolved spontaneously. A repeat troponin is 3.34. An EKG shows no significant changes from baseline. She will be seen by Cardiology again today. The latest EF has dropped from 55% down to 40-45%. Her speech continues to be halting but she seems to be decisional and able to understand/remember. NAD, alert and oriented. Slow and halting speech. Lungs are clear, normal rate and effort. Heart is regular, 2/6 systolic murmur and no gallop or rub. Abdomen is soft, non distended. Extremities are free of edema. IMAGING: X-rays of her right shoulder demonstrate a comminuted healing proximal humerus fracture. X-rays of her right hip and CT scan of the right hip demonstrate a comminuted intertrochanteric right hip fracture. ECHO: 08/17 Interpretation Summary The ejection fraction is estimated to be 40-45%. There is basal to mid septal, basal to mid inferior and mid inferolateral hypokinesis. Compared to the prior study 08/07/2025, the LV is less dynamic and the segmental wall motion abnormalities have worsened. Previous ECHO: - The left ventricular contractility is normal. Estimated ejection fraction is greater than 55% with no segmental wall motion abnormalities. Mild concentric LVH. Grade 1 diastolic dysfunction. - The right ventricular contractility is normal. - Moderate left atrial enlargement. All other cardiac chambers are of normal size. - Moderate mitral annular calcifications with mild mitral valvular stenosis. Mean gradient is 4.2 mmHg. - Moderate aortic valvular stenosis with peak velocity of 3.1 m/s. Mean gradient of 25.1 mmHg. Dimensionless index of 0.45. - No obvious intracardiac shunts. - No obvious intracardiac masses nor thrombi. - No hemodynamically significant pericardial effusion. - Low right-sided filling pressures. Conclusion: Normal biventricular systolic function with mild to moderate valvular stenoses. Brain MR: A few punctate regions of restricted diffusion the subcortical white matter of the left temporal lobe and the deep white matter of the simpson radiata. Findings raise the concern for embolic infarct. A/P: 1. 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 * Contributing to encephalopathy * Saline infusion discontinued after flash pulmonary edema. * Continue NaCl 2 tabs b.i.d. * Monitor sodium closely. * Not on any SSRI or HCTZ 2. Right hip fracture status post ORIF with perioperative non STEMI (moderate periorbital risk of coronary disease given history of CAD with revascularization) with possible new outcome of apical akinesis * Complicated by perioperative myocardial infarction and left-sided stroke 3. 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 Findings raise the concern for embolic infarct). 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 NSTEMI post operative. Chronic coronary artery disease status post CABG with unstable angina 08/09. * Not a candidate for cardiac catheterization due to stroke * Not a candidate for anticoagulation due to stroke and postoperative * Aspirin with Plavix daily * Long-acting Nitrates Imdur to manage angina * Appreciate cardiology expertise * Continue all goal directed medical therapy * Perioperative non STEMI likely type 2 * Follow up with Cardiology after discharge and rehabilitation to establish anatomy and possible interventions at a safe point. * Repeat limited Echo on 08/17: EF dropped from 55% down to 40-45% with basal/septal hypokinesis. * Requesting repeat Cardiology assessment due to recurrent chest pain and again rising troponins.. 5. PAF, new. 6. Altered mental status. Improving. -likely related to her small stroke and prolonged multifactorial illness. -slowly improving. 7. Thrombocytosis/Anemia/Leukocytosis. Anemia is worse today. The patient does decline any blood that has not screen above against previous COVID vaccinations. -related to postop and multifactorial illness. -stable/resolving 8. Ecoli UTI: Treated with 7 days of ceftriaxone. PLAN: -Continue current medications. -continue salt tabs 2 p.o. b.i.d., follow sodium closely. -Stopped IV NS -repeat cardiology assessment due to chest pain/worsening EF/cardiac wall function. -continue fluid restriction. -PT, OT. -Discharge planning. SNF at [facility] -Consider delayed anticoagulation. Continue ASA BID for DVT/PE prevention. -consider discontinuing Plavix based on patient's decreased hemoglobin as well as preference. -monitor hemoglobin. -stop ceftriaxone on 08/20 after completing 7 days for E coli UTI. DISPO: Anticipate discharge to a care home facility in 1-2 more days. Exam Vital Signs (past 8 hours): - 08/20/25 07:56 08/20/25 07:56 Temperature 98.2 F Pulse Rate 95 H Respiratory Rate 17 Blood Pressure 136/71 Pulse Oximetry 96 Oxygen Delivery Method Room Air Oxygen Flow Rate 0 Objective Labs 08/20/25 03:55 08/20/25 03:55 Labs: Laboratory Results - last 24 hr 08/19/25 08/20/25 13:40 03:55 WBC 14.7 H RBC 2.56 L Hgb 8.3 L 7.5 L Hct 24.7 L 22.7 L MCV 88.5 MCH 29.2 MCHC 33.0 RDW 17.6 H Plt Count 569 H Neut % (Auto) 82.8 H Lymph % (Auto) 9.5 L Emmons % (Auto) 6.8 Eos % (Auto) 0.6 L Baso % (Auto) 0.3 Neut # (Auto) 14372 H Lymph # (Auto) 1400 Emmons # (Auto) 1000 H Eos # (Auto) 100 Baso # (Auto) 0 Sodium 135 L Potassium 4.1 Chloride 105 Carbon Dioxide 24 BUN 17 Creatinine 0.55 Estimated GFR > 60 BUN/Creatinine Ratio 30.9 H Glucose 117 H Calcium 8.4 Troponin I 3.390 H* [facility] Medical History Myocardial infarction complications Diastolic dysfunction with chronic heart failure Social History household members: significant other Smoking Status: Never smoker alcohol intake: never Assessment & Plan Time-Based Coding :: [TOTAL MINUTES] spent with patient and on the chart (including review of chart, obtaining history, exam, reviewing outside data, placing orders, documenting exam and treatment plan, and counseling patient) on [DATE].
--- NOTE | 2025-08-20 10:33 | EKG_ITS ---
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
[2025-08-20 11:08] LABS: Troponin I 3.370 ng/mL (0.01-0.034)
--- NOTE | 2025-08-20 13:05 | PT-IP ANOTE ---
Pt on medical hold, holding PT services at this time secondary to elevated troponin levels. Will continue to follow as able.
--- NOTE | 2025-08-20 13:08 | OT.IPNOTE ---
Chart reviewed, pts troponin is 3.37. Spoke with Nurse Cox who consulted with MD. Pt is on hold for all therapies today. Will re-assess tomorrow.
--- NOTE | 2025-08-20 13:20 | PC.NURSE ---
1028 DR COWAN AT BEDSIDE. DISCUSSED ELEVATED TROP FROM AM LABS ( 3.390) WITH . PT STATES SHE HAD CHEST PAIN AROUND 3AM AND THEN IT WENT AWAY AND DID NOT HAPPEN AGAIN. EKG/ REPEAT TROPONIN ORDERED. MD DISCUSSING PLAN WITH PATIENT AND SIGNIFICANT OTHER. WILL POSSIBLY CONSULT EMMETT. PATIENT ALSO PLACED ON TELE. 1110 TROP 3.370. MADE CHAPO AWARE. STATES HE WILL DISCUSS PLAN OF CARE WITH DR CHRISTINE. 1200 CHAPO AT BEDSIDE. STATES HE HAS DISCUSSED CASE WITH WITH DR CHRISTINE. SEE PROVIDER NOTES. PLAN TO USE NITRO PRN. NO OTHER ORDERS. MD UPDATED SIG OTHER AND STATES HE EDUCATED HIM ON BENEFIT OF BLOOD TRANSFUSION BUT SIG OTHER STILL REFUSING. NO REPEAT H/H NEEDED PER MD. PT REMAINS A/OX4 WITH NO C/O PAIN OR SOB AT THIS TIME. Q2 TURNS CONTINUED. NO CONCERNS NOTED AT THIS TIME. CARE ONGOING.
--- NOTE | 2025-08-20 14:15 | CM.DPC ---
Updated progress notes sent to [facility]. Discharge to SNF pending improved lab results in AM.
[2025-08-20] MEDS: NITROGLYCERIN 0.4 MG SL TAB SL (14:46)
[2025-08-20] MEDS: ALBUTEROL 2.5 MG/3 ML NEB (ADULT) INH ×3 (15:30→19:29)
--- NOTE | 2025-08-20 15:46 | SLP.IPNOTE ---
Pt is on medical hold for all therapies today due to troponin levels. Will follow up as able.
[2025-08-20] MEDS: ATORVASTATIN 20 MG TABLET 80 MG PO (21:10)
[2025-08-21] VITALS (60 sets, daily range): BP systolic 144–166; BP diastolic 67–96; PULSE 71–121; RESP 14–35; TEMP 36.1–37.1; O2SAT 91–99
[2025-08-21] MEDS: METOPROLOL IR 25 MG TABLET PO ×3 (05:14→21:05)
[2025-08-21] MEDS: ALBUTEROL 2.5 MG/3 ML NEB (ADULT) INH ×4 (06:31→22:48)
[2025-08-21 07:47] LABS: Add Manual Diff / Slide Review NO; Hematocrit 23.4 % (36-46); Hemoglobin 7.8 g/dL (12.0-16.0); Lymphocytes Absolute Auto 1400 /uL (1100-4500); Mean Corpuscular HGB Conc 33.2 % (30-36); Mean Corpuscular Hemoglobin 29.3 PG (26-34); Mean Corpuscular Volume 88.3 fL (80-100); Platelet Count 593 X10^3/uL (150-400)
[2025-08-21 07:56] LABS: Blood Urea Nitrogen 16 mg/dL (7-17); Calcium 8.6 mg/dL (8.4-10.2); Carbon Dioxide 24 mmol/L (22-32); Chloride 108 mmol/L (98-107); Estimated Glomerular Filt Rate > 60 mL/min (>60); Glucose 123 mg/dL (70-99); HEMOLYSIS < 15 (0-50); Potassium 4.3 mmol/L (3.4-5.1); Sodium 138 mmol/L (137-145)
[2025-08-21 08:29] LABS: Clostridium difficile toxin AB Not Detected (Not Detect); Enteroaggregative E.coli Not Detected (Not Detect); Enteropathogenic E.coli Not Detected (Not Detect); Enterotoxigenic E.coli It/st Not Detected (Not Detect); Plesiomonsa shigelloides Not Detected (Not Detect); Shiga-like toxin-prod E.coli Not Detected (Not Detect)
--- NOTE | 2025-08-21 12:25 | DI.RAD.S_ITS ---
PROCEDURE: XR CHEST 1V INDICATIONS: Wheezing TECHNIQUE: One view of the chest was acquired. COMPARISON: [facility], CR, XR SHOULDER RT 2+ VIEWS, 08/04/2025, 21:01. [facility], CR, XR CHEST 1V, 08/17/2025, 7:26. FINDINGS: Surgical changes and devices: Sternal wires and hilar clips. Lungs and pleura: Mild increased vascularity. No consolidations. No appreciable effusions. Mediastinum: Mediastinal contours appear normal. Heart size is enlarged. Bones and chest wall: No suspicious bony lesions. Overlying soft tissues appear unremarkable. Humeral head/neck fracture as previously identified. Stable alignment. IMPRESSION: Cardiomegaly with increased vascularity suggestive of edema. Dictated by: uSni Quintero M.D. on 08/21/2025 at 12:50 Approved by: Suni Quintero M.D. on 08/21/2025 at 12:53
--- NOTE | 2025-08-21 12:27 | P.PN_ITS ---
Subjective Subjective Date Patient Seen: 08/21/25 Time Patient Seen: : Interval history: 08/04: 75-year-old female who was admitted with a hip fracture after a fall. She has a history of moderate aortic stenosis and CAD with a previous CABG. The patient had a mildly elevated troponin. She would complained of chest pain intermittently for the past 3 months. Her initial ECG was abnormal and she was discussed with Cardiology and evaluated with an echo which revealed good EF, no wall motion abnormalities, and aortic stenosis. Her revised cardiac risk index for an emergent surgery that is low risk was utilizing calculated with a score of 1 which is a moderate risk of 6%. She did undergo surgery (Screw) and her postoperative troponin did bump to 11. She remains hemodynamically stable and comfortable. Cardiology is consulted and we will be evaluating her. 08/05. Echo revealed a and normal EF. She had a mildly elevated troponin went to the OR after consultation with Cardiology with a moderate risk of 6% or less for cardiac adverse events. Unfortunately, she did have evidence of NSTEMI with a troponin of 11 in the postoperative. 08/06: Doing well, no chest pain or dyspnea. Troponin remained elevated at 11. Discussed with Cardiology who did evaluate the patient. Not felt to be appropriate for heparin drip given her postoperative status. Treated with aspirin, and beta blockade. 08/07: Trop 4. Limited ECHO: The ejection fraction is estimated to be 50-55%. There are regional wall motion abnormalities as specified. Basal septal and mid to basal inferior hypokinesis 08/08: Patient having some apparent Adrian phrenic and subtle appearance of a right facial droop today CT of the head ordered otherwise MRI ordered demonstrated left cortical and white matter punctate infarcts patient is started on Plavix 300 when addition to aspirin 08/09: Developed 8/ chest pain about 12:30 p.m. EKG shows extensive T-wave and ST segment changes and Q-waves troponin 1.9 which is down from 4 from 08/07. BNP is 2000. Chest pain was relieved with sublingual nitroglycerin and 1/2 inch of nitroglycerin paste. Consulted with Cardiology with a consensus decision to transfer to ICU and initiate nitroglycerin drip if chest pain recurs. Patient is not a candidate for cardiac catheterization due to stroke, not a candidate for anticoagulation due to risk of hemorrhagic transformation of stroke and exsanguination from surgery. Patient loaded Plavix 300 mg serial troponin 12/1: No further reports of chest pain troponin trending down to 1380 started on Imdur 30 mg a day and currently on dual antiplatelet aspirin Plavix metoprolol patient demonstrates very impaired short-term memory eats a piece of egg with a fork with the right hand does like the taste and takes it it out with her left hand and repeats this on the same piece of egg over and over 08/11: No further episodes of chest pain patient is still doing repetitive behaviors but is interactive despite replacing solute and fluid restriction and diuretic patient still has sodium of 117 08/12: Sodium 119 in the morning chronic saline initiated at 100 cc total for 20 cc an hour. At the end of the infusion sodium increased to 122. Patient is still confused was interpretive and expressive aphasia repeating meaningless repetitive behaviors 08/13: Sodium improved to 124 after 2nd hypertonic saline infusion 2 g oral salt replacement and 1500 cc fluid restriction 08/14: Patient is still confused but there is less meaningless repetitive behavior sodium is 125. 08/15 evening: New AF RVR, treated with metoprolol. Converted to NSR. Dx: PAF. Urine retention 08/15-straight cath. S: No acute complaints, no chest pain, or dyspnea. AF + RVR last night, treated with IV metoprolol x2. Repeat sodium 122, down from 125, urine sodium 20. 08/17: Sodium level today is up to 125. Experienced mild pulmonary edema (chest x-ray and BNP 9520) with sat 94% on 4 L OxyMask early this morning so was treated with Lasix 40 mg IV and IV fluid was held. White blood count up to 17.2 and hemoglobin stable at 7.9. Platelets hugh to 684. Urine culture from 08/13 with pansensitive E coli. Already on ceftriaxone. Experienced urinary retention today, likely rectal impaction related. Catheter placed. Discussed details with POA. 08/18: Sodium level up to 129 today. Platelets dropped down to 601. Hemoglobin stable at 7.6. White blood count dropped again to 11.4. Blood pressure is 165/79. Speech is slow and seems to take great effort. She is on track to discharge to [facility] in 1-2 days. Discussed details with POA. 08/20: Sodium level up to 135. Platelets down to 569. Hemoglobin has been bouncing in the 7-8 range, currently 7.5. White blood count 14.7. She is on ceftriaxone for a 08/13 E coli UTI. That can be stopped today after completing 7 days of treatment. Overnight a troponin was done coming back at 3.39. There is no documentation but the patient states that she was having upper substernal/neck chest pain that resolved spontaneously. A repeat troponin is 3.34. An EKG shows no significant changes from baseline. She will be seen by Cardiology again today. The latest EF has dropped from 55% down to 40-45%. Her speech continues to be halting but she seems to be decisional and able to understand/remember. 08/21: Discussed changes in cardiac function with Cardiology yesterday, who continues to recommend support of anemia, with transfusion if indicated, continuation of Plavix and progression to heart catheterization when 30 days out from stroke. Proceed with carotid ultrasound today. White blood count 13.0. Sodium 138. We will decrease salt tablet dosing. Hemoglobin stable at 7.8. Add iron level, B12 and folate levels. This morning she became somewhat destabilized with increasing tachypnea and tachycardia. Chest x-ray showed continue pulmonary edema so we will start on regular daily Lasix. Wheezing is likely cardiac in origin. She stopped smoking in 1978. Albuterol will also be added. NAD, alert and oriented. Slow and halting speech. Lungs have wheezes Heart is regular, 2/6 systolic murmur and no gallop or rub. Abdomen is soft, non distended. Extremities are free of edema. IMAGING: X-rays of her right shoulder demonstrate a comminuted healing proximal humerus fracture. X-rays of her right hip and CT scan of the right hip demonstrate a comminuted intertrochanteric right hip fracture. ECHO: 08/17 Interpretation Summary The ejection fraction is estimated to be 40-45%. There is basal to mid septal, basal to mid inferior and mid inferolateral hypokinesis. Compared to the prior study 08/07/2025, the LV is less dynamic and the segmental wall motion abnormalities have worsened. Previous ECHO: - The left ventricular contractility is normal. Estimated ejection fraction is greater than 55% with no segmental wall motion abnormalities. Mild concentric LVH. Grade 1 diastolic dysfunction. - The right ventricular contractility is normal. - Moderate left atrial enlargement. All other cardiac chambers are of normal size. - Moderate mitral annular calcifications with mild mitral valvular stenosis. Mean gradient is 4.2 mmHg. - Moderate aortic valvular stenosis with peak velocity of 3.1 m/s. Mean gradient of 25.1 mmHg. Dimensionless index of 0.45. - No obvious intracardiac shunts. - No obvious intracardiac masses nor thrombi. - No hemodynamically significant pericardial effusion. - Low right-sided filling pressures. Conclusion: Normal biventricular systolic function with mild to moderate valvular stenoses. Brain MR: A few punctate regions of restricted diffusion the subcortical white matter of the left temporal lobe and the deep white matter of the simpson radiata. Findings raise the concern for embolic infarct. A/P: 1. 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 * Contributing to encephalopathy * Saline infusion discontinued after flash pulmonary edema. * Continue NaCl, decrease to 1 tab b.i.d. * Monitor sodium closely. * Not on any SSRI or HCTZ 2. Right hip fracture status post ORIF with perioperative non STEMI (moderate periorbital risk of coronary disease given history of CAD with revascularization) with possible new outcome of apical akinesis * Complicated by perioperative myocardial infarction and left-sided stroke 3. 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 Findings raise the concern for embolic infarct). 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 NSTEMI post operative. Chronic coronary artery disease status post CABG with unstable angina 08/09, 08/20. * Not a candidate for cardiac catheterization due to stroke (Would be safer after 30 day lucille) * Not a candidate for anticoagulation due to stroke and postoperative * Aspirin with Plavix daily * Long-acting Nitrates Imdur to manage angina * Appreciate cardiology expertise * Continue all goal directed medical therapy * Perioperative non STEMI likely type 2 * Follow up with Cardiology after discharge and rehabilitation to establish anatomy and possible interventions at a safe point. * Repeat limited Echo on 08/17: EF dropped from 55% down to 40-45% with basal/septal hypokinesis. * Reviewed and discussed with Dr. Jaffe on 08/20. No change to above recommendations. 5. PAF, new. -SR with frequent PAC's, per cardiology 6. Altered mental status. Improving. -likely related to her small stroke and prolonged multifactorial illness. -slowly improving. 7. Thrombocytosis/Anemia/Leukocytosis. Anemia persists, likely secondary to Aspirin, malnourishment of chronic illness. The patient does decline any blood that has been sourced from someone with a previous COVID vaccination. -related to postop and multifactorial illness. -stable/resolving - check B12, folate, iron level and consider iron infusions. 8. Ecoli UTI: Treated with 7 days of ceftriaxone. PLAN: -Continue current medications. -Decrease salt tabs to 1 tab p.o. b.i.d... -continue 1500 cc fluid restriction. -PT, OT. -Discharge planning. SN[facility] at [facility] when stable -Consider delayed anticoagulation. Continue ASA BID for DVT/PE prevention. -consider discontinuing Plavix based on patient's decreased hemoglobin as well as preference. -monitor hemoglobin. -stopped ceftriaxone on 08/20 after completing 7 days for E coli UTI. -based on mild respiratory distress, chest x-ray repeated, showing pulmonary edema. Started on Lasix. Started albuterol for wheezing. -carotid ultrasound ordered based on possible embolic stroke on MRI. DISPO: Anticipate discharge [place] a [place] [facility] in 2 more days. Exam Vital Signs (past 8 hours): - 08/21/25 04:30 08/21/25 05:00 08/21/25 05:30 Temperature Pulse Rate 93 H 89 105 H Respiratory Rate 22 18 33 H Blood Pressure Pulse Oximetry 08/21/25 06:00 08/21/25 06:30 08/21/25 06:31 Temperature Pulse Rate 86 79 75 Respiratory Rate 27 H 23 18 Blood Pressure Pulse Oximetry 93 94 08/21/25 07:00 08/21/25 07:30 08/21/25 07:41 Temperature Pulse Rate 79 85 92 H Respiratory Rate 22 23 26 H Blood Pressure Pulse Oximetry 08/21/25 07:41 08/21/25 08:00 08/21/25 08:00 Temperature 97.6 F Pulse Rate 80 Respiratory Rate 25 H Blood Pressure 158/96 H Pulse Oximetry 08/21/25 08:30 08/21/25 09:00 08/21/25 09:30 Temperature Pulse Rate 84 91 H 92 H Respiratory Rate 23 25 H 23 Blood Pressure Pulse Oximetry 08/21/25 10:00 08/21/25 10:30 08/21/25 11:00 Temperature Pulse Rate 103 H 100 H 120 H Respiratory Rate 27 H 28 H 35 H Blood Pressure Pulse Oximetry 08/21/25 11:30 08/21/25 12:00 08/21/25 12:00 Temperature 98.1 F Pulse Rate 105 H 108 H Respiratory Rate 29 H 27 H Blood Pressure Pulse Oximetry 93 08/21/25 12:02 08/21/25 12:02 Temperature Pulse Rate 104 H Respiratory Rate 27 H Blood Pressure 161/90 H Pulse Oximetry 92 Oxygen Delivery Method Room Air Oxygen Flow Rate 0 Objective Labs 08/21/25 07:10 08/21/25 07:10 Labs: Laboratory Results - last 24 hr 08/21/25 08/21/25 06:00 07:10 WBC 13.0 H RBC 2.65 L Hgb 7.8 L Hct 23.4 L MCV 88.3 MCH 29.3 MCHC 33.2 RDW 17.0 H Plt Count 593 H Neut % (Auto) 82.4 H Lymph % (Auto) 10.8 L [place] % (Auto) 6.0 Eos % (Auto) 0.5 L Baso % (Auto) 0.3 Neut # (Auto) 19624 H Lymph # (Auto) 1400 [place] # (Auto) 800 Eos # (Auto) 100 Baso # (Auto) 0 Sodium 138 Potassium 4.3 Chloride 108 H Carbon Dioxide 24 BUN 16 Creatinine 0.56 Estimated GFR > 60 BUN/Creatinine Ratio 28.6 H Glucose 123 H Calcium 8.6 Stl C. cayetanensis PCR Not detected Stool Rotavirus (PCR) Not detected Stool Adenovirus (PCR) Not detected Stool Astrovirus (PCR) Not detected Stool Cryptosporidium PCR Not detected Stl E.coli Shiga Tox PCR Not detected St Sh/Enteroin Ecoli PCR Not detected Stl Enterotoxigenic E PCR Not detected Stool EPEC (PCR) Not detected Stl E. histolytica PCR Not detected Stool Giardia Lamblia PCR Not detected Stool Sapovirus (PCR) Not detected Stl P. shigelloides PCR Not detected St Y.enterocolitica PCR Not detected Stool Vibrio (PCR) Not detected Stl Vibrio cholerae PCR Not detected Stl Enteroaggr Ecoli PCR Not detected Stl Norovirus GI/GII PCR Not detected Campylobacter (PCR) Not detected C. difficile Tox (PCR) Not detected Salmonella (PCR) Not detected PFSH Medical History Myocardial infarction complications Diastolic dysfunction with chronic heart failure Social History household members: significant other Smoking Status: Never smoker alcohol intake: never Assessment & Plan Time-Based Coding :: [TOTAL MINUTES] spent with patient and on the chart (including review of chart, obtaining history, exam, reviewing outside data, placing orders, documenting exam and treatment plan, and counseling patient) on [DATE].
--- NOTE | 2025-08-21 12:29 | DI.US.S_ITS ---
PROCEDURE: US CAROTID DOPPLER BI INDICATIONS: Embolic Infarct TECHNIQUE: Color and pulse Doppler interrogation was performed of both carotid systems, with image documentation and velocity measurements. COMPARISON: None. FINDINGS: Stenosis calculations are based on SRU (Society of Radiologists in Ultrasound) criteria. Right side: Brachial blood pressure: Not obtained Common carotid artery peak systolic velocity: 63 cm/sec. Internal carotid artery peak systolic velocity: 162 cm/sec. Internal carotid artery end diastolic velocity: 57 cm/sec. External carotid artery peak systolic velocity: 88 cm/sec. ICA/CCA peak systolic ratio: 2.6 . Woody scale imaging description: Hard plaque narrows the origin of the right internal carotid artery. Percent internal carotid artery stenosis: 50-69% by peak systolic velocity criteria. . Vertebral artery: Flow direction is antegrade. Left side: Brachial blood pressure: Not obtained Common carotid artery peak systolic velocity: 112 cm/sec. Internal carotid artery peak systolic velocity: 98 cm/sec. Internal carotid artery end diastolic velocity: 45 cm/sec. External carotid artery peak systolic velocity: 102 cm/sec. ICA/CCA peak systolic ratio: 0.9 . Woody scale imaging description: There is calcific plaque narrowing the mid common carotid artery up to 50%. There is plaque at the level of the proximal left internal carotid artery, non flow limiting. Percent internal carotid artery stenosis: Less than 50% by peak systolic velocity criteria. . Vertebral artery: Not identified.. IMPRESSION: 1. In the right carotid artery, there is 50-69 stenosis based on peak systolic velocity criteria. 2. The left common carotid artery has a midportion stenosis secondary to hard plaque by a perhaps as much as 50%. 3. In the left carotid artery, there is less than 50% proximal internal carotid artery stenosis stenosis based on peak systolic velocity criteria. 4. Antegrade flow in right vertebral artery. 5. No left vertebral artery flow identified. Comment: Consider nonemergent CTA head and neck. Dictated by: Grady Wilson M.D. on 08/21/2025 at 14:13 Approved by: Grady Wilson M.D. on 08/21/2025 at 14:19
[2025-08-21] MEDS: FLUCONAZOLE 100 MG TABLET PO (12:58)
[2025-08-21] MEDS: SODIUM CHLORIDE 0.9% FLUSH 10 ML IV ×2 (12:59→21:03)
[2025-08-21] MEDS: SODIUM CHLORIDE 1,000 MG TABLET 2000 MG PO (12:59)
--- NOTE | 2025-08-21 13:23 | PT-IP ANOTE ---
Discussed pt with her nurse. Will hold Physical Therapy today due to medically issues. Pt has elevated Troponins and undergoing further cardiac assessment.
--- NOTE | 2025-08-21 13:24 | OT.IPNOTE ---
Per Myranda, [facility] has requested that Camille be placed on hold from therapies (from OT and PT). Information was obtained by [facility] staff member, Rossy.
[2025-08-21] MEDS: FUROSEMIDE 40 MG/4 ML VIAL IV (13:34)
--- NOTE | 2025-08-21 13:34 | SLP.IPNOTE ---
Per chart review, pt is on medical hold for therapies today due to troponin levels. ST will continue to follow up as able.
[2025-08-21 17:30] LABS: HEMOLYSIS < 15 (0-50); Iron 30 ug/dL (37-170)
[2025-08-21 17:41] LABS: Percent Iron Saturation 16 % (15-50); Total Iron Binding Capacity 186 ug/dL (265-497); Transferrin 155 mg/dL (206-381)
[2025-08-21 18:05] LABS: Vitamin B12 Reflex MMA if <400 > 1000 pg/mL (239-931)
[2025-08-21 18:40] LABS: Folate 6.3 ng/mL (2.76-20.0)
[2025-08-21] MEDS: ASPIRIN EC 81 MG TABLET PO (21:03)
[2025-08-21] MEDS: SODIUM CHLORIDE 1,000 MG TABLET 1000 MG PO (21:03)
[2025-08-21] MEDS: ATORVASTATIN 20 MG TABLET 80 MG PO (21:03)
[2025-08-21] MEDS: FUROSEMIDE 40 MG/4 ML VIAL 20 MG IV (22:43)
[2025-08-22] VITALS (33 sets, daily range): BP systolic 129–156; BP diastolic 59–86; PULSE 77–115; RESP 15–33; TEMP 36.6–37; O2SAT 90–99
[2025-08-22] MEDS: METOPROLOL IR 25 MG TABLET PO ×3 (06:22→20:52)
[2025-08-22] MEDS: ALBUTEROL 2.5 MG/3 ML NEB (ADULT) INH ×2 (07:34→20:42)
[2025-08-22 07:53] LABS: Add Manual Diff / Slide Review NO; Hematocrit 23.6 % (36-46); Hemoglobin 7.8 g/dL (12.0-16.0); Lymphocytes Absolute Auto 1300 /uL (1100-4500); Mean Corpuscular HGB Conc 33.2 % (30-36); Mean Corpuscular Hemoglobin 29.3 PG (26-34); Mean Corpuscular Volume 88.2 fL (80-100); Platelet Count 633 X10^3/uL (150-400)
[2025-08-22 08:06] LABS: Blood Urea Nitrogen 24 mg/dL (7-17); Calcium 8.7 mg/dL (8.4-10.2); Carbon Dioxide 26 mmol/L (22-32); Chloride 106 mmol/L (98-107); Estimated Glomerular Filt Rate > 60 mL/min (>60); Glucose 137 mg/dL (70-99); HEMOLYSIS < 15 (0-50); Potassium 3.9 mmol/L (3.4-5.1); Sodium 141 mmol/L (137-145)
[2025-08-22] MEDS: FUROSEMIDE 20 MG TABLET PO (09:18)
[2025-08-22] MEDS: SODIUM CHLORIDE 1,000 MG TABLET 1000 MG PO (09:18)
[2025-08-22] MEDS: FLUCONAZOLE 100 MG TABLET PO (09:18)
[2025-08-22] MEDS: ASPIRIN EC 81 MG TABLET PO ×2 (09:18→20:52)
[2025-08-22] MEDS: DOCUSATE 100 MG CAPSULE PO (09:18)
[2025-08-22] MEDS: CLOPIDOGREL 75 MG TABLET PO (09:18)
[2025-08-22] MEDS: SODIUM CHLORIDE 0.9% FLUSH 10 ML IV ×2 (09:19→20:52)
--- NOTE | 2025-08-22 13:21 | P.PN_ITS ---
Subjective Subjective Date Patient Seen: 08/22/25 Interval history: 08/04: 75-year-old female who was admitted with a hip fracture after a fall. She has a history of moderate aortic stenosis and CAD with a previous CABG. The patient had a mildly elevated troponin. She would complained of chest pain intermittently for the past 3 months. Her initial ECG was abnormal and she was discussed with Cardiology and evaluated with an echo which revealed good EF, no wall motion abnormalities, and aortic stenosis. Her revised cardiac risk index for an emergent surgery that is low risk was utilizing calculated with a score of 1 which is a moderate risk of 6%. She did undergo surgery (Screw) and her postoperative troponin did bump to 11. She remains hemodynamically stable and comfortable. Cardiology is consulted and we will be evaluating her. 08/05. Echo revealed a and normal EF. She had a mildly elevated troponin went to the OR after consultation with Cardiology with a moderate risk of 6% or less for cardiac adverse events. Unfortunately, she did have evidence of NSTEMI with a troponin of 11 in the postoperative. 08/06: Doing well, no chest pain or dyspnea. Troponin remained elevated at 11. Discussed with Cardiology who did evaluate the patient. Not felt to be appropriate for heparin drip given her postoperative status. Treated with aspirin, and beta blockade. 08/07: Trop 4. Limited ECHO: The ejection fraction is estimated to be 50-55%. There are regional wall motion abnormalities as specified. Basal septal and mid to basal inferior hypokinesis 08/08: Patient having some apparent Adrian phrenic and subtle appearance of a right facial droop today CT of the head ordered otherwise MRI ordered demonstrated left cortical and white matter punctate infarcts patient is started on Plavix 300 when addition to aspirin 08/09: Developed 8/10 chest pain about 12:30 p.m. EKG shows extensive T-wave and ST segment changes and Q-waves troponin 1.9 which is down from 4 from 08/07. BNP is 2000. Chest pain was relieved with sublingual nitroglycerin and 1/2 inch of nitroglycerin paste. Consulted with Cardiology with a consensus decision to transfer to ICU and initiate nitroglycerin drip if chest pain recurs. Patient is not a candidate for cardiac catheterization due to stroke, not a candidate for anticoagulation due to risk of hemorrhagic transformation of stroke and exsanguination from surgery. Patient loaded Plavix 300 mg serial troponin 08/10: No further reports of chest pain troponin trending down to 1380 started on Imdur 30 mg a day and currently on dual antiplatelet aspirin Plavix metoprolol patient demonstrates very impaired short-term memory eats a piece of egg with a fork with the right hand does like the taste and takes it it out with her left hand and repeats this on the same piece of egg over and over 08/11: No further episodes of chest pain patient is still doing repetitive behaviors but is interactive despite replacing solute and fluid restriction and diuretic patient still has sodium of 117 08/12: Sodium 119 in the morning chronic saline initiated at 100 cc total for 20 cc an hour. At the end of the infusion sodium increased to 122. Patient is still confused was interpretive and expressive aphasia repeating meaningless repetitive behaviors 08/13: Sodium improved to 124 after 2nd hypertonic saline infusion 2 g oral salt replacement and 1500 cc fluid restriction 08/14: Patient is still confused but there is less meaningless repetitive behavior sodium is 125. 08/15 evening: New AF RVR, treated with metoprolol. Converted to NSR. Dx: PAF. Urine retention 08/15-straight cath. S: No acute complaints, no chest pain, or dyspnea. AF + RVR last night, treated with IV metoprolol x2. Repeat sodium 122, down from 125, urine sodium 20. 08/17: Sodium level today is up to 125. Experienced mild pulmonary edema (chest x-ray and BNP 9520) with sat 94% on 4 L OxyMask early this morning so was treated with Lasix 40 mg IV and IV fluid was held. White blood count up to 17.2 and hemoglobin stable at 7.9. Platelets hugh to 684. Urine culture from 08/13 with pansensitive E coli. Already on ceftriaxone. Experienced urinary retention today, likely rectal impaction related. Catheter placed. Discussed details with POA. 08/18: Sodium level up to 129 today. Platelets dropped down to 601. Hemoglobin stable at 7.6. White blood count dropped again to 11.4. Blood pressure is 165/79. Speech is slow and seems to take great effort. She is on track to discharge to [facility] in 1-2 days. Discussed details with POA. 08/20: Sodium level up to 135. Platelets down to 569. Hemoglobin has been bouncing in the 7-8 range, currently 7.5. White blood count 14.7. She is on ceftriaxone for a 08/13 E coli UTI. That can be stopped today after completing 7 days of treatment. Overnight a troponin was done coming back at 3.39. There is no documentation but the patient states that she was having upper substernal/neck chest pain that resolved spontaneously. A repeat troponin is 3.34. An EKG shows no significant changes from baseline. She will be seen by Cardiology again today. The latest EF has dropped from 55% down to 40-45%. Her speech continues to be halting but she seems to be decisional and able to understand/remember. 08/21: Discussed changes in cardiac function with Cardiology yesterday, who continues to recommend support of anemia, with transfusion if indicated, continuation of Plavix and progression to heart catheterization when 30 days out from stroke. Proceed with carotid ultrasound today. White blood count 13.0. Sodium 138. We will decrease salt tablet dosing. Hemoglobin stable at 7.8. Add iron level, B12 and folate levels. This morning she became somewhat destabilized with increasing tachypnea and tachycardia. Chest x-ray showed continue pulmonary edema so we will start on regular daily Lasix. Wheezing is likely cardiac in origin. She stopped smoking in 1978. Albuterol will also be added. 08/22: White blood count 15.8 without overt signs of new infection. Hemoglobin stable at 7.8. Platelets 633. Sodium level 141. B12 level is greater than 1000. Folate is 6.3 and iron level is 30. We will decrease the salt tablets to once daily. We will begin iron infusions daily x3. Watch for any new signs of infection. Antibiotics were stopped yesterday. Has not been sleeping well at night but quite firmly declines a trial of melatonin. Carotid ultrasound yesterday showed 50-69% stenosis on the right with 50% on the left. NAD, alert and oriented. Slow and halting speech. Lungs are clear to auscultation bilaterally Heart is regular, 2/6 systolic murmur and no gallop or rub. Abdomen is soft, non distended. Extremities are free of edema. IMAGING: X-rays of her right shoulder demonstrate a comminuted healing proximal humerus fracture. X-rays of her right hip and CT scan of the right hip demonstrate a comminuted intertrochanteric right hip fracture. ECHO: 08/17 Interpretation Summary The ejection fraction is estimated to be 40-45%. There is basal to mid septal, basal to mid inferior and mid inferolateral hypokinesis. Compared to the prior study 08/07/2025, the LV is less dynamic and the segmental wall motion abnormalities have worsened. Previous ECHO: - The left ventricular contractility is normal. Estimated ejection fraction is greater than 55% with no segmental wall motion abnormalities. Mild concentric LVH. Grade 1 diastolic dysfunction. - The right ventricular contractility is normal. - Moderate left atrial enlargement. All other cardiac chambers are of normal size. - Moderate mitral annular calcifications with mild mitral valvular stenosis. Mean gradient is 4.2 mmHg. - Moderate aortic valvular stenosis with peak velocity of 3.1 m/s. Mean gradient of 25.1 mmHg. Dimensionless index of 0.45. - No obvious intracardiac shunts. - No obvious intracardiac masses nor thrombi. - No hemodynamically significant pericardial effusion. - Low right-sided filling pressures. Conclusion: Normal biventricular systolic function with mild to moderate valvular stenoses. Brain MR: A few punctate regions of restricted diffusion the subcortical white matter of the left temporal lobe and the deep white matter of the simpson radiata. Findings raise the concern for embolic infarct. Carotid US 1. In the right carotid artery, there is 50-69 stenosis based on peak systolic velocity criteria. 2. The left common carotid artery has a midportion stenosis secondary to hard plaque by a perhaps as much as 50%. 3. In the left carotid artery, there is less than 50% proximal internal carotid artery stenosis stenosis based on peak systolic velocity criteria. 4. Antegrade flow in right vertebral artery. 5. No left vertebral artery flow identified. Comment: Consider nonemergent CTA head and neck. A/P: 1. 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 * Contributing to encephalopathy * Saline infusion discontinued after flash pulmonary edema. * Continue NaCl, decrease to 1 tab daily * Monitor sodium closely. * Not on any SSRI or HCTZ 2. Right hip fracture status post ORIF with perioperative non STEMI (moderate periorbital risk of coronary disease given history of CAD with revascularization) with possible new outcome of apical akinesis * Complicated by perioperative myocardial infarction and left-sided stroke 3. 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 Findings raise the concern for embolic infarct). : * Loaded Plavix 300 mg * Dual platelets Plavix and aspirin * High-intensity statin * 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 * Carotid ultrasound without any clear evidence for treatable stenosis or embolic source. 4. NSTEMI post operative. Chronic coronary artery disease status post CABG with unstable angina 08/09, 08/20. * Not a candidate for cardiac catheterization due to stroke (Would be safer after 30 day lucille) * Not a candidate for anticoagulation due to stroke and postoperative * Aspirin with Plavix daily * Long-acting Nitrates Imdur to manage angina * Appreciate cardiology expertise * Continue all goal directed medical therapy * Perioperative non STEMI likely type 2 * Follow up with Cardiology after discharge and rehabilitation to establish anatomy and possible interventions at a safe point. * Repeat limited Echo on 08/17: EF dropped from 55% down to 40-45% with basal/septal hypokinesis. * Reviewed and discussed with Dr. Jaffe on 08/20. No change to above recommendations. 5. PAF, new. -SR with frequent PAC's, per cardiology 6. Altered mental status. Improving. -likely related to her small stroke and prolonged multifactorial illness. -slowly improving. 7. Thrombocytosis/Anemia/Leukocytosis. Anemia persists, likely secondary to Aspirin, malnourishment of chronic illness. The patient does decline any blood that has been sourced from someone with a previous COVID vaccination. -related to postop and multifactorial illness. -stable/resolving -normal B12 and folate but low iron at 30. -begin daily iron infusions x3. 8. Ecoli UTI: Treated with 7 days of ceftriaxone. PLAN: -Continue current medications. -Decrease salt tabs to 1 tab p.o. QD -continue 1500 cc fluid restriction. -PT, OT. -Discharge planning. SNF at [facility] [place] on 08/24 after completing iron infusion series. -Consider delayed anticoagulation. Continue ASA BID for DVT/PE prevention. -consider discontinuing Plavix based on patient's decreased hemoglobin as well as preference. -monitor hemoglobin. -stopped ceftriaxone on 08/20 after completing 7 days for E coli UTI. -based on mild respiratory distress, chest x-ray repeated, showing pulmonary edema. Started on Lasix. Started albuterol for wheezing. -carotid ultrasound shows no clear source of embolic CVA. DISPO: Anticipate discharge to [facility] on 08/24. Exam Vital Signs (past 8 hours): - 08/22/25 05:30 08/22/25 05:49 08/22/25 05:49 Temperature 98.6 F Pulse Rate 95 H 99 H Respiratory Rate 22 22 Blood Pressure 156/86 H Pulse Oximetry 90 L Oxygen Delivery Method Oxygen Flow Rate Fraction of Inspired Oxygen 08/22/25 06:00 08/22/25 06:30 08/22/25 07:00 Temperature Pulse Rate 98 H 101 H 90 Respiratory Rate 24 26 H 22 Blood Pressure Pulse Oximetry Oxygen Delivery Method Oxygen Flow Rate Fraction of Inspired Oxygen 08/22/25 07:30 08/22/25 07:35 08/22/25 07:52 Temperature Pulse Rate 84 83 Respiratory Rate 23 18 Blood Pressure 146/74 H Pulse Oximetry 91 Oxygen Delivery Method Room Air Oxygen Flow Rate 0 Fraction of Inspired Oxygen 21 08/22/25 07:52 08/22/25 08:00 08/22/25 08:00 Temperature Pulse Rate 87 83 Respiratory Rate 22 22 Blood Pressure Pulse Oximetry 92 Oxygen Delivery Method Room Air Oxygen Flow Rate Fraction of Inspired Oxygen 08/22/25 08:30 08/22/25 09:00 08/22/25 09:30 Temperature Pulse Rate 87 88 93 H Respiratory Rate 22 24 25 H Blood Pressure Pulse Oximetry Oxygen Delivery Method Oxygen Flow Rate Fraction of Inspired Oxygen 08/22/25 10:00 08/22/25 10:30 08/22/25 11:00 Temperature Pulse Rate 96 H 93 H 98 H Respiratory Rate 24 29 H 27 H Blood Pressure Pulse Oximetry Oxygen Delivery Method Oxygen Flow Rate Fraction of Inspired Oxygen 08/22/25 11:30 08/22/25 12:00 Temperature Pulse Rate 99 H 89 Respiratory Rate 25 H 20 Blood Pressure Pulse Oximetry Oxygen Delivery Method Oxygen Flow Rate Fraction of Inspired Oxygen Fraction of Inspired Oxygen 21 SaO2/FiO2 Ratio 433 Oxygen Delivery Method Room Air Oxygen Flow Rate 0 Objective Labs 08/22/25 07:31 08/22/25 07:31 Labs: Laboratory Results - last 24 hr 08/21/25 08/21/25 08/22/25 16:45 16:49 07:31 WBC 15.8 H RBC 2.67 L Hgb 7.8 L Hct 23.6 L MCV 88.2 MCH 29.3 MCHC 33.2 RDW 16.8 H Plt Count 633 H Neut % (Auto) 87.2 H Lymph % (Auto) 8.3 L [place] % (Auto) 4.2 Eos % (Auto) 0.0 L Baso % (Auto) 0.3 Neut # (Auto) 73639 H Lymph # (Auto) 1300 [place] # (Auto) 700 Eos # (Auto) 0 Baso # (Auto) 0 Sodium 141 Potassium 3.9 Chloride 106 Carbon Dioxide 26 BUN 24 H Creatinine 0.61 Estimated GFR > 60 BUN/Creatinine Ratio 39.3 H Glucose 137 H Calcium 8.7 Iron 30 L TIBC 186 L % Saturation 16 Transferrin 155 L Vitamin B12 > 1000 H Folate 6.3 PFSH Medical History Myocardial infarction complications Diastolic dysfunction with chronic heart failure Social History household members: significant other Smoking Status: Never smoker alcohol intake: never Assessment & Plan Time-Based Coding :: [TOTAL MINUTES] spent with patient and on the chart (including review of chart, obtaining history, exam, reviewing outside data, placing orders, documenting exam and treatment plan, and counseling patient) on [DATE].
[2025-08-22] MEDS: SODIUM FERRIC GLUCONAT/SUCROSE 125 MG in SODIUM CHLORIDE 0.9% 100 ML 110 MG IV (14:04)
[2025-08-22] MEDS: ATORVASTATIN 20 MG TABLET 80 MG PO (20:53)
[2025-08-23] VITALS (9 sets, daily range): BP systolic 130–171; BP diastolic 42–109; PULSE 91–114; RESP 16–28; TEMP 36.2–37.1; O2SAT 92–100
--- NOTE | 2025-08-23 | DI.RAD.S_ITS ---
PROCEDURE: XR CHEST 1V INDICATIONS: SOB, eval for vol overload (hx ) TECHNIQUE: One view of the chest was acquired. COMPARISON: [facility], CR, XR CHEST 1V, 08/21/2025, 12:36. FINDINGS: Surgical changes and devices: None. Lungs and pleura: Increased prominence of the vessels, peribronchial cuffing, and increased prominence of the interstitial markings. Mediastinum: Mediastinal contours appear normal. Heart size is mildly enlarged. Changes of CABG.. Bones and chest wall: No suspicious bony lesions. Chronic fracture deformity of the right humeral head. Overlying soft tissues appear unremarkable. IMPRESSION: Similar pulmonary edema with stable mild cardiomegaly and changes of CABG when compared to 08/21/2025. Dictated by: Edilberto Powers M.D. on 08/23/2025 at 13:43 Approved by: Edilberto Powers M.D. on 08/23/2025 at 13:44
[2025-08-23] MEDS: ALBUTEROL 2.5 MG/3 ML NEB (ADULT) INH ×3 (03:52→20:32)
[2025-08-23] MEDS: METOPROLOL IR 25 MG TABLET PO ×3 (06:34→20:25)
[2025-08-23 08:02] LABS: Add Manual Diff / Slide Review NO; Hematocrit 23.7 % (36-46); Hemoglobin 7.9 g/dL (12.0-16.0); Lymphocytes Absolute Auto 1700 /uL (1100-4500); Mean Corpuscular HGB Conc 33.5 % (30-36); Mean Corpuscular Hemoglobin 29.7 PG (26-34); Mean Corpuscular Volume 88.7 fL (80-100); Platelet Count 565 X10^3/uL (150-400)
[2025-08-23 08:05] LABS: Alanine Aminotransferase 50 IU/L (<35); Albumin 3.3 g/dL (3.5-5.0); Albumin Globulin Ratio 1.1 (1.0-2.8); Alkaline Phosphatase 104 U/L (38-126); Blood Urea Nitrogen 22 mg/dL (7-17); Calcium 8.6 mg/dL (8.4-10.2); Carbon Dioxide 27 mmol/L (22-32); Chloride 107 mmol/L (98-107); Estimated Glomerular Filt Rate > 60 mL/min (>60); Globulin 3.0 g/dL (1.7-4.1); Glucose 115 mg/dL (70-99); HEMOLYSIS < 15 (0-50); Potassium 3.6 mmol/L (3.4-5.1); Sodium 142 mmol/L (137-145); Total Protein 6.3 g/dL (6.3-8.2)
--- NOTE | 2025-08-23 09:22 | P.PN_ITS ---
Subjective Subjective Date Patient Seen: 08/23/25 Interval history: 08/04: 75-year-old female who was admitted with a hip fracture after a fall. She has a history of moderate aortic stenosis and CAD with a previous CABG. The patient had a mildly elevated troponin. She would complained of chest pain intermittently for the past 3 months. Her initial ECG was abnormal and she was discussed with Cardiology and evaluated with an echo which revealed good EF, no wall motion abnormalities, and aortic stenosis. Her revised cardiac risk index for an emergent surgery that is low risk was utilizing calculated with a score of 1 which is a moderate risk of 6%. She did undergo surgery (Screw) and her postoperative troponin did bump to 11. She remains hemodynamically stable and comfortable. Cardiology is consulted and we will be evaluating her. 08/05. Echo revealed a and normal EF. She had a mildly elevated troponin went to the OR after consultation with Cardiology with a moderate risk of 6% or less for cardiac adverse events. Unfortunately, she did have evidence of NSTEMI with a troponin of 11 in the postoperative. 08/06: Doing well, no chest pain or dyspnea. Troponin remained elevated at 11. Discussed with Cardiology who did evaluate the patient. Not felt to be appropriate for heparin drip given her postoperative status. Treated with aspirin, and beta blockade. 08/07: Trop 4. Limited ECHO: The ejection fraction is estimated to be 50-55%. There are regional wall motion abnormalities as specified. Basal septal and mid to basal inferior hypokinesis 08/08: Patient having some apparent Adrian phrenic and subtle appearance of a right facial droop today CT of the head ordered otherwise MRI ordered demonstrated left cortical and white matter punctate infarcts patient is started on Plavix 300 when addition to aspirin 08/09: Developed 8/10 chest pain about 12:30 p.m. EKG shows extensive T-wave and ST segment changes and Q-waves troponin 1.9 which is down from 4 from 08/07. BNP is 2000. Chest pain was relieved with sublingual nitroglycerin and 1/2 inch of nitroglycerin paste. Consulted with Cardiology with a consensus decision to transfer to ICU and initiate nitroglycerin drip if chest pain recurs. Patient is not a candidate for cardiac catheterization due to stroke, not a candidate for anticoagulation due to risk of hemorrhagic transformation of stroke and exsanguination from surgery. Patient loaded Plavix 300 mg serial troponin 08/10: No further reports of chest pain troponin trending down to 1380 started on Imdur 30 mg a day and currently on dual antiplatelet aspirin Plavix metoprolol patient demonstrates very impaired short-term memory eats a piece of egg with a fork with the right hand does like the taste and takes it it out with her left hand and repeats this on the same piece of egg over and over 08/11: No further episodes of chest pain patient is still doing repetitive behaviors but is interactive despite replacing solute and fluid restriction and diuretic patient still has sodium of 117 08/12: Sodium 119 in the morning chronic saline initiated at 100 cc total for 20 cc an hour. At the end of the infusion sodium increased to 122. Patient is still confused was interpretive and expressive aphasia repeating meaningless repetitive behaviors 08/13: Sodium improved to 124 after 2nd hypertonic saline infusion 2 g oral salt replacement and 1500 cc fluid restriction 08/14: Patient is still confused but there is less meaningless repetitive behavior sodium is 125. 08/15 evening: New AF RVR, treated with metoprolol. Converted to NSR. Dx: PAF. Urine retention 08/15-straight cath. S: No acute complaints, no chest pain, or dyspnea. AF + RVR last night, treated with IV metoprolol x2. Repeat sodium 122, down from 125, urine sodium 20. 08/17: Sodium level today is up to 125. Experienced mild pulmonary edema (chest x-ray and BNP 9520) with sat 94% on 4 L OxyMask early this morning so was treated with Lasix 40 mg IV and IV fluid was held. White blood count up to 17.2 and hemoglobin stable at 7.9. Platelets hugh to 684. Urine culture from 08/13 with pansensitive E coli. Already on ceftriaxone. Experienced urinary retention today, likely rectal impaction related. Catheter placed. Discussed details with POA. 08/18: Sodium level up to 129 today. Platelets dropped down to 601. Hemoglobin stable at 7.6. White blood count dropped again to 11.4. Blood pressure is 165/79. Speech is slow and seems to take great effort. She is on track to discharge to [facility] in 1-2 days. Discussed details with POA. 08/20: Sodium level up to 135. Platelets down to 569. Hemoglobin has been bouncing in the 7-8 range, currently 7.5. White blood count 14.7. She is on ceftriaxone for a 08/13 E coli UTI. That can be stopped today after completing 7 days of treatment. Overnight a troponin was done coming back at 3.39. There is no documentation but the patient states that she was having upper substernal/neck chest pain that resolved spontaneously. A repeat troponin is 3.34. An EKG shows no significant changes from baseline. She will be seen by Cardiology again today. The latest EF has dropped from 55% down to 40-45%. Her speech continues to be halting but she seems to be decisional and able to understand/remember. 08/21: Discussed changes in cardiac function with Cardiology yesterday, who continues to recommend support of anemia, with transfusion if indicated, continuation of Plavix and progression to heart catheterization when 30 days out from stroke. Proceed with carotid ultrasound today. White blood count 13.0. Sodium 138. We will decrease salt tablet dosing. Hemoglobin stable at 7.8. Add iron level, B12 and folate levels. This morning she became somewhat destabilized with increasing tachypnea and tachycardia. Chest x-ray showed continue pulmonary edema so we will start on regular daily Lasix. Wheezing is likely cardiac in origin. She stopped smoking in 1978. Albuterol will also be added. 08/22: White blood count 15.8 without overt signs of new infection. Hemoglobin stable at 7.8. Platelets 633. Sodium level 141. B12 level is greater than 1000. Folate is 6.3 and iron level is 30. We will decrease the salt tablets to once daily. We will begin iron infusions daily x3. Watch for any new signs of infection. Antibiotics were stopped yesterday. Has not been sleeping well at night but quite firmly declines a trial of melatonin. Carotid ultrasound yesterday showed 50-69% stenosis on the right with 50% on the left. 08/23: White blood count is down again to 12.5. Hemoglobin is stable at 7.9. Platelets have improved, down to 565. ALT of 50. Sodium level 142. We will be stopping the sodium chloride and liberalizing the fluid restriction today. She will be going to [facility] after the 2nd IV iron infusion, either later today or tomorrow. NAD, alert and oriented. Slow and halting speech. Lungs are clear to auscultation bilaterally Heart is regular, 2/6 systolic murmur and no gallop or rub. Abdomen is soft, non distended. Extremities are free of edema. IMAGING: X-rays of her right shoulder demonstrate a comminuted healing proximal humerus fracture. X-rays of her right hip and CT scan of the right hip demonstrate a comminuted intertrochanteric right hip fracture. ECHO: 08/17 Interpretation Summary The ejection fraction is estimated to be 40-45%. There is basal to mid septal, basal to mid inferior and mid inferolateral hypokinesis. Compared to the prior study 08/07/2025, the LV is less dynamic and the segmental wall motion abnormalities have worsened. Previous ECHO: - The left ventricular contractility is normal. Estimated ejection fraction is greater than 55% with no segmental wall motion abnormalities. Mild concentric LVH. Grade 1 diastolic dysfunction. - The right ventricular contractility is normal. - Moderate left atrial enlargement. All other cardiac chambers are of normal size. - Moderate mitral annular calcifications with mild mitral valvular stenosis. Mean gradient is 4.2 mmHg. - Moderate aortic valvular stenosis with peak velocity of 3.1 m/s. Mean gradient of 25.1 mmHg. Dimensionless index of 0.45. - No obvious intracardiac shunts. - No obvious intracardiac masses nor thrombi. - No hemodynamically significant pericardial effusion. - Low right-sided filling pressures. Conclusion: Normal biventricular systolic function with mild to moderate valvular stenoses. Brain MR: A few punctate regions of restricted diffusion the subcortical white matter of the left temporal lobe and the deep white matter of the simpson radiata. Findings raise the concern for embolic infarct. Carotid US 1. In the right carotid artery, there is 50-69 stenosis based on peak systolic velocity criteria. 2. The left common carotid artery has a midportion stenosis secondary to hard plaque by a perhaps as much as 50%. 3. In the left carotid artery, there is less than 50% proximal internal carotid artery stenosis stenosis based on peak systolic velocity criteria. 4. Antegrade flow in right vertebral artery. 5. No left vertebral artery flow identified. Comment: Consider nonemergent CTA head and neck. A/P: 1. 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 * Contributing to encephalopathy * Saline infusion discontinued after flash pulmonary edema. * Continue NaCl, decrease to 1 tab daily, stopped on 08/23. * Monitor sodium closely. Increase fluid restriction to 2000 mL per 24 hours. * Not on any SSRI or HCTZ 2. Right hip fracture status post ORIF with perioperative non STEMI (moderate periorbital risk of coronary disease given history of CAD with revascularization) with possible new outcome of apical akinesis * Complicated by perioperative myocardial infarction and left-sided stroke 3. 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 Findings raise the concern for embolic infarct). : * Loaded Plavix 300 mg * Dual platelets Plavix and aspirin * High-intensity statin * Suspect was cause of SIADH * Carotid ultrasound without any clear evidence for treatable stenosis or embolic source. 4. NSTEMI post operative. Chronic coronary artery disease status post CABG with unstable angina 08/09, 08/20. * Not a candidate for cardiac catheterization due to stroke (Would be safer after 30 day lucille) * Not a candidate for anticoagulation due to stroke and postoperative * Aspirin with Plavix daily * Long-acting Nitrates Imdur to manage angina * Appreciate cardiology expertise * Continue all goal directed medical therapy * Perioperative non STEMI likely type 2 * Follow up with Cardiology after discharge and rehabilitation to establish anatomy and possible interventions at a safe point. * Repeat limited Echo on 08/17: EF dropped from 55% down to 40-45% with basal/septal hypokinesis. * Reviewed and discussed with Dr. Jaffe on 08/20. No change to above recommendations. 5. PAF, new. -SR with frequent PAC's, per cardiology 6. Altered mental status. Improving. -likely related to her small stroke and prolonged multifactorial illness. -slowly improving. 7. Thrombocytosis/Anemia/Leukocytosis. Anemia persists, likely secondary to Aspirin, malnourishment of chronic illness. The patient does decline any blood that has been sourced from someone with a previous COVID vaccination. -related to postop and multifactorial illness. -stable/resolving -normal B12 and folate but low iron at 30. -complete IV iron x2 infusion series on 08/23. 8. Ecoli UTI: Treated with 7 days of ceftriaxone. PLAN: -Continue current medications. -stopped sodium chloride -liberalize to 2000 cc fluid restriction. -PT, OT. -Discharge planning. SNF at [facility] on 08/23 or 08/24 after completing iron infusion series. -Continue ASA BID for DVT/PE prevention. -monitor hemoglobin. -stopped ceftriaxone on 08/20 after completing 7 days for E coli UTI. -based on mild respiratory distress, chest x-ray repeated, showing pulmonary edema. Started on Lasix. Started albuterol for wheezing. -carotid ultrasound shows no clear source of embolic CVA. DISPO: Anticipate discharge to [facility] on 08/23 or 08/24. Exam Vital Signs (past 8 hours): - 08/23/25 04:00 08/23/25 06:00 08/23/25 07:46 Temperature 97.8 F 97.6 F Pulse Rate 93 H 104 H 91 H Respiratory Rate 17 16 Blood Pressure 151/82 H 130/69 141/81 H Pulse Oximetry 100 93 Oxygen Flow Rate 0 0 Fraction of Inspired Oxygen 21 SaO2/FiO2 Ratio 452 Oxygen Delivery Method Room Air Oxygen Flow Rate 0 Objective Labs 08/23/25 07:25 08/23/25 07:25 Labs: Laboratory Results - last 24 hr 08/23/25 07:25 WBC 12.5 H RBC 2.67 L Hgb 7.9 L Hct 23.7 L MCV 88.7 MCH 29.7 MCHC 33.5 RDW 16.9 H Plt Count 565 H Neut % (Auto) 80.5 H Lymph % (Auto) 13.8 L Dane % (Auto) 5.3 Eos % (Auto) 0.1 L Baso % (Auto) 0.3 Neut # (Auto) 80621 H Lymph # (Auto) 1700 Dane # (Auto) 700 Eos # (Auto) 0 Baso # (Auto) 0 Sodium 142 Potassium 3.6 Chloride 107 Carbon Dioxide 27 BUN 22 H Creatinine 0.57 Estimated GFR > 60 BUN/Creatinine Ratio 38.6 H Glucose 115 H Calcium 8.6 Total Bilirubin 0.4 AST 33 ALT 50 H Alkaline Phosphatase 104 Total Protein 6.3 Albumin 3.3 L Globulin 3.0 Albumin/Globulin Ratio 1.1 PFSH Medical History Myocardial infarction complications Diastolic dysfunction with chronic heart failure Social History household members: significant other Smoking Status: Never smoker alcohol intake: never Assessment & Plan Time-Based Coding :: [TOTAL MINUTES] spent with patient and on the chart (including review of chart, obtaining history, exam, reviewing outside data, placing orders, documenting exam and treatment plan, and counseling patient) on [DATE].
[2025-08-23] MEDS: SODIUM CHLORIDE 1,000 MG TABLET 1000 MG PO (09:25)
[2025-08-23] MEDS: FLUCONAZOLE 100 MG TABLET PO (09:25)
[2025-08-23] MEDS: FUROSEMIDE 20 MG TABLET PO (09:25)
[2025-08-23] MEDS: CLOPIDOGREL 75 MG TABLET PO (09:26)
[2025-08-23] MEDS: ASPIRIN EC 81 MG TABLET PO ×2 (09:26→20:23)
[2025-08-23] MEDS: DOCUSATE 100 MG CAPSULE PO (09:26)
[2025-08-23] MEDS: SODIUM CHLORIDE 0.9% FLUSH 10 ML IV ×2 (09:27→20:23)
[2025-08-23 10:08] LABS: Salmonella/Shigella Screen Final report (.)
--- NOTE | 2025-08-23 10:53 | PT.IPTN ---
Current Diagnoses Essential (primary) hypertension (08/04/25) Subsequent non-ST elevation (NSTEMI) myocardial infarction (08/04/25) Other current complications following acute myocardial infarction (08/04/25) Nonrheumatic aortic (valve) stenosis (08/04/25) Chronic diastolic (congestive) heart failure (08/04/25) Displaced intertrochanteric fracture of right femur, initial encounter for closed fracture (08/04/25) Surgery Performed Operation Date: 08/05/25 14:00 Actual Procedures p cephalomedullary nail(Right) - Indira Bustamante, DO Physical Therapy Treatment Note M2 PT-IP Current Condition Start: 08/07/25 11:30 Freq: NEEDED Status: Active Protocol: Document 08/15/25 16:17 SAK (Rec: 08/15/25 16:27 SAK [id number]) Physical Therapy Current Condition Current Condition Evaluation Date 08/12/25 Treatment Diagnosis R intertrochanteric Fx, CVA, KS M3 PT-IP Subjective Start: 08/07/25 11:30 Freq: NEEDED Status: Active Protocol: Document 08/23/25 10:47 KJ (Rec: 08/23/25 10:53 KJ [id number]) Subjective Physical Therapy Visit Type Type Re-Evaluation Visit Start Time 10:17 Visit Stop Time 10:44 Physical Therapy Visit Comments Patient Comments c/o wheezing w/activity M4 PT-IP Mobility and Gait Start: 08/07/25 11:30 Freq: NEEDED Status: Active Protocol: Document 08/23/25 10:47 KJ (Rec: 08/23/25 10:53 KJ [id number]) PT-Bed Mobility Assessment Rolling Type of Rolling Roll to Right Level of Assist Moderate Assistance Supine to Sit Supine to Sit Moderate Assistance Sit to Supine Sit to Supine Moderate Assistance PT-Transfer Assessment Comments Mobility Comments Wheezing begins upon sitting. O2 sats drop from 94% to 80% (room air) during activity. Pt moves impulsively with poor safety awareness. While sitting, pt suddenly lies back down on several attempts. PT-Balance Assessment Sitting Balance and Reactions Static Sitting Good Balance Ability Dynamic Sitting Good Balance Ability M5 PT-IP Objective Assessments Start: 08/07/25 11:30 Freq: NEEDED Status: Active Protocol: Document 08/23/25 10:47 KJ (Rec: 08/23/25 10:53 KJ [id number]) Gross Range of Motion Upper Extremity ROM Assessment Right Impaired Impairments shoulder Lower Extremity ROM Assessment Right Impaired Impairments hip Strength Upper Extremity Strength Hand licsw strength 4/5 bilat Comments Strength Comments Pt is not able to follow directions for strength testing. M6 PT-IP Treatment Start: 08/07/25 11:30 Freq: NEEDED Status: Active Protocol: Document 08/23/25 10:47 KJ (Rec: 08/23/25 10:53 KJ [id number]) Physical Therapy Treatment Exercises Exercises Ankle Pumps Education Education Provided Weight Bearing Status,Safety Other Treatments Other Treatment bed mobility, sitting tolerance Performed M7 PT-IP Assessment and Plan Start: 08/07/25 11:30 Freq: NEEDED Status: Active Protocol: Document 08/23/25 10:47 KJ (Rec: 08/23/25 10:53 KJ [id number]) PT Summary Assessment and Plan Potential Rehabilitation Good Potential Status of Condition Evolving at Evaluation Summary Impairments ROM,Bed Mobility,Transfers,Gait,Activity Tolerance Assessment Summary Activity is limited by wheezing and drop in O2 sats Goals Bed Mobility Goal Standby Assistance Transfer Goal Contact Guard Assistance Gait Goal Contact Guard Assistance Gait Distance 10 Frequency of Treatment Frequency Of Once a Day Treatment Treatment Plan Physical Therapy Bed Mobility Training,Transfer Training,Gait Training, Treatment Plan Therapeutic Exercise Other Co treat with OT Recommendations and Next Treatment Focus Weight Bearing Status Weight Bearing Weight Bear as Tolerated Status Recommendations To Nursing Amount of Assist 2 Person Assist,Mechanical Lift Needed Discharge Recommendations PT Discharge Acute Rehab Recommendations - PT assist +1
--- NOTE | 2025-08-23 11:02 | PC.NURSE ---
Patients affect is flat, she is talking more in sentences but does not seem to be happy. She puts her light on multiple times in 5 minutes and most of the times she does not need anything. She is able to use the tv remote and change her channels and turn the lights on and off. She seems to be confused but honestly not sure of how aware she is when she is doing this. When her s.o. is here she does not really use the call light much at all. She refused her breakfast and meds but then took everything when he was here. She just turned her light on again at 1105 and didnt need anything. Dressings with steri strips to r. hip are all cdi, also down leg dressings are cdi. Patient is a roselyn lift. She is watching tv now.
--- NOTE | 2025-08-23 11:10 | PC.NURSE ---
Pt's expressive aphasia seems to have improved since 08/18 when I last provided care. Pt's partner was present at the bedside for a short time this AM and has just returned. When partner isn't at the bedside pt is frequently on her call light with minor requests (ex. turn tv on, turn tv off, turn lights down, etc.) Pt originally refused all meds this morning, her partner then spoke to her and she agreed to take everything as ordered besides the acetaminophen (states 0/10 pain.) Incisions to R hip look great. Partner very involved in pt's care, curious about new labs results. Plan to admin IV dextran later this afternoon and DC to [facility] once labs are stable to my understanding.
[2025-08-23] MEDS: SODIUM FERRIC GLUCONAT/SUCROSE 125 MG in SODIUM CHLORIDE 0.9% 100 ML 110 MG IV (13:44)
--- NOTE | 2025-08-23 14:07 | P.PN_ITS ---
Exam Vital Signs (past 8 hours): - 08/23/25 07:46 08/23/25 09:24 08/23/25 12:15 Temperature 97.6 F 98.7 F Pulse Rate 91 H 100 H 98 H Respiratory Rate 16 20 16 Blood Pressure 141/81 H 146/68 H Pulse Oximetry 93 99 92 Oxygen Flow Rate 0 0 08/23/25 13:42 Temperature 97.2 F L Pulse Rate 114 H Respiratory Rate 28 H Blood Pressure 171/109 H Pulse Oximetry 92 Oxygen Flow Rate Fraction of Inspired Oxygen 21 SaO2/FiO2 Ratio 452 Oxygen Delivery Method Room Air Oxygen Flow Rate 0 Objective Labs 08/23/25 07:25 08/23/25 07:25 Labs: Laboratory Results - last 24 hr 08/20/25 08/23/25 18:16 07:25 WBC 12.5 H RBC 2.67 L Hgb 7.9 L Hct 23.7 L MCV 88.7 MCH 29.7 MCHC 33.5 RDW 16.9 H Plt Count 565 H Neut % (Auto) 80.5 H Lymph % (Auto) 13.8 L [place] % (Auto) 5.3 Eos % (Auto) 0.1 L Baso % (Auto) 0.3 Neut # (Auto) 69152 H Lymph # (Auto) 1700 [place] # (Auto) 700 Eos # (Auto) 0 Baso # (Auto) 0 Sodium 142 Potassium 3.6 Chloride 107 Carbon Dioxide 27 BUN 22 H Creatinine 0.57 Estimated GFR > 60 BUN/Creatinine Ratio 38.6 H Glucose 115 H Calcium 8.6 Total Bilirubin 0.4 AST 33 ALT 50 H Alkaline Phosphatase 104 Total Protein 6.3 Albumin 3.3 L Globulin 3.0 Albumin/Globulin Ratio 1.1 Stool Culture Comment Salmonella/Shigella Final report [facility] Medical History Myocardial infarction complications Diastolic dysfunction with chronic heart failure Social History household members: significant other Smoking Status: Never smoker alcohol intake: never Assessment & Plan Post-op Postoperative Procedures: Procedures Operation Date: 08/05/25 14:00 Actual Procedure Side Surgeon p cephalomedullary nail Right Indira Bustamante, Postoperative status narrative: Interval history: 75 yo F s/p Right hip intertrochanteric fracture s/p long cephalomedullary nail placement ? 08/05/25. Also found to have a perioperative NSTEMI and stroke. Reports continued pain in the right hip. denies SOB/N/V. She is from the [place] area and would like to be placed in a SNF there. However for now she is likely going to be transferred to a local SNF. R hip: Incision sites without erythema or drainage SILT s/s/t/dp/sp Fires ta/gs/ehl/fhl DP pulse 2 + Postoperative status: Weightbearing as tolerated with a walker. She can put some weight through her right upper extremity with the walker. SHe is to be transferred to a SNF in the next couple of days. She already had her fany removed. She will need to follow up with Dr. Bustamante in clinic in about 4 weeks. Message has been sent to the clinical team to set up this appointment. DVT Proph per the primary team PT / OT - recommends SNF placement Appreciate internal medicine and cardiology help with this patient. Ortho is signing off for now - please recontact us if any questions arrise. Taqueria Benitez MD Ortho Time Spent With Patient Time with patient: 15-24 minutes
--- NOTE | 2025-08-23 17:36 | CM.DPC ---
Updated notes sent to Anne with [facility].
--- NOTE | 2025-08-23 17:47 | PC.NURSE ---
Pt developed some respiratory distress this afternoon around 1400, with audible inspiratory and expiratory wheezes, lungs sounded clear otherwise. Pt was diaphoretic and tachypneic with RR around 28 and tachycardic with HR 110-120. Pt repeatedly refused a breathing treatment but eventually agreed once her partner arrived. Breathing much improved following breathing treatment. Given final dose of sodium ferric gluconate. Will continue to monitor.
--- NOTE | 2025-08-23 18:29 | PC.NURSE ---
2 pills found in pt's bed when ATTENDING UROLOGIST did a bedding change. Appear to be a baby aspirin and plavix. Unknown if they were from today or previous day. Will watch closely when administering po meds going forward to verify that they all make it into patient's mouth.
[2025-08-23] MEDS: ATORVASTATIN 20 MG TABLET 80 MG PO (20:22)
[2025-08-23] MEDS: FUROSEMIDE 20 MG/2 ML VIAL IV (20:22)
[2025-08-24] VITALS (10 sets, daily range): BP systolic 130–166; BP diastolic 63–99; PULSE 78–104; RESP 14–24; TEMP 36.3–36.6; O2SAT 91–100
[2025-08-24] MEDS: ALBUTEROL 2.5 MG/3 ML NEB (ADULT) INH ×2 (03:05→21:07)
[2025-08-24 05:44] LABS: Add Manual Diff / Slide Review NO; Hematocrit 25.7 % (36-46); Hemoglobin 8.1 g/dL (12.0-16.0); Lymphocytes Absolute Auto 1100 /uL (1100-4500); Mean Corpuscular HGB Conc 31.7 % (30-36); Mean Corpuscular Hemoglobin 28.6 PG (26-34); Mean Corpuscular Volume 90.3 fL (80-100); Platelet Count 551 X10^3/uL (150-400)
[2025-08-24 06:01] LABS: Blood Urea Nitrogen 32 mg/dL (7-17); Calcium 9.0 mg/dL (8.4-10.2); Carbon Dioxide 28 mmol/L (22-32); Chloride 106 mmol/L (98-107); Estimated Glomerular Filt Rate > 60 mL/min (>60); Glucose 140 mg/dL (70-99); HEMOLYSIS < 15 (0-50); Potassium 3.9 mmol/L (3.4-5.1); Sodium 143 mmol/L (137-145)
[2025-08-24] MEDS: METOPROLOL IR 25 MG TABLET PO ×3 (06:30→21:14)
[2025-08-24] MEDS: CLOPIDOGREL 75 MG TABLET PO (08:54)
[2025-08-24] MEDS: FUROSEMIDE 20 MG TABLET PO (08:54)
[2025-08-24] MEDS: DOCUSATE 100 MG CAPSULE PO ×2 (08:54→21:14)
[2025-08-24] MEDS: ASPIRIN EC 81 MG TABLET PO ×2 (08:54→21:13)
[2025-08-24] MEDS: FLUCONAZOLE 100 MG TABLET PO (08:54)
[2025-08-24] MEDS: SODIUM CHLORIDE 0.9% FLUSH 10 ML IV ×2 (08:55→21:14)
--- NOTE | 2025-08-24 09:10 | PC.NURSE ---
Pt doing well so far this morning. Still having inspiratory and expiratory wheezes but not as audible as yesterday, refused prn breathing treatment this AM. Lungs otherwise clear but diminished. Landin draining normally. Still having significant expressive aphasia which makes it somewhat challenging to assess pt's neurological status. Partner updated on todays lab results and he is currently assisting pt to eat her breakfast tray. Will continue to monitor.
--- NOTE | 2025-08-24 09:16 | PC.NURSE ---
Assess- Patient is alert and oriented x2, she does have some confusion. She took her medications one at a time with water and tolerated this well. Landin patent and putting out yellow urine. She is visiting with her GAGAN Kelsey and he is going to help feed her breakfast this morning.
--- NOTE | 2025-08-24 09:21 | P.DS_ITS ---
History of Present Illness History of Present Illness Date Patient Seen: 08/24/25 Chief complaint: FAll R hip pn Discharge Providers Provider Date of admission: 08/04/25 21:34 Consults: 08/04/25 20:19 Consult to Orthopedic Surgery Stat Comment: Consulting Provider: Indira Bustamante Reason for consultation: r hip fracture Has provider been notified: Yes 08/04/25 20:47 Consult to Physician Routine Comment: Consulting Provider: Indira Bustamante Reason for consultation: rt hip fx Has provider been notified: Yes 08/05/25 17:02 Consult to PRODUCT APPLICATIONS SCIENTIST - Slice Cutting Machine Operator Helper Routine Comment: Slice Cutting Machine Operator Helper Consult needed for:: Other reason (Comment) Comment: Pt here for a visit to her home on [address]. She fell and fractured her hip. She and GAGAN Kelsey live in [facility]. She is probably going to need rehab and they would like her rehab to be done there. Low is unsure what the steps are and he is wondering about transport there. Thanks 08/05/25 22:30 Consult to Anesthesiology Routine Comment: Consulting Provider: Anesthesiologist Reason for consultation: Regional block for post-operative pain control Consult to Discharge Planning Routine Comment: Consult to Occupational Therapy Evaluate & Treat Comment: Physician Instructions: Evaluate and treat Consult to Physical Therapy Evaluate & Treat Comment: Physician Instructions: Evaluate and Treat 08/10/25 22:39 Consult to Pharmacy Routine Comment: protocol 08/12/25 10:53 Consult to Occupational Therapy Evaluate & Treat Comment: Physician Instructions: Evaluate and treat Consult to Physical Therapy Evaluate & Treat Comment: Physician Instructions: Evaluate and Treat 08/14/25 10:27 Consult to Speech Therapy Evaluate & Treat Comment: s/p CVA Physician Instructions: Evaluate and treat Discharge provider: Omid Ferrara MD Summary Hospital Course Hospital Course: 08/04: 75-year-old female who was admitted with a hip fracture after a fall. She has a history of moderate aortic stenosis and CAD with a previous CABG. The patient had a mildly elevated troponin. She would complained of chest pain intermittently for the past 3 months. Her initial ECG was abnormal and she was discussed with Cardiology and evaluated with an echo which revealed good EF, no wall motion abnormalities, and aortic stenosis. Her revised cardiac risk index for an emergent surgery that is low risk was utilizing calculated with a score of 1 which is a moderate risk of 6%. She did undergo surgery (Screw) and her postoperative troponin did bump to 11. She remains hemodynamically stable and comfortable. Cardiology is consulted and we will be evaluating her. 08/05. Echo revealed a and normal EF. She had a mildly elevated troponin went to the OR after consultation with Cardiology with a moderate risk of 6% or less for cardiac adverse events. Unfortunately, she did have evidence of NSTEMI with a troponin of 11 in the postoperative. 08/06: Doing well, no chest pain or dyspnea. Troponin remained elevated at 11. Discussed with Cardiology who did evaluate the patient. Not felt to be appropriate for heparin drip given her postoperative status. Treated with aspirin, and beta blockade. 08/07: Trop 4. Limited ECHO: The ejection fraction is estimated to be 50-55%. There are regional wall motion abnormalities as specified. Basal septal and mid to basal inferior hypokinesis 08/08: Patient having some apparent Adrian phrenic and subtle appearance of a right facial droop today CT of the head ordered otherwise MRI ordered demonstrated left cortical and white matter punctate infarcts patient is started on Plavix 300 when addition to aspirin 08/09: Developed / chest pain about 12:30 p.m. EKG shows extensive T-wave and ST segment changes and Q-waves troponin 1.9 which is down from 4 from 08/07. BNP is 2000. Chest pain was relieved with sublingual nitroglycerin and 1/2 inch of nitroglycerin paste. Consulted with Cardiology with a consensus decision to transfer to ICU and initiate nitroglycerin drip if chest pain recurs. Patient is not a candidate for cardiac catheterization due to stroke, not a candidate for anticoagulation due to risk of hemorrhagic transformation of stroke and exsanguination from surgery. Patient loaded Plavix 300 mg serial troponin 08/10: No further reports of chest pain troponin trending down to 1380 started on Imdur 30 mg a day and currently on dual antiplatelet aspirin Plavix metoprolol patient demonstrates very impaired short-term memory eats a piece of egg with a fork with the right hand does like the taste and takes it it out with her left hand and repeats this on the same piece of egg over and over 08/11: No further episodes of chest pain patient is still doing repetitive behaviors but is interactive despite replacing solute and fluid restriction and diuretic patient still has sodium of 117 08/12: Sodium 119 in the morning chronic saline initiated at 100 cc total for 20 cc an hour. At the end of the infusion sodium increased to 122. Patient is still confused was interpretive and expressive aphasia repeating meaningless repetitive behaviors 08/13: Sodium improved to 124 after 2nd hypertonic saline infusion 2 g oral salt replacement and 1500 cc fluid restriction 08/14: Patient is still confused but there is less meaningless repetitive behavior sodium is 125. 08/15 evening: New AF RVR, treated with metoprolol. Converted to NSR. Dx: PAF. Urine retention 08/15-straight cath. S: No acute complaints, no chest pain, or dyspnea. AF + RVR last night, treated with IV metoprolol x2. Repeat sodium 122, down from 125, urine sodium 20. 08/17: Sodium level today is up to 125. Experienced mild pulmonary edema (chest x-ray and BNP 9520) with sat 94% on 4 L OxyMask early this morning so was treated with Lasix 40 mg IV and IV fluid was held. White blood count up to 17.2 and hemoglobin stable at 7.9. Platelets hugh to 684. Urine culture from 08/13 with pansensitive E coli. Already on ceftriaxone. Experienced urinary retention today, likely rectal impaction related. Catheter placed. Discussed details with POA. 08/18: Sodium level up to 129 today. Platelets dropped down to 601. Hemoglobin stable at 7.6. White blood count dropped again to 11.4. Blood pressure is 165/79. Speech is slow and seems to take great effort. She is on track to discharge to [facility] in 1-2 days. Discussed details with POA. 08/20: Sodium level up to 135. Platelets down to 569. Hemoglobin has been bouncing in the 7-8 range, currently 7.5. White blood count 14.7. She is on ceftriaxone for a 08/13 E coli UTI. That can be stopped today after completing 7 days of treatment. Overnight a troponin was done coming back at 3.39. There is no documentation but the patient states that she was having upper substernal/neck chest pain that resolved spontaneously. A repeat troponin is 3.34. An EKG shows no significant changes from baseline. She will be seen by Cardiology again today. The latest EF has dropped from 55% down to 40-45%. Her speech continues to be halting but she seems to be decisional and able to understand/remember. 08/21: Discussed changes in cardiac function with Cardiology yesterday, who continues to recommend support of anemia, with transfusion if indicated, continuation of Plavix and progression to heart catheterization when 30 days out from stroke. Proceed with carotid ultrasound today. White blood count 13.0. Sodium 138. We will decrease salt tablet dosing. Hemoglobin stable at 7.8. Add iron level, B12 and folate levels. This morning she became somewhat destabilized with increasing tachypnea and tachycardia. Chest x-ray showed continue pulmonary edema so we will start on regular daily Lasix. Wheezing is likely cardiac in origin. She stopped smoking in 1978. Albuterol will also be added. 08/22: White blood count 15.8 without overt signs of new infection. Hemoglobin stable at 7.8. Platelets 633. Sodium level 141. B12 level is greater than 1000. Folate is 6.3 and iron level is 30. We will decrease the salt tablets to once daily. We will begin iron infusions daily x3. Watch for any new signs of infection. Antibiotics were stopped yesterday. Has not been sleeping well at night but quite firmly declines a trial of melatonin. Carotid ultrasound yesterday showed 50-69% stenosis on the right with 50% on the left. 08/23: White blood count is down again to 12.5. Hemoglobin is stable at 7.9. Platelets have improved, down to 565. ALT of 50. Sodium level 142. We will be stopping the sodium chloride and liberalizing the fluid restriction today. She will be going to [facility] after the 2nd IV iron infusion, either later today or tomorrow. NAD, alert and oriented. Slow and halting speech. Lungs are clear to auscultation bilaterally Heart is regular, 2/6 systolic murmur and no gallop or rub. Abdomen is soft, non distended. Extremities are free of edema. IMAGING: X-rays of her right shoulder demonstrate a comminuted healing proximal humerus fracture. X-rays of her right hip and CT scan of the right hip demonstrate a comminuted intertrochanteric right hip fracture. ECHO: 08/17 Interpretation Summary The ejection fraction is estimated to be 40-45%. There is basal to mid septal, basal to mid inferior and mid inferolateral hypokinesis. Compared to the prior study 08/07/2025, the LV is less dynamic and the segmental wall motion abnormalities have worsened. Previous ECHO: - The left ventricular contractility is normal. Estimated ejection fraction is greater than 55% with no segmental wall motion abnormalities. Mild concentric LVH. Grade 1 diastolic dysfunction. - The right ventricular contractility is normal. - Moderate left atrial enlargement. All other cardiac chambers are of normal size. - Moderate mitral annular calcifications with mild mitral valvular stenosis. Mean gradient is 4.2 mmHg. - Moderate aortic valvular stenosis with peak velocity of 3.1 m/s. Mean gradient of 25.1 mmHg. Dimensionless index of 0.45. - No obvious intracardiac shunts. - No obvious intracardiac masses nor thrombi. - No hemodynamically significant pericardial effusion. - Low right-sided filling pressures. Conclusion: Normal biventricular systolic function with mild to moderate valvular stenoses. Brain MR: A few punctate regions of restricted diffusion the subcortical white matter of the left temporal lobe and the deep white matter of the simpson radiata. Findings raise the concern for embolic infarct. Carotid US 1. In the right carotid artery, there is 50-69 stenosis based on peak systolic velocity criteria. 2. The left common carotid artery has a midportion stenosis secondary to hard plaque by a perhaps as much as 50%. 3. In the left carotid artery, there is less than 50% proximal internal carotid artery stenosis stenosis based on peak systolic velocity criteria. 4. Antegrade flow in right vertebral artery. 5. No left vertebral artery flow identified. Comment: Consider nonemergent CTA head and neck. A/P: 1. 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 * Contributing to encephalopathy * Saline infusion discontinued after flash pulmonary edema. * Continue NaCl, decrease to 1 tab daily, stopped on 08/23. * Monitor sodium closely. Increase fluid restriction to 2000 mL per 24 hours. * Not on any SSRI or HCTZ 2. Right hip fracture status post ORIF with perioperative non STEMI (moderate periorbital risk of coronary disease given history of CAD with revascularization) with possible new outcome of apical akinesis * Complicated by perioperative myocardial infarction and left-sided stroke 3. 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 Findings raise the concern for embolic infarct). : * Loaded Plavix 300 mg * Dual platelets Plavix and aspirin * High-intensity statin * Suspect was cause of SIADH * Carotid ultrasound without any clear evidence for treatable stenosis or embolic source. 4. NSTEMI post operative. Chronic coronary artery disease status post CABG with unstable angina 08/09, 08/20. * Not a candidate for cardiac catheterization due to stroke (Would be safer after 30 day lucille) * Not a candidate for anticoagulation due to stroke and postoperative * Aspirin with Plavix daily * Long-acting Nitrates Imdur to manage angina * Appreciate cardiology expertise * Continue all goal directed medical therapy * Perioperative non STEMI likely type 2 * Follow up with Cardiology after discharge and rehabilitation to establish anatomy and possible interventions at a safe point. * Repeat limited Echo on 08/17: EF dropped from 55% down to 40-45% with basal/septal hypokinesis. * Reviewed and discussed with Dr. Jaffe on 08/20. No change to above recommendations. 5. PAF, new. -SR with frequent PAC's, per cardiology 6. Altered mental status. Improving. -likely related to her small stroke and prolonged multifactorial illness. -slowly improving. 7. Thrombocytosis/Anemia/Leukocytosis. Anemia persists, likely secondary to Aspirin, malnourishment of chronic illness. The patient does decline any blood that has been sourced from someone with a previous COVID vaccination. -related to postop and multifactorial illness. -stable/resolving -normal B12 and folate but low iron at 30. -complete IV iron x2 infusion series on 08/23. 8. Ecoli UTI: Treated with 7 days of ceftriaxone. PLAN: -Continue current medications. -stopped sodium chloride -liberalize to 2000 cc fluid restriction. -PT, OT. -Discharge planning. SNF at [facility] [place] on 08/23 or 08/24 after completing iron infusion series. -Continue ASA BID for DVT/PE prevention. -monitor hemoglobin. -stopped ceftriaxone on 08/20 after completing 7 days for E coli UTI. -based on mild respiratory distress, chest x-ray repeated, showing pulmonary edema. Started on Lasix. Started albuterol for wheezing. -carotid ultrasound shows no clear source of embolic CVA. Exam Vital Signs (past 8 hours): - 08/24/25 03:05 08/24/25 04:00 08/24/25 09:00 Temperature 97.6 F 97.3 F L Pulse Rate 104 H 98 H 93 H Respiratory Rate 24 21 17 Blood Pressure 144/74 H 146/82 H Pulse Oximetry 99 93 91 Oxygen Delivery Method Room Air Oxygen Flow Rate 0 Fraction of Inspired Oxygen 21 SaO2/FiO2 Ratio 447 Oxygen Delivery Method Room Air Oxygen Flow Rate 0 Objective Labs 08/24/25 04:43 08/24/25 04:43 Labs: Laboratory Results - last 24 hr 08/20/25 08/23/25 08/24/25 18:16 20:32 04:43 WBC 13.7 H RBC 2.84 L Hgb 8.1 L Hct 25.7 L MCV 90.3 MCH 28.6 MCHC 31.7 RDW 17.5 H Plt Count 551 H Neut % (Auto) 87.9 H Lymph % (Auto) 8.3 L Mower % (Auto) 3.5 Eos % (Auto) 0.1 L Baso % (Auto) 0.2 Neut # (Auto) 92557 H Lymph # (Auto) 1100 Mower # (Auto) 500 Eos # (Auto) 0 Baso # (Auto) 0 Sodium 143 Potassium 3.9 Chloride 106 Carbon Dioxide 28 BUN 32 H Creatinine 0.67 Estimated GFR > 60 BUN/Creatinine Ratio 47.8 H Glucose 140 H POC Whole Bld Glucose 179 H Calcium 9.0 Stool Culture Comment Salmonella/Shigella Final report [facility] Medical History Myocardial infarction complications Diastolic dysfunction with chronic heart failure Social History household members: significant other Smoking Status: Never smoker alcohol intake: never Discharge Assessment & Plan Assessment and Plan Plan of Treatment: Weightbearing as tolerated with a walker. She can put some weight through her right upper extremity with the walker. SHe is to be transferred to a SNF in the next couple of days. She already had her fany removed. She will need to follow up with Dr. Bustamante in clinic in about 4 weeks. Message has been sent to the clinical team to set up this appointment. Discharge Plan Discharge orders & Medications Prescriptions: No Action metoprolol succinate 50 mg tablet extended release 24 hr 50 mg PO DAILY amlodipine 10 mg tablet 10 mg PO DAILY aspirin 81 mg tablet,delayed release (DR/EC) 81 mg PO DAILY Activity Restrictions/Additional Instructions: Ortho discharge instructions: ACTIVITY INSTRUCTIONS o??? You are weight bearing as tolerated to the operative lower extremity with a walker. We encourage active movement of the toes and ankle every hour while awake to circulate blood. o??? You must be cleared by your orthopedic provider before operating a vehicle. ? DRESSING CARE o??? You have a simple waterproof dressing in place. Leave the dressing in place until your follow up in the orthopedic clinic. You may shower with the dressing in place. o??? Keep extremity elevated to the level of the heart to reduce swelling. You can use ice on top of the dressing to reduce pain and swelling of the extremity. o??? If you notice fever, chills, redness, excessive drainage or bleeding, a sharp increase in pain that persists after taking pain medication, pain in your calf muscles, chest pain or trouble breathing please unwrap the dressing and investigate. Then call the office with findings for further guidance. If it is after regular clinic hours, please seek care in the emergency department. o??? In the rare case of any severe chest pain and trouble breathing, seek immediate care, do not delay for a call to the clinic. ? POST-OPERATIVE INSTRUCTIONS o??? Follow up with the orthopedic clinic in 2 weeks. Call our office at [phone] with any concerns ? MEDICATIONS o??? Take three pills of 325 mg Tylenol (acetaminophen) every 8 hours regardless of pain in a scheduled manner. Do not exceed 3000 mg of Tylenol (from ALL sources, including over the counter combination products) in a 24-hour period due to risk of liver injury. o??? Take one pill of 5 mg oxycodone by mouth every 4-6 hours as needed for break through pain stronger than 7 out of 10 on a pain scale. Take this for severe pain 1 hour after taking the scheduled Tylenol. o??? Take 200 mg of Colace by mouth every 12 hours for constipation. Narcotic medications such as oxycodone may increase your risk of constipation after surgery. o??? Take 4 mg of Zofran by mouth every 6 hours as needed for uncontrolled nausea or vomiting. If you have persistent nausea and vomiting call our office or seek care in the emergency department. o??? Take one pill of 81 mg of aspirin two times daily 12 hours apart for 6 weeks for blood clot prevention. Take this medication regardless of pain. o??? Resume all of?your normal home medications unless specified otherwise by your surgeon tomorrow morning.
--- NOTE | 2025-08-24 09:37 | PC.NURSE ---
Patient seems to be more alert and with it, but forgetful. She is lying supine. Dressing to coccyx and back changed, bottom is red with open area. Wound photos available. Low her friend is here, patient will eventually work with physical therapy and get up in the chair. Unsure if she is discharging today or not.
[2025-08-24 11:09] LABS: E coli Shiga Toxin EIA Negative (Negative)
--- NOTE | 2025-08-24 11:59 | P.PN_ITS ---
Subjective Subjective Date Patient Seen: 08/24/25 Interval history: 08/04: 75-year-old female who was admitted with a hip fracture after a fall. She has a history of moderate aortic stenosis and CAD with a previous CABG. The patient had a mildly elevated troponin. She would complained of chest pain intermittently for the past 3 months. Her initial ECG was abnormal and she was discussed with Cardiology and evaluated with an echo which revealed good EF, no wall motion abnormalities, and aortic stenosis. Her revised cardiac risk index for an emergent surgery that is low risk was utilizing calculated with a score of 1 which is a moderate risk of 6%. She did undergo surgery (Screw) and her postoperative troponin did bump to 11. She remains hemodynamically stable and comfortable. Cardiology is consulted and we will be evaluating her. 08/05. Echo revealed a and normal EF. She had a mildly elevated troponin went to the OR after consultation with Cardiology with a moderate risk of 6% or less for cardiac adverse events. Unfortunately, she did have evidence of NSTEMI with a troponin of 11 in the postoperative. 08/06: Doing well, no chest pain or dyspnea. Troponin remained elevated at 11. Discussed with Cardiology who did evaluate the patient. Not felt to be appropriate for heparin drip given her postoperative status. Treated with aspirin, and beta blockade. 08/07: Trop 4. Limited ECHO: The ejection fraction is estimated to be 50-55%. There are regional wall motion abnormalities as specified. Basal septal and mid to basal inferior hypokinesis 08/08: Patient having some apparent Adrian phrenic and subtle appearance of a right facial droop today CT of the head ordered otherwise MRI ordered demonstrated left cortical and white matter punctate infarcts patient is started on Plavix 300 when addition to aspirin 08/09: Developed 8/10 chest pain about 12:30 p.m. EKG shows extensive T-wave and ST segment changes and Q-waves troponin 1.9 which is down from 4 from 08/07. BNP is 2000. Chest pain was relieved with sublingual nitroglycerin and 1/2 inch of nitroglycerin paste. Consulted with Cardiology with a consensus decision to transfer to ICU and initiate nitroglycerin drip if chest pain recurs. Patient is not a candidate for cardiac catheterization due to stroke, not a candidate for anticoagulation due to risk of hemorrhagic transformation of stroke and exsanguination from surgery. Patient loaded Plavix 300 mg serial troponin 08/10: No further reports of chest pain troponin trending down to 1380 started on Imdur 30 mg a day and currently on dual antiplatelet aspirin Plavix metoprolol patient demonstrates very impaired short-term memory eats a piece of egg with a fork with the right hand does like the taste and takes it it out with her left hand and repeats this on the same piece of egg over and over 08/11: No further episodes of chest pain patient is still doing repetitive behaviors but is interactive despite replacing solute and fluid restriction and diuretic patient still has sodium of 117 08/12: Sodium 119 in the morning chronic saline initiated at 100 cc total for 20 cc an hour. At the end of the infusion sodium increased to 122. Patient is still confused was interpretive and expressive aphasia repeating meaningless repetitive behaviors 08/13: Sodium improved to 124 after 2nd hypertonic saline infusion 2 g oral salt replacement and 1500 cc fluid restriction 08/14: Patient is still confused but there is less meaningless repetitive behavior sodium is 125. 08/15 evening: New AF RVR, treated with metoprolol. Converted to NSR. Dx: PAF. Urine retention 08/15-straight cath. S: No acute complaints, no chest pain, or dyspnea. AF + RVR last night, treated with IV metoprolol x2. Repeat sodium 122, down from 125, urine sodium 20. 08/17: Sodium level today is up to 125. Experienced mild pulmonary edema (chest x-ray and BNP 9520) with sat 94% on 4 L OxyMask early this morning so was treated with Lasix 40 mg IV and IV fluid was held. White blood count up to 17.2 and hemoglobin stable at 7.9. Platelets hugh to 684. Urine culture from 08/13 with pansensitive E coli. Already on ceftriaxone. Experienced urinary retention today, likely rectal impaction related. Catheter placed. Discussed details with POA. 08/18: Sodium level up to 129 today. Platelets dropped down to 601. Hemoglobin stable at 7.6. White blood count dropped again to 11.4. Blood pressure is 165/79. Speech is slow and seems to take great effort. She is on track to discharge to [facility] in 1-2 days. Discussed details with POA. 08/20: Sodium level up to 135. Platelets down to 569. Hemoglobin has been bouncing in the 7-8 range, currently 7.5. White blood count 14.7. She is on ceftriaxone for a 08/13 E coli UTI. That can be stopped today after completing 7 days of treatment. Overnight a troponin was done coming back at 3.39. There is no documentation but the patient states that she was having upper substernal/neck chest pain that resolved spontaneously. A repeat troponin is 3.34. An EKG shows no significant changes from baseline. She will be seen by Cardiology again today. The latest EF has dropped from 55% down to 40-45%. Her speech continues to be halting but she seems to be decisional and able to understand/remember. 08/21: Discussed changes in cardiac function with Cardiology yesterday, who continues to recommend support of anemia, with transfusion if indicated, continuation of Plavix and progression to heart catheterization when 30 days out from stroke. Proceed with carotid ultrasound today. White blood count 13.0. Sodium 138. We will decrease salt tablet dosing. Hemoglobin stable at 7.8. Add iron level, B12 and folate levels. This morning she became somewhat destabilized with increasing tachypnea and tachycardia. Chest x-ray showed continue pulmonary edema so we will start on regular daily Lasix. Wheezing is likely cardiac in origin. She stopped smoking in 1978. Albuterol will also be added. 08/22: White blood count 15.8 without overt signs of new infection. Hemoglobin stable at 7.8. Platelets 633. Sodium level 141. B12 level is greater than 1000. Folate is 6.3 and iron level is 30. We will decrease the salt tablets to once daily. We will begin iron infusions daily x3. Watch for any new signs of infection. Antibiotics were stopped yesterday. Has not been sleeping well at night but quite firmly declines a trial of melatonin. Carotid ultrasound yesterday showed 50-69% stenosis on the right with 50% on the left. 08/23: White blood count is down again to 12.5. Hemoglobin is stable at 7.9. Platelets have improved, down to 565. ALT of 50. Sodium level 142. We will be stopping the sodium chloride and liberalizing the fluid restriction today. She will be going to [facility] after the 2nd IV iron infusion, either later today or tomorrow. 08/24: Doing well. White blood count 13.7 with hemoglobin 8.1 and platelets 551. Sodium 143. Pending authorization by insurance for rehab stay. Extended discussions with her POA. He is quite focused on her intermittent wheezing which I suggested could be, in addition to the CHF, some bronchitis that has been treated already with the ceftriaxone. NAD, alert and oriented. Slow and halting speech. Lungs are clear to auscultation bilaterally Heart is regular, 2/6 systolic murmur and no gallop or rub. Abdomen is soft, non distended. Extremities are free of edema. IMAGING: X-rays of her right shoulder demonstrate a comminuted healing proximal humerus fracture. X-rays of her right hip and CT scan of the right hip demonstrate a comminuted intertrochanteric right hip fracture. ECHO: 08/17 Interpretation Summary The ejection fraction is estimated to be 40-45%. There is basal to mid septal, basal to mid inferior and mid inferolateral hypokinesis. Compared to the prior study 08/07/2025, the LV is less dynamic and the segmental wall motion abnormalities have worsened. Previous ECHO: - The left ventricular contractility is normal. Estimated ejection fraction is greater than 55% with no segmental wall motion abnormalities. Mild concentric LVH. Grade 1 diastolic dysfunction. - The right ventricular contractility is normal. - Moderate left atrial enlargement. All other cardiac chambers are of normal size. - Moderate mitral annular calcifications with mild mitral valvular stenosis. Mean gradient is 4.2 mmHg. - Moderate aortic valvular stenosis with peak velocity of 3.1 m/s. Mean gradient of 25.1 mmHg. Dimensionless index of 0.45. - No obvious intracardiac shunts. - No obvious intracardiac masses nor thrombi. - No hemodynamically significant pericardial effusion. - Low right-sided filling pressures. Conclusion: Normal biventricular systolic function with mild to moderate valvular stenoses. Brain MR: A few punctate regions of restricted diffusion the subcortical white matter of the left temporal lobe and the deep white matter of the simpson radiata. Findings raise the concern for embolic infarct. Carotid US 1. In the right carotid artery, there is 50-69 stenosis based on peak systolic velocity criteria. 2. The left common carotid artery has a midportion stenosis secondary to hard plaque by a perhaps as much as 50%. 3. In the left carotid artery, there is less than 50% proximal internal carotid artery stenosis stenosis based on peak systolic velocity criteria. 4. Antegrade flow in right vertebral artery. 5. No left vertebral artery flow identified. Comment: Consider nonemergent CTA head and neck. A/P: 1. 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 * Contributing to encephalopathy * Saline infusion discontinued after flash pulmonary edema. * Continue NaCl, decrease to 1 tab daily, stopped on 08/23. * Monitor sodium closely. Increased fluid restriction to 2000 mL per 24 hours. * Not on any SSRI or HCTZ 2. Right hip fracture status post ORIF with perioperative non STEMI (moderate periorbital risk of coronary disease given history of CAD with revascularization) with possible new outcome of apical akinesis * Complicated by perioperative myocardial infarction and left-sided stroke * Weightbearing as tolerated with a walker. She can put some weight through her right upper extremity with the walker. She already had her fany removed. She will need to follow up with Dr. Bustamante in clinic in about 4 weeks. Message has been sent to the clinical team to set up this appointment. 3. 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 Findings raise the concern for embolic infarct). : * Loaded Plavix 300 mg * Dual platelets Plavix and aspirin * High-intensity statin * Suspect was cause of SIADH * Carotid ultrasound without any clear evidence for treatable stenosis or embolic source. 4. NSTEMI post operative. Chronic coronary artery disease status post CABG with unstable angina 08/09, 08/20. * Not a candidate for cardiac catheterization due to stroke (Would be safer after 30 day lucille) * Not a candidate for anticoagulation due to stroke and postoperative * Aspirin with Plavix daily * Long-acting Nitrates Imdur to manage angina * Appreciate cardiology expertise * Continue all goal directed medical therapy * Perioperative non STEMI likely type 2 * Follow up with Cardiology after discharge and rehabilitation to establish anatomy and possible interventions at a safe point. * Repeat limited Echo on 08/17: EF dropped from 55% down to 40-45% with basal/septal hypokinesis. * Reviewed and discussed with Dr. Jaffe on 08/20. No change to above recommendations. 5. PAF, new. -SR with frequent PAC's, per cardiology 6. Altered mental status. Improving. -likely related to her small stroke and prolonged multifactorial illness. -slowly improving. 7. Thrombocytosis/Anemia/Leukocytosis. Anemia persists, likely secondary to Aspirin, malnourishment of chronic illness. The patient does decline any blood that has been sourced from someone with a previous COVID vaccination. -related to postop and multifactorial illness. -stable/resolving -normal B12 and folate but low iron at 30. -complete IV iron x2 infusion series on 08/23. 8. Ecoli UTI: Treated with 7 days of ceftriaxone. PLAN: -Continue current medications. -stopped sodium chloride -liberalized to 2000 cc fluid restriction. -PT, OT. -Discharge planning. SNF at [facility] [place] on 08/25 after insurance approval received -Continue ASA BID for DVT/PE prevention. -monitor hemoglobin. -stopped ceftriaxone on 08/20 after completing 7 days for E coli UTI. -based on mild respiratory distress, chest x-ray repeated, showing pulmonary edema. Started on Lasix. Started albuterol for wheezing. -carotid ultrasound shows no clear source of embolic CVA. Exam Vital Signs (past 8 hours): - 08/24/25 04:00 08/24/25 09:00 Temperature 97.6 F 97.3 F L Pulse Rate 98 H 93 H Respiratory Rate 21 17 Blood Pressure 144/74 H 146/82 H Pulse Oximetry 93 91 Oxygen Flow Rate 0 Fraction of Inspired Oxygen 21 SaO2/FiO2 Ratio 447 Oxygen Delivery Method Room Air Oxygen Flow Rate 0 Objective Labs 08/24/25 04:43 08/24/25 04:43 Labs: Laboratory Results - last 24 hr 08/20/25 08/23/25 08/24/25 18:16 20:32 04:43 WBC 13.7 H RBC 2.84 L Hgb 8.1 L Hct 25.7 L MCV 90.3 MCH 28.6 MCHC 31.7 RDW 17.5 H Plt Count 551 H Neut % (Auto) 87.9 H Lymph % (Auto) 8.3 L Falls % (Auto) 3.5 Eos % (Auto) 0.1 L Baso % (Auto) 0.2 Neut # (Auto) 50013 H Lymph # (Auto) 1100 Falls # (Auto) 500 Eos # (Auto) 0 Baso # (Auto) 0 Sodium 143 Potassium 3.9 Chloride 106 Carbon Dioxide 28 BUN 32 H Creatinine 0.67 Estimated GFR > 60 BUN/Creatinine Ratio 47.8 H Glucose 140 H POC Whole Bld Glucose 179 H Calcium 9.0 E.coli Shiga Toxins Negative PFSH Medical History Myocardial infarction complications Diastolic dysfunction with chronic heart failure Social History household members: significant other Smoking Status: Never smoker alcohol intake: never Assessment & Plan Time-Based Coding :: [TOTAL MINUTES] spent with patient and on the chart (including review of chart, obtaining history, exam, reviewing outside data, placing orders, documenting exam and treatment plan, and counseling patient) on [DATE].
--- NOTE | 2025-08-24 14:32 | DIET.PN1 ---
Dietary Progress Note Assessment: F/u. Improved PO intakes, majority recent recorded PO intakes 90-100%. Continues with protein supplements TID that meet 70% of calorie needs and 50-60% protein needs. Additionally tolerating solid foods like [place] yogurt, fruits, hot cereals, soups to support adequate intakes. Ht: 157.48 cm Wt: 64.5 kg BMI: 26.0 UBW: no weight hx in chart. Weight upon admission was recorded in chart as 61.235 kg Last BM: 08/24/25 (08/24/25 05:37) MNA: 12 Jamshid Score: 12 Diet: 08/11/25 Lunch Fluid Restriction Diet Diet Modifications: Total fluid amount: 2,000 Amount allotted to patient trays: 400 Free water included in total: Yes Fluid in addition to trays: [id number] amount: 1,100 [id number] amount: 100 Food Texture: Level 7 - Regular Liquid Consistency: Level 0 - Thin Nutrition Percent Meal Consumed 100% 08/24/25 13:55 Percent Meal Consumed 25% 08/23/25 19:01 Percent Meal Consumed 90 08/23/25 11:58 Labs: RBC 2.84 X10^6/uL (4.0-5.2) L 08/24/25 04:43 Hgb 8.1 g/dL (12.0-16.0) L 08/24/25 04:43 Hct 25.7 % (36-46) L 08/24/25 04:43 Creatinine 0.67 mg/dL (0.52-1.04) 08/24/25 04:43 Iron 30 ug/dL (37-170) L 08/21/25 16:45 % Saturation 16 % (15-50) 08/21/25 16:45 NT-Pro-B Natriuret Pep 9520 pg/mL (<450) H 08/17/25 08:00 Electronically Signed by: Kiarra Dial 08/24/25 14:32 Clinical Dietitian [address] [address]
--- NOTE | 2025-08-24 15:05 | SLP.IPNOTE ---
911 [employer] attempted session around 15:00. Immediately upon 911 [employer] SERVICES DISPATCH[employer] entry, pt verbalized no repeatedly. 911 [employer]Y SERVICES DISPATCHER introduced self and attempted to converse with pt before engaging in session activities. Pt continued to verbalized no and became increasingly agitated. 911 EM[employer]Y SERVICES DISPATCHER explained importance of participating in speech/language treatment to improve functional communication and again attempted to engage in conversation. However, pt continued to decline to participate, beginning to raise voice and gesturing toward door. 911 EMERGENCY SERVICES DISPATCHER to re-attempt session tomorrow as able.
--- NOTE | 2025-08-24 16:05 | PT.IPTN ---
Current Diagnoses Essential (primary) hypertension (08/04/25) Subsequent non-ST elevation (NSTEMI) myocardial infarction (08/04/25) Other current complications following acute myocardial infarction (08/04/25) Nonrheumatic aortic (valve) stenosis (08/04/25) Chronic diastolic (congestive) heart failure (08/04/25) Displaced intertrochanteric fracture of right femur, initial encounter for closed fracture (08/04/25) Surgery Performed Operation Date: 08/05/25 14:00 Actual Procedures p cephalomedullary nail(Right) - Indira Bustamante, DO Physical Therapy Treatment Note M2 PT-IP Current Condition Start: 08/07/25 11:30 Freq: NEEDED Status: Active Protocol: Document 08/15/25 16:17 SAK (Rec: 08/15/25 16:27 SAK [id number]) Physical Therapy Current Condition Current Condition Evaluation Date 08/12/25 Treatment Diagnosis R intertrochanteric Fx, CVA, [place] M3 PT-IP Subjective Start: 08/07/25 11:30 Freq: NEEDED Status: Active Protocol: Document 08/24/25 17:31 NW (Rec: 08/24/25 17:39 NW [id number]) Subjective Physical Therapy Visit Type Type Treatment Note Visit Start Time 15:39 Visit Stop Time 16:05 Notes 26 mins Number of SALES OPERATIONS CONSULTANT Visits 0 Physical Therapy Visit Comments Patient Comments Pt notes increase in wheezing with activity. M4 PT-IP Mobility and Gait Start: 08/07/25 11:30 Freq: NEEDED Status: Active Protocol: Document 08/24/25 17:31 NW (Rec: 08/24/25 17:39 NW [id number]) PT-Bed Mobility Assessment Rolling Type of Rolling Roll to Right Level of Assist Minimal Assistance,1 Person Assistance Supine to Sit Supine to Sit Minimal Assistance,1 Person Assistance,Head of Bed Elevated,Bedrails Scooting Scooting to Edge of Moderate Assistance Bed PT-Transfer Assessment Sit to and From Stand Sit to and from Minimal Assistance,1 Person Assistance Stand Equipment Transfer Assistive Gait Belt,Front Wheeled Walker Device Transfers Transfer Destination Chair Transfer Technique Stand Pivot Transfer Ability Level of Assist Moderate Assistance,2 Person Assistance Comments Mobility Comments Pt demonstrates increased anterior and lateral weight shift for mobility and requires less cues to decrease posterior lean onto surface being transferred from. Upon stance pt is at times CGA with use of FWW. PT-Balance Assessment Sitting Balance and Reactions Static Sitting Good Balance Ability Dynamic Sitting Fair Balance Ability Standing Balance and Reactions Static Standing Poor Balance Ability Dynamic Standing Poor Balance Ability Device Used FWW Comments Other Balance Tests/ standing tolerance > 1 minute x 1 Deviations/Treatment : M5 PT-IP Objective Assessments Start: 08/07/25 11:30 Freq: NEEDED Status: Active Protocol: Document 08/23/25 10:47 KJ (Rec: 08/23/25 10:53 KJ [id number]) Gross Range of Motion Upper Extremity ROM Assessment Right Impaired Impairments shoulder Lower Extremity ROM Assessment Right Impaired Impairments hip Strength Upper Extremity Strength Hand adult live in caregiver strength 4/5 bilat Comments Strength Comments Pt is not able to follow directions for strength testing. M6 PT-IP Treatment Start: 08/07/25 11:30 Freq: NEEDED Status: Active Protocol: Document 08/24/25 17:31 NW (Rec: 08/24/25 17:39 NW [id number]) Physical Therapy Treatment Exercises Exercises Seated Knee Flexion/Extension Education Education Provided Safety Other Treatments Other Treatment 2 x 10 performed on RLE Performed Education given to increase time spent out of bed and with opening blinds secondary for concern for delirium. Education given regarding pts progress thus far with mobility. M7 PT-IP Assessment and Plan Start: 08/07/25 11:30 Freq: NEEDED Status: Active Protocol: Document 08/24/25 17:31 NW (Rec: 08/24/25 17:39 NW [id number]) PT Summary Assessment and Plan Potential Rehabilitation Fair Potential Status of Condition Evolving at Evaluation Summary Impairments Strength,Balance,Coordination,Sensation,Cognition,Bed Mobility,Transfers,Gait,Activity Tolerance Progress Towards Slow Progress due to Medical Issues,Slow Progress due Goals to Activity Tolerance Assessment Summary Camille requires decreased assistance to perform bed mobility and STS from edge of bed with FWW. Still requires modA of 2 with stand pivot transfer to weak side. Pt's vitals remain stable throughout session. Pt has improved activity tolerance and would benefit from inpatient rehab once medically stable to discharge. Goals Bed Mobility Goal Standby Assistance Transfer Goal Contact Guard Assistance Gait Goal Contact Guard Assistance Gait Distance 10 Treatment Plan Physical Therapy Bed Mobility Training,Transfer Training,Gait Training, Treatment Plan Therapeutic Exercise Other Progress standing exercises to marching to improve Recommendations and lateral weight shift. Next Treatment Focus Precautions Other Precautions sling as needed to manage right shoulder pain due to healing fracture Acute CVA and [place] Weight Bearing Status Weight Bearing Weight Bear as Tolerated Status Allowed Weight right LE Bearing Amount ( enter % or #) (%) Recommendations To Nursing Amount of Assist 2 Person Assist,Mechanical Lift Needed Discharge Recommendations PT Discharge Acute Rehab Recommendations Transportation Needs Wheelchair/Cabulance at Discharge - PT assist 1-2
--- NOTE | 2025-08-24 16:31 | OT.IP.TRT ---
Current Diagnoses Essential (primary) hypertension (08/04/25) Subsequent non-ST elevation (NSTEMI) myocardial infarction (08/04/25) Other current complications following acute myocardial infarction (08/04/25) Nonrheumatic aortic (valve) stenosis (08/04/25) Chronic diastolic (congestive) heart failure (08/04/25) Displaced intertrochanteric fracture of right femur, initial encounter for closed fracture (08/04/25) Surgery Performed Operation Date: 08/05/25 14:00 Actual Procedures p cephalomedullary nail(Right) - Indira Bustamante, DO Occupational Therapy Treatment Note M2 OT-IP Current Condition Start: 08/07/25 11:33 Freq: Status: Active Protocol: Document 08/12/25 13:54 [facility] (Rec: 08/12/25 14:10 [facility] Desktop) Occupational Therapy Current Condition Current Condition Evaluation Date 08/12/25 Treatment Diagnosis S/P Right hip orif with IMN on 08/05/25 and subsequent NH and CVA Post Operative Precautions Shoulder Precautions Sling Other Precautions Right arm in sling per Sx ok to put some weight on it with FWW. M3 OT- IP Subjective and Pain Start: 08/07/25 11:33 Freq: Status: Active Protocol: Document 08/24/25 16:04 [facility] (Rec: 08/24/25 16:23 [facility] [id number]) OT- Subjective Occupational Therapy Visit Type Type Treatment Note Visit Start Time 15:39 Visit Stop Time 16:00 Occupational Therapy Visit Comments Patient Comments Pt was being changed by nsg training program assistant on entrance of OT /PT for co-tx. Pt needed some encouragement, but agreed to get up and participate in therapy. Patient/Caregiver To get better. Goals OT Pain Assessment Pain Present Pain Present Denied Pain M4 OT- IP ADL's Start: 08/07/25 11:33 Freq: Status: Active Protocol: Document 08/24/25 16:04 [facility] (Rec: 08/24/25 16:23 [facility] [id number]) OT PCL-[id number]-Vijopko Comments OT Self-Feeding Not at meal time. Comments OT ADL-Grooming General Evaluation Grooming Ability Standby Assistance Comments OT Grooming Comments Pt brushes her hair on setup while sitting EOB. Pt uses 1 hand to maintain her balance while brushing her hair with the other. Pt needs min vcs for completeness. OT ADL-Oral Care General Eval Oral Care Ability Standby Assistance Areas of Assistance Retrieving/Set-Up of Items Comments Oral Care Comments Pt refused to brush her teeth stating Missing teeth and no. Pt did agree to use mouthwash instead. Pt is able to bring open container to her mouth but almost immediately spits mouthwash into basin. She uses a washcloth to dry her face. OT ADL-Dressing General Eval Lower Body Dressing Total Assistance Ability Areas Needing Underpants/Brief,Socks Assistance Comments OT Dressing Comments OT encouraged pt to reach for her socks but pt would say no and was unable to attempt. OT asked pt to try to cross 1 LE over the other for the same purpose, but pt stated no and would not attempt either. OT ADL-Toileting General Evaluation Toileting Ability Total Assistance Comments OT Toileting Nsg was present on entrance of OT/PT performing brief Comments change. Pt was total A. OT ADL-Bathing Comments OT Bathing Comments not observed M5 OT- IP IADL's Start: 08/07/25 11:33 Freq: Status: Active Protocol: Document 08/12/25 13:54 [facility] (Rec: 08/12/25 14:10 [facility] Desktop) OT-Instrumental Activities of Daily Living Home Safety Awareness Awareness of Need Decreased Awareness for Assistance at Home Ability to Problem Unable to Problem Solve Solve Emergency Situations Medication Management Medication Pt will need assist. Management Comments Money Management Money Management Pt will need assist. Comments Meal Preparation Meal Preparation Pt will need assist. 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 Comments M6 OT- IP Functional Cognition Start: 08/07/25 11:33 Freq: Status: Active Protocol: Document 08/24/25 16:04 [facility] (Rec: 08/24/25 16:23 [facility] [id number]) Cognitive Factors Limiting Selfcare Function Cognitive Ability Level of Alertness Alert Patient Orientation Name,Age,Birthday,Month,Year,Place,Situation Attention Span Capable of Focused Attention,Capable of Sustained Ability Attention Ability to Follow Able to Follow One Step Commands with Increased Time, Commands Able to Follow One Step Commands with Repetition Cognitive Comments Cognitive Assessment Pt needed vc for completeness of grooming. Pt continues Comments to be impulsive at times and needs cues for safety awareness. Pt was able to speak a little more clearly today. M7 OT- IP Mobility and Balance Start: 08/07/25 11:33 Freq: Status: Active Protocol: Document 08/24/25 16:04 [facility] (Rec: 08/24/25 16:23 [facility] [id number]) OT- Bed Mobility Assessment Supine to Sit Supine to Sit Assist Minimal Assistance Scooting Scooting to Edge of Maximum Assistance Bed OT-Transfer Assessment Technique Transfer Destination Chair Devices Transfer Assistive Gait Belt,Front Wheeled Walker Devices Comments Mobility Comments Pt was able to use her L hand on bed rail to help scoot her hips to EOB. Pt required MIN A to get her trunk upright and MAX A to scoot to EOB. Pt performed sit> stand with FWW with MIN/MOD A x2. She needs vcs/tcs to mobilize FWW and took several steps with vcs to t/f to the chair with MIN/MOD A x2. She needs up to MIN A for balance during t/f. Pt needs cues to lean forwards when standing. Pt performs sit>stand several reps from recliner with OT- Balance Assessment Sitting Balance and Reactions Static Sitting Good Balance Ability Dynamic Sitting Fair Balance Ability Standing Balance and Reactions Static Standing Poor Balance Ability Dynamic Standing Poor Balance Ability Comments Other Balance Tests/ Pt continues to lean posteriorly when standing and Deviations/Treatment needs cues and assist to stand upright and to midline : with FWW. M8 OT- IP Objective Assessments Start: 08/07/25 11:33 Freq: Status: Active Protocol: Document 08/12/25 13:54 [facility] (Rec: 08/12/25 14:10 [facility] Desktop) OT Gross Range of Motion Upper Extremity Range of Motion Assessment Right Impaired OT Strength Upper Extremity Strength Assessment Right Impaired M9 OT- IP Assessment and Plan Start: 08/07/25 11:33 Freq: Status: Active Protocol: Document 08/24/25 16:04 [facility] (Rec: 08/24/25 16:23 [facility] [id number]) OT Summary Assessment and Plan Potential Rehabilitation Good Potential Analytic Complexity High at Evaluation Summary OT Impairments Pain,Range of Motion,Strength,Balance,Functional Cognition,Functional Mobility,Self-Feeding,Grooming, Dressing,Toileting,Bathing,Toilet Transfers,Shower Transfers,Activity Tolerance Progress Towards Progressing Toward Goals Goals Assessment Summary Pt continues to have difficulty with expressive aphasia , stating no even when she does not intend no. Pt needs some encouragement to attempt different tasks, but is overall agreeable. Pt needs vcs for completeness during grooming tasks. Pt demonstrated decreased assist needs with tfs and was able to take several steps to tf to chair. Pt left up in chair with all needs met and in reach. Recommend SNF vs ARU when medically stable. Goals Self-Feeding Goal Standby Assistance Grooming Goal Independent Dressing Goal Minimal Assistance Toileting Goal Minimal Assistance Bathing Goal Moderate Assistance Toilet Transfer Goal Contact Guard Assistance Shower Transfer Goal Minimal Assistance Days to Meet Goals 27 Frequency of Treatment Other frequency 5x/week Treatment Plan OT Treatment Plan ADL Training,Functional Cognition Training,Functional Mobility,Patient/Family Education,Discharge Planning Discharge Recommendations OT Discharge SNF vs Acute Rehab Recommendations Transportation Needs Wheelchair/Cabulance at Discharge
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
[2025-08-24] MEDS: ATORVASTATIN 20 MG TABLET 40 MG PO (21:14)
[2025-08-25] MEDS: METOPROLOL IR 25 MG TABLET PO (05:51)
[2025-08-25 07:00] VITALS: BP 147/88; PULSE 94; RESP 17; TEMP 36.3; O2SAT 95
[2025-08-25] MEDS: FLUCONAZOLE 100 MG TABLET PO (09:04)
[2025-08-25] MEDS: ASPIRIN EC 81 MG TABLET PO (09:04)
[2025-08-25] MEDS: FUROSEMIDE 20 MG TABLET PO (09:04)
[2025-08-25] MEDS: SODIUM CHLORIDE 0.9% FLUSH 10 ML IV (09:04)
[2025-08-25] MEDS: DOCUSATE 100 MG CAPSULE PO (09:04)
[2025-08-25] MEDS: CLOPIDOGREL 75 MG TABLET PO (09:04)
--- NOTE | 2025-08-25 09:39 | P.DS_ITS ---
History of Present Illness History of Present Illness Date Patient Seen: 08/25/25 Chief complaint: FAll R hip pn Narrative: The pt is a 75 yo who was walking outside when she slipped and tripped on a curb landing on her right hip having immediate pain. The pt tripped several weeks ago and fractured her Rt humerus and is in a sling. She has a hx of CAD with a CABG about 20 years ago and has hypertension which her (who answered all the questions) states is under very good control. She normally has some difficulty with ambulation but they deny having trouble with ADL's. S: This morning, she mentioned squeezing chest pressures for about 3 months. Her ECG is abnormal. In addition, she had a 5 way bypass at [facility] in about 2007. She was had no cardiology follow up in years. She was concerned about the status of her heart in his surgery. Discharge Providers Provider Date of admission: 08/04/25 21:34 Discharge Date: 08/25/25 Consults: 08/04/25 20:19 Consult to Orthopedic Surgery Stat Comment: Consulting Provider: Indira Bustamante Reason for consultation: r hip fracture Has provider been notified: Yes 08/04/25 20:47 Consult to Physician Routine Comment: Consulting Provider: Indira Bustamante Reason for consultation: rt hip fx Has provider been notified: Yes 08/05/25 17:02 [place] [facility] [place] Routine Comment: [place] Consult needed for:: Other reason (Comment) Comment: Pt here for a visit to her home on [place]. She fell and fractured her hip. She and GAGAN Longig live in [facility]. She is probably going to need rehab and they would like her rehab to be done there. Low is unsure what the steps are and he is wondering about transport there. Thanks 08/05/25 22:30 Consult to Anesthesiology Routine Comment: Consulting Provider: Anesthesiologist Reason for consultation: Regional block for post-operative pain control Consult to Discharge Planning Routine Comment: Consult to Occupational Therapy Evaluate & Treat Comment: Physician Instructions: Evaluate and treat Consult to Physical Therapy Evaluate & Treat Comment: Physician Instructions: Evaluate and Treat 08/10/25 22:39 Consult to Pharmacy Routine Comment: protocol 08/12/25 10:53 Consult to Occupational Therapy Evaluate & Treat Comment: Physician Instructions: Evaluate and treat Consult to Physical Therapy Evaluate & Treat Comment: Physician Instructions: Evaluate and Treat 08/14/25 10:27 Consult to Speech Therapy Evaluate & Treat Comment: s/p CVA Physician Instructions: Evaluate and treat Discharge provider: Omid Ferrara MD Summary Hospital Course Hospital Course: To summarize 21 day hospital course: For details see below. Admitted with a right hip fracture. Successful ORIF and slowly rehabbing. Postoperatively she experienced acute CT and a small stroke which has left her quite debilitated. She also experienced a UTI and profound hyponatremia. Both of those have been fully treated and resolved. She experienced recurrent atrial fibrillation and postop anemia. In the last few days the sodium has normalized and she has been able to come off her fluid restriction and salt tablets. The hemoglobin appears to be slowly rising after iron infusion. Her significant other has been very involved, advocating for her and is very detail oriented. She normally lives in [facility] and hopes to return there to see a neurologist for the stroke follow up and a cash office worker for the CT follow up. The soonest she can undergo heart catheterization would be 30 days post stroke which is coming up in 9 days. She needs to follow up BMP and CBC in 3-4 days. 08/04: 75-year-old female who was admitted with a hip fracture after a fall. She has a history of moderate aortic stenosis and CAD with a previous CABG. The patient had a mildly elevated troponin. She would complained of chest pain intermittently for the past 3 months. Her initial ECG was abnormal and she was discussed with Cardiology and evaluated with an echo which revealed good EF, no wall motion abnormalities, and aortic stenosis. Her revised cardiac risk index for an emergent surgery that is low risk was utilizing calculated with a score of 1 which is a moderate risk of 6%. She did undergo surgery (Screw) and her postoperative troponin did bump to 11. She remains hemodynamically stable and comfortable. Cardiology is consulted and we will be evaluating her. 08/05. Echo revealed a and normal EF. She had a mildly elevated troponin went to the OR after consultation with Cardiology with a moderate risk of 6% or less for cardiac adverse events. Unfortunately, she did have evidence of NSTEMI with a troponin of 11 in the postoperative. 08/06: Doing well, no chest pain or dyspnea. Troponin remained elevated at 11. Discussed with Cardiology who did evaluate the patient. Not felt to be appropriate for heparin drip given her postoperative status. Treated with aspirin, and beta blockade. 08/07: Trop 4. Limited ECHO: The ejection fraction is estimated to be 50-55%. There are regional wall motion abnormalities as specified. Basal septal and mid to basal inferior hypokinesis 08/08: Patient having some apparent Adrian phrenic and subtle appearance of a right facial droop today CT of the head ordered otherwise MRI ordered demonstrated left cortical and white matter punctate infarcts patient is started on Plavix 300 when addition to aspirin 08/09: Developed 8/ chest pain about 12:30 p.m. EKG shows extensive T-wave and ST segment changes and Q-waves troponin 1.9 which is down from 4 from 08/07. BNP is 2000. Chest pain was relieved with sublingual nitroglycerin and 1/2 inch of nitroglycerin paste. Consulted with Cardiology with a consensus decision to transfer to ICU and initiate nitroglycerin drip if chest pain recurs. Patient is not a candidate for cardiac catheterization due to stroke, not a candidate for anticoagulation due to risk of hemorrhagic transformation of stroke and exsanguination from surgery. Patient loaded Plavix 300 mg serial troponin 08/10: No further reports of chest pain troponin trending down to 1380 started on Imdur 30 mg a day and currently on dual antiplatelet aspirin Plavix metoprolol patient demonstrates very impaired short-term memory eats a piece of egg with a fork with the right hand does like the taste and takes it it out with her left hand and repeats this on the same piece of egg over and over 08/11: No further episodes of chest pain patient is still doing repetitive behaviors but is interactive despite replacing solute and fluid restriction and diuretic patient still has sodium of 117 08/12: Sodium 119 in the morning chronic saline initiated at 100 cc total for 20 cc an hour. At the end of the infusion sodium increased to 122. Patient is still confused was interpretive and expressive aphasia repeating meaningless repetitive behaviors 08/13: Sodium improved to 124 after 2nd hypertonic saline infusion 2 g oral salt replacement and 1500 cc fluid restriction 08/14: Patient is still confused but there is less meaningless repetitive behavior sodium is 125. 08/15 evening: New AF RVR, treated with metoprolol. Converted to NSR. Dx: PAF. Urine retention 08/15-straight cath. S: No acute complaints, no chest pain, or dyspnea. AF + RVR last night, treated with IV metoprolol x2. Repeat sodium 122, down from 125, urine sodium 20. 08/17: Sodium level today is up to 125. Experienced mild pulmonary edema (chest x-ray and BNP 9520) with sat 94% on 4 L OxyMask early this morning so was treated with Lasix 40 mg IV and IV fluid was held. White blood count up to 17.2 and hemoglobin stable at 7.9. Platelets hugh to 684. Urine culture from 08/13 with pansensitive E coli. Already on ceftriaxone. Experienced urinary retention today, likely rectal impaction related. Catheter placed. Discussed details with POA. 08/18: Sodium level up to 129 today. Platelets dropped down to 601. Hemoglobin stable at 7.6. White blood count dropped again to 11.4. Blood pressure is 165/79. Speech is slow and seems to take great effort. She is on track to discharge to [facility] in 1-2 days. Discussed details with POA. 08/20: Sodium level up to 135. Platelets down to 569. Hemoglobin has been bouncing in the 7-8 range, currently 7.5. White blood count 14.7. She is on ceftriaxone for a 08/13 E coli UTI. That can be stopped today after completing 7 days of treatment. Overnight a troponin was done coming back at 3.39. There is no documentation but the patient states that she was having upper substernal/neck chest pain that resolved spontaneously. A repeat troponin is 3.34. An EKG shows no significant changes from baseline. She will be seen by Cardiology again today. The latest EF has dropped from 55% down to 40-45%. Her speech continues to be halting but she seems to be decisional and able to understand/remember. 08/21: Discussed changes in cardiac function with Cardiology yesterday, who continues to recommend support of anemia, with transfusion if indicated, continuation of Plavix and progression to heart catheterization when 30 days out from stroke. Proceed with carotid ultrasound today. White blood count 13.0. Sodium 138. We will decrease salt tablet dosing. Hemoglobin stable at 7.8. Add iron level, B12 and folate levels. This morning she became somewhat destabilized with increasing tachypnea and tachycardia. Chest x-ray showed continue pulmonary edema so we will start on regular daily Lasix. Wheezing is likely cardiac in origin. She stopped smoking in 1978. Albuterol will also be added. 08/22: White blood count 15.8 without overt signs of new infection. Hemoglobin stable at 7.8. Platelets 633. Sodium level 141. B12 level is greater than 1000. Folate is 6.3 and iron level is 30. We will decrease the salt tablets to once daily. We will begin iron infusions daily x3. Watch for any new signs of infection. Antibiotics were stopped yesterday. Has not been sleeping well at night but quite firmly declines a trial of melatonin. Carotid ultrasound yesterday showed 50-69% stenosis on the right with 50% on the left. 08/23: White blood count is down again to 12.5. Hemoglobin is stable at 7.9. Platelets have improved, down to 565. ALT of 50. Sodium level 142. We will be stopping the sodium chloride and liberalizing the fluid restriction today. She will be going to [facility] after the 2nd IV iron infusion, either later today or tomorrow. 08/24: Doing well. White blood count 13.7 with hemoglobin 8.1 and platelets 551. Sodium 143. Pending authorization by insurance for rehab stay. Extended discussions with her POA. He is quite focused on her intermittent wheezing which I suggested could be, in addition to the CHF, some bronchitis that has been treated already with the ceftriaxone. NAD, alert and oriented. Slow and halting speech. Very anxious about pending transfer to SNF today. Lungs are clear to auscultation bilaterally Heart is regular, 2/6 systolic murmur and no gallop or rub. Abdomen is soft, non distended. Extremities are free of edema. IMAGING: X-rays of her right shoulder demonstrate a comminuted healing proximal humerus fracture. X-rays of her right hip and CT scan of the right hip demonstrate a comminuted intertrochanteric right hip fracture. ECHO: 08/17 Interpretation Summary The ejection fraction is estimated to be 40-45%. There is basal to mid septal, basal to mid inferior and mid inferolateral hypokinesis. Compared to the prior study 08/07/2025, the LV is less dynamic and the segmental wall motion abnormalities have worsened. Previous ECHO: - The left ventricular contractility is normal. Estimated ejection fraction is greater than 55% with no segmental wall motion abnormalities. Mild concentric LVH. Grade 1 diastolic dysfunction. - The right ventricular contractility is normal. - Moderate left atrial enlargement. All other cardiac chambers are of normal size. - Moderate mitral annular calcifications with mild mitral valvular stenosis. Mean gradient is 4.2 mmHg. - Moderate aortic valvular stenosis with peak velocity of 3.1 m/s. Mean gradient of 25.1 mmHg. Dimensionless index of 0.45. - No obvious intracardiac shunts. - No obvious intracardiac masses nor thrombi. - No hemodynamically significant pericardial effusion. - Low right-sided filling pressures. Conclusion: Normal biventricular systolic function with mild to moderate valvular stenoses. Brain MR: A few punctate regions of restricted diffusion the subcortical white matter of the left temporal lobe and the deep white matter of the simpson radiata. Findings raise the concern for embolic infarct. Carotid US 1. In the right carotid artery, there is 50-69 stenosis based on peak systolic velocity criteria. 2. The left common carotid artery has a midportion stenosis secondary to hard plaque by a perhaps as much as 50%. 3. In the left carotid artery, there is less than 50% proximal internal carotid artery stenosis stenosis based on peak systolic velocity criteria. 4. Antegrade flow in right vertebral artery. 5. No left vertebral artery flow identified. Comment: Consider nonemergent CTA head and neck. A/P: 1. 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 * Contributing to encephalopathy * Saline infusion discontinued after flash pulmonary edema. * Treated with BID NaCl, decreased to 1 tab daily, stopped on 08/23. * Monitor sodium closely. Increased fluid restriction to 2000 mL per 24 hours. * Not on any SSRI or HCTZ 2. Right hip fracture status post ORIF with perioperative non STEMI (moderate periorbital risk of coronary disease given history of CAD with revascularization) with possible new outcome of apical akinesis * Complicated by perioperative myocardial infarction and left-sided stroke * Weightbearing as tolerated with a walker. She can put some weight through her right upper extremity with the walker. She already had her fany removed. She will need to follow up with Dr. Bustamante in clinic in about 4 weeks. Message has been sent to the clinical team to set up this appointment. 3. 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 Findings raise the concern for embolic infarct). : * Loaded Plavix 300 mg * Dual platelets Plavix and aspirin * High-intensity statin * Suspect was cause of SIADH * Carotid ultrasound without any clear evidence for treatable stenosis or embolic source. * Not treated with anticoagulation due to Anemia. 4. NSTEMI post operative. Chronic coronary artery disease status post CABG with unstable angina 08/09, 08/20. * Not a candidate for cardiac catheterization due to stroke (Would be safer after 30 day lucille) * Not a candidate for anticoagulation due to stroke and postoperative * Aspirin with Plavix daily * Long-acting Nitrates Imdur to manage angina * Appreciate cardiology expertise * Continue all goal directed medical therapy * Perioperative non STEMI likely type 2 * Follow up with Cardiology after discharge and rehabilitation to establish anatomy and possible interventions at a safe point. * Repeat limited Echo on 08/17: EF dropped from 55% down to 40-45% with basal/septal hypokinesis. * Reviewed and discussed with Dr. Jaffe on 08/20. No change to above recommendations. 5. PAF, new. -SR with frequent PAC's, per cardiology -Metoprolol -Consider anticoagulation when anemia recovery is stabilized 6. Altered mental status. Improving. -likely related to her small stroke and prolonged multifactorial illness. -slowly improving. 7. Thrombocytosis/Anemia/Leukocytosis. Anemia persists, likely secondary to Aspirin, malnourishment of chronic illness. The patient does decline any blood that has been sourced from someone with a previous COVID vaccination. -related to postop and multifactorial illness. -stable/resolving -normal B12 and folate but low iron at 30. -complete IV iron x2 infusion series on 08/23. 8. Ecoli UTI: Treated with 7 days of ceftriaxone. Status at Discharge Cognitive/behavioral status at discharge: at baseline, oriented Functional status at discharge: wheelchair bound Overall status at discharge: patient is progressing back to baseline Time Spent with Patient Time spent: Greater than 30 minutes Exam Vital Signs (past 8 hours): - 08/25/25 07:00 08/25/25 07:00 Temperature 97.3 F L Pulse Rate 94 H Respiratory Rate 17 Blood Pressure 147/88 H Pulse Oximetry 95 Oxygen Delivery Method Room Air Oxygen Flow Rate 0 Fraction of Inspired Oxygen 21 SaO2/FiO2 Ratio 442 Oxygen Delivery Method Room Air Oxygen Flow Rate 0 Objective Labs 08/24/25 04:43 08/24/25 04:43 Labs: Laboratory Results - last 24 hr 08/20/25 08/20/25 18:16 18:16 Campylobacter Culture Final report Comment E.coli Shiga Toxins Negative [facility] Medical History Myocardial infarction complications Diastolic dysfunction with chronic heart failure Social History household members: significant other Smoking Status: Never smoker alcohol intake: never Discharge Assessment & Plan Assessment and Plan Plan of Treatment: Weightbearing as tolerated with a walker. She can put some weight through her right upper extremity with the walker. SHe is to be transferred to a SNF in the next couple of days. She already had her fany removed. She will need to follow up with Dr. Bustamante in clinic in about 4 weeks. Message has been sent to the clinical team to set up this appointment. Discharge Plan Discharge Plan Patient Disposition: SNF Transfer to: [facility] Under care of provider: Facility Carousel Operator Discharge orders & Medications Prescriptions: New aspirin 81 mg Tablet,Delayed Release (Dr/Ec) 81 mg PO BID Qty: 60 0RF atorvastatin 20 mg Tablet 40 mg PO BEDTIME Qty: 30 0RF clopidogrel 75 mg Tablet 75 mg PO DAILY Qty: 30 0RF docusate sodium 100 mg Capsule 100 mg PO BID Qty: 60 0RF melatonin 3 mg Tablet 3 mg PO BEDTIME PRN (Reason: insomnia) Qty: 10 0RF furosemide 20 mg Tablet 20 mg PO DAILY Qty: 30 0RF polyvinyl alcohol [Artificial Tears (polyvin alc)] 1.4 % Drops 1 drp EYE-BOTH PRN PRN (Reason: Dry Eye(S)) Qty: 15 0RF nitroglycerin [Nitrostat] 0.4 mg Tablet, Sublingual 0.4 mg sublingual [id number] PRN (Reason: Chest Pain) Qty: 25 0RF ondansetron 4 mg Tablet,Disintegrating 4 mg PO Q4H PRN (Reason: Nausea And Vomiting) Qty: 30 0RF oxycodone 5 mg Tablet 5 mg PO 2XD PRN (Reason: Pain, Moderate (4-6)) Qty: 25 0RF metoprolol tartrate 25 mg Tablet 25 mg PO Q8HR Qty: 90 0RF sennosides [senna] 8.6 mg Tablet 8.6 mg PO BID PRN (Reason: Constipation) Qty: 60 0RF ascorbic acid (vitamin C) 500 mg capsule 500 mg PO DAILY Qty: 30 0RF ferrous sulfate 325 mg (65 mg iron) tablet 325 mg PO DAILY Qty: 30 0RF Discontinued metoprolol succinate 50 mg tablet extended release 24 hr 50 mg PO DAILY amlodipine 10 mg tablet 10 mg PO DAILY aspirin 81 mg tablet,delayed release (DR/EC) 81 mg PO DAILY Diet/Activity/Treatments Diet: Low-cholesterol Liquid consistency: Normal/Thin Food texture: Regular [facility] Reason for rehabilitation: Therapy following stroke Rehab type: Physical therapy, Occupational therapy and Speech therapy Restrictions to mobility: Weightbearing as tolerated with a walker. She can put some weight through her right upper extremity with the walker. She will need to follow up with Dr. Bustamante in clinic in about 4 weeks. Visit Report/Discharge Packet Stand Alone Forms: [employer] Award, Patient Portal/API, Stroke Signs & Symptoms, Influenza Vaccine Info, Notice of Privacy Practices, Inpatient vs Outpatient, Pneumococcal Vaccine Info, Pt. Rights & Responsibilities
--- NOTE | 2025-08-25 11:22 | PC.NURSE ---
1100 - mariscal catheter removed. Pt tolerated well
--- NOTE | 2025-08-25 12:08 | CM.DPNOTE ---
DCP note PROOFER PREPRESS reviewed EMR per provider, cleared for DC today. per Kiersten at [facility], have auth and bed. can accept today. PROOFER PREPRESS spoke with SRINI Kelsey, transport pref whatever Dr. Ferrara recommends. understands potential to not have cost of transport covered if by BLS. Dr. Ferrara rec BLS per [facility], soonest available is 2:15pm. PROOFER PREPRESS updated provider/Anne/RN/SRINI/[facility]. PROOFER PREPRESS emailed requested clinicals to Anne. placed PASRR/meds/script in chart. PROOFER PREPRESS gave RN report number. PROOFER PREPRESS had provider sign BLS form, placed BLS form in chart. placed meds/script/PASRR in chart. P: dc to [facility] today at 2:15pm via [facility]. no further CM needs at this time. will continue to follow as needed DEANDRA Morfin
--- NOTE | 2025-08-25 14:36 | PC.NURSE ---
1435 - Discharge instructions given and undertood by pt and GAGAN Kelsey. Nursing report given to [facility] around 1300. PIV removed. Pt discharged with ambulance personale.
== END 2025-08-25 14:37 | DRG 480 ==
LOC: ED 20:46 → AC 22:02 → ICU 08-09 13:37 → AC 08-22 17:39
PROVIDERS: Family Medicine; Hospitalist; Internal Medicine; Internal Medicine Cardiovascular Disease; Orthopaedic Surgery; Physician Assistant; Admitting Provider Internal Medicine; Emergency Provider Emergency Medicine; Referring Provider Emergency Medicine; Visit Provider Internal Medicine
PROC: 0QS606Z Reposition Right Upper Femur with Intramedullary Internal Fixation Device, Open Approach (ICD-10-PCS; CPT 27245; principal; 2025-08-05 14:00)
DX: S72.141A Displaced intertrochanteric fracture of right femur, initial encounter for closed fracture (principal); I21.4 Non-ST elevation (NSTEMI) myocardial infarction; N39.0 Urinary tract infection, site not specified; T83.511A Infection and inflammatory reaction due to indwelling urethral catheter, initial encounter; I63.9 Cerebral infarction, unspecified; I50.32 Chronic diastolic (congestive) heart failure; E22.2 Syndrome of inappropriate secretion of antidiuretic hormone; G93.40 Encephalopathy, unspecified; R94.31 Abnormal electrocardiogram [ECG] [EKG]; I35.0 Nonrheumatic aortic (valve) stenosis; I11.0 Hypertensive heart disease with heart failure; R29.810 Facial weakness; R33.9 Retention of urine, unspecified; I48.0 Paroxysmal atrial fibrillation; B96.20 Unspecified Escherichia coli [E. coli] as the cause of diseases classified elsewhere; D75.839 Thrombocytosis, unspecified; D64.9 Anemia, unspecified; D72.829 Elevated white blood cell count, unspecified; J40 Bronchitis, not specified as acute or chronic; S42.201D Unspecified fracture of upper end of right humerus, subsequent encounter for fracture with routine healing; W01.0XXA Fall on same level from slipping, tripping and stumbling without subsequent striking against object, initial encounter; W01.0XXD Fall on same level from slipping, tripping and stumbling without subsequent striking against object, subsequent encounter; Y73.1 Therapeutic (nonsurgical) and rehabilitative gastroenterology and urology devices associated with adverse incidents; Z95.1 Presence of aortocoronary bypass graft
CPT/HCPCS: 36415; 70450; 70551; 71045; 72192; 73030; 73502; 73552; 76000; 80048; 80053; 80076; 81001; 81003; 81015; 82550; 82607; 82746; 82962; 83540; 83550; 83880; 83930; 83935; 84295; 84300; 84484; 85014; 85018; 85025; 85610; 85730; 87040; 87045; 87077; 87086; 87186; 87507; 92507; 93005; 93306; 93307; 93880; 94640; 96105; 96374; 97110; 97112; 97116; 97163; 97164; 97167; 97530; 97535; 99284; C1713; J0696; J1100; J1171; J1938; J2405; J2704; J2916; J3010; J7030; J7040; J7050; J7120; J7613; Q9957